=== PATIENT | female | born 2000 | race Caucasian/White ===

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

== ENCOUNTER → 2018-04-03 19:29 | Outpatient (REF) | payer OTHER, SELFPAY ==
[2018-04-03 20:00] LABS: Basophils % 0.2 % (0.1-2.0); Eosinophils # 0.2 K/mm3 (0.0-0.4); Eosinophils % 1.4 % (0.1-12.0); Hemoglobin 13.4 g/dL (12.2-16.2); Lymphocytes # 3.3 K/mm3 (0.7-4.5); Lymphocytes % 30.2 K/mm3 (10-50); Mean Corpuscular HGB Conc 32.6 g/dL (31.8-35.4); Mean Corpuscular Volume 82.7 fl (81-99); Mean Platelet Volume 7.9 fl (7.4-10.4); Monocytes # 0.5 K/mm3 (0.1-1.0); Monocytes % 4.9 % (1.7-9.3); Neutrophils # 6.9 K/mm3 (1.8-7.8); Neutrophils % 63.4 % (37.0-80.0); Platelet Count 481 K/mm3 (142-424); Red Blood Count 4.96 M/mm3 (4.20-5.40); Red Cell Distribution Width 13.5 % (11.5-17.5); White Blood Count 10.8 K/mm3 (4.5-13.0)
[2018-04-03 20:38] LABS: Alanine Aminotransferase 20 U/L (12-78); Albumin Level 3.9 gm/dL (3.4-5.0); Alkaline Phosphatase 147 U/L (46-116); Anion Gap 13.7 mEq/L (5-15); Aspartate Amino Transferase 14 U/L (15-37); Bilirubin,Total 0.3 mg/dL (0.2-1.0); Blood Urea Nitrogen 6 mg/dL (7-18); Calcium 9.1 mg/dL (8.5-10.1); Carbon Dioxide 27 mmol/L (21.0-32.0); Chloride 104 mmol/L (98-107); Chol/HDL Ratio 5.4 (1-3.5); Cholesterol 178 mg/dL (140-200); Creatinine,Serum 0.79 mg/dL (0.55-1.02); Estimated Glomerular Filt Rate 94 ml/min (>60); GFR (African American) 113 ML/MIN (>60); Globulin 3.8 gm/dl (1.3-3.2); Glucose 77 mg/dL (74-106); HDL Cholesterol 33 mg/dL (29-89); LDL Cholesterol 127 mg/dL (0-130); Potassium 3.7 mmoL/L (3.5-5.1); Sodium 141 mmol/L (136-145); Thyroid Stimulating Hormone 2.52 uIU/ml (0.516-4.13); Total Protein,Serum 7.7 gm/dL (6.4-8.2); Triglycerides 89 mg/dL (30-200); VLDL Cholesterol 18 mg/dL (0-40)
== END ==
LOC: LAB 19:29
PROVIDERS: PCP Nurse Practitioner Family; Visit Provider Nurse Practitioner Family
DX: I10 Essential (primary) hypertension (principal)
CPT/HCPCS: 80053; 80061; 82652; 84436; 84443; 85025

== ENCOUNTER → 2018-04-10 07:47 | Outpatient (CLI) | payer OTHER, SELFPAY ==
--- NOTE | 2018-04-10 07:50 | AS_ITS ---
Renal Arterial Duplex IMPRESSIONS 1. The right renal artery appears normal. 2. The left renal artery appears normal. 3. Kidney size is within normal limits. No evidence of renal artery stenosis, bilaterally. Complete renal arterial duplex. Duplex scan and Doppler flow study including spectral analysis, color and cedeño scale imaging. Location: Vascular laboratory. Patient status: Outpatient. Tables: Arterial flow: + +-------+--------+ Location V sys V ed + +-------+--------+ Right renal - proximal 196cm/s 47.8cm/s + +-------+--------+ Right renal - mid 126cm/s 39.1cm/s + +-------+--------+ Right renal - distal 90cm/s 31.3cm/s + +-------+--------+ Left renal - proximal 165cm/s 39.1cm/s + +-------+--------+ Left renal - mid 166cm/s 40.3cm/s + +-------+--------+ Left renal - distal 191cm/s 62.3cm/s + +-------+--------+ Right renal - Origin 201cm/s 59cm/s + +-------+--------+ Left renal - Origin 183cm/s 45cm/s + +-------+--------+ Aorta 172cm/s 34cm/s + +-------+--------+ Artery mapping: + +--------+-------+ + Location Diameter Patency Comment + +--------+-------+ + Abdominal aorta - mid 1.6mm Patent Elevated velocities noted in the aorta, may be attributed to age. + +--------+-------+ + Renal anatomy: + +------+------+ Left Right + +------+------+ Long axis 10.9cm 10.8cm + +------+------+ Short axis 5.1cm 5.7cm + +------+------+ Velocity ratios: + +-----+ V sys + +-----+ Right renal/aortic 1.2 + +-----+ Left renal/aortic 1.1 + +-----+ (Report amended ) Electronically signed by: Alberto Wooten [id number]
== END ==
PROVIDERS: PCP Nurse Practitioner Family; Visit Provider Nurse Practitioner Family
DX: I10 Essential (primary) hypertension (principal)
CPT/HCPCS: 93976

== ENCOUNTER → 2018-04-24 13:20 | Outpatient (CLI) | payer OTHER, SELFPAY | PROVIDERS: PCP Emergency Medicine; Visit Provider Nurse Practitioner Family | DX: R00.2 Palpitations (principal) | CPT/HCPCS: 93225; 93226 ==

== ENCOUNTER → 2018-10-15 07:35 | Outpatient (CLI) | payer OTHER, SELFPAY ==
--- NOTE | 2018-10-15 07:38 | US_ITS ---
US abdomen complete HISTORY: ITS.REASON: mass in mid abdomen that moves ORDERING PHYSICIAN: CLIFF Russell PATIENT AGE: 18 years COMPARISON: None FINDINGS: PANCREAS:Unremarkable. No obvious mass or abnormal fluid collection. No ductal dilatation LIVER:No focal liver lesions demonstrated. Homogeneous echogenicity. No intrahepatic biliary ductal dilatation evident RIGHT KIDNEY:Unremarkable. Normal size and echogenicity. No hydronephrosis LEFT KIDNEY:Unremarkable. No hydronephrosis. Normal size and echogenicity. GALLBLADDER:No gallstones, gallbladder wall thickening, pericholecystic fluid, or biliary dilatation. SPLEEN:Unremarkable. Normal size and echogenicity ASCITES:None demonstrated. Ultrasound performed of the area of question in the mid abdomen where the patient feels a hard knot. No sonographic abnormalities are evident at this region. IMPRESSION: Unremarkable complete abdominal ultrasound. If there is indeed a palpable, then CT or MRI may be of further value.
== END ==
PROVIDERS: PCP Emergency Medicine; Visit Provider Physician Assistant
DX: R19.00 Intra-abdominal and pelvic swelling, mass and lump, unspecified site (principal)
CPT/HCPCS: 76700

== ENCOUNTER 2018-11-08 10:26 | Emergency (ER) | payer OTHER, SELFPAY ==
[2018-11-08 10:32] VITALS: BP 151/95; PULSE 93; RESP 18; TEMP 36.7; O2SAT 96; BMI 42.7
--- NOTE | 2018-11-08 10:38 | CT_ITS ---
CT abdomen pelvis w con CLINICAL INDICATION: Left-sided abdominal pain ITS.REASON: left side pain, onset at 0600 this date ORDERING PHYSICIAN: Michael Kern MD PATIENT AGE: 18 years COMPARISON: 01/17/2017 TECHNIQUE: Axial images obtained with sagittal and coronal reformats. All CT scans at the facility use one or more dose reduction, viz: automated exposure control, ma/kV adjustment per patient size (including targeted exams where dose is matched to indication, i.e. head), or iterative reconstruction technique. PROCEDURE: Oral Contrast: None IV Contrast: 75 mL's Optiray 350. FINDINGS: Lung bases are clear. The liver, gallbladder, spleen, adrenal glands, and pancreas have an unremarkable appearance. There is mild left hydronephrosis and hydroureter secondary to a 4 mm stone at the ureterovesical junction. Unremarkable appendix. No intestinal obstruction or free air. There is mild thickening of the colon which may be due to nondistention. Colitis would be included in the differential diagnosis. Clinical correlation is required. No acute bony findings. IMPRESSION: 4 mm left ureterovesical junction stone with mild obstructive uropathy.
--- NOTE | 2018-11-08 10:42 | XR_ITS ---
XR chest AP HISTORY: Pain with vomiting ITS.REASON: left flank ORDERING PHYSICIAN: Michael Kern MD PATIENT AGE: 18 years COMPARISON: 10/30/1979 FINDINGS: The cardiomediastinal silhouette and pulmonary vascularity are within normal limits. The lungs are clear without infiltrates, suspicious nodules, or pleural effusions. No acute bony abnormalities. IMPRESSION: Negative chest, no acute finding
--- NOTE | 2018-11-08 10:43 | HMH.EDGENADL ---
ED Disposition Clinical Impression: Renal colic on left side Hydronephrosis Qualifiers: Hydronephrosis type: with renal calculous obstruction Qualified Code(s): N13.2 - Hydronephrosis with renal and ureteral calculous obstruction Disposition: Home, Self-Care Condition on Discharge: Good Instructions: Acute Abdominal Pain Prescriptions: Tamsulosin HCl [Flomax 0.4mg capsule] 0.4 mg PO HS #30 cap cephALEXin [Keflex 250mg Cap] 250 mg PO Q6H 6 Days #24 cap Hydrocodone/Acetaminophen [[place] 5-325 Tablet] 1 each PO Q8 4 Days #12 tablet Ondansetron [Zofran 4mg ODT] 4 mg PO BID 4 Days #8 tab.rapdis Referrals: Chris Berg MD [Primary Care Provider] - Harry Kelly MD [Staff Physician] - Time of Disposition: 13:49 - Critical Care Critical Care Time: No Attestation: On 11/08/18, the high probability of a clinically significant, sudden or life threatening deterioration of the following system(s) required my full and direct attention, intervention and personal management. The time I documented below is in addition to time spent performing reported procedures but includes the following listed in this critical care notation. Medical Decision Making - Medical Records Medical records reviewed: Yes: I reviewed the patient's medical records. - Gregory Inquiry Pt receiving controlled substance: No Vital Signs: 11/08/18 10:32 11/08/18 10:57 11/08/18 12:27 Temperature 98.1 F Temperature Source Oral Pulse Rate [Left Brachial] 93 H 53 L 67 Respiratory Rate 18 Blood Pressure [Left Arm] 151/95 H 157/97 H 123/72 Blood Pressure Mean [Left Arm] 113 117 89 Blood Pressure Source [Left Arm] Automatic Cuff Blood Pressure Position [Left Arm] Sitting 02 Sat by Pulse Oximetry 96 100 98 Oxygen Delivery Method Room Air 11/08/18 13:00 Temperature Temperature Source Pulse Rate [Left Brachial] 86 Respiratory Rate Blood Pressure [Left Arm] 137/87 Blood Pressure Mean [Left Arm] 103 Blood Pressure Source [Left Arm] Blood Pressure Position [Left Arm] 02 Sat by Pulse Oximetry 97 Oxygen Delivery Method - Lab Data Lab results reviewed: Yes: I reviewed the patient's lab results. Lab Results 11/08/18 10:45: WBC 11.8, RBC 4.83, Hgb 13.9, Hct 40.2, MCV 83.2, MCH 28.7, MCHC 34.5, RDW 13.2, Plt Count 355, MPV 9.2, Neut % (Auto) 80.6 H, Lymph % (Auto) 14.2, [place] % (Auto) 3.2, Eos % (Auto) 1.8, Baso % (Auto) 0.2, Neut # (Auto) 9.6 H, Lymph # (Auto) 1.7, [place] # (Auto) 0.4, Eos # (Auto) 0.2, Baso # (Auto) 0.0 11/08/18 10:45: Sodium 141, Potassium 3.4 L, Chloride 104, Carbon Dioxide 24, Anion Gap 16.4 H, BUN 6 L, Creatinine 0.87, Estimated Creat Clear 93, Estimated GFR 83, Est GFR ( Amer) 100, Glucose 146 H, Calcium 8.7, Total Bilirubin 0.3, AST 14 L, ALT 18, Alkaline Phosphatase 120 H, Total Protein 7.3, Albumin 3.8, Globulin 3.5 H, Albumin/Globulin Ratio 1.1, Amylase 27, Lipase 100 11/08/18 10:45: D-Dimer < 100 11/08/18 11:00: Urine Color Yellow, Urine Appearance Cloudy, Urine pH 8.0, Ur Specific [place] 1.015, Urine Protein Negative, Urine Glucose (UA) Negative, Urine Ketones Negative, Urine Blood 2+, Urine Nitrate Negative, Urine Bilirubin Negative, Urine Urobilinogen 0.2, Ur Leukocyte Esterase Negative, Urine RBC 5-10, Urine WBC 3-5, Ur Squamous Epith Cells 5-10, Amorphous Sediment 2+, Urine Bacteria 2+ 11/08/18 11:00: Urine HCG, Qual Negative Result diagrams: 11/08/18 10:45 11/08/18 10:45 Orders (Tests/Meds): ED MEDICATIONS Discontinued Medications Generic Name Dose Route Start Last Admin Trade Name Freq PRN Reason Stop Dose Admin Sodium Chloride 1,000 mls @ 999 mls/hr 11/08/18 10:45 11/08/18 10:54 Sod Chlor 0.9% 1000ml Bag IV 11/08/18 11:45 999 mls/hr .Q1H1M DONNIE Administration Ioversol 75 ml 11/08/18 11:40 11/08/18 11:40 Rad-Optiray 350 100ml Vial IV 11/08/18 11:41 75 ml ONCE ONE Administration Protocol Ketorolac Tromethamine 30 mg 11/08/18 10:43 11/08/18 10:5
--- NOTE | 2018-11-08 10:46 | ED_ITS ---
ED Disposition Clinical Impression: Renal colic on left side Hydronephrosis Qualifiers: Hydronephrosis type: with renal calculous obstruction Qualified Code(s): N13.2 - Hydronephrosis with renal and ureteral calculous obstruction Disposition: Home, Self-Care Condition on Discharge: Good Instructions: Acute Abdominal Pain Prescriptions: Tamsulosin HCl [Flomax 0.4mg capsule] 0.4 mg PO HS #30 cap cephALEXin [Keflex 250mg Cap] 250 mg PO Q6H 6 Days #24 cap Hydrocodone/Acetaminophen [[place] 5-325 Tablet] 1 each PO Q8 4 Days #12 tablet Ondansetron [Zofran 4mg ODT] 4 mg PO BID 4 Days #8 tab.rapdis Referrals: Chris Berg MD [Primary Care Provider] - Harry Kelly MD [Staff Physician] - Time of Disposition: 13:49 - Critical Care Critical Care Time: No Attestation: On 11/08/18, the high probability of a clinically significant, sudden or life threatening deterioration of the following system(s) required my full and direct attention, intervention and personal management. The time I documented below is in addition to time spent performing reported procedures but includes the following listed in this critical care notation. Medical Decision Making - Medical Records Medical records reviewed: Yes: I reviewed the patient's medical records. - Gregory Inquiry Pt receiving controlled substance: No Vital Signs: 11/08/18 10:32 11/08/18 10:57 11/08/18 12:27 Temperature 98.1 F Temperature Source Oral Pulse Rate [Left Brachial] 93 H 53 L 67 Respiratory Rate 18 Blood Pressure [Left Arm] 151/95 H 157/97 H 123/72 Blood Pressure Mean [Left Arm] 113 117 89 Blood Pressure Source [Left Arm] Automatic Cuff Blood Pressure Position [Left Arm] Sitting 02 Sat by Pulse Oximetry 96 100 98 Oxygen Delivery Method Room Air 11/08/18 13:00 Temperature Temperature Source Pulse Rate [Left Brachial] 86 Respiratory Rate Blood Pressure [Left Arm] 137/87 Blood Pressure Mean [Left Arm] 103 Blood Pressure Source [Left Arm] Blood Pressure Position [Left Arm] 02 Sat by Pulse Oximetry 97 Oxygen Delivery Method - Lab Data Lab results reviewed: Yes: I reviewed the patient's lab results. Lab Results 11/08/18 10:45: WBC 11.8, RBC 4.83, Hgb 13.9, Hct 40.2, MCV 83.2, MCH 28.7, MCHC 34.5, RDW 13.2, Plt Count 355, MPV 9.2, Neut % (Auto) 80.6 H, Lymph % (Auto) 14.2, [place] % (Auto) 3.2, Eos % (Auto) 1.8, Baso % (Auto) 0.2, Neut # (Auto) 9.6 H, Lymph # (Auto) 1.7, [place] # (Auto) 0.4, Eos # (Auto) 0.2, Baso # (Auto) 0.0 11/08/18 10:45: Sodium 141, Potassium 3.4 L, Chloride 104, Carbon Dioxide 24, Anion Gap 16.4 H, BUN 6 L, Creatinine 0.87, Estimated Creat Clear 93, Estimated GFR 83, Est GFR ( Amer) 100, Glucose 146 H, Calcium 8.7, Total Bilirubin 0.3, AST 14 L, ALT 18, Alkaline Phosphatase 120 H, Total Protein 7.3, Albumin 3.8, Globulin 3.5 H, Albumin/Globulin Ratio 1.1, Amylase 27, Lipase 100 11/08/18 10:45: D-Dimer < 100 11/08/18 11:00: Urine Color Yellow, Urine Appearance Cloudy, Urine pH 8.0, Ur Specific [place] 1.015, Urine Protein Negative, Urine Glucose (UA) Negative, Urine Ketones Negative, Urine Blood 2+, Urine Nitrate Negative, Urine Bilirubin Negative, Urine Urobilinogen 0.2, Ur Leukocyte Esterase Negative, Urine RBC 5- 10, Urine WBC 3-5, Ur Squamous Epith Cells 5-10, Amorphous Sediment 2+, Urine Bacteria 2+ 11/08/18
[2018-11-08 10:54] LABS: Basophils % 0.2 % (0.1-2.0); Eosinophils # 0.2 K/mm3 (0.0-0.4); Eosinophils % 1.8 % (0.1-12.0); Hematocrit 40.2 % (37.0-47.0); Hemoglobin 13.9 g/dL (12.2-16.2); Lymphocytes # 1.7 K/mm3 (0.7-4.5); Lymphocytes % 14.2 % (10-50); Mean Corpuscular HGB Conc 34.5 g/dL (31.8-35.4); Mean Corpuscular Hemoglobin 28.7 pg (27.0-31.2); Mean Corpuscular Volume 83.2 fl (81-99); Mean Platelet Volume 9.2 fl (7.4-10.4); Monocytes # 0.4 K/mm3 (0.1-1.0); Monocytes % 3.2 % (1.7-9.3); Neutrophils # 9.6 K/mm3 (1.8-7.8); Neutrophils % 80.6 % (37.0-80.0); Platelet Count 355 K/mm3 (142-424); Red Blood Count 4.83 M/mm3 (4.20-5.40); Red Cell Distribution Width 13.2 % (11.5-17.5); White Blood Count 11.8 K/mm3 (4.5-13.0)
[2018-11-08 10:57] VITALS: BP 157/97; PULSE 53; O2SAT 100
[2018-11-08 11:07] LABS: Microscopic, Urine URINE MICROSCOPIC (MICROSCOPIC)
[2018-11-08 11:10] LABS: Appearance,Urine CLOUDY (Clear); Bilirubin,Urine Negative (Negative); Blood, Urine 2+ (Negative); Color,Urine YELLOW (Yellow); Glucose,Urine (UA) Negative (Negative); Ketones,Urine Negative (Negative); Leukocyte Esterase,Urine Negative (Negative); Nitrate,Urine Negative (Negative); Protein,Urine Negative (Negative); Specific Gravity, Urine 1.015 (1.005-1.030); Urobilinogen,Urine 0.2 EU/dl (0.2)
[2018-11-08 11:12] LABS: D-Dimer < 100 ng/mL (0-400)
[2018-11-08 11:17] LABS: Amorphous Sediment,Urine 2+ /lpf; Bacteria,Urine 2+ /lpf; Urine Pregnancy, HCG Qual. Negative (Negative)
[2018-11-08 11:19] LABS: Alanine Aminotransferase 18 U/L (12-78); Albumin Level 3.8 gm/dL (3.4-5.0); Albumin/Globulin Ratio 1.1 (1.1-1.8); Alkaline Phosphatase 120 U/L (46-116); Amylase 27 U/L (25-115); Anion Gap 16.4 mEq/L (5-15); Aspartate Amino Transferase 14 U/L (15-37); Bilirubin,Total 0.3 mg/dL (0.2-1.0); Blood Urea Nitrogen 6 mg/dL (7-18); Calcium 8.7 mg/dL (8.5-10.1); Carbon Dioxide 24 mmol/L (21.0-32.0); Chloride 104 mmol/L (98-107); Creatinine Clearance Estimated 93 mL/min (50-200); Creatinine,Serum 0.87 mg/dL (0.55-1.02); Estimated Glomerular Filt Rate 83 ml/min (>60); GFR (African American) 100 ML/MIN (>60); Globulin 3.5 gm/dl (1.3-3.2); Glucose 146 mg/dL (74-106); Lipase 100 u/L (73-393); Potassium 3.4 mmoL/L (3.5-5.1); Sodium 141 mmol/L (136-145); Total Protein,Serum 7.3 gm/dL (6.4-8.2)
--- NOTE | 2018-11-08 11:25 | PC.NURSE ---
gone to ct
[2018-11-08 12:27] VITALS: BP 123/72; PULSE 67; O2SAT 98
[2018-11-08 13:00] VITALS: BP 137/87; PULSE 86; O2SAT 97
[2018-11-08 14:52] VITALS: BP 123/74; PULSE 87; RESP 18; TEMP 36.7
== END 2018-11-08 14:52 | disposition home or self-care (01) ==
PROVIDERS: Emergency Provider Emergency Medicine Emergency Medical Services; PCP Emergency Medicine
DX: N13.2 Hydronephrosis with renal and ureteral calculous obstruction (principal); I10 Essential (primary) hypertension; J45.909 Unspecified asthma, uncomplicated
CPT/HCPCS: 71045; 74177; 80053; 81001; 81025; 82150; 83690; 85025; 85378; 87086; 96365; 96375; 99284; J2405; Q9967

== ENCOUNTER 2018-11-13 16:46 | Emergency (ER) | payer OTHER, SELFPAY ==
[2018-11-13 16:47] VITALS: BP 145/105; PULSE 89; RESP 16; TEMP 36.6; O2SAT 98; BMI 43.4
[2018-11-13 17:04] VITALS: BMI 43.4
--- NOTE | 2018-11-13 17:06 | HMH.EDGENADL ---
ED Disposition Clinical Impression: Left ureteral calculus, Renal colic on left side Disposition: Home, Self-Care Condition on Discharge: Good Instructions: Kidney Stones -- Adult Prescriptions: Hydrocodone/Acetaminophen [[place] 7.5-325 Tablet] 1 tab PO Q4H PRN 3 Days #14 tab PRN Reason: Moderate To Severe Pain Ketorolac Tromethamine [Toradol 10mg tablet] 10 mg PO Q6H 5 Days #20 tab Ondansetron HCl [Zofran 4mg Tab] 4 mg PO TID 3 Days #8 tab Referrals: Chris Berg MD [Primary Care Provider] - Time of Disposition: 18:25 - Critical Care Critical Care Time: No Attestation: On 11/13/18, the high probability of a clinically significant, sudden or life threatening deterioration of the following system(s) required my full and direct attention, intervention and personal management. The time I documented below is in addition to time spent performing reported procedures but includes the following listed in this critical care notation. Medical Decision Making - Medical Records Medical records reviewed: Yes: I reviewed the patient's medical records. - Gregory Inquiry Pt receiving controlled substance: Yes Gregory was queried for this patient: Yes Reference #:: [id number] Risks and benefits of using a controlled substance: were discussed with pt by me Vital Signs: 11/13/18 16:47 Temperature 98 F Temperature Source Oral Pulse Rate [Left Radial] 89 Respiratory Rate 16 Blood Pressure [Right Arm] 145/105 H Blood Pressure Mean [Right Arm] 118 Blood Pressure Source [Right Arm] Automatic Cuff Blood Pressure Position [Right Arm] Sitting 02 Sat by Pulse Oximetry 98 Oxygen Delivery Method Room Air - Lab Data Lab results reviewed: Yes: I reviewed the patient's lab results. Lab Results 11/13/18 17:00: Urine Color Yellow, Urine Appearance Clear, Urine pH 7.5, Ur Specific [place] 1.020, Urine Protein Negative, Urine Glucose (UA) Negative, Urine Ketones Negative, Urine Blood Negative, Urine Nitrate Negative, Urine Bilirubin 3+ A, Urine Urobilinogen 0.2, Ur Leukocyte Esterase Negative, Urine RBC Occasional, Urine WBC 5-10, Ur Squamous Epith Cells 5-10, Urine Bacteria Trace 11/13/18 17:00: Urine HCG, Qual Negative 11/13/18 17:00: WBC 14.5 H, RBC 5.23, Hgb 13.9, Hct 43.8, MCV 83.8, MCH 26.6 L, MCHC 31.7 L, RDW 13.1, Plt Count 379, MPV 7.5, Neut % (Auto) 76.5, Lymph % (Auto) 14.8, [place] % (Auto) 7.3, Eos % (Auto) 1.3, Baso % (Auto) 0.1, Neut # (Auto) 11.1 H, Lymph # (Auto) 2.1, [place] # (Auto) 1.1 H, Eos # (Auto) 0.2, Baso # (Auto) 0.0 11/13/18 17:00: Sodium 141, Potassium 3.9, Chloride 105, Carbon Dioxide 24, Anion Gap 15.9 H, BUN 9, Creatinine 1.30 H, Estimated Creat Clear 62, Estimated GFR 52 L, Est GFR ( Amer) 63, Glucose 94, Calcium 8.9, Total Bilirubin 0.6, AST 12 L, ALT 19, Alkaline Phosphatase 132 H, Total Protein 7.7, Albumin 4.0, Globulin 3.7 H, Albumin/Globulin Ratio 1.1 Result diagrams: 11/13/18 17:00 11/13/18 17:00 Orders (Tests/Meds): ED MEDICATIONS Generic Name Dose Route Start Last Admin Trade Name Freq PRN Reason Stop Dose Admin Sodium Chloride 1,000 mls @ 999 mls/hr 11/13/18 17:15 11/13/18 17:13 Sod Chlor 0.9% 1000ml Bag IV 11/13/18 18:15 999 mls/hr .Q1H1M DONNIE Administration Discontinued Medications Generic Name Dose Route Start Last Admin Trade Name Freq PRN Reason Stop Dose Admin Hydromorphone HCl 1 mg 11/13/18 17:15 11/13/18 17:14 Dilaudid 2mg/Ml Syringe IV 11/13/18 17:16 1 mg ONCE ONE Administration Ketorolac Tromethamine 30 mg 11/13/18 17:12 11/13/18 17:13 Toradol 30mg/Ml Vial IV 11/13/18 17:13 30 mg ONCE ONE Administration Ondansetron HCl 4 mg 11/13/18 17:12 11/13/18 17:13 Zofran 4mg/2ml Vial IV 11/13/18 17:13 4 mg ONCE ONE Administration General Adult HPI - General Stated complaint: Possible kidney stones Time Seen by Provider: 11/13/18 17:06 Mode of Arrival: Ambulatory Source of Information: Patient Limitations: No Limitati
[2018-11-13 17:07] LABS: Microscopic, Urine URINE MICROSCOPIC (MICROSCOPIC)
--- NOTE | 2018-11-13 17:09 | ED_ITS ---
ED Disposition Clinical Impression: Left ureteral calculus, Renal colic on left side Disposition: Home, Self-Care Condition on Discharge: Good Instructions: Kidney Stones -- Adult Prescriptions: Hydrocodone/Acetaminophen [[place] 7.5-325 Tablet] 1 tab PO Q4H PRN 3 Days #14 tab PRN Reason: Moderate To Severe Pain Ketorolac Tromethamine [Toradol 10mg tablet] 10 mg PO Q6H 5 Days #20 tab Ondansetron HCl [Zofran 4mg Tab] 4 mg PO TID 3 Days #8 tab Referrals: Chris Berg MD [Primary Care Provider] - Time of Disposition: 18:25 - Critical Care Critical Care Time: No Attestation: On 11/13/18, the high probability of a clinically significant, sudden or life threatening deterioration of the following system(s) required my full and direct attention, intervention and personal management. The time I documented below is in addition to time spent performing reported procedures but includes the following listed in this critical care notation. Medical Decision Making - Medical Records Medical records reviewed: Yes: I reviewed the patient's medical records. - Gregory Inquiry Pt receiving controlled substance: Yes Gregory was queried for this patient: Yes Reference #:: [id number] Risks and benefits of using a controlled substance: were discussed with pt by me Vital Signs: 11/13/18 16:47 Temperature 98 F Temperature Source Oral Pulse Rate [Left Radial] 89 Respiratory Rate 16 Blood Pressure [Right Arm] 145/105 H Blood Pressure Mean [Right Arm] 118 Blood Pressure Source [Right Arm] Automatic Cuff Blood Pressure Position [Right Arm] Sitting 02 Sat by Pulse Oximetry 98 Oxygen Delivery Method Room Air - Lab Data Lab results reviewed: Yes: I reviewed the patient's lab results. Lab Results 11/13/18 17:00: Urine Color Yellow, Urine Appearance Clear, Urine pH 7.5, Ur Specific [place] 1.020, Urine Protein Negative, Urine Glucose (UA) Negative, Urine Ketones Negative, Urine Blood Negative, Urine Nitrate Negative, Urine Bilirubin 3+ A, Urine Urobilinogen 0.2, Ur Leukocyte Esterase Negative, Urine RBC Occasional, Urine WBC 5-10, Ur Squamous Epith Cells 5-10, Urine Bacteria Trace 11/13/18 17:00: Urine HCG, Qual Negative 11/13/18 17:00: WBC 14.5 H, RBC 5.23, Hgb 13.9, Hct 43.8, MCV 83.8, MCH 26.6 L, MCHC 31.7 L, RDW 13.1, Plt Count 379, MPV 7.5, Neut % (Auto) 76.5, Lymph % (Auto) 14.8, [place] % (Auto) 7.3, Eos % (Auto) 1.3, Baso % (Auto) 0.1, Neut # (Auto) 11.1 H, Lymph # (Auto) 2.1, [place] # (Auto) 1.1 H, Eos # (Auto) 0.2, Baso # (Auto) 0.0 11/13/18 17:00: Sodium 141, Potassium 3.9, Chloride 105, Carbon Dioxide 24, Anion Gap 15.9 H, BUN 9, Creatinine 1.30 H, Estimated Creat Clear 62, Estimated GFR 52 L, Est GFR ( Amer) 63, Glucose 94, Calcium 8.9, Total Bilirubin 0.6, AST 12 L, ALT 19, Alkaline Phosphatase 132 H, Total Protein 7.7, Albumin 4.0, Globulin 3.7 H, Albumin/Globulin Ratio 1.1 Result diagrams: 11/13/18 17:00 11/13/18 17:00 Orders (Tests/Meds): ED MEDICATIONS Generic Name Dose Route Start Last Admin Trade Name Freq PRN Reason Stop Dose Admin Sodium Chloride 1,000 mls @ 999 mls/hr 11/13/18 17:15 11/13/18 17:13 Sod Chlor 0.9% 1000ml Bag IV 11/13/18 18:15 999 mls/hr .Q1H1M DONNIE Administration Discontinued Medications
--- NOTE | 2018-11-13 17:11 | CT_ITS ---
CT abdomen pelvis wo con CLINICAL INDICATION: Left flank pain ITS.REASON: kidney stone ORDERING PHYSICIAN: Chris Schilling MD PATIENT AGE: 18 years COMPARISON: 11/08/2018 TECHNIQUE: Axial images obtained with sagittal and coronal reformats. All CT scans at the facility use one or more dose reduction, viz: automated exposure control, ma/kV adjustment per patient size (including targeted exams where dose is matched to indication, i.e. head), or iterative reconstruction technique. PROCEDURE: Oral Contrast: None IV Contrast: None . FINDINGS: Lung bases are clear. The liver, gallbladder, spleen, adrenal glands, pancreas, right kidney, and appendix have an unremarkable appearance. There is mild left hydronephrosis and hydroureter secondary to a 4 mm stone at the left ureterovesical junction with mild obstructive uropathy not significantly changed. The stone has slightly moved distally and is at the ureterovesical junction No pelvic mass abnormal fluid collection or focal inflammatory changes pelvis. There is a small amount fluid in the cul-de-sac. No acute bony findings. IMPRESSION: 4 mm left ureterovesical junction stone with mild left obstructive uropathy. The stone has slightly moved distally compared to the previous exam.
[2018-11-13 17:13] LABS: Appearance,Urine CLEAR (Clear); Blood, Urine Negative (Negative); Color,Urine YELLOW (Yellow); Glucose,Urine (UA) Negative (Negative); Ketones,Urine Negative (Negative); Leukocyte Esterase,Urine Negative (Negative); Nitrate,Urine Negative (Negative); PH,Urine 7.5 (5.0-8.5); Protein,Urine Negative (Negative); Urobilinogen,Urine 0.2 EU/dl (0.2)
[2018-11-13 17:14] LABS: Basophils % 0.1 % (0.1-2.0); Eosinophils # 0.2 K/mm3 (0.0-0.4); Eosinophils % 1.3 % (0.1-12.0); Hematocrit 43.8 % (37.0-47.0); Hemoglobin 13.9 g/dL (12.2-16.2); Lymphocytes # 2.1 K/mm3 (0.7-4.5); Lymphocytes % 14.8 % (10-50); Mean Corpuscular HGB Conc 31.7 g/dL (31.8-35.4); Mean Corpuscular Hemoglobin 26.6 pg (27.0-31.2); Mean Corpuscular Volume 83.8 fl (81-99); Mean Platelet Volume 7.5 fl (7.4-10.4); Monocytes # 1.1 K/mm3 (0.1-1.0); Monocytes % 7.3 % (1.7-9.3); Neutrophils # 11.1 K/mm3 (1.8-7.8); Neutrophils % 76.5 % (37.0-80.0); Platelet Count 379 K/mm3 (142-424); Red Blood Count 5.23 M/mm3 (4.20-5.40); Red Cell Distribution Width 13.1 % (11.5-17.5); White Blood Count 14.5 K/mm3 (4.5-13.0)
[2018-11-13 17:17] LABS: Urine Pregnancy, HCG Qual. Negative (Negative)
[2018-11-13 17:24] LABS: Alanine Aminotransferase 19 U/L (12-78); Albumin/Globulin Ratio 1.1 (1.1-1.8); Alkaline Phosphatase 132 U/L (46-116); Anion Gap 15.9 mEq/L (5-15); Aspartate Amino Transferase 12 U/L (15-37); Bilirubin,Total 0.6 mg/dL (0.2-1.0); Blood Urea Nitrogen 9 mg/dL (7-18); Calcium 8.9 mg/dL (8.5-10.1); Carbon Dioxide 24 mmol/L (21.0-32.0); Chloride 105 mmol/L (98-107); Creatinine Clearance Estimated 62 mL/min (50-200); Estimated Glomerular Filt Rate 52 ml/min (>60); GFR (African American) 63 ML/MIN (>60); Globulin 3.7 gm/dl (1.3-3.2); Glucose 94 mg/dL (74-106); Potassium 3.9 mmoL/L (3.5-5.1); Sodium 141 mmol/L (136-145); Total Protein,Serum 7.7 gm/dL (6.4-8.2)
[2018-11-13 17:29] LABS: Bilirubin,Urine 3+ (Negative)
[2018-11-13 17:30] LABS: RBC,Urine Occasional #/hpf (0-3)
[2018-11-13 17:31] LABS: Bacteria,Urine Trace /lpf
[2018-11-13 18:49] VITALS: BP 115/74; PULSE 78; RESP 16; TEMP 36.6; O2SAT 98
== END 2018-11-13 18:50 | disposition home or self-care (01) ==
PROVIDERS: Emergency Provider Emergency Medicine; PCP Emergency Medicine
DX: N20.1 Calculus of ureter (principal); I10 Essential (primary) hypertension; J45.909 Unspecified asthma, uncomplicated
CPT/HCPCS: 74176; 80053; 81001; 81025; 85025; 96365; 96375; 96376; 99283; J2405

== ENCOUNTER 2018-11-20 23:13 | Emergency (ER) | payer OTHER, SELFPAY ==
[2018-11-20 23:25] VITALS: BP 149/87; PULSE 99; RESP 15; TEMP 36.7; O2SAT 96; BMI 43.4
[2018-11-20 23:49] LABS: Microscopic, Urine URINE MICROSCOPIC (MICROSCOPIC)
[2018-11-20 23:51] LABS: Appearance,Urine CLEAR (Clear); Bilirubin,Urine Negative (Negative); Blood, Urine Negative (Negative); Color,Urine YELLOW (Yellow); Glucose,Urine (UA) Negative (Negative); Ketones,Urine Negative (Negative); Leukocyte Esterase,Urine Negative (Negative); Nitrate,Urine Negative (Negative); PH,Urine 6.5 (5.0-8.5); Protein,Urine Negative (Negative)
[2018-11-20 23:52] LABS: Urine Pregnancy, HCG Qual. Negative (Negative)
[2018-11-21] LABS: Bacteria,Urine Trace /lpf; WBC,Urine Occasional #/hpf (0-3)
--- NOTE | 2018-11-21 00:01 | CT_ITS ---
CT abdomen pelvis wo con CLINICAL INDICATION: Left flank pain ITS.REASON: KIDNEY STONE ORDERING PHYSICIAN: Chris Berg MD PATIENT AGE: 18 years COMPARISON: None TECHNIQUE: Axial images obtained with sagittal and coronal reformats. All CT scans at the facility use one or more dose reduction, viz: automated exposure control, ma/kV adjustment per patient size (including targeted exams where dose is matched to indication, i.e. head), or iterative reconstruction technique. PROCEDURE: Oral Contrast: None IV Contrast: None . FINDINGS: Lower thorax: No acute finding Lung bases are clear. The liver, gallbladder, spleen, adrenal glands, and pancreas are unremarkable. No renal or ureteral calculi. There is a mild amount of retained colonic feces. No intestinal obstruction or free air. No evidence of appendicitis or diverticulitis. No pelvic mass abnormal fluid collection or focal inflammatory change. No acute bony findings. IMPRESSION: 1. No acute abdominal or pelvic findings. 2. Mild amount of retained colonic feces
[2018-11-21 00:11] LABS: Basophils % 0.3 % (0.1-2.0); Eosinophils # 0.2 K/mm3 (0.0-0.4); Eosinophils % 1.8 % (0.1-12.0); Hematocrit 40.8 % (37.0-47.0); Hemoglobin 13.1 g/dL (12.2-16.2); Lymphocytes # 3.8 K/mm3 (0.7-4.5); Lymphocytes % 30.9 % (10-50); Mean Corpuscular HGB Conc 32.1 g/dL (31.8-35.4); Mean Corpuscular Volume 84.1 fl (81-99); Mean Platelet Volume 7.7 fl (7.4-10.4); Monocytes # 0.6 K/mm3 (0.1-1.0); Monocytes % 4.9 % (1.7-9.3); Neutrophils # 7.7 K/mm3 (1.8-7.8); Platelet Count 418 K/mm3 (142-424); Red Blood Count 4.85 M/mm3 (4.20-5.40); White Blood Count 12.4 K/mm3 (4.5-13.0)
[2018-11-21 00:23] LABS: Lipase 175 u/L (73-393)
[2018-11-21 00:24] LABS: Alanine Aminotransferase 22 U/L (12-78); Albumin Level 3.9 gm/dL (3.4-5.0); Alkaline Phosphatase 114 U/L (46-116); Amylase 46 U/L (25-115); Aspartate Amino Transferase 15 U/L (15-37); Bilirubin,Total 0.2 mg/dL (0.2-1.0); Blood Urea Nitrogen 10 mg/dL (7-18); C-Reactive Protein 1.9 mg/L (0.0-0.9); Carbon Dioxide 24 mmol/L (21.0-32.0); Chloride 104 mmol/L (98-107); Creatinine Clearance Estimated 98 mL/min (50-200); Creatinine,Serum 0.82 mg/dL (0.55-1.02); Estimated Glomerular Filt Rate 89 ml/min (>60); GFR (African American) 108 ML/MIN (>60); Globulin 3.8 gm/dl (1.3-3.2); Glucose 85 mg/dL (74-106); Sodium 138 mmol/L (136-145); Total Protein,Serum 7.7 gm/dL (6.4-8.2)
--- NOTE | 2018-11-21 00:40 | HMH.EDGENADL ---
ED Disposition Clinical Impression: Flank pain Disposition: Home, Self-Care Condition on Discharge: Good Instructions: DI for Flank Pain Additional Instructions: see pcp for follow up Referrals: Chris Berg MD [Primary Care Provider] - - Critical Care Critical Care Time: No Attestation: On 11/20/18, the high probability of a clinically significant, sudden or life threatening deterioration of the following system(s) required my full and direct attention, intervention and personal management. The time I documented below is in addition to time spent performing reported procedures but includes the following listed in this critical care notation. Medical Decision Making - Medical Records Medical records reviewed: Yes: I reviewed the patient's medical records. - Gregory Inquiry Pt receiving controlled substance: No Vital Signs: 11/20/18 23:25 Temperature 98.0 F Temperature Source Oral Pulse Rate [Right Brachial] 99 H Respiratory Rate 15 Blood Pressure [Right Arm] 149/87 H Blood Pressure Mean [Right Arm] 107 02 Sat by Pulse Oximetry 96 - Lab Data Lab results reviewed: Yes: I reviewed the patient's lab results. Lab Results 11/20/18 23:35: WBC 12.4, RBC 4.85, Hgb 13.1, Hct 40.8, MCV 84.1, MCH 27.0, MCHC 32.1, RDW 13.0, Plt Count 418, MPV 7.7, Neut % (Auto) 62.0, Lymph % (Auto) 30.9, [place] % (Auto) 4.9, Eos % (Auto) 1.8, Baso % (Auto) 0.3, Neut # (Auto) 7.7, Lymph # (Auto) 3.8, [place] # (Auto) 0.6, Eos # (Auto) 0.2, Baso # (Auto) 0.0 11/20/18 23:35: Sodium 138, Potassium 4.0, Chloride 104, Carbon Dioxide 24, Anion Gap 14.0, BUN 10, Creatinine 0.82, Estimated Creat Clear 98, Estimated GFR 89, Est GFR ( Amer) 108, Glucose 85, Calcium 9.0, Total Bilirubin 0.2, AST 15, ALT 22, Alkaline Phosphatase 114, C-Reactive Protein 1.9 H, Total Protein 7.7, Albumin 3.9, Globulin 3.8 H, Albumin/Globulin Ratio 1.0 L, Amylase 46 11/20/18 23:35: Urine Color Yellow, Urine Appearance Clear, Urine pH 6.5, Ur Specific [place] 1.020, Urine Protein Negative, Urine Glucose (UA) Negative, Urine Ketones Negative, Urine Blood Negative, Urine Nitrate Negative, Urine Bilirubin Negative, Urine Urobilinogen 1.0, Ur Leukocyte Esterase Negative, Urine WBC Occasional, Ur Squamous Epith Cells 3-5, Urine Bacteria Trace 11/20/18 23:35: Urine HCG, Qual Negative 11/20/18 23:35: Lipase 175 Result diagrams: 11/20/18 23:35 11/20/18 23:35 Orders (Tests/Meds): ED MEDICATIONS Generic Name Dose Route Start Last Admin Trade Name Freq PRN Reason Stop Dose Admin Sodium Chloride 1,000 mls @ 999 mls/hr 11/20/18 23:45 11/21/18 00:26 Sod Chlor 0.9% 1000ml Bag IV 11/21/18 00:45 999 mls/hr .Q1H1M DONNIE Administration Discontinued Medications Generic Name Dose Route Start Last Admin Trade Name Freq PRN Reason Stop Dose Admin Ketorolac Tromethamine 30 mg 11/20/18 23:32 11/21/18 00:26 Toradol 30mg/Ml Vial IV 11/20/18 23:33 30 mg ONCE ONE Administration Ondansetron HCl 4 mg 11/20/18 23:32 11/21/18 00:26 Zofran 4mg/2ml Vial IV 11/20/18 23:33 4 mg ONCE ONE Administration ORDERS Category Date Time Status CT abdomen pelvis wo con Stat Cat Scan 11/21/18 00:01 Ordered Complete Blood Count Auto Diff Stat Lab 11/20/18 23:35 Results Erythrocyte Sedimentation Rate Stat Lab 11/20/18 23:35 Results - CT Data CT Scan: Abdomen, Pelvis Time Received: 00:[address] Reviewed: Yes: I have viewed the radiologist's interpretation Preliminary Findings: Normal/NAD General Adult HPI - General Chief complaint: PAIN Stated complaint: Pain medicine for kidney stone not working Time Seen by Provider: 11/21/18 00:00 Mode of Arrival: Ambulatory Source of Information: Patient, Relative, Medical Record Limitations: No Limitations Description of Symptoms (Recalled from ER Triage Doc. by RN): Pt reports she was diagnosed two weeks ago with a kidney stone, and reports she cannot pass the stone, and the pain is unbearable.
[2018-11-21 00:41] LABS: Erythrocyte Sedimentation Rate 9 mm/hr (0-20)
--- NOTE | 2018-11-21 00:45 | ED_ITS ---
ED Disposition Clinical Impression: Flank pain Disposition: Home, Self-Care Condition on Discharge: Good Instructions: DI for Flank Pain Additional Instructions: see pcp for follow up Referrals: Chris Berg MD [Primary Care Provider] - - Critical Care Critical Care Time: No Attestation: On 11/20/18, the high probability of a clinically significant, sudden or life threatening deterioration of the following system(s) required my full and direct attention, intervention and personal management. The time I documented below is in addition to time spent performing reported procedures but includes the following listed in this critical care notation. Medical Decision Making - Medical Records Medical records reviewed: Yes: I reviewed the patient's medical records. - Gregory Inquiry Pt receiving controlled substance: No Vital Signs: 11/20/18 23:25 Temperature 98.0 F Temperature Source Oral Pulse Rate [Right Brachial] 99 H Respiratory Rate 15 Blood Pressure [Right Arm] 149/87 H Blood Pressure Mean [Right Arm] 107 02 Sat by Pulse Oximetry 96 - Lab Data Lab results reviewed: Yes: I reviewed the patient's lab results. Lab Results 11/20/18 23:35: WBC 12.4, RBC 4.85, Hgb 13.1, Hct 40.8, MCV 84.1, MCH 27.0, MCHC 32.1, RDW 13.0, Plt Count 418, MPV 7.7, Neut % (Auto) 62.0, Lymph % (Auto) 30.9, [place] % (Auto) 4.9, Eos % (Auto) 1.8, Baso % (Auto) 0.3, Neut # (Auto) 7.7, Lymph # (Auto) 3.8, [place] # (Auto) 0.6, Eos # (Auto) 0.2, Baso # (Auto) 0.0 11/20/18 23:35: Sodium 138, Potassium 4.0, Chloride 104, Carbon Dioxide 24, Anion Gap 14.0, BUN 10, Creatinine 0.82, Estimated Creat Clear 98, Estimated GFR 89, Est GFR ( Amer) 108, Glucose 85, Calcium 9.0, Total Bilirubin 0.2, AST 15, ALT 22, Alkaline Phosphatase 114, C-Reactive Protein 1.9 H, Total Protein 7.7, Albumin 3.9, Globulin 3.8 H, Albumin/Globulin Ratio 1.0 L, Amylase 46 11/20/18 23:35: Urine Color Yellow, Urine Appearance Clear, Urine pH 6.5, Ur Specific [place] 1.020, Urine Protein Negative, Urine Glucose (UA) Negative, Uri ne Ketones Negative, Urine Blood Negative, Urine Nitrate Negative, Urine Bilirubin Negative, Urine Urobilinogen 1.0, Ur Leukocyte Esterase Negative, Urine WBC Occasional, Ur Squamous Epith Cells 3-5, Urine Bacteria Trace 11/20/18 23:35: Urine HCG, Qual Negative 11/20/18 23:35: Lipase 175 Result diagrams: 11/20/18 23:35 11/20/18 23:35 Orders (Tests/Meds): ED MEDICATIONS Generic Name Dose Route Start Last Admin Trade Name Freq PRN Reason Stop Dose Admin Sodium Chloride 1,000 mls @ 999 mls/hr 11/20/18 23:45 11/21/18 00:26 Sod Chlor 0.9% 1000ml Bag IV 11/21/18 00:45 999 mls/hr .Q1H1M DONNIE Administration Discontinued Medications Generic Name Dose Route Start Last Admin Trade Name Freq PRN Reason Stop Dose Admin Ketorolac Tromethamine 30 mg 11/20/18 23:32 11/21/18 00:26 Toradol 30mg/Ml Vial IV 11/20/18 23:33 30 mg ONCE ONE Administration Ondansetron HCl 4 mg 11/20/18 23:32 11/21/18 00:26 Zofran 4mg/2ml Vial IV 11/20/18 23:33 4 mg ONCE ONE Administration ORDERS Category Date Time Status CT abdomen pelvis w
[2018-11-21 01:10] VITALS: BP 128/79; PULSE 84; RESP 15; TEMP 36.9; O2SAT 96
== END 2018-11-21 01:11 | disposition home or self-care (01) ==
PROVIDERS: Emergency Provider Emergency Medicine; PCP Emergency Medicine
DX: N20.1 Calculus of ureter (principal); J45.909 Unspecified asthma, uncomplicated; I10 Essential (primary) hypertension
CPT/HCPCS: 74176; 80053; 81001; 81025; 82150; 83690; 85025; 85651; 86140; 96365; 96375; 99283; J2405

== ENCOUNTER → 2019-10-30 14:32 | Outpatient (CLI) | payer OTHER, SELFPAY ==
[2019-10-30 16:14] LABS: HCG,Quantitative < 2 mIU/ml (0-5.42)
== END ==
PROVIDERS: Visit Provider Nurse Practitioner Obstetrics & Gynecology
DX: N92.6 Irregular menstruation, unspecified (principal)
CPT/HCPCS: 36415; 84702

== ENCOUNTER → 2020-04-13 14:01 | Outpatient (CLI) | payer OTHER, SELFPAY ==
--- NOTE | 2020-04-13 14:01 | US_ITS ---
PROCEDURE: US TRANSVAGINAL CLINICAL INDICATION: Left lower abdominal pain A my name is Dr. Darden radiologist and sent the hoping that this is Dr. Zaidi ends phone been Argenis gave me your name and number looking for radiologist here in [place] and he said by might try your might try a the the at the a but if you are interested are no evident by that might be a disc give me a call at the [phone] thank you COMPARISON: No exams were available for comparison FINDINGS: UTERUS: 7cm x 4cmx 2cm with a combined endometrial thickness of 8.1mm LEFT OVARY: [id number] with a volume of 13.2ml. RIGHT OVARY: [id number] with a volume of 4.3ml. The uterus is retroverted. There are nabothian cysts present. There are small bilateral ovarian follicles. There is a small amount of cul-de-sac fluid noted. IMPRESSION: Retroverted uterus. Nonspecific small amount of fluid in the cul-de-sac Dictated by: Alberto Wooten MD 04/13/2020 15:40 Alberto Wooten MD in [place] 04/13/2020 15:40
== END ==
PROVIDERS: PCP Emergency Medicine; Visit Provider Nurse Practitioner Obstetrics & Gynecology
DX: R10.32 Left lower quadrant pain (principal)
CPT/HCPCS: 76830

== ENCOUNTER 2020-04-29 14:28 | Emergency (ER) | payer OTHER, SELFPAY ==
[2020-04-29 15:30] VITALS: BP 149/95; PULSE 95; RESP 20; TEMP 36.8; O2SAT 100; BMI 51.6
--- NOTE | 2020-04-29 15:38 | XR_ITS ---
PROCEDURE: XR FOOT LT MIN 3V CLINICAL INDICATION: PAIN Left 2nd toe pain COMPARISON: No exams were available for comparison FINDINGS: There is an avulsion fracture involving the proximal and medial aspect of the proximal phalanx of the 2nd toe. The fracture fragment measures 3 mm and is displaced proximally by approximately 4 mm. The joint spaces are well-preserved. No significant degenerative/arthritic changes. No erosive changes evident. Other findings:None. IMPRESSION: Avulsion fracture at the proximal and medial aspect of the proximal phalanx of the 2nd Dictated by: Alberto Wooten MD 04/29/2020 16:46 Alberto Wooten MD in [place] 04/29/2020 16:46
--- NOTE | 2020-04-29 15:44 | HMH.EDUTC ---
[facility] [place] Clinical Impression: Fracture of second toe, left, closed Qualifiers: Encounter type: initial encounter Qualified Code(s): S92.502A - Displaced unspecified fracture of left lesser toe(s), initial encounter for closed fracture Disposition: Home, Self-Care Condition on Discharge: Good Instructions: How to Use Crutches, Foot Fracture, DI for Foot Fracture Additional Instructions: Rest the extremity, apply ice for 15 minutes as tolerated three or four times per day, Elevate the extremity as tolerated while you are resting. Take ibuprofen for pain. I sent in a prescription to your pharmacy. Follow up with Dr. Jimenez (podiatry). I put in a referral but you need to call her office and schedule an appointment. Follow up with your regular doctor. GO TO THE ER FOR ANY WORSENING SYMPTOMS Prescriptions: Ibuprofen [Ibuprofen 600mg Tablet] 600 mg PO Q6HP PRN #30 tab PRN Reason: Mild Pain Transmission Status: Received by [facility] #[id number] Referrals: Chris Berg MD [Primary Care Provider] - Estee Jimenez DPM [Staff Physician] - Time of Disposition: 16:12 Medical Decision Making - Medical Records Medical records reviewed: No: I reviewed the patient's medical records. - Gregory Inquiry Pt receiving controlled substance: No Vital Signs: 04/29/20 15:30 04/29/20 16:15 Temperature 98.2 F 98.2 F Temperature Source Oral Pulse Rate 95 H Pulse Rate [Left Brachial] 95 H Respiratory Rate 20 20 Blood Pressure 149/95 H Blood Pressure [Left Arm] 149/95 H Blood Pressure Mean [Left Arm] 113 Blood Pressure Source [Left Arm] Automatic Cuff Blood Pressure Position [Left Arm] Sitting 02 Sat by Pulse Oximetry 100 Oxygen Delivery Method Room Air - Radiology Data #1 Image(s): Foot/Toes Image Reviewed: Yes I reviewed the patient's radiology image, Yes I have reviewed radiologist's interpretation PROCEDURE: XR FOOT LT MIN 3V CLINICAL INDICATION: PAIN Left 2nd toe pain COMPARISON: No exams were available for comparison FINDINGS: There is an avulsion fracture involving the proximal and medial aspect of the proximal phalanx of the 2nd toe. The fracture fragment measures 3 mm and is displaced proximally by approximately 4 mm. The joint spaces are well-preserved. No significant degenerative/arthritic changes. No erosive changes evident. Other findings:None. IMPRESSION: Avulsion fracture at the proximal and medial aspect of the proximal phalanx of the 2nd Dictated by: Alberto Wooten MD 04/29/2020 16:46 Alberto Wooten MD in [place] 04/29/2020 16:46 Medical Decision Narrative: I called and discussed this case with Dr. Pedraza. Dr. Jimenez is out of town at this time. [facility] [place] - General Stated complaint: [id number] home fall, left foot pain Time Seen by Provider: 04/29/20 15:44 Mode of Arrival: Ambulatory Source of Information: Patient Limitations: No Limitations Description of Symptoms (Recalled from Triage Doc. 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 SHE STATES MOST OF HER PAIN IS IN LEFT GREAT AND 2ND TOE. DENIES ANY OTHER INJURY HEENT Symptoms (Recalled from RN notes): No Resp Symptoms (Recalled from RN notes): No Skin Symptoms (Recalled from RN notes): No MS Symptoms (Recalled from RN notes): Yes Functional Status (Recalled from RN notes): WNL - History of Present Illness Provider Complaint: She states that she fell down her stairs earlier today. She c/o left foot pain in the area of the base of her great toe and 2nd toe. The pain is much worse when she tries to walk on the foot or bears weight. - Related Data Previous Rx's Medication Instructions Recorded Ibuprofen [Ibuprofen 600mg 600 mg PO Q6HP PRN #30 tab 04/29/20 Tablet] Allergies Allergy/AdvReac Type Severity Reaction Status Date / Time No Known Allergies Allergy Verified 04/05/20 13:41 - Worker's Comp Is this a Worker's Comp case?
[2020-04-29 16:15] VITALS: BP 149/95; PULSE 95; RESP 20; TEMP 36.8; O2SAT 100
== END 2020-04-29 16:25 | disposition home or self-care (01) ==
PROVIDERS: Emergency Provider Nurse Practitioner Family; PCP Emergency Medicine
DX: S92.502A Displaced unspecified fracture of left lesser toe(s), initial encounter for closed fracture (principal); W10.9XXA Fall (on) (from) unspecified stairs and steps, initial encounter; Y92.019 Unspecified place in single-family (private) house as the place of occurrence of the external cause; J45.909 Unspecified asthma, uncomplicated; I10 Essential (primary) hypertension; Z79.899 Other long term (current) drug therapy
CPT/HCPCS: 73630; 99201

== ENCOUNTER 2020-05-03 12:34 | Outpatient (RCR) | payer OTHER, SELFPAY | END 2020-05-03 13:20 | disposition home or self-care (01) | LOC: PT 12:34 | PROVIDERS: Visit Provider Nurse Practitioner Family | DX: M79.672 Pain in left foot; S92.512S Displaced fracture of proximal phalanx of left lesser toe(s), sequela | CPT/HCPCS: 97760 ==

== ENCOUNTER → 2020-05-16 10:00 | Outpatient (CLI) | payer OTHER, SELFPAY ==
--- NOTE | 2020-05-16 10:03 | XR_ITS ---
PROCEDURE: XR FOOT WT BEARING LT 3V CLINICAL INDICATION: pain, fracture follow up COMPARISON: CR FTL3 FOOT-LT-3 VIEWS from 07/19/2013 CR FTR3 FOOT-RT-3 VIEWS from 08/04/2014 CR XR FOOT LT MIN 3V from 04/29/2020 FINDINGS: There is a comminuted avulsion fracture involving the proximal and medial aspect of the proximal phalanx of the 2nd toe with minimal displacement of the fracture fragments not significantly changed. The joint spaces are well-preserved. No significant degenerative/arthritic changes. No erosive changes evident. Other findings:None. IMPRESSION: No change fracture proximal phalanx 2nd digit Dictated by: Alberto Wooten MD 05/16/2020 14:49 Alberto Wooten MD in [place] 05/16/2020 14:49
== END ==
PROVIDERS: PCP Internal Medicine Adolescent Medicine; Visit Provider Podiatrist
DX: S92.502A Displaced unspecified fracture of left lesser toe(s), initial encounter for closed fracture (principal); T14.8XXA Other injury of unspecified body region, initial encounter
CPT/HCPCS: 73630

== ENCOUNTER → 2020-05-20 12:36 | Outpatient (CLI) | payer OTHER, SELFPAY ==
--- NOTE | 2020-05-20 12:41 | CT_ITS ---
PROCEDURE: CT FOOT LT WO CON CLINICAL HISTORY: Fracture evaluation Pain following injury, 2nd toe fracture COMPARISON: CR XR FOOT WT BEARING LT 3V from 05/16/2020 TECHNIQUE: Axial images obtained with sagittal and coronal reformats. All CT scans at the facility use one or more dose reduction, viz: automated exposure control, ma/kV adjustment per patient size (including targeted exams where dose is matched to indication, i.e. head), or iterative reconstruction technique. FINDINGS: The ankle has an unremarkable appearance. The talus and calcaneus show no evidence of acute fracture. There is cortical irregularity with subchondral cystic change at the calcaneal navicular region. No tarsal bone fracture is evident. There is a subchondral cyst at the proximal aspect of the proximal phalanx of the great toe. There is an avulsion fracture involving the proximal and medial aspect of the proximal phalanx of the 2nd digit. There is mild distraction of the medial fracture fragment proximally by proximally 1.5 mm. No other fractures are evident. No abnormal fluid collections are apparent. IMPRESSION: Mildly displaced ununited avulsion fracture at the proximal and medial aspect of the proximal phalanx of the 2nd toe. Degenerative changes with subchondral cystic change at the calcaneal navicular joint Dictated by: Alberto Wooten MD 05/25/2020 14:21 Alberto Wooten MD in [place] 05/25/2020 14:21
== END ==
PROVIDERS: PCP Internal Medicine Adolescent Medicine; Visit Provider Podiatrist
DX: S92.502A Displaced unspecified fracture of left lesser toe(s), initial encounter for closed fracture (principal); T14.8XXA Other injury of unspecified body region, initial encounter
CPT/HCPCS: 73700

== ENCOUNTER 2020-06-28 15:18 | Emergency (ER) | payer OTHER, SELFPAY ==
[2020-06-28 15:20] VITALS: BP 129/85; PULSE 86; RESP 16; TEMP 36.7; O2SAT 98; BMI 50.0
--- NOTE | 2020-06-28 15:33 | XR_ITS ---
PROCEDURE: XR KNEE LT 3V CLINICAL INDICATION: fall Pain COMPARISON: No exams were available for comparison FINDINGS: No fracture or dislocation. No lytic or blastic change. There is normal mineralization. The joint spaces are well-preserved. No significant degenerative/arthritic changes. No erosive changes evident. Other findings:None. IMPRESSION: No acute findings. Dictated by: Alberto Wooten MD 06/29/2020 06:47 Alberto Wooten MD in [place] 06/29/2020 06:47
--- NOTE | 2020-06-28 15:42 | HMH.EDUTC ---
[facility] – [place] Disposition Clinical Impression: Knee strain Qualifiers: Encounter type: initial encounter Laterality: left Qualified Code(s): S86.912A - Strain of unspecified muscle(s) and tendon(s) at lower leg level, left leg, initial encounter UTI (urinary tract infection) Qualifiers: Urinary tract infection type: site unspecified Hematuria presence: without hematuria Qualified Code(s): N39.0 - Urinary tract infection, site not specified Disposition: Home, Self-Care Condition on Discharge: Good Instructions: Urinary Tract Infection, DI for Knee Sprain, DI for Urinary Tract Infection (UTI), Nitrofurantoin, How To Perform RICE (Rest, Ice, Compress, Elevate) Additional Instructions: *weight bearing as tolerated *RICE, Rest the extremity, Ice 15-20 minutes 3-4 times daily, Compress- wear the mauri wrap as discussed as much as possible to help reduce swelling and pain, Elevate the extremity when at rest *Mauri wrap is for support and help control swelling, use it except in the shower. Be sure that is not to tight but not to loose either *Elevate when resting *Ibuprofen every 6-8 hours as needed for pain an inflammation. If need something more can take Tylenol in between doses of Ibuprofen to help Immediately follow up with your family doctor for new or worsening of symptoms, or no noticeable improvement over the next 3-5 days *Increase fluids. Water not Soda or Tea *Start antibiotic immediately and be sure to take as ordered for the FULL length of time although you should start to see improvement over the next 48 hours *Be SURE to follow up anytime for new or worsening symptoms with your family doctor. AND in 48 hours for urine culture results with your family doctor, if you do not have a doctor then you may call back to the [facility] for urine culture results and further treatment. We do recommend that you choose and establish care with a Primary Care Physician. AND follow up with them in 10-14 days to repeat UA to ensure infection is resolved and blood no longer present *Be sure to let your PCP know that we sent urine cultures from the [facility] so they can follow up to ensure that you area the on the correct antibiotic Call your doctor office and make appointment for 48 hours (2 days from today) to follow up and get the results of your urine culture and further treatment Prescriptions: Nitrofurantoin Monohyd/M-Cryst [Macrobid 100 mg Capsule] 100 mg PO BID 7 Days #14 cap Transmission Status: Received by [facility] #[id number] Referrals: Wil Cavanaugh MD [Primary Care Provider] - As needed Time of Disposition: 16:31 Medical Decision Making - Gregory Inquiry Pt receiving controlled substance: No Gregory was queried for this patient: No Vital Signs: 06/28/20 15:20 Temperature 98.1 F Temperature Source Oral Pulse Rate [Right Brachial] 86 Respiratory Rate 16 Blood Pressure [Right Arm] 129/85 Blood Pressure Mean [Right Arm] 99 Blood Pressure Source [Right Arm] Automatic Cuff Blood Pressure Position [Right Arm] Sitting 02 Sat by Pulse Oximetry 98 Oxygen Delivery Method Room Air - Lab Data Lab Results 06/28/20 15:33: Urine Color Yellow, Urine Appearance Clear, Urine pH 7.0, Ur Specific Dag[place] 1.015, Urine Protein Negative, Urine Glucose (UA) Negative, Urine Ketones Negative, Urine Blood Trace, Urine Nitrate Negative, Urine Bilirubin Negative, Urine Urobilinogen 1, Ur Leukocyte Esterase 1+ A Orders (Tests/Meds): ORDERS Category Date Time Status XR knee LT 3V Stat Exams 06/28/20 15:33 Taken - Radiology Data #1 Image(s): Knee Image Reviewed: Yes I reviewed the patient's radiology image Preliminary Findings: No Fracture Seen [facility] – [place] HPI - General Stated complaint: AO Fall 06/10/20 injured L knee Time Seen by Provider: 06/28/20 15:43 Mode of Arrival: Ambulatory Source of Information: Patient Limitations: No Limitations Description of Symptoms (Recalled from Triage Doc. by RN): PATIENT C/O LEFT KNEE PAIN AFTER FALLIN
[2020-06-28 15:55] LABS: Apearance,Urine Clear (Clear); Color,Urine Yellow (Yellow); Specific Gravity, Urine 1.015 (1.005-1.030)
[2020-06-28 15:56] LABS: Bilirubin,Urine Negative (Negative); Blood, Urine Trace (Negative); Glucose,Urine (UA) Negative (Negative); Ketones,Urine Negative (Negative); Protein,Urine Negative (Negative); UTC Leukocyte Esterase,Urine 1+ (Negative); UTC Nitrate,Urine Negative (Negative); Urobilinogen,Urine 1 EU/dl (0.2)
[2020-06-28 16:38] VITALS: BP 129/85; PULSE 86; RESP 16; TEMP 36.7; O2SAT 98
== END 2020-06-28 16:40 | disposition home or self-care (01) ==
PROVIDERS: Emergency Provider Nurse Practitioner; PCP Internal Medicine Adolescent Medicine
DX: N30.00 Acute cystitis without hematuria (principal); S86.912D Strain of unspecified muscle(s) and tendon(s) at lower leg level, left leg, subsequent encounter; I10 Essential (primary) hypertension; J45.909 Unspecified asthma, uncomplicated
CPT/HCPCS: 73562; 81003; 99202; G0463

== ENCOUNTER → 2020-08-08 10:50 | Outpatient (CLI) | payer OTHER, SELFPAY ==
--- NOTE | 2020-08-08 10:53 | XR_ITS ---
PROCEDURE: XR FOOT WT BEARING LT 3V CLINICAL INDICATION: fracture follow up COMPARISON: CR FTL3 FOOT-LT-3 VIEWS from 07/19/2013 CR FTR3 FOOT-RT-3 VIEWS from 08/04/2014 CR XR FOOT LT MIN 3V from 04/29/2020 CR XR FOOT WT BEARING LT 3V from 05/16/2020 FINDINGS: Fragmentation once again noted involving the proximal and medial aspect of the proximal phalanx of the 2nd toe. The fracture fragments are not significantly changed. There is mild pes planus with no other significant anomalies evident. IMPRESSION: No change comminuted fracture of the proximal and medial aspect of the proximal phalanx of the 2nd toe Dictated by: Alberto Wooten MD 08/08/2020 12:06 Alberto Wooten MD in [place] 08/08/2020 12:06
== END ==
PROVIDERS: PCP Internal Medicine Adolescent Medicine; Visit Provider Podiatrist
DX: T14.8XXA Other injury of unspecified body region, initial encounter (principal); S92.502D Displaced unspecified fracture of left lesser toe(s), subsequent encounter for fracture with routine healing; S92.512D Displaced fracture of proximal phalanx of left lesser toe(s), subsequent encounter for fracture with routine healing; S93.402D Sprain of unspecified ligament of left ankle, subsequent encounter; M79.672 Pain in left foot
CPT/HCPCS: 73630

== ENCOUNTER 2020-08-30 16:58 | Emergency (ER) | payer OTHER, SELFPAY ==
[2020-08-30 17:08] VITALS: BP 145/71; PULSE 97; RESP 16; TEMP 36.8; O2SAT 97; BMI 50.6
--- NOTE | 2020-08-30 17:15 | HMH.EDUTC ---
[facility] – [place] Disposition Clinical Impression: Sinusitis Qualifiers: Sinusitis location: unspecified location Chronicity: acute Recurrence: non-recurrent Qualified Code(s): J01.90 - Acute sinusitis, unspecified Disposition: Home, Self-Care Condition on Discharge: Good Instructions: DI for Sinusitis Additional Instructions: Drink plenty of fluids. Take tylenol or ibuprofen for pain or fever. Take the medications as directed. Follow up with your regular doctor. GO TO THE ER FOR ANY WORSENING SYMPTOMS Prescriptions: Brompheniramine/Pseudoephed/Dm [Bromfed Dm Cough Syrup] 5 ml PO Q6HP PRN #240 syrup PRN Reason: Cough Transmission Status: Received by [facility] #[id number] Ondansetron [Zofran 4mg ODT] 4 mg PO Q8HP PRN #20 tab.rapdis PRN Reason: Nausea Transmission Status: Received by [facility] # Azithromycin [Z-Ambrocio 250mg Tab*] 250 mg PO UD DOSE PK #6 tab Transmission Status: Received by [facility] # Referrals: Wli Cavanaugh MD [Primary Care Provider] - Time of Disposition: 17:20 Medical Decision Making - Medical Records Medical records reviewed: No: I reviewed the patient's medical records. - Gregory Inquiry Pt receiving controlled substance: No Vital Signs: 08/30/20 17:08 08/30/20 17:29 Temperature 98.2 F 98 F Temperature Source Oral Pulse Rate 99 H Pulse Rate [Right] 97 H Respiratory Rate 16 12 Blood Pressure 140/79 Blood Pressure [Right Arm] 145/71 H Blood Pressure Mean [Right Arm] 95 Blood Pressure Source [Right Arm] Automatic Cuff Blood Pressure Position [Right Arm] Sitting 02 Sat by Pulse Oximetry 97 Oxygen Delivery Method Room Air [facility] [place] HPI - General Stated complaint: sore throat,running nose,cough Time Seen by Provider: 08/30/20 17:15 Mode of Arrival: Ambulatory Source of Information: Patient Limitations: No Limitations Description of Symptoms (Recalled from Triage Doc. by RN): pt is having a runny nose, sore throat, cough, and N/V HEENT Symptoms (Recalled from RN notes): Yes (runny nose and sore throat) Resp Symptoms (Recalled from RN notes): Yes (cough) Skin Symptoms (Recalled from RN notes): No MS Symptoms (Recalled from RN notes): No Functional Status (Recalled from RN notes): na - History of Present Illness Provider Complaint: She c/o having sinus congestion and drainage since last week. She denies any fever. She has been feeling bad. She denies any exposure to covid-19. - Related Data Previous Rx's Medication Instructions Recorded Nitrofurantoin Monohyd/M-Cryst 100 mg PO BID 7 Days #14 cap 06/28/20 [Macrobid 100 mg Capsule] Azithromycin [Z-Ambrocio 250mg Tab*] 250 mg PO UD DOSE PK #6 tab 08/30/20 Brompheniramine/Pseudoephed/Dm 5 ml PO Q6HP PRN #240 syrup 08/30/20 [Bromfed Dm Cough Syrup] Ondansetron [Zofran 4mg ODT] 4 mg PO Q8HP PRN #20 tab.rapdis 08/30/20 Allergies Allergy/AdvReac Type Severity Reaction Status Date / Time No Known Allergies Allergy Verified 08/30/20 17:17 - Worker's Comp Is this a Worker's Comp case?: No [facility] History - Hepatitis A Screen Drug use history?: No High risk sexual behaviors?: No History of sexually transmitted infection?: No Currently employed?: No Childcare worker?: No Do you have indoor plumbing?: Yes Do you have electricity?: Yes Attestation statement:: This patient has been screened for Hepatitis A risk factors. I have reviewed the patient's past medical history: Yes Medical History: Reports:: Asthma, Hypertension Denies:: Cancer, Diabetes Mellitus Type 1, Diabetes Mellitus Type 2, MRSA, Seizures Laterality Cases: Bilateral: Myringotomy (Ear Tubes), Tonsillectomy Other Surgeries: Yes: Other Amputation: No Fractures: Yes (rt arm) Comment: Ear tubes, Tonsils, Fx. Rt. Arm - Social History Smoking Status: Never smoker Alcohol Intake: never Alcohol Intake Frequency:: other Substance Use Type: denies use Occupational Status: other Housing: house H
[2020-08-30 17:29] VITALS: BP 140/79; PULSE 99; RESP 12; TEMP 36.6
[2020-08-31 09:41] LABS: UTC Strep Screen (Rapid) Positive (Negative)
== END 2020-08-30 17:29 | disposition home or self-care (01) ==
PROVIDERS: Emergency Provider Nurse Practitioner Family; PCP Internal Medicine Adolescent Medicine
DX: J01.90 Acute sinusitis, unspecified (principal); J45.909 Unspecified asthma, uncomplicated
CPT/HCPCS: 87880; 99202; G0463

== ENCOUNTER → 2020-10-03 10:08 | Outpatient (CLI) | payer OTHER, SELFPAY ==
--- NOTE | 2020-10-03 10:11 | XR_ITS ---
PROCEDURE: XR FOOT WT BEARING LT 3V CLINICAL INDICATION: foot pain Follow-up fracture COMPARISON: CR FTR3 FOOT-RT-3 VIEWS from 08/04/2014 CR XR FOOT LT MIN 3V from 04/29/2020 CR XR FOOT WT BEARING LT 3V from 05/16/2020 CR XR FOOT WT BEARING LT 3V from 08/08/2020 FINDINGS: There are small bony fragments at the medial aspect of the 2nd metatarsophalangeal joint not significantly changed consistent with avulsion fracture. The joint spaces are well-preserved. No significant degenerative/arthritic changes. No erosive changes evident. Other findings:Mild pes planus as before IMPRESSION: No change avulsion fractures at the 2nd MTP joint with pes planus Dictated by: Alberto Wooten MD 10/03/2020 11:58 Alberto Wooten MD in [place] 10/03/2020 11:58
--- NOTE | 2020-10-03 10:11 | XR_ITS ---
PROCEDURE: XR ANKLE WT BEARING LT MIN 3V CLINICAL INDICATION: ankle pain COMPARISON: CR ANKL3 ANKLE-LT-3 VIEWS from 02/07/2011 CR ANKR2 ANKLE-RT-2 VIEWS from 07/19/2013 CR ANKL3 ANKLE-LT-3 VIEWS from 07/19/2013 FINDINGS: Bones: No fracture or dislocation. No lytic or blastic change. There is normal mineralization. Joints: The joint spaces are well-preserved. No significant degenerative/arthritic changes. No erosive changes evident. Other findings:None. IMPRESSION: No acute findings. Dictated by: Alberto Wooten MD 10/03/2020 11:55 Alberto Wooten MD in [place] 10/03/2020 11:55
== END ==
PROVIDERS: PCP Internal Medicine Adolescent Medicine; Visit Provider Podiatrist
DX: M79.672 Pain in left foot (principal); S93.402A Sprain of unspecified ligament of left ankle, initial encounter; T14.8XXA Other injury of unspecified body region, initial encounter
CPT/HCPCS: 73610; 73630

== ENCOUNTER → 2020-11-28 13:44 | Outpatient (CLI) | payer OTHER, SELFPAY ==
--- NOTE | 2020-11-28 13:49 | XR_ITS ---
PROCEDURE: XR FOOT WT BEARING LT 3V CLINICAL INDICATION: fracture follow up COMPARISON: CR XR FOOT LT MIN 3V from 04/29/2020 CR XR FOOT WT BEARING LT 3V from 05/16/2020 CR XR FOOT WT BEARING LT 3V from 08/08/2020 CR XR FOOT WT BEARING LT 3V from 10/03/2020 FINDINGS: Bony fragmentation once again noted along the proximal aspect and medial aspect of the proximal phalanx of the 2nd toe with small bony fragments noted medial to the joint space. Cortical defect is once again noted at the proximal medial aspect of the proximal phalanx of the 2nd toe.. Pes planus Other findings:None. IMPRESSION: No change in the comminuted fracture at the base of the proximal phalanx of the 2nd digit Dictated by: Alberto Wooten MD 11/28/2020 14:02 Alberto Wooten MD in [place] 11/28/2020 14:02
== END ==
PROVIDERS: PCP Internal Medicine Adolescent Medicine; Visit Provider Podiatrist
DX: S92.502D Displaced unspecified fracture of left lesser toe(s), subsequent encounter for fracture with routine healing (principal); T14.8XXA Other injury of unspecified body region, initial encounter
CPT/HCPCS: 73630

== ENCOUNTER 2020-12-17 16:03 | Emergency (ER) | payer OTHER, SELFPAY ==
[2020-12-17 16:04] VITALS: BP 129/85; PULSE 98; RESP 18; TEMP 36.9; O2SAT 100; BMI 49.1
[2020-12-17 16:25] LABS: Appearance,Urine SL CLOUDY (Clear); Bilirubin,Urine Negative (Negative); Blood, Urine Negative (Negative); Color,Urine YELLOW (Yellow); Glucose,Urine (UA) Negative (Negative); Ketones,Urine Negative (Negative); Leukocyte Esterase,Urine TRACE (Negative); Microscopic, Urine URINE MICROSCOPIC (MICROSCOPIC); Nitrate,Urine Negative (Negative); Protein,Urine Negative (Negative); Specific Gravity, Urine 1.025 (1.005-1.030); Urobilinogen,Urine >=8.0 EU/dl (0.2)
[2020-12-17 16:28] LABS: Basophils # 0.1 K/mm3 (0-0.2); Basophils % 0.6 % (0.1-2.0); Eosinophils # 0.3 K/mm3 (0.0-0.4); Eosinophils % 2.5 % (0.1-12.0); Hematocrit 40.1 % (37.0-47.0); Hemoglobin 13.6 g/dL (12.2-16.2); Lymphocytes # 3.2 K/mm3 (0.7-4.5); Lymphocytes % 25.9 % (10-50); Mean Corpuscular Volume 85.4 fl (81-99); Mean Platelet Volume 7.5 fl (7.4-10.4); Monocytes # 0.4 K/mm3 (0.1-1.0); Monocytes % 3.5 % (1.7-9.3); Neutrophils # 8.4 K/mm3 (1.8-7.8); Neutrophils % 67.6 % (37.0-80.0); Platelet Count 344 K/mm3 (142-424); Red Blood Count 4.69 M/mm3 (4.20-5.40); Red Cell Distribution Width 13.7 % (11.5-17.5); White Blood Count 12.4 K/mm3 (4.8-10.8)
--- NOTE | 2020-12-17 16:28 | HMH.EDGENADL ---
ED Disposition Clinical Impression: Right lower quadrant abdominal pain, Left lumbar pain Ovarian cyst Qualifiers: Laterality: left Qualified Code(s): N83.202 - Unspecified ovarian cyst, left side Disposition: Home, Self-Care Condition on Discharge: Good Instructions: DI for Acute Abdominal Pain, DI for Ovarian Cyst Additional Instructions: Ibuprofen as needed for pain. Zofran as needed for nausea. Additional instructions for ABDOMINAL PAIN: See your physician as soon as possible for further evaluation. Return immediately if worsening abdominal pain, vomiting, shortness of breath, fever, vomiting of blood or abdominal distention. Prescriptions: Ibuprofen [Ibuprofen 800mg Tablet] 800 mg PO Q8HP PRN #15 tab PRN Reason: Moderate Pain Transmission Status: Pending to [facility] # Ondansetron [Zofran 4mg ODT] 4 mg PO TIDP PRN #10 tab.rapdis PRN Reason: Nausea And Vomiting Transmission Status: Pending to [facility] # Referrals: Wil Cavanaugh MD [Primary Care Provider] - - Critical Care Critical Care Time: No Attestation: On 12/17/20, the high probability of a clinically significant, sudden or life threatening deterioration of the following system(s) required my full and direct attention, intervention and personal management. The time I documented below is in addition to time spent performing reported procedures but includes the following listed in this critical care notation. Medical Decision Making - Medical Records Medical records reviewed: Yes: I reviewed the patient's medical records. MR Comment: Reviewed records from [facility] visit 09/16/2020 for abdominal pain. Pain at that time was left lower quadrant. Diffuse mesenteric adenopathy seen on CT scan. - Gregory Inquiry Pt receiving controlled substance: No Vital Signs: 12/17/20 16:04 Temperature 98.4 F Temperature Source Oral Pulse Rate [Right] 98 H Respiratory Rate 18 Blood Pressure [Right Arm] 129/85 Blood Pressure Mean [Right Arm] 99 02 Sat by Pulse Oximetry 100 Oxygen Delivery Method Room Air - Lab Data Lab Results 12/17/20 16:19: WBC 12.4 H, RBC 4.69, Hgb 13.6, Hct 40.1, MCV 85.4, MCH 29.0, MCHC 34.0, RDW 13.7, Plt Count 344, MPV 7.5, Neut % (Auto) 67.6, Lymph % (Auto) 25.9, [place] % (Auto) 3.5, Eos % (Auto) 2.5, Baso % (Auto) 0.6, Neut # (Auto) 8.4 H, Lymph # (Auto) 3.2, [place] # (Auto) 0.4, Eos # (Auto) 0.3, Baso # (Auto) 0.1 12/17/20 16:19: Sodium 139, Potassium 3.8, Chloride 102, Carbon Dioxide 29, Anion Gap 11.8, BUN 10, Creatinine 0.70, Estimated Creat Clear 113, Estimated GFR 105, Est GFR ( Amer) 127, Glucose 93, Calcium 8.7, Total Bilirubin 0.4, AST 21, ALT 14, Alkaline Phosphatase 87, Total Protein 7.3, Albumin 4.1, Globulin 3.2, Albumin/Globulin Ratio 1.3 12/17/20 16:19: Urine Color Yellow, Urine Appearance Sl cloudy, Urine pH 6.0, Ur Specific [place] 1.025, Urine Protein Negative, Urine Glucose (UA) Negative, Urine Ketones Negative, Urine Blood Negative, Urine Nitrate Negative, Urine Bilirubin Negative, Urine Urobilinogen >=8.0, Ur Leukocyte Esterase Trace, Urine RBC None, Urine WBC Occasional, Ur Squamous Epith Cells 20-50, Amorphous Sediment 2+, Urine Bacteria None 12/17/20 16:19: Urine HCG, Qual Negative Result diagrams: 12/17/20 16:19 12/17/20 16:19 Orders (Tests/Meds): ED MEDICATIONS Generic Name Dose Route Start Last Admin Trade Name Freq PRN Reason Stop Dose Admin Sodium Chloride 10 ml 12/17/20 17:38 12/17/20 17:39 Sodium Chloride 0.9% 10ml Syr (Rad Only) IV 01/16/21 17:37 10 ml NEEDED PRN Administration Maintain IV Site Discontinued Medications Generic Name Dose Route Start Last Admin Trade Name Freq PRN Reason Stop Dose Admin Iopamidol 75 ml 12/17/20 17:38 12/17/20 17:39 Iopamidol-370 (76%);100ml Bottle IV 12/17/20 17:39 75 ml ONCE ONE Administration General Adult HPI - General Chief complaint: Abdomin
[2020-12-17 16:34] LABS: Alanine Aminotransferase 14 U/L (12-78); Albumin Level 4.1 g/dl (3.5-5.0); Albumin/Globulin Ratio 1.3 (1.1-1.8); Alkaline Phosphatase 87 U/L (38-126); Anion Gap 11.8 mEq/L (5-15); Aspartate Amino Transferase 21 U/L (14-36); Bilirubin,Total 0.4 mg/dl (0.2-1.3); Blood Urea Nitrogen 10 mg/dl (7-17); Calcium 8.7 mg/dl (8.4-10.2); Carbon Dioxide 29 mmol/L (22.0-30.0); Chloride 102 mmol/L (98-107); Creatinine Clearance Estimated 113 mL/min (50-200); Estimated Glomerular Filt Rate 105 ml/min (>60); GFR (African American) 127 ML/MIN (>60); Globulin 3.2 g/dL (1.3-3.2); Glucose 93 mg/dl (74-100); Potassium 3.8 mmoL/L (3.5-5.1); Sodium 139 mmol/L (136-145); Total Protein,Serum 7.3 g/dl (6.3-8.2)
[2020-12-17 16:36] LABS: Amorphous Sediment,Urine 2+ /lpf; Squamous Epithelial Cell,Urine 20-50 #/hpf (0-5); WBC,Urine Occasional #/hpf (0-3)
[2020-12-17 16:39] LABS: Urine Pregnancy, HCG Qual. Negative (Negative)
--- NOTE | 2020-12-17 17:11 | CT_ITS ---
PROCEDURE INFORMATION: Exam: CT Abdomen And Pelvis With Contrast Exam date and time: 12/17/2020 5:11 PM Age: 20 years old Clinical indication: Abdominal pain; Localized; Right lower quadrant (rlq); Additional info: Rlq pain TECHNIQUE: Imaging protocol: Computed tomography of the abdomen and pelvis with contrast. Radiation optimization: All CT scans at this facility use at least one of these dose optimization techniques: automated exposure control; mA and/or kV adjustment per patient size (includes targeted exams where dose is matched to clinical indication); or iterative reconstruction. Contrast material: ISOVUE; Contrast volume: 75 ml; Contrast route: IV; COMPARISON: ABDPELWO CT abdomen pelvis wo con 11/21/2018 12:03 AM FINDINGS: Liver: Normal. Gallbladder and bile ducts: Normal. Pancreas: Normal. Spleen: Normal. Adrenal glands: Normal. No mass. Kidneys and ureters: Normal. Stomach and bowel: Normal. Appendix: Appendix normal. Intraperitoneal space: Unremarkable. No free air. No significant fluid collection. Vasculature: Unremarkable. No abdominal aortic aneurysm. Lymph nodes: Few small lymph nodes within the right lower quadrant, likely reactive, but nonspecific. Urinary bladder: Unremarkable as visualized. Reproductive: 4 cm cystic structure within the left adnexa, likely left ovarian cyst. Bones/joints: No acute abnormality. Soft tissues: Normal. IMPRESSION: No acute abdominal or pelvic abnormality.
[2020-12-17 18:51] VITALS: BP 120/72; PULSE 91; RESP 18; TEMP 36.9; O2SAT 100
== END 2020-12-17 18:54 | disposition home or self-care (01) ==
PROVIDERS: Emergency Provider Emergency Medicine; PCP Internal Medicine Adolescent Medicine
DX: N83.202 Unspecified ovarian cyst, left side (principal); I10 Essential (primary) hypertension
CPT/HCPCS: 74177; 80053; 81001; 81025; 85025; 96374; 96375; 99282; 99283; J2405; Q9967

== ENCOUNTER 2021-01-13 16:12 | Emergency (ER) | payer OTHER, SELFPAY ==
[2021-01-13 16:15] VITALS: BP 134/67; PULSE 98; RESP 18; TEMP 36.5; O2SAT 98; BMI 47.4
[2021-01-13 16:38] LABS: UTC Strep Screen (Rapid) Negative (Negative)
--- NOTE | 2021-01-13 16:46 | HMH.EDUTC ---
[facility] – [place] Clinical Impression: Viral syndrome Disposition: Home, Self-Care Condition on Discharge: Good Instructions: DI for COVID-19 (Suspected or Confirmed ), Coronavirus Disease 2019, Preventing the Spread of Coronavirus Discharge Instructions, Ondansetron Additional Instructions: *Monitor Temp, Over the counter Motrin or Tylenol as directed/as needed Tylenol every 4 hours and Motrin every 6 hours (as long as your family doctor has told you that you can take it) for fever or pain. and straight to ER if unable to lower temp less than 101.0 after medication given *Warm salt water gargles may help to soothe the throat *Throat Lozenges *Warm fluids like tea with honey may help to soothe the throat *Sleep elevated *Humidifier/Vaporizer *Bromfed may cause drowsiness. Know how it effects you (your child) before driving, caring for small child, or sending your child to school. Not other antihistamines/allergy medications while taking bromfed Your throat swab was sent for culture. Those results are typically sent to your primary care. Be sure to follow up in 2-3 days with your family doctor/primary care physician if no improvement so they can review those result and treat if necessary. If you don?t have a primary care doctor, I recommend you get one but in the mean time, you will have to return to a walk in clinic Follow up IMMEDIATELY for new or worsening symptoms or no Noticeable improvement over the next 48-72 hours. 911 for difficulty breathing or swallowing Drink extra fluids with and between meals. If you have difficulty drinking, try very small amounts of water or suck on ice chips. ? Avoid fruit juices, as these do not replace minerals and can actually increase diarrhea. ? Children and adults can use sports drinks to replenish electrolytes. Younger children and infants should use products formulated for children, like oral rehydration solutions. ? Eat food in small amounts and let your stomach recover. ? Get lots of rest. You may feel tired or weak. ? No greasy or fried foods for the next 24-48 hours BRAT diet Bananas Rice Apples and [place] ? Make sure to drink plenty of liquids ? Return if needed ? Straight to ER if any life threatening symptoms ? Zofran as prescribed ? Follow up with family doctor in the next 48-72 hours if no improvement or any worsening of symptoms You were tested for today for COVID19 your test result should be back in the next 24-48 hours, you may call to the [facility] to see if your test results are back in the next 48 hours [phone] [facility] hours are 9am-9pm You was given a handout with instructions for Self Quarantine and Self isolation for while you wait on test results and what to do if they are positive If you are positive the Health Dept will be contacting you also Prescriptions: Brompheniramine/Pseudoephed/Dm [Bromfed Dm Cough Syrup] 5 - 10 ml PO Q46H PRN #150 ml PRN Reason: Cough Transmission Status: Pending to [facility] # Ondansetron [Zofran 4mg ODT] 4 mg PO TIDP PRN #10 tab PRN Reason: Nausea Transmission Status: Pending to [facility] # Referrals: Wil Cavanaugh MD [Primary Care Provider] - As needed Forms: Work/School Release Time of Disposition: 16:54 Medical Decision Making - Gregory Inquiry Pt receiving controlled substance: No Gregory was queried for this patient: No Vital Signs: 01/13/21 16:15 Temperature 97.7 F Temperature Source Oral Pulse Rate [Right Brachial] 98 H Respiratory Rate 18 Blood Pressure [Right Arm] 134/67 Blood Pressure Mean [Right Arm] 89 Blood Pressure Source [Right Arm] Automatic Cuff Blood Pressure Position [Right Arm] Sitting 02 Sat by Pulse Oximetry 98 Oxygen Delivery Method Room Air - Lab Data Lab results reviewed: Yes: I reviewed the patient's lab results. Lab Results 01/13/21 16:38: Strep Scn [facility] Negative Orders (Tests/Meds): ORDERS Category Date Time Status Covid-19 Nasal PCR (
[2021-01-13 16:59] VITALS: BP 134/67; PULSE 98; RESP 18; TEMP 36.5; O2SAT 98
--- NOTE | 2021-01-14 10:31 | PC.NURSE ---
Attempted to call pt about covid test result, no answer. Will try again later.
--- NOTE | 2021-01-14 10:58 | PC.NURSE ---
PT NOTIFIED OF POSITIVE COVID RESULT
== END 2021-01-13 17:05 | disposition home or self-care (01) ==
PROVIDERS: Emergency Provider Nurse Practitioner; PCP Internal Medicine Adolescent Medicine
DX: U07.1 COVID-19 (principal); B34.9 Viral infection, unspecified
CPT/HCPCS: 87880; 99203; G0463; U0003

== ENCOUNTER 2021-01-14 21:16 | Emergency (ER) | payer OTHER, SELFPAY ==
[2021-01-14 21:17] VITALS: BP 146/96; PULSE 91; RESP 20; TEMP 36.3; O2SAT 98; BMI 47.4
--- NOTE | 2021-01-14 21:47 | HMH.EDGENADL ---
ED Disposition Clinical Impression: COVID-19 Disposition: Home, Self-Care Condition on Discharge: Good Additional Instructions: Continue Tylenol and ibuprofen as needed for fever. Take Zofran as needed for nausea and vomiting. Aggressively hydrate. Return to the emergency department for any new or worsening symptoms. Referrals: Wil Cavanaugh MD [Primary Care Provider] - - Critical Care Critical Care Time: No Attestation: On 01/14/21, the high probability of a clinically significant, sudden or life threatening deterioration of the following system(s) required my full and direct attention, intervention and personal management. The time I documented below is in addition to time spent performing reported procedures but includes the following listed in this critical care notation. Medical Decision Making - Gregory Inquiry Pt receiving controlled substance: No Vital Signs: 01/14/21 21:17 Temperature 97.4 F L Temperature Source Oral Pulse Rate [Right] 91 H Respiratory Rate 20 Blood Pressure [Right Arm] 146/96 H Blood Pressure Mean [Right Arm] 112 02 Sat by Pulse Oximetry 98 Orders (Tests/Meds): ED MEDICATIONS Discontinued Medications Generic Name Dose Route Start Last Admin Trade Name Byronq PRN Reason Stop Dose Admin Dexamethasone Sodium Phosphate 10 mg 01/14/21 21:33 01/14/21 21:36 Dexamethasone 4mg/Ml 5ml Mdv IM 01/14/21 21:34 10 mg ONCE ONE Administration Ketorolac Tromethamine 30 mg 01/14/21 21:33 01/14/21 21:36 Ketorolac 30mg/Ml Vial IM 01/14/21 21:34 30 mg ONCE ONE Administration Medical Decision Narrative: The patient is a 20-year-old female with a history of asthma who presents to the emergency department with cough, headache, loss of taste and smell, fever, shortness of breath, vomiting. She tested positive for COVID-19 yesterday. She is overall very well-appearing. Her vital signs are stable and she is afebrile. She is saturating in the high 90s on room air and is able to speak in complete sentences without tachypnea. Her lungs are clear to auscultation. She appears well-hydrated and states she is drinking lots of fluids and able to keep them down. She took Tylenol about 2 hours prior to coming in. Given this will give the patient Toradol and Decadron and let her drink while in the emergency department. We discussed the potential for symptoms to worsen and to require admission for oxygen supplementation however we discussed that the patient does not require this now and she was deemed appropriate for discharge. She was given strict return precautions and will continue Tylenol, ibuprofen, and Zofran at home which she states she has plenty of at home. General Adult HPI - General Chief complaint: Shortness of Breath/Dyspnea Stated complaint: SOB/COVID possive Time Seen by Provider: 01/14/21 21:37 Mode of Arrival: Ambulatory Source of Information: Patient Limitations: No Limitations Description of Symptoms (Recalled from ER Triage Doc. by RN): pt c/o SOA, n/v and tested positive for covid on 01/13 - History of Present Illness HPI narrative: The patient is a 20-year-old female with a history of asthma who presents to the emergency department with shortness of breath. She reports that on Saturday she developed loss of taste and smell, headache, and cough. Yesterday she was tested for COVID-19 and was positive. She reports she has had fever to 102.5. She has been taking Tylenol with last dose 2 hours ago and Mucinex. She reports that she has also tried her inhaler multiple times today without improvement in symptoms. She lives with someone who is also having similar symptoms. She reports she has vomited a couple times today but is still tolerating p.o. and staying well-hydrated. - Related Data Previous Rx's Medication Instructions Recorded Brompheniramine/Pseudoephed/Dm 5 - 10 ml PO Q46H PRN #150 ml 01/13/21 [Bromfed Dm Cough Syrup] Ondansetron [Zo
[2021-01-14 22:01] VITALS: BP 146/96; PULSE 91; RESP 20; TEMP 36.3; O2SAT 98
== END 2021-01-14 22:02 | disposition home or self-care (01) ==
PROVIDERS: Emergency Provider Emergency Medicine; PCP Internal Medicine Adolescent Medicine
DX: U07.1 COVID-19 (principal); R06.02 Shortness of breath; J45.909 Unspecified asthma, uncomplicated; F17.290 Nicotine dependence, other tobacco product, uncomplicated
CPT/HCPCS: 99281

== ENCOUNTER → 2021-04-25 10:59 | Outpatient (CLI) | payer OTHER, SELFPAY ==
[2021-04-25 11:15] LABS: Basophils # 0.2 K/mm3 (0-0.2); Eosinophils # 0.2 K/mm3 (0.0-0.4); Eosinophils % 1.9 % (0.1-12.0); Hematocrit 41.1 % (37.0-47.0); Lymphocytes # 3.3 K/mm3 (0.7-4.5); Lymphocytes % 35.5 % (10-50); Mean Corpuscular Hemoglobin 29.3 pg (27.0-31.2); Mean Corpuscular Volume 86.1 fl (81-99); Mean Platelet Volume 7.8 fl (7.4-10.4); Monocytes # 0.4 K/mm3 (0.1-1.0); Monocytes % 4.3 % (1.7-9.3); Neutrophils # 5.2 K/mm3 (1.8-7.8); Neutrophils % 56.3 % (37.0-80.0); Platelet Count 420 K/mm3 (142-424); Red Blood Count 4.77 M/mm3 (4.20-5.40); Red Cell Distribution Width 12.7 % (11.5-17.5); White Blood Count 9.3 K/mm3 (4.8-10.8)
[2021-04-25 11:24] LABS: Hemoglobin A1C 4.8 % (4.0-6.0)
[2021-04-25 11:49] LABS: Alanine Aminotransferase 13 U/L (12-78); Albumin Level 4.1 g/dl (3.5-5.0); Albumin/Globulin Ratio 1.6 (1.1-1.8); Alkaline Phosphatase 85 U/L (38-126); Anion Gap 12.3 mEq/L (5-15); Aspartate Amino Transferase 18 U/L (14-36); Bilirubin,Total 0.4 mg/dl (0.2-1.3); Blood Urea Nitrogen 8 mg/dl (7-17); Carbon Dioxide 27 mmol/L (22.0-30.0); Chloride 103 mmol/L (98-107); Cholesterol 130 mg/dl (140-200); Estimated Glomerular Filt Rate 125 ml/min (>60); GFR (African American) 151 ML/MIN (>60); Globulin 2.5 g/dL (1.3-3.2); Glucose 94 mg/dl (74-100); HDL Cholesterol 43 mg/dl (40-60); Potassium 4.3 mmoL/L (3.5-5.1); Sodium 138 mmol/L (136-145); Total Protein,Serum 6.6 g/dl (6.3-8.2); Triglycerides 80 mg/dl (30-150); VLDL Cholesterol 16 mg/dL (0-40)
[2021-04-25 11:55] LABS: Free Thyroxine Index 3.1 ug/dL (5.93-13.13); T4 (Thyroxine) 8.6 ug/dl (5.53-11.0); Triiodothryronine (T3) Uptake 36 % (23.5-40.5)
[2021-04-25 11:59] LABS: Direct LDL Cholesterol 107.64 mg/dL (100-129)
[2021-04-25 12:09] LABS: Thyroid Stimulating Hormone 1.28 uIU/mL (0.465-4.68)
== END ==
PROVIDERS: Visit Provider Nurse Practitioner Family
DX: Z00.00 Encounter for general adult medical examination without abnormal findings (principal); E66.9 Obesity, unspecified; Z68.43 Body mass index [BMI] 50.0-59.9, adult
CPT/HCPCS: 36415; 80053; 80061; 83036; 84436; 84443; 84479; 85025

== ENCOUNTER → 2021-05-18 11:56 | Outpatient (CLI) | payer OTHER, SELFPAY ==
[2021-05-18 13:11] LABS: HCG,Quantitative 15 mIU/ml (0-5.42)
== END ==
PROVIDERS: Visit Provider Nurse Practitioner Obstetrics & Gynecology
DX: N92.6 Irregular menstruation, unspecified (principal)
CPT/HCPCS: 36415; 84702

== ENCOUNTER → 2021-05-22 11:44 | Outpatient (CLI) | payer OTHER, SELFPAY ==
[2021-05-22 13:13] LABS: HCG,Quantitative 131 mIU/ml (0-5.42)
== END ==
PROVIDERS: Visit Provider Nurse Practitioner Obstetrics & Gynecology
DX: N92.6 Irregular menstruation, unspecified (principal)
CPT/HCPCS: 36415; 84702

== ENCOUNTER 2021-05-22 18:34 | Emergency (ER) | payer OTHER, SELFPAY ==
[2021-05-22 19:11] VITALS: BP 139/75; PULSE 82; RESP 18; TEMP 36.8; O2SAT 100; BMI 51.5
[2021-05-22 19:25] LABS: Apearance,Urine Turbid (Clear); Color,Urine Yellow (Yellow); PH,Urine 6.5 (5.0-8.5); Protein,Urine Negative (Negative)
[2021-05-22 19:26] LABS: Bilirubin,Urine Negative (Negative); Blood, Urine Trace (Negative); Glucose,Urine (UA) Negative (Negative); Ketones,Urine Negative (Negative); Urobilinogen,Urine 0.2 EU/dl (0.2)
[2021-05-22 19:27] LABS: UTC Leukocyte Esterase,Urine 1+ (Negative); UTC Nitrate,Urine Negative (Negative)
--- NOTE | 2021-05-22 20:12 | HMH.EDUTC ---
[facility] [facility] [place] Clinical Impression: UTI (urinary tract infection) Qualifiers: Urinary tract infection type: site unspecified Hematuria presence: without hematuria Qualified Code(s): N39.0 - Urinary tract infection, site not specified Qualifiers: Weeks of gestation: less than 8 weeks Qualified Code(s): Z3A.01 - Less than 8 weeks gestation of Disposition: Home, Self-Care Condition on Discharge: Good Instructions: DI for Urinary Tract Infection (UTI) Additional Instructions: Drink plenty of fluids. Take tylenol for pain or fever. Take the medications as directed. Follow up with your regular doctor. GO TO THE ER FOR ANY WORSENING SYMPTOMS Make sure to let Dr. Celestin know that you do have a UTI. Hopefully you will better by Saturday when they come back into the office, but call them then anyway. If you have any problems over the weekend, either return here of call the doctor senior contracts administrator for their service. I sent your antibiotics prescription to [facility] called me and told me they would be closed all this weekend and you need to be started on the antibiotics roxanne. A uti early in a can cause a miscarriage if it is not treated promptly. Prescriptions: cephALEXin [cephALEXin 500mg capsule] 500 mg PO Q6H 7 Days #28 cap Transmission Status: Received by [id number] Promethazine HCl [Phenergan 25mg tab] 25 mg PO Q6H PRN #20 tab PRN Reason: Nausea And Vomiting Transmission Status: Received by [id number] Referrals: Wil Cavanaugh MD [Primary Care Provider] - Time of Disposition: 20:23 Medical Decision Making - Medical Records Medical records reviewed: No: I reviewed the patient's medical records. - Gregory Inquiry Pt receiving controlled substance: No Vital Signs: 05/22/21 19:11 05/22/21 20:39 Temperature 98.3 F 98.3 F Temperature Source Oral Pulse Rate 82 Pulse Rate [Left] 82 Respiratory Rate 18 18 Blood Pressure 139/75 Blood Pressure [Right Arm] 139/75 Blood Pressure Mean [Right Arm] 96 02 Sat by Pulse Oximetry 100 - Lab Data Lab results reviewed: Yes: I reviewed the patient's lab results. Lab Results 05/22/21 19:17: Urine Color Yellow, Urine Appearance Turbid, Urine pH 6.5, Ur Specific [place] 1.020, Urine Protein Negative, Urine Glucose (UA) Negative, Urine Ketones Negative, Urine Blood Trace, Urine Nitrate Negative, Urine Bilirubin Negative, Urine Urobilinogen 0.2, Ur Leukocyte Esterase 1+ A Orders (Tests/Meds): ED MEDICATIONS Discontinued Medications Generic Name Dose Route Start Last Admin Trade Name Freq PRN Reason Stop Dose Admin Cephalexin HCl 500 mg 05/22/21 20:12 05/22/21 20:24 Cephalexin 500mg Capsule PO 05/22/21 20:13 500 mg ONCE ONE Administration ORDERS Category Date Time Status Urine Culture Stat Micro 05/21/21 19:09 Re[place] [facility] [place] [facility] [place] - General Stated complaint: UTI Time Seen by Provider: 05/22/21 20:15 Mode of Arrival: Ambulatory Source of Information: Patient Limitations: No Limitations Description of Symptoms (Recalled from Triage Doc. by RN): pt c/o burning with urination x3 days. HEENT Symptoms (Recalled from RN notes): No Resp Symptoms (Recalled from RN notes): No Skin Symptoms (Recalled from RN notes): No MS Symptoms (Recalled from RN notes): No Functional Status (Recalled from RN notes): wnl - History of Present Illness Provider Complaint: She has been burning with urination and having urinary frequency since yesterday. She states that she has a UTI. She is , but she is unsure how far a long she is or when her lmp was. She denies any vaginal bleeding, abdominal pain or back pain. - Related Data Previous Rx's Medication Instructions Recorded Brompheniramine/Pseudoephed/Dm 5 - 10 ml PO Q46H PRN #150 ml 01/13/21 [Bromfed Dm Cough Syrup] Ondansetron [Zofran 4mg ODT] 4 mg PO TIDP PRN #10 tab 01/13/21 prenat.vits,erika,min-iron-fo
[2021-05-22 20:39] VITALS: BP 139/75; PULSE 82; RESP 18; TEMP 36.8
== END 2021-05-22 20:53 | disposition home or self-care (01) ==
PROVIDERS: Emergency Provider Nurse Practitioner Family; PCP Internal Medicine Adolescent Medicine
DX: O23.11 Infections of bladder in pregnancy, first trimester (principal); Z3A.01 Less than 8 weeks gestation of pregnancy; J45.909 Unspecified asthma, uncomplicated; F17.290 Nicotine dependence, other tobacco product, uncomplicated
CPT/HCPCS: 81003; 87086; 99202; G0463

== ENCOUNTER 2021-05-23 11:07 | Emergency (ER) | payer OTHER, SELFPAY ==
[2021-05-23 11:09] VITALS: BP 126/67; PULSE 75; RESP 16; TEMP 36.8; O2SAT 100; BMI 49.9
[2021-05-23 11:31] VITALS: BMI 49.9
[2021-05-23 11:36] LABS: Microscopic, Urine URINE MICROSCOPIC (MICROSCOPIC)
[2021-05-23 11:39] LABS: Appearance,Urine CLEAR (Clear); Bilirubin,Urine Negative (Negative); Blood, Urine Negative (Negative); Color,Urine YELLOW (Yellow); Glucose,Urine (UA) Negative (Negative); Ketones,Urine Negative (Negative); Leukocyte Esterase,Urine 1+ (Negative); Nitrate,Urine Negative (Negative); Protein,Urine Negative (Negative); Specific Gravity, Urine <= 1.005 (1.005-1.030); Urobilinogen,Urine 0.2 EU/dl (0.2)
[2021-05-23 11:43] LABS: Urine Pregnancy, HCG Qual. Positive (Negative)
[2021-05-23 11:57] LABS: Basophils % 0.2 % (0.1-2.0); Eosinophils # 0.2 K/mm3 (0.0-0.4); Eosinophils % 1.6 % (0.1-12.0); Hematocrit 39.1 % (37.0-47.0); Lymphocytes % 25.2 % (10-50); Mean Corpuscular HGB Conc 33.1 g/dL (31.8-35.4); Mean Corpuscular Hemoglobin 29.5 pg (27.0-31.2); Mean Corpuscular Volume 88.9 fl (81-99); Mean Platelet Volume 7.3 fl (7.4-10.4); Monocytes # 0.5 K/mm3 (0.1-1.0); Monocytes % 4.5 % (1.7-9.3); Neutrophils # 8.1 K/mm3 (1.8-7.8); Neutrophils % 68.5 % (37.0-80.0); Platelet Count 413 K/mm3 (142-424); Red Cell Distribution Width 12.6 % (11.5-17.5); White Blood Count 11.9 K/mm3 (4.8-10.8)
[2021-05-23 12:04] LABS: Mucus,Urine Trace /lpf; RBC,Urine Occasional #/hpf (0-3)
[2021-05-23 12:04] LABS: Chloride 103 mmol/L (98-107); Sodium 138 mmol/L (136-145)
[2021-05-23 12:06] LABS: Alanine Aminotransferase 13 U/L (12-78); Aspartate Amino Transferase 32 U/L (14-36); Blood Urea Nitrogen 8 mg/dl (7-17); Creatinine Clearance Estimated 132 mL/min (50-200); Estimated Glomerular Filt Rate 125 ml/min (>60); GFR (African American) 151 ML/MIN (>60)
--- NOTE | 2021-05-23 12:06 | US_ITS ---
PROCEDURE: US OB TRANSVAGINAL CLINICAL INDICATION: cramping, , r/o ectopic COMPARISON: US US TRANSVAGINAL from 04/13/2020 FINDINGS: The uterus is retroverted. No intrauterine gestational sac is evident. There is a moderate amount of free fluid in the pelvis. Endometrium is thickened at 15 mm. Right ovary is prominent at 4 x 3.7 cm containing at least 3 cyst largest of which is at 2 cm with mildly thickened capsule with peripheral increased blood flow. The left ovary is 2 cm and contains small follicles the largest of which is 1.3 cm. IMPRESSION: An intrauterine is not identified . Uterus is retroverted. Mildly prominent right ovary with complex ovarian cyst with peripheral increased blood flow and capsular thickening. Differential diagnosis would include very early IUP with corpus luteum cyst versus ectopic . Serial beta HCGs and ultrasound follow-up suggested. Dictated by: Alberto Wooten MD 05/23/2021 16:42 Alberto Wooten MD in [facility] 05/23/2021 16:42
--- NOTE | 2021-05-23 12:06 | HMH.EDGENADL ---
ED Disposition Clinical Impression: Pelvic pain, Free fluid in pelvis Qualifiers: Weeks of gestation: less than 8 weeks Qualified Code(s): Z3A.01 - Less than 8 weeks gestation of Disposition: Home, Self-Care Condition on Discharge: Good Additional Instructions: Follow-up with Dr. Bernabe/Fawad as arranged. Return to emergency department if worsening/severe pain or any vaginal bleeding. Referrals: Wil Cavanaugh MD [Primary Care Provider] - - Critical Care Critical Care Time: No Attestation: On 05/23/21, the high probability of a clinically significant, sudden or life threatening deterioration of the following system(s) required my full and direct attention, intervention and personal management. The time I documented below is in addition to time spent performing reported procedures but includes the following listed in this critical care notation. Medical Decision Making - Medical Records Medical records reviewed: Yes: I reviewed the patient's medical records. MR Comment: Reviewed prior quantitative beta-hCG results. On 05/18/2021 it was 15, yesterday was 131. Seen at urgent treatment center yesterday and was diagnosed with UTI, started on Keflex. - Gregory Inquiry Pt receiving controlled substance: No Vital Signs: 05/23/21 11:09 Temperature 98.2 F Temperature Source Oral Pulse Rate [Right Radial] 75 Respiratory Rate 16 Blood Pressure [Right Arm] 126/67 Blood Pressure Mean [Right Arm] 86 Blood Pressure Source [Right Arm] Automatic Cuff Blood Pressure Position [Right Arm] Sitting 02 Sat by Pulse Oximetry 100 Oxygen Delivery Method Room Air - Lab Data Lab Results 05/23/21 11:14: Urine Color Yellow, Urine Appearance Clear, Urine pH 6.0, Ur Specific [place] <= 1.005, Urine Protein Negative, Urine Glucose (UA) Negative, Urine Ketones Negative, Urine Blood Negative, Urine Nitrate Negative, Urine Bilirubin Negative, Urine Urobilinogen 0.2, Ur Leukocyte Esterase 1+ A, Urine RBC Occasional, Urine WBC 3-5, Ur Squamous Epith Cells 5-10, Urine Mucus Trace 05/23/21 11:14: Urine HCG, Qual Positive 05/23/21 11:49: WBC 11.9 H, RBC 4.40, Hgb 13.0, Hct 39.1, MCV 88.9, MCH 29.5, MCHC 33.1, RDW 12.6, Plt Count 413, MPV 7.3 L, Neut % (Auto) 68.5, Lymph % (Auto) 25.2, [place] % (Auto) 4.5, Eos % (Auto) 1.6, Baso % (Auto) 0.2, Neut # (Auto) 8.1 H, Lymph # (Auto) 3.0, [place] # (Auto) 0.5, Eos # (Auto) 0.2, Baso # (Auto) 0.0 05/23/21 11:49: Sodium 138, Potassium 4.0, Chloride 103, Carbon Dioxide 27, Anion Gap 12.0, BUN 8, Creatinine 0.60, Estimated Creat Clear 132, Estimated GFR 125, Est GFR ( Amer) 151, Glucose 92, Calcium 8.4, Total Bilirubin 0.1 L, AST 32, ALT 13, Alkaline Phosphatase 70, Total Protein 6.8, Albumin 4.1, Globulin 2.7, Albumin/Globulin Ratio 1.5, HCG, Quant 194 H Result diagrams: 05/23/21 11:49 05/23/21 11:49 Orders (Tests/Meds): ORDERS Category Date Time Status Urine Culture Stat Micro 05/23/21 11:14 Received US OB transvaginal Stat Ultrasound 05/23/21 12:06 Ordered - US Data US Images: Pelvis Findings Narrative: As per [facility] procedure, ultrasound report received from coding technician: Moderate amount of free pelvic fluid. Empty uterus. Right ovary enlarged 5 cm. - Physician Consults Physician Consulted: Srinivasa Time: 13:10 Reason -: Obstetrical Eval/Care, Gynocological Eval/Care Comment/Response: She will reviewed the ultrasound with the botany technician and come to the emergency room to see the patient. Patient informed. Discussed findings with patient. Discussed ectopic risk factors, she denies any prior history of PID, infertility, or pelvic surgery. 2:10 PM: Seen by Dr. Bernabe. She requests patient be discharged and she will follow-up as an outpatient. She feels the fluid is most likely cystic fluid from a ruptured cyst and not blood, not likely ectopic . General Adult HPI - General Stated complaint: lmp 10/30 pg, cramping, uti Time Seen by
--- NOTE | 2021-05-23 12:06 | PC.NURSE ---
notified rad of transvaginal u/s
[2021-05-23 12:07] LABS: Albumin Level 4.1 g/dl (3.5-5.0); Albumin/Globulin Ratio 1.5 (1.1-1.8); Alkaline Phosphatase 70 U/L (38-126); Calcium 8.4 mg/dl (8.4-10.2); Carbon Dioxide 27 mmol/L (22.0-30.0); Globulin 2.7 g/dL (1.3-3.2); Glucose 92 mg/dl (74-100); Total Protein,Serum 6.8 g/dl (6.3-8.2)
[2021-05-23 12:15] LABS: Bilirubin,Total 0.1 mg/dl (0.2-1.3)
[2021-05-23 12:24] LABS: HCG,Quantitative 194 mIU/ml (0-5.42)
--- NOTE | 2021-05-23 12:27 | PC.NURSE ---
PT GONE TO US
[2021-05-23 15:09] VITALS: BP 121/60; PULSE 72; RESP 17; TEMP 36.8; O2SAT 100
== END 2021-05-23 15:10 | disposition home or self-care (01) ==
PROVIDERS: Emergency Provider Emergency Medicine; PCP Internal Medicine Adolescent Medicine
DX: R10.2 Pelvic and perineal pain (principal); R18.8 Other ascites; Z3A.01 Less than 8 weeks gestation of pregnancy; I10 Essential (primary) hypertension; J45.909 Unspecified asthma, uncomplicated; F17.290 Nicotine dependence, other tobacco product, uncomplicated
CPT/HCPCS: 76817; 80053; 81001; 81025; 84702; 85025; 87086; 99283

== ENCOUNTER 2021-05-27 15:06 | Emergency (ER) | payer OTHER, SELFPAY ==
[2021-05-27 15:08] VITALS: BP 138/79; PULSE 104; RESP 20; TEMP 36.9; O2SAT 100; BMI 49.9
[2021-05-27 15:26] VITALS: BMI 49.9
--- NOTE | 2021-05-27 15:33 | US_ITS ---
PROCEDURE INFORMATION: Exam: US , Transvaginal Exam date and time: 05/27/2021 3:33 PM Age: 20 years old Clinical indication: Lmp or gestational age (in weeks): 7 w 5 d; Antepartum complications; ; Patient HX: Patient has no pain today; Obesity; . She has vaginal bleeding; . Her hcg level 194 on 05/23/21 TECHNIQUE: Imaging protocol: Real-time transvaginal obstetrical ultrasound of the maternal pelvis with image documentation. Transvaginal imaging was used for better evaluation of the fetus, adnexa, and/or cervix. COMPARISON: US OB TRANSVAGINAL 05/23/2021 12:28 PM FINDINGS: Uterus: Endometrium measures 12 mm. No intrauterine gestation. Right ovary/adnexa: There is a structure in the right ovary the demonstrates ring of fire appearance. Left ovary/adnexa: Left ovary appears normal. Intraperitoneal space: Small to moderate volume fluid in the cul-de-sac. IMPRESSION: Findings remain for ectopic especially given small to moderate volume free fluid that could represent blood. Other possibilities include missed and too early to see with ruptured ovarian cyst. Case discussed with Dr. Laguerre over the phone at 1:38 p.m. [place] time
--- NOTE | 2021-05-27 15:51 | HMH.EDGENADL ---
ED Disposition Clinical Impression: Vaginal bleeding Ectopic without intrauterine Qualifiers: Location of ectopic : ovarian Laterality: right Qualified Code(s): O00.201 - Right ovarian without intrauterine Disposition: Home, Self-Care Condition on Discharge: Good Additional Instructions: Emergency department if you have any worsening of pain, if you have any increase significant bleeding, or if you have any other new concerns. We going to have you follow-up on Saturday for a repeat ultrasound as well as repeat levels. Referrals: Wil Cavanaugh MD [Primary Care Provider] - - Critical Care Critical Care Time: No Attestation: On 05/27/21, the high probability of a clinically significant, sudden or life threatening deterioration of the following system(s) required my full and direct attention, intervention and personal management. The time I documented below is in addition to time spent performing reported procedures but includes the following listed in this critical care notation. Medical Decision Making - Medical Records Medical records reviewed: Yes: I reviewed the patient's medical records. - Gregory Inquiry Pt receiving controlled substance: No Vital Signs: 05/27/21 15:08 05/27/21 19:24 Temperature 98.5 F 98.2 F Temperature Source Oral Oral Pulse Rate 75 Pulse Rate [Right Radial] 104 H Respiratory Rate 20 18 Blood Pressure 123/72 Blood Pressure [Right Arm] 138/79 Blood Pressure Mean [Right Arm] 98 Blood Pressure Source Automatic Cuff Blood Pressure Source [Right Arm] Automatic Cuff Blood Pressure Position Sitting Blood Pressure Position [Right Arm] Sitting 02 Sat by Pulse Oximetry 100 Oxygen Delivery Method Room Air Room Air - Lab Data Lab results reviewed: Yes: I reviewed the patient's lab results. Lab Results 05/27/21 15:20: Urine Color Yellow, Urine Appearance Clear, Urine pH 6.0, Ur Specific [place] 1.015, Urine Protein Negative, Urine Glucose (UA) Negative, Urine Ketones Trace, Urine Blood Trace-l, Urine Nitrate Negative, Urine Bilirubin Negative, Urine Urobilinogen 2.0, Ur Leukocyte Esterase 1+ A, Urine RBC 3-5, Urine WBC 5-10, Ur Squamous Epith Cells 10-20 05/27/21 15:25: Blood Type A Negative 05/27/21 15:25: Antibody Screen Negative 05/27/21 16:50: WBC 12.0 H, RBC 4.45, Hgb 13.2, Hct 38.2, MCV 85.9, MCH 29.7, MCHC 34.6, RDW 12.8, Plt Count 454 H, MPV 8.1, Neut % (Auto) 71.7, Lymph % (Auto) 21.4, [place] % (Auto) 5.3, Eos % (Auto) 1.2, Baso % (Auto) 0.2, Neut # (Auto) 8.6 H, Lymph # (Auto) 2.6, [place] # (Auto) 0.6, Eos # (Auto) 0.2, Baso # (Auto) 0.0 05/27/21 16:50: Sodium 137, Potassium 3.4 L, Chloride 104, Carbon Dioxide 22, Anion Gap 14.4, BUN 5 L, Creatinine 0.60, Estimated Creat Clear 132, Estimated GFR 125, Est GFR ( Amer) 151, Glucose 92, Calcium 8.5, Total Bilirubin 0.2, AST 28, ALT 17, Alkaline Phosphatase 75, Total Protein 7.1, Albumin 4.3, Globulin 2.8, Albumin/Globulin Ratio 1.5, HCG, Quant 998 H Result diagrams: 05/27/21 16:50 05/27/21 16:50 Orders (Tests/Meds): ORDERS Category Date Time Status Urine Culture Stat Micro 05/27/21 15:20 Received Medical Decision Narrative: Patient is 20-year-old female unknown length of presenting to emergency department with vaginal bleeding. Differential diagnosis in this patient includes ectopic , urinary tract infection, abnormal uterine bleeding, dilatation among others. Patient previous records were reviewed and noted the patient did not have an intrauterine , however unable to determine if ectopic versus ovarian cyst. Given this repeated the quantitative beta-hCG, CBC, CMP, UA, type and screen to reassess. Patient is hemodynamically stable, vital signs are within normal limits. Repeat ultrasound showed continued concern for ectopic , did not show a intrauterine and patient beta-hCG had increased from the 200s on 05/23 to the 900s
[2021-05-27 16:35] LABS: Microscopic, Urine URINE MICROSCOPIC (MICROSCOPIC)
[2021-05-27 16:56] LABS: Basophils % 0.2 % (0.1-2.0); Eosinophils # 0.2 K/mm3 (0.0-0.4); Eosinophils % 1.2 % (0.1-12.0); Hematocrit 38.2 % (37.0-47.0); Hemoglobin 13.2 g/dL (12.2-16.2); Lymphocytes # 2.6 K/mm3 (0.7-4.5); Lymphocytes % 21.4 % (10-50); Mean Corpuscular HGB Conc 34.6 g/dL (31.8-35.4); Mean Corpuscular Hemoglobin 29.7 pg (27.0-31.2); Mean Corpuscular Volume 85.9 fl (81-99); Mean Platelet Volume 8.1 fl (7.4-10.4); Monocytes # 0.6 K/mm3 (0.1-1.0); Monocytes % 5.3 % (1.7-9.3); Neutrophils # 8.6 K/mm3 (1.8-7.8); Neutrophils % 71.7 % (37.0-80.0); Platelet Count 454 K/mm3 (142-424); Red Blood Count 4.45 M/mm3 (4.20-5.40); Red Cell Distribution Width 12.8 % (11.5-17.5)
[2021-05-27 17:02] LABS: Chloride 104 mmol/L (98-107); Potassium 3.4 mmoL/L (3.5-5.1); Sodium 137 mmol/L (136-145)
[2021-05-27 17:05] LABS: Alanine Aminotransferase 17 U/L (12-78); Albumin Level 4.3 g/dl (3.5-5.0); Albumin/Globulin Ratio 1.5 (1.1-1.8); Alkaline Phosphatase 75 U/L (38-126); Anion Gap 14.4 mEq/L (5-15); Aspartate Amino Transferase 28 U/L (14-36); Bilirubin,Total 0.2 mg/dl (0.2-1.3); Blood Urea Nitrogen 5 mg/dl (7-17); Carbon Dioxide 22 mmol/L (22.0-30.0); Creatinine Clearance Estimated 132 mL/min (50-200); Estimated Glomerular Filt Rate 125 ml/min (>60); GFR (African American) 151 ML/MIN (>60); Globulin 2.8 g/dL (1.3-3.2); Total Protein,Serum 7.1 g/dl (6.3-8.2)
[2021-05-27 17:06] LABS: Calcium 8.5 mg/dl (8.4-10.2); Glucose 92 mg/dl (74-100)
--- NOTE | 2021-05-27 17:11 | PC.NURSE ---
PT GOING TO US
[2021-05-27 17:13] LABS: Appearance,Urine CLEAR (Clear); Bilirubin,Urine Negative (Negative); Blood, Urine TRACE-L (Negative); Color,Urine YELLOW (Yellow); Glucose,Urine (UA) Negative (Negative); Ketones,Urine TRACE (Negative); Leukocyte Esterase,Urine 1+ (Negative); Nitrate,Urine Negative (Negative); Protein,Urine Negative (Negative); Specific Gravity, Urine 1.015 (1.005-1.030)
[2021-05-27 17:22] LABS: HCG,Quantitative 998 mIU/ml (0-5.42)
--- NOTE | 2021-05-27 18:07 | PC.NURSE ---
Dr Barros at bedside
[2021-05-27 19:24] VITALS: BP 123/72; PULSE 75; RESP 18; TEMP 36.8; O2SAT 98
== END 2021-05-27 19:28 | disposition home or self-care (01) ==
PROVIDERS: Emergency Provider Emergency Medicine; PCP Internal Medicine Adolescent Medicine
DX: O00.90 Unspecified ectopic pregnancy without intrauterine pregnancy (principal); J45.909 Unspecified asthma, uncomplicated
CPT/HCPCS: 36415; 76817; 80053; 81001; 84702; 85025; 86850; 86900; 86901; 87086; 99283

== ENCOUNTER → 2021-05-29 09:55 | Outpatient (CLI) | payer OTHER, SELFPAY ==
--- NOTE | 2021-05-29 10:23 | US_ITS ---
PROCEDURE: US OB TRANSVAGINAL CLINICAL INDICATION: ECTOPIC , (WAS SEEN IN THE E.R. ON 05/27) COMPARISON: US US OB TRANSVAGINAL from 05/27/2021 FINDINGS: Is somewhat limited secondary to patient's body habitus and uterus position. The uterus is retroverted. A small sac is present within the uterus measuring approximately 6 mm. No yolk sac or pole demonstrated. There is endometrial thickening. The left ovary is 3 x 2 cm containing a 1.4 cm cyst with somewhat crenulated margins. The right ovary is 4.4 x 3.2 cm and contains a complex cyst at 2.8 x 1.6 cm. There are some internal septations and some mild debris in the cyst. Also appears to represent a corpus luteum noted involving the right ovary at 2.3 x 1.7 cm. Mild amount fluid is present in the cul-de-sac. IMPRESSION: There is an empty gestational sac within the uterus. No pole or yolk sac apparent. Cannot confirm viability. Complex right ovarian cyst. Fluid in the cul-de-sac. One cannot exclude the possibility of an ectopic based on these findings. Please correlate with serial beta HCGs and follow-up ultrasound. Very early IUP is also consideration. Dictated by: Alberto Wooten MD 05/29/2021 11:36 Alberto Wooten MD in [place] 05/29/2021 11:36
[2021-05-29 11:23] LABS: HCG,Quantitative 1872 mIU/ml (0-5.42)
== END ==
PROVIDERS: Visit Provider Emergency Medicine
DX: O00.90 Unspecified ectopic pregnancy without intrauterine pregnancy (principal)
CPT/HCPCS: 36415; 76817; 84702

== ENCOUNTER → 2021-06-05 08:23 | Outpatient (CLI) | payer OTHER, SELFPAY ==
--- NOTE | 2021-06-05 08:29 | US_ITS ---
PROCEDURE: US OB <= 14 WEEKS FETUS CLINICAL INDICATION: US OB before 14 wks ,confirmation /DATES The COMPARISON: US US OB TRANSVAGINAL from 05/29/2021 FINDINGS: An intrauterine gestational sac is present with a pole with a crown-rump length of 0.23cm correlating to gestational age of 5weeks 6days. heart tones are present with an FHR of 93bpm. Yolk sac is noted. There are 2 right ovarian cysts 1 of where [place] appears to represent a simple cyst at 2.6 cm. The other cyst has internal echoes. The latter cyst measures 1.7 cm. IMPRESSION: Live IUP at 5 weeks 6 days. Estimated due date by Ultrasound is 01/30/2022 Dictated by: Alberto Wooten MD 06/05/2021 15:05 Alberto Wooten MD in [facility] 06/05/2021 15:05
== END ==
PROVIDERS: PCP Internal Medicine Adolescent Medicine; Visit Provider Nurse Practitioner Obstetrics & Gynecology
DX: O26.841 Uterine size-date discrepancy, first trimester (principal); R10.31 Right lower quadrant pain
CPT/HCPCS: 76801

== ENCOUNTER → 2021-07-17 16:01 | Outpatient (CLI) | payer OTHER, SELFPAY ==
[2021-07-17 17:01] LABS: Basophils # 0.2 K/mm3 (0-0.2); Basophils % 1.4 % (0.1-2.0); Eosinophils # 0.1 K/mm3 (0.0-0.4); Eosinophils % 0.7 % (0.1-12.0); Hematocrit 40.6 % (37.0-47.0); Hemoglobin 13.1 g/dL (12.2-16.2); Lymphocytes # 2.4 K/mm3 (0.7-4.5); Lymphocytes % 21.5 % (10-50); Mean Corpuscular HGB Conc 32.3 g/dL (31.8-35.4); Mean Corpuscular Hemoglobin 29.2 pg (27.0-31.2); Mean Corpuscular Volume 90.4 fl (81-99); Mean Platelet Volume 8.3 fl (7.4-10.4); Monocytes # 0.4 K/mm3 (0.1-1.0); Monocytes % 3.3 % (1.7-9.3); Neutrophils # 8.2 K/mm3 (1.8-7.8); Neutrophils % 73.2 % (37.0-80.0); Platelet Count 276 K/mm3 (142-424); Red Blood Count 4.49 M/mm3 (4.20-5.40); Red Cell Distribution Width 12.9 % (11.5-17.5); White Blood Count 11.1 K/mm3 (4.8-10.8)
[2021-07-19 08:18] LABS: HIV Screen 4th Generation wRfx Non Reactive (Non Reactive)
[2021-07-19 09:54] LABS: HSV 2 IgG, Type Spec <0.91 index (0.00-0.90); Rubella Antibodies, IgG 4.77 index (Immune >0.99)
[2021-07-19 11:13] LABS: Rapid Plasma Reagin Ab Titer Non Reactive (NonRea<1:1)
[2021-07-20 08:31] LABS: Hepatitis B Surface Antigen Negative (Negative); Hepatitis C Antibody <0.1 s/co ratio (0.0-0.9)
== END ==
PROVIDERS: PCP Internal Medicine Adolescent Medicine; Visit Provider Nurse Practitioner Obstetrics & Gynecology
DX: Z34.90 Encounter for supervision of normal pregnancy, unspecified, unspecified trimester (principal)
CPT/HCPCS: 85025; 86592; 86695; 86703; 86762; 86790; 86850; 87340; 87380; G0432

== ENCOUNTER → 2021-07-19 14:13 | Outpatient (CLI) | payer OTHER, SELFPAY | PROVIDERS: PCP Internal Medicine Adolescent Medicine; Visit Provider Nurse Practitioner Obstetrics & Gynecology | DX: Z31.430 Encounter of female for testing for genetic disease carrier status for procreative management (principal); Z36.0 Encounter for antenatal screening for chromosomal anomalies; O28.3 Abnormal ultrasonic finding on antenatal screening of mother | CPT/HCPCS: 36415 ==

== ENCOUNTER 2021-08-22 22:58 | Emergency (ER) | payer OTHER, SELFPAY ==
[2021-08-22 23:00] VITALS: BP 137/91; PULSE 90; RESP 18; TEMP 36.4; O2SAT 99; BMI 48.4
[2021-08-22 23:08] LABS: Microscopic, Urine URINE MICROSCOPIC (MICROSCOPIC)
[2021-08-22 23:14] LABS: Appearance,Urine CLEAR (Clear); Bilirubin,Urine Negative (Negative); Blood, Urine Negative (Negative); Color,Urine YELLOW (Yellow); Glucose,Urine (UA) Negative (Negative); Ketones,Urine Negative (Negative); Leukocyte Esterase,Urine 1+ (Negative); Nitrate,Urine Negative (Negative); Protein,Urine Negative (Negative); Specific Gravity, Urine 1.015 (1.005-1.030); Urobilinogen,Urine 0.2 EU/dl (0.2)
[2021-08-22 23:20] LABS: Basophils # 0.1 K/mm3 (0-0.2); Basophils % 0.6 % (0.1-2.0); Eosinophils # 0.2 K/mm3 (0.0-0.4); Eosinophils % 1.3 % (0.1-12.0); Hematocrit 41.5 % (37.0-47.0); Hemoglobin 13.6 g/dL (12.2-16.2); Lymphocytes # 3.7 K/mm3 (0.7-4.5); Lymphocytes % 25.4 % (10-50); Mean Corpuscular HGB Conc 32.7 g/dL (31.8-35.4); Mean Corpuscular Hemoglobin 29.9 pg (27.0-31.2); Mean Corpuscular Volume 91.5 fl (81-99); Mean Platelet Volume 8.4 fl (7.4-10.4); Monocytes # 0.5 K/mm3 (0.1-1.0); Monocytes % 3.5 % (1.7-9.3); Neutrophils % 69.2 % (37.0-80.0); Platelet Count 347 K/mm3 (142-424); Red Blood Count 4.53 M/mm3 (4.20-5.40); White Blood Count 14.4 K/mm3 (4.8-10.8)
[2021-08-22 23:26] LABS: Alanine Aminotransferase 26 U/L (12-78); Albumin Level 4.2 g/dl (3.5-5.0); Albumin/Globulin Ratio 1.4 (1.1-1.8); Alkaline Phosphatase 73 U/L (38-126); Anion Gap 11.7 mEq/L (5-15); Aspartate Amino Transferase 25 U/L (14-36); Bilirubin,Total 0.4 mg/dl (0.2-1.3); Blood Urea Nitrogen 4 mg/dl (7-17); Calcium 8.9 mg/dl (8.4-10.2); Carbon Dioxide 24 mmol/L (22.0-30.0); Chloride 103 mmol/L (98-107); Creatinine Clearance Estimated 165 mL/min (50-200); Estimated Glomerular Filt Rate 154 ml/min (>60); GFR (African American) 187 ML/MIN (>60); Glucose 94 mg/dl (74-100); Potassium 3.7 mmoL/L (3.5-5.1); Sodium 135 mmol/L (136-145); Total Protein,Serum 7.2 g/dl (6.3-8.2)
[2021-08-22 23:42] LABS: Bacteria,Urine 4+ /lpf; RBC,Urine Occasional #/hpf (0-3)
--- NOTE | 2021-08-23 00:16 | HMH.EDPREG ---
ED Disposition Clinical Impression: UTI (urinary tract infection) Qualifiers: Urinary tract infection type: site unspecified Hematuria presence: without hematuria Qualified Code(s): N39.0 - Urinary tract infection, site not specified Qualifiers: Weeks of gestation: 17 weeks Qualified Code(s): Z3A.17 - 17 weeks gestation of Disposition: Home, Self-Care Condition on Discharge: Good Instructions: DI for Urinary Tract Infection (UTI) Additional Instructions: use meds and see pcp and ob for urine culture results and follow up Prescriptions: cephALEXin [cephALEXin 500mg capsule*] 500 mg PO TID #30 cap Transmission Status: Pending to [facility] #[id number] Referrals: Wil Cavanaugh MD [Primary Care Provider] - - Critical Care Critical Care Time: No Attestation: On 08/22/21, the high probability of a clinically significant, sudden or life threatening deterioration of the following system(s) required my full and direct attention, intervention and personal management. The time I documented below is in addition to time spent performing reported procedures but includes the following listed in this critical care notation. Medical Decision Making - Medical Records Medical records reviewed: Yes: I reviewed the patient's medical records. - Gregory Inquiry Pt receiving controlled substance: No Vital Signs: 08/22/21 23:00 Temperature 97.5 F L Temperature Source Oral Pulse Rate [Right] 90 Respiratory Rate 18 Blood Pressure [Right Arm] 137/91 H Blood Pressure Mean [Right Arm] 106 02 Sat by Pulse Oximetry 99 - Lab Data Lab results reviewed: Yes: I reviewed the patient's lab results. Lab Results 08/22/21 23:00: Urine Color Yellow, Urine Appearance Clear, Urine pH 7.0, Ur Specific [place] 1.015, Urine Protein Negative, Urine Glucose (UA) Negative, Urine Ketones Negative, Urine Blood Negative, Urine Nitrate Negative, Urine Bilirubin Negative, Urine Urobilinogen 0.2, Ur Leukocyte Esterase 1+ A, Urine RBC Occasional, Urine WBC 10-20, Ur Squamous Epith Cells 5-10, Urine Bacteria 4+ 08/22/21 23:10: WBC 14.4 H, RBC 4.53, Hgb 13.6, Hct 41.5, MCV 91.5, MCH 29.9, MCHC 32.7, RDW 13.0, Plt Count 347, MPV 8.4, Neut % (Auto) 69.2, Lymph % (Auto) 25.4, [place] % (Auto) 3.5, Eos % (Auto) 1.3, Baso % (Auto) 0.6, Neut # (Auto) 10.0 H, Lymph # (Auto) 3.7, [place] # (Auto) 0.5, Eos # (Auto) 0.2, Baso # (Auto) 0.1 08/22/21 23:10: Sodium 135 L, Potassium 3.7, Chloride 103, Carbon Dioxide 24, Anion Gap 11.7, BUN 4 L, Creatinine 0.50 L, Estimated Creat Clear 165, Estimated GFR 154, Est GFR ( Amer) 187, Glucose 94, Calcium 8.9, Total Bilirubin 0.4, AST 25, ALT 26, Alkaline Phosphatase 73, Total Protein 7.2, Albumin 4.2, Globulin 3.0, Albumin/Globulin Ratio 1.4, HCG, Quant [id number] H Result diagrams: 08/22/21 23:10 08/22/21 23:10 Orders (Tests/Meds): ED MEDICATIONS Generic Name Dose Route Start Last Admin Trade Name Freq PRN Reason Stop Dose Admin Sodium Chloride 1,000 mls @ 999 mls/hr 08/22/21 23:15 08/22/21 23:15 Sod Chlor 0.9% 1000ml Bag IV 08/23/21 00:15 999 mls/hr .Q1H1M DONNIE Administration ORDERS Category Date Time Status Urine Culture Stat Micro 08/22/21 23:00 Received Medical Decision Narrative: has preg at 17 weeks with nl fht and prob uti HPI - General Chief complaint: Abdominal Pain Stated complaint: 17 weeks , pain in lower abd Time Seen by Provider: 08/23/21 00:16 Mode of Arrival: Ambulatory Source of Information: Patient, Medical Record Limitations: No Limitations Description of Symptoms (Recalled from ER Triage Doc. by RN): pt states she is 17 weeks and began having lower abd pain and pressure while urinating that started 5 hrs ago. pt denies any bleeding - History of Present Illness HPI Narrative: lower abd pain with dysuria but no bleeding and is 17 weeks MD Complaint: other (pelvic pain) Onset (ago): hour(s) Consist
[2021-08-23 00:41] VITALS: BP 129/87; PULSE 89; RESP 18; TEMP 36.4; O2SAT 99
== END 2021-08-23 00:43 | disposition home or self-care (01) ==
PROVIDERS: Emergency Provider Emergency Medicine; PCP Internal Medicine Adolescent Medicine
DX: O23.40 Unspecified infection of urinary tract in pregnancy, unspecified trimester (principal); O99.519 Diseases of the respiratory system complicating pregnancy, unspecified trimester; O13.9 Gestational [pregnancy-induced] hypertension without significant proteinuria, unspecified trimester; Z3A.17 17 weeks gestation of pregnancy; Z82.49 Family history of ischemic heart disease and other diseases of the circulatory system; Z80.9 Family history of malignant neoplasm, unspecified; Z82.5 Family history of asthma and other chronic lower respiratory diseases
CPT/HCPCS: 80053; 81001; 84702; 85025; 87086; 96361; 96365; 99283; 99284

== ENCOUNTER → 2021-09-13 14:38 | Outpatient (CLI) | payer OTHER, SELFPAY ==
--- NOTE | 2021-09-13 14:39 | US_ITS ---
FINAL REPORT CLINICAL HISTORY: 20 weeks gestation FINDINGS: There is a single live intrauterine gestation. Presentation is cephalic. The cervix is closed and measures 4.1 cm. Placenta is anterior, high, grade 1. movement is noted. Heart rate is measured at 150 beats per minute. Three-vessel cord with satisfactory umbilical cord insertion. Four-chamber heart is noted. brain and ventricles are unremarkable. Chest and diaphragm are unremarkable. ABDOMEN: Both kidneys and the bladder are unremarkable. Stomach is unremarkable. SPINE: No anomalies identified. Both arms and legs noted. AMNIOTIC FLUID: Appropriate amount. MEASUREMENTS: ULTRASOUND AGE: 20 weeks 2 days. GESTATION AGE: 20 weeks 1 days. ESTIMATED WEIGHT: 3 in 47 g GROWTH PERCENTILE: 56% BPD: 4.7 cm corresponding with 20 weeks 1 days. OFD: 5.9 cm corresponding with 20 weeks 2 days. HC: 16.8 cm corresponding with 19 weeks 4 days. AC: 15.6 cm corresponding with 20 weeks 6 days. FL: 3.2 cm corresponding with 20 weeks 1 day. CEREBELLUM: 2 cm corresponding with 20 weeks 3 days. HUMERUS: 3.1 cm corresponding with 20 weeks 3 days. NUCH FOLD: 2 mm HC/AC: 1.08 CI: 79% FL/BPD: 69% FL/AC: 21% IMPRESSION: Single living IUP with an ultrasound age of 20 weeks 2 days. No anomalies noted. Reviewed, Interpreted and Dictated by Jacob De La Torre III, MD Transcribed by Radha Pabon Authenticated by Jacob De La Torre III, MD on 09/13/2021 03:45:45 PM [facility]
== END ==
PROVIDERS: PCP Internal Medicine Adolescent Medicine; Visit Provider Nurse Practitioner Obstetrics & Gynecology
DX: Z36.0 Encounter for antenatal screening for chromosomal anomalies (principal); Z3A.20 20 weeks gestation of pregnancy
CPT/HCPCS: 76811

== ENCOUNTER 2021-09-16 18:57 | Outpatient (CLI) | payer OTHER, SELFPAY ==
[2021-09-16 19:15] VITALS: BMI 48.4
[2021-09-16 19:23] LABS: Microscopic, Urine URINE MICROSCOPIC (MICROSCOPIC)
[2021-09-16 19:28] VITALS: BP 132/93; PULSE 93; RESP 21; TEMP 36.8; O2SAT 99; BMI 48.4
[2021-09-16 19:28] LABS: Appearance,Urine CLEAR (Clear); Bilirubin,Urine Negative (Negative); Blood, Urine Negative (Negative); Color,Urine YELLOW (Yellow); Glucose,Urine (UA) Negative (Negative); Ketones,Urine Negative (Negative); Leukocyte Esterase,Urine Negative (Negative); Nitrate,Urine Negative (Negative); Protein,Urine Negative (Negative); Specific Gravity, Urine >= 1.030 (1.005-1.030)
[2021-09-16 19:38] LABS: Bacteria,Urine Trace /lpf
[2021-09-16 19:40] LABS: Barbiturates Screen,Urine Negative ng/ml (<200)
[2021-09-16 19:41] LABS: Benzodiazepines Screen,Urine Negative ng/ml (<200)
[2021-09-16 19:42] LABS: Amphetamine/Metha Screen,Urine Negative ng/ml (<1000); Cannabinoid Screen,Urine Negative ng/ml (<50)
[2021-09-16 19:43] LABS: Cocaine Screen,Urine Negative ng/ml (<300)
[2021-09-16 19:44] LABS: Methadone Screen,Urine Negative ng/ml (<300)
[2021-09-16 19:45] LABS: Phencyclidine Screen,Urine Negative ng/ml (<25)
[2021-09-16 19:56] LABS: Opiate Screen,Urine Negative ng/ml (<300)
== END 2021-09-16 20:10 | disposition home or self-care (01) ==
LOC: OBOUT 18:58 → OB 18:58
PROVIDERS: PCP Internal Medicine Adolescent Medicine; Visit Provider Obstetrics & Gynecology
DX: O26.892 Other specified pregnancy related conditions, second trimester (principal); Z3A.20 20 weeks gestation of pregnancy; R30.9 Painful micturition, unspecified; R10.30 Lower abdominal pain, unspecified
CPT/HCPCS: 80305; 81001; G0463

== ENCOUNTER → 2021-11-01 09:06 | Outpatient (CLI) | payer OTHER, SELFPAY ==
[2021-11-01 09:37] LABS: Glucose,Fasting 104 mg/dl (74-100)
[2021-11-01 11:21] LABS: Glucose 1 Hour 122 mg/dL (74-100)
== END ==
PROVIDERS: Visit Provider Nurse Practitioner Obstetrics & Gynecology
DX: Z34.90 Encounter for supervision of normal pregnancy, unspecified, unspecified trimester (principal)
CPT/HCPCS: 36415; 82951

== ENCOUNTER → 2021-11-07 14:53 | Outpatient (CLI) | payer OTHER, SELFPAY | PROVIDERS: PCP Internal Medicine Adolescent Medicine; Visit Provider Nurse Practitioner Obstetrics & Gynecology | DX: Z34.90 Encounter for supervision of normal pregnancy, unspecified, unspecified trimester (principal) ==

== ENCOUNTER 2021-11-08 11:59 | Outpatient (CLI) | payer OTHER, SELFPAY ==
[2021-11-08 13:10] VITALS: BP 126/65; PULSE 90; RESP 18; TEMP 36.7; O2SAT 98
== END 2021-11-08 13:10 | disposition home or self-care (01) ==
LOC: INF 12:00
PROVIDERS: PCP Internal Medicine Adolescent Medicine; Visit Provider Nurse Practitioner Obstetrics & Gynecology
DX: Z34.90 Encounter for supervision of normal pregnancy, unspecified, unspecified trimester (principal)
CPT/HCPCS: 96372; J2790

== ENCOUNTER 2021-12-10 17:45 | Outpatient (CLI) | payer OTHER, SELFPAY ==
[2021-12-10 17:55] VITALS: BMI 49.8
[2021-12-10 18:01] LABS: Microscopic, Urine URINE MICROSCOPIC (MICROSCOPIC)
[2021-12-10 18:05] LABS: Appearance,Urine SL CLOUDY (Clear); Bilirubin,Urine Negative (Negative); Blood, Urine Negative (Negative); Color,Urine YELLOW (Yellow); Glucose,Urine (UA) Negative (Negative); Ketones,Urine Negative (Negative); Leukocyte Esterase,Urine 2+ (Negative); Nitrate,Urine Negative (Negative); Protein,Urine Negative (Negative)
[2021-12-10 18:13] VITALS: BP 118/81; PULSE 112; RESP 18; TEMP 36.9; O2SAT 98; BMI 49.8
[2021-12-10 18:17] LABS: Barbiturates Screen,Urine Negative ng/ml (<200); Benzodiazepines Screen,Urine Negative ng/ml (<200)
[2021-12-10 18:18] LABS: Amphetamine/Metha Screen,Urine Negative ng/ml (<1000)
[2021-12-10 18:19] LABS: Bacteria,Urine 4+ /lpf; Cannabinoid Screen,Urine Negative ng/ml (<50); Cocaine Screen,Urine Negative ng/ml (<300); RBC,Urine Occasional #/hpf (0-3)
[2021-12-10 18:20] LABS: Methadone Screen,Urine Negative ng/ml (<300)
[2021-12-10 18:21] LABS: Opiate Screen,Urine Negative ng/ml (<300); Phencyclidine Screen,Urine Negative ng/ml (<25)
== END 2021-12-10 19:40 | disposition home or self-care (01) ==
LOC: OBOUT 17:48 → OB 17:48
PROVIDERS: PCP Nurse Practitioner Obstetrics & Gynecology; Visit Provider Obstetrics & Gynecology
DX: O36.8130 Decreased fetal movements, third trimester, not applicable or unspecified (principal); Z3A.32 32 weeks gestation of pregnancy; M54.50 Low back pain, unspecified
CPT/HCPCS: 59025; 80305; 81001; 87086; 96372; G0463; J0696

== ENCOUNTER → 2021-12-12 09:44 | Outpatient (CLI) | payer OTHER, SELFPAY ==
--- NOTE | 2021-12-12 09:44 | US_ITS ---
FINAL REPORT CLINICAL HISTORY: Growth only; LGA; obesity FINDINGS: There is a single live intrauterine gestation. Presentation is cephalic. Placenta is anterior and grade 2. Cardiac activity is confirmed at 144 bpm. Cervix measures 3.8 cm. movement is noted. AMNIOTIC FLUID: Appropriate amount. CATRACHO: 14.45 cm MEASUREMENTS: ULTRASOUND AGE: 33 weeks 4 days. GESTATION AGE: 33 weeks 0 days. ESTIMATED WEIGHT: 2166 g GROWTH PERCENTILE: 51% BPD: 8.5 cm consistent with 34 weeks 1 days. OFD: 10.8 cm consistent with 34 weeks 3 days. HC: 30.4 cm consistent with 33 weeks 6 days. AC: 29.7 cm consistent with 33 weeks 5 days. FL: 6.2 cm consistent with 32 weeks 2 days. HC/AC: 1.03 CI: 79% FL/BPD: 74% FL/AC: 21% IMPRESSION: Single living IUP with an ultrasound age of 33 weeks 4 days. Reviewed, Interpreted and Dictated by Jacob De La Torre III, MD Transcribed by Rene Kimble Authenticated and [facility]
== END ==
PROVIDERS: PCP Internal Medicine Adolescent Medicine; Visit Provider Obstetrics & Gynecology
DX: O36.60X0 Maternal care for excessive fetal growth, unspecified trimester, not applicable or unspecified (principal)
CPT/HCPCS: 76816

== ENCOUNTER 2021-12-25 14:48 | Outpatient (CLI) | payer OTHER, SELFPAY ==
[2021-12-25 15:03] VITALS: BMI 52.0
[2021-12-25 15:17] VITALS: BP 152/90; PULSE 115; RESP 18; TEMP 36.7; O2SAT 98; BMI 52.0
[2021-12-25 15:41] LABS: Microscopic, Urine URINE MICROSCOPIC (MICROSCOPIC)
[2021-12-25 15:49] LABS: Appearance,Urine CLOUDY (Clear); Bilirubin,Urine Negative (Negative); Blood, Urine TRACE-L (Negative); Color,Urine YELLOW (Yellow); Glucose,Urine (UA) Negative (Negative); Ketones,Urine TRACE (Negative); Leukocyte Esterase,Urine 1+ (Negative); Nitrate,Urine Negative (Negative); Protein,Urine TRACE (Negative); Specific Gravity, Urine 1.025 (1.005-1.030)
[2021-12-25 16:00] LABS: Barbiturates Screen,Urine Negative ng/ml (<200); Benzodiazepines Screen,Urine Negative ng/ml (<200)
[2021-12-25 16:01] LABS: Amphetamine/Metha Screen,Urine Negative ng/ml (<1000)
[2021-12-25 16:02] LABS: Cannabinoid Screen,Urine Negative ng/ml (<50); Cocaine Screen,Urine Negative ng/ml (<300)
[2021-12-25 16:03] LABS: Methadone Screen,Urine Negative ng/ml (<300); Opiate Screen,Urine Negative ng/ml (<300)
[2021-12-25 16:04] LABS: Phencyclidine Screen,Urine Negative ng/ml (<25)
[2021-12-25 16:05] LABS: Bacteria,Urine 2+ /lpf; RBC,Urine Occasional #/hpf (0-3)
[2021-12-25 16:33] LABS: Basophils # 0.1 K/mm3 (0-0.2); Basophils % 0.3 % (0.1-2.0); Eosinophils # 0.2 K/mm3 (0.0-0.4); Eosinophils % 1.7 % (0.1-12.0); Hematocrit 31.8 % (37.0-47.0); Hemoglobin 11.1 g/dL (12.2-16.2); Lymphocytes # 2.6 K/mm3 (0.7-4.5); Lymphocytes % 18.7 % (10-50); Mean Corpuscular Volume 82.9 fl (81-99); Mean Platelet Volume 7.5 fl (7.4-10.4); Monocytes # 0.7 K/mm3 (0.1-1.0); Monocytes % 4.7 % (1.7-9.3); Neutrophils # 10.4 K/mm3 (1.8-7.8); Neutrophils % 74.5 % (37.0-80.0); Platelet Count 355 K/mm3 (142-424); Red Blood Count 3.83 M/mm3 (4.20-5.40); Red Cell Distribution Width 13.4 % (11.5-17.5); White Blood Count 13.9 K/mm3 (4.8-10.8)
[2021-12-25 16:55] LABS: Activated Partial Thrombo Time 25.9 seconds (22.8-30.6); Fibrinogen 552 mg/dL (229.9-363.5); Prothrombin Time 10.3 seconds (10.1-12.5)
[2021-12-25 17:01] LABS: Anion Gap 9.4 mEq/L (5-15); Blood Urea Nitrogen 2 mg/dl (7-17); Carbon Dioxide 22 mmol/L (22.0-30.0); Chloride 107 mmol/L (98-107); Creatinine Clearance Estimated 197 mL/min (50-200); Estimated Glomerular Filt Rate 198 ml/min (>60); GFR (African American) 239 ML/MIN (>60); Glucose 84 mg/dl (74-100); Potassium 3.4 mmoL/L (3.5-5.1); Sodium 135 mmol/L (136-145)
[2021-12-25 17:02] LABS: Alanine Aminotransferase 16 U/L (12-78); Aspartate Amino Transferase 20 U/L (14-36); Calcium 8.2 mg/dl (8.4-10.2); Uric Acid 3.9 mg/dl (2.5-6.2)
== END 2021-12-25 17:30 | disposition home or self-care (01) ==
LOC: OBOUT 14:51 → OB 14:52
PROVIDERS: PCP Internal Medicine Adolescent Medicine; Visit Provider Nurse Practitioner Obstetrics & Gynecology
DX: O26.893 Other specified pregnancy related conditions, third trimester (principal); Z3A.34 34 weeks gestation of pregnancy; R60.0 Localized edema
CPT/HCPCS: 59025; 80048; 80305; 81001; 84450; 84460; 84550; 85025; 85378; 85384; 85610; 85730; 87086; G0463

== ENCOUNTER → 2021-12-27 10:22 | Outpatient (CLI) | payer OTHER, SELFPAY ==
[2021-12-27 10:46] LABS: Basophils % 0.2 % (0.1-2.0); Eosinophils # 0.3 K/mm3 (0.0-0.4); Eosinophils % 1.9 % (0.1-12.0); Hemoglobin 11.1 g/dL (12.2-16.2); Lymphocytes # 3.1 K/mm3 (0.7-4.5); Lymphocytes % 20.7 % (10-50); Mean Corpuscular HGB Conc 34.7 g/dL (31.8-35.4); Mean Corpuscular Hemoglobin 28.7 pg (27.0-31.2); Mean Corpuscular Volume 82.5 fl (81-99); Mean Platelet Volume 7.9 fl (7.4-10.4); Monocytes # 0.6 K/mm3 (0.1-1.0); Monocytes % 3.9 % (1.7-9.3); Neutrophils # 10.9 K/mm3 (1.8-7.8); Neutrophils % 73.3 % (37.0-80.0); Platelet Count 361 K/mm3 (142-424); Red Blood Count 3.87 M/mm3 (4.20-5.40); Red Cell Distribution Width 13.5 % (11.5-17.5); White Blood Count 14.9 K/mm3 (4.8-10.8)
[2021-12-27 11:05] LABS: D-Dimer 0.95 ug/mL (0.0-0.5)
[2021-12-27 11:15] LABS: Alanine Aminotransferase 14 U/L (12-78); Aspartate Amino Transferase 19 U/L (14-36); Calcium 8.6 mg/dl (8.4-10.2); Carbon Dioxide 24 mmol/L (22.0-30.0); Chloride 106 mmol/L (98-107); Estimated Glomerular Filt Rate 153 ml/min (>60); GFR (African American) 185 ML/MIN (>60); Glucose 89 mg/dl (74-100); Sodium 135 mmol/L (136-145); Uric Acid 3.3 mg/dl (2.5-6.2)
[2021-12-27 11:16] LABS: Blood Urea Nitrogen < 2 mg/dl (7-17)
[2021-12-27 12:20] LABS: Activated Partial Thrombo Time 25.4 seconds (22.8-30.6); Fibrinogen 563 mg/dL (229.9-363.5); INR 0.88 (0.9-1.1)
== END ==
PROVIDERS: PCP Internal Medicine Adolescent Medicine; Visit Provider Nurse Practitioner Obstetrics & Gynecology
DX: O13.9 Gestational [pregnancy-induced] hypertension without significant proteinuria, unspecified trimester (principal)
CPT/HCPCS: 36415; 80048; 84450; 84460; 84550; 85025; 85378; 85384; 85610; 85730

== ENCOUNTER → 2022-01-05 06:41 | Outpatient (CLI) | payer OTHER, SELFPAY | PROVIDERS: Visit Provider Nurse Practitioner Obstetrics & Gynecology | DX: Z34.90 Encounter for supervision of normal pregnancy, unspecified, unspecified trimester (principal) | CPT/HCPCS: 86403 ==

== ENCOUNTER → 2022-01-08 10:51 | Outpatient (CLI) | payer OTHER, SELFPAY ==
[2022-01-08 11:19] LABS: Basophils # 0.1 K/mm3 (0-0.2); Basophils % 0.9 % (0.1-2.0); Eosinophils # 0.2 K/mm3 (0.0-0.4); Eosinophils % 1.5 % (0.1-12.0); Hematocrit 34.6 % (37.0-47.0); Hemoglobin 11.1 g/dL (12.2-16.2); Lymphocytes # 2.9 K/mm3 (0.7-4.5); Lymphocytes % 19.6 % (10-50); Mean Corpuscular HGB Conc 32.2 g/dL (31.8-35.4); Mean Corpuscular Hemoglobin 28.3 pg (27.0-31.2); Mean Corpuscular Volume 88.1 fl (81-99); Mean Platelet Volume 8.6 fl (7.4-10.4); Monocytes # 0.8 K/mm3 (0.1-1.0); Monocytes % 5.1 % (1.7-9.3); Neutrophils # 10.9 K/mm3 (1.8-7.8); Neutrophils % 72.9 % (37.0-80.0); Platelet Count 412 K/mm3 (142-424); Red Blood Count 3.93 M/mm3 (4.20-5.40); Red Cell Distribution Width 14.1 % (11.5-17.5); White Blood Count 14.9 K/mm3 (4.8-10.8)
[2022-01-08 11:32] LABS: D-Dimer 0.94 ug/mL (0.0-0.5)
[2022-01-08 11:47] LABS: Activated Partial Thrombo Time 25.3 seconds (22.8-30.6); Fibrinogen 636 mg/dL (229.9-363.5); INR 0.87 (0.9-1.1); Prothrombin Time 9.9 seconds (10.1-12.5)
[2022-01-08 11:49] LABS: Alanine Aminotransferase 17 U/L (12-78); Anion Gap 10.7 mEq/L (5-15); Aspartate Amino Transferase 20 U/L (14-36); Blood Urea Nitrogen 5 mg/dl (7-17); Calcium 8.5 mg/dl (8.4-10.2); Carbon Dioxide 20 mmol/L (22.0-30.0); Chloride 108 mmol/L (98-107); Estimated Glomerular Filt Rate 153 ml/min (>60); GFR (African American) 185 ML/MIN (>60); Glucose 88 mg/dl (74-100); Potassium 3.7 mmoL/L (3.5-5.1); Sodium 135 mmol/L (136-145); Uric Acid 3.6 mg/dl (2.5-6.2)
== END ==
PROVIDERS: PCP Internal Medicine Adolescent Medicine; Visit Provider Nurse Practitioner Obstetrics & Gynecology
DX: Z34.90 Encounter for supervision of normal pregnancy, unspecified, unspecified trimester (principal)
CPT/HCPCS: 36415; 80048; 84450; 84460; 84550; 85025; 85378; 85384; 85610; 85730

== ENCOUNTER → 2022-01-10 10:09 | Outpatient (CLI) | payer OTHER, SELFPAY ==
[2022-01-10 10:23] LABS: Collection Time,Urine 24 hours; Total Volume,Urine 2600 mL (600-1600)
[2022-01-10 10:51] LABS: Creatinine 24 Hour,Urine 1300 mg/24hr (630-2500); Patient Height,Urine 66 inches; Patient Weight,Urine 326 lbs
[2022-01-10 10:52] LABS: Total Protein 24 Hour,Urine 832 mg/24 hr (40-90)
[2022-01-10 10:58] LABS: Creatinine Clearance Urine 159.1 mL/min (25-115); Creatinine,Urine Random 50 mg/dL (Not Estab.)
== END ==
PROVIDERS: PCP Internal Medicine Adolescent Medicine; Visit Provider Nurse Practitioner Obstetrics & Gynecology
DX: Z34.90 Encounter for supervision of normal pregnancy, unspecified, unspecified trimester (principal)
CPT/HCPCS: 82575; 84155

== ENCOUNTER 2022-01-11 12:06 | Outpatient (CLI) | payer OTHER, SELFPAY ==
[2022-01-11 12:08] VITALS: BMI 52.7
--- NOTE | 2022-01-11 12:09 | US_ITS ---
FINAL REPORT CLINICAL HISTORY: No FHT FINDINGS: TRANSABDOMINAL ULTRASOUND Single intrauterine is present. Cardiac activity is confirmed at 147 beats per minute. Placenta is grade 3 and anterior. Presentation is cephalic. Estimated gestational age is 37 weeks 2 days. IMPRESSION: Single living IUP with estimated gestational age of 37 weeks 2 days. Reviewed, Interpreted and Dictated by Jacob De La Torre III, MD Transcribed by Rene Kimble Authenticated and [facility]
[2022-01-11 12:16] VITALS: BP 157/106; PULSE 125; RESP 20; TEMP 36.9; O2SAT 97; BMI 52.5
== END 2022-01-11 12:30 | disposition home or self-care (01) ==
LOC: OBOUT 12:07 → OB 12:08
PROVIDERS: Visit Provider Obstetrics & Gynecology
DX: Z34.90 Encounter for supervision of normal pregnancy, unspecified, unspecified trimester (principal)
CPT/HCPCS: 76815

== ENCOUNTER 2022-01-11 16:19 | Inpatient (IN) | payer OTHER, SELFPAY ==
[2022-01-11 16:32] VITALS: BP 129/76; PULSE 106; RESP 16; TEMP 36.9; O2SAT 98; BMI 52.7
[2022-01-11 16:47] VITALS: BMI 52.7
[2022-01-11 17:28] LABS: Coronavirus 19, PCR Not Detected (NotDetected); Influenza A, PCR Not Detected (NotDetected); Influenza B, PCR Not Detected (NotDetected)
[2022-01-11 17:31] LABS: Microscopic, Urine URINE MICROSCOPIC (MICROSCOPIC)
[2022-01-11 17:52] LABS: Activated Partial Thrombo Time 25.9 seconds (22.8-30.6); Fibrinogen 597 mg/dL (229.9-363.5); INR 0.88 (0.9-1.1)
[2022-01-11 18:23] LABS: Appearance,Urine CLEAR (Clear); Bilirubin,Urine Negative (Negative); Blood, Urine 2+ (Negative); Color,Urine YELLOW (Yellow); Glucose,Urine (UA) Negative (Negative); Ketones,Urine Negative (Negative); Leukocyte Esterase,Urine 1+ (Negative); Nitrate,Urine Negative (Negative); PH,Urine 6.5 (5.0-8.5); Protein,Urine Negative (Negative); Specific Gravity, Urine <= 1.005 (1.005-1.030)
[2022-01-11 18:31] LABS: Sodium 134 mmol/L (136-145)
[2022-01-11 18:32] LABS: Anion Gap 7.7 mEq/L (5-15); Blood Urea Nitrogen 3 mg/dl (7-17); Carbon Dioxide 21 mmol/L (22.0-30.0); Chloride 109 mmol/L (98-107); Creatinine Clearance Estimated 205 mL/min (50-200); Estimated Glomerular Filt Rate 198 ml/min (>60); GFR (African American) 239 ML/MIN (>60); Glucose 84 mg/dl (74-100); Potassium 3.7 mmoL/L (3.5-5.1)
[2022-01-11 18:34] LABS: Basophils % 0.3 % (0.1-2.0); Eosinophils # 0.1 K/mm3 (0.0-0.4); Eosinophils % 0.7 % (0.1-12.0); Lymphocytes # 2.5 K/mm3 (0.7-4.5); Lymphocytes % 18.3 % (10-50); Mean Corpuscular HGB Conc 33.4 g/dL (31.8-35.4); Mean Corpuscular Hemoglobin 28.2 pg (27.0-31.2); Mean Corpuscular Volume 84.6 fl (81-99); Mean Platelet Volume 8.7 fl (7.4-10.4); Monocytes # 0.8 K/mm3 (0.1-1.0); Monocytes % 5.6 % (1.7-9.3); Neutrophils # 10.3 K/mm3 (1.8-7.8); Neutrophils % 75.1 % (37.0-80.0); Platelet Count 413 K/mm3 (142-424); Red Cell Distribution Width 13.9 % (11.5-17.5); White Blood Count 13.7 K/mm3 (4.8-10.8)
[2022-01-11 18:34] LABS: Barbiturates Screen,Urine Negative ng/ml (<200)
[2022-01-11 18:35] LABS: Amphetamine/Metha Screen,Urine Negative ng/ml (<1000); Benzodiazepines Screen,Urine Negative ng/ml (<200)
[2022-01-11 18:36] LABS: Methadone Screen,Urine Negative ng/ml (<300)
[2022-01-11 18:37] LABS: Cannabinoid Screen,Urine Negative ng/ml (<50); Cocaine Screen,Urine Negative ng/ml (<300)
[2022-01-11 18:38] LABS: Opiate Screen,Urine Negative ng/ml (<300); Phencyclidine Screen,Urine Negative ng/ml (<25)
[2022-01-11 19:12] LABS: Bacteria,Urine 2+ /lpf
[2022-01-11 19:25] LABS: Alanine Aminotransferase 18 U/L (12-78); Aspartate Amino Transferase 23 U/L (14-36); Calcium 8.5 mg/dl (8.4-10.2); Uric Acid 3.7 mg/dl (2.5-6.2)
--- NOTE | 2022-01-12 07:06 | HMH.PHAINT ---
MEDICATION RECONCILIATION COMPLETED ON PATIENT USING EXTERNAL FILL HISTORY FROM PHARMACY. -YUMI KRUGER, RENETTAD
--- NOTE | 2022-01-12 07:13 | HMH.OBAPHP ---
OB - H&P: HPI Antepartum - History of Present Illness Chief complaint: Headaches, swelling, elevated blood pressure History of present illness: Ms Giulia Medrano is a 21 yo at 37w3d admitted to [facility] for scheduled induction of labor secondary to preeclampsia. She has been taking Procardia XL 30 daily. She had mild range BP in the office on 01/11. She has been complaining of headaches and bilateral lower extremity swelling. Reports movement. Admits to irregular contractions. 24 hour urine protein, 01/10/22, was 832. - History of Present Criteria for establishing EDC:: based on 1st trimester US only care: good care Ultrasounds: normal mid trimester US Obstetrical complications: preeclampsia Medical complications: other (Morbid obesity) - Labs Blood type: A (-) negative Rubella: immune RPR/VDRL: nonreactive GBS status: negative HBsAG: negative HMH History I have reviewed the patient's past medical history: Yes Medical History: Reports:: Asthma, Hypertension Denies:: Cancer, Diabetes Mellitus Type 1, Diabetes Mellitus Type 2, MRSA, Seizures *Have you ever received a pneumonia vaccine?: No *Have you received a flu vaccine this season?: No Laterality Cases: Bilateral: Myringotomy (Ear Tubes), Tonsillectomy Other Surgeries: Yes: No Previous Surgery, Other Amputation: No Fractures: Yes (rt arm) - *Social History Smoking Status: Current every day smoker Tobacco Type: e-cigarettes # Packs/Day (cigarettes): 0 Alcohol Intake: never Alcohol Intake Frequency:: other Substance Use Type: denies use *Occupational Status:: unemployed Housing: house Household Members: family *Travel in the last 8 weeks: None Family Hx:: Asthma, Cancer, Coronary Artery Disease : 1 Para: 0 Review of Systems - Constitutional Reports headache(s), Denies body ache(s), Denies chills, Denies fever(s) - Eyes Denies blurry vision, Denies change in vision - *Cardiovascular Denies chest pain, Denies shortness of breath - *Respiratory Denies chest congestion, Denies cough, Denies shortness of breath - *Gastrointestinal Denies abdominal pain, Denies nausea, Denies vomiting - *Musculoskeletal Denies joint pain, Denies body aches - *Neurologic Reports headache(s), Denies dizziness, Denies loss of vision, Denies other visual disturbances Meds Home Medications Medication Instructions Recorded Confirmed Type vitamin with calcium 1 tab PO DAILY tab 06/21/21 01/11/22 History no.72-iron 27 mg-folic acid 1 mg tablet Ferrous Sulfate 325 mg PO DAILY 01/11/22 01/11/22 History NIFEdipine [Nifedipine ER] 30 mg PO DAILY 01/11/22 01/11/22 History Promethazine HCl 12.5 mg PO Q4HP PRN 01/12/22 01/12/22 History Allergies Allergy/AdvReac Type Severity Reaction Status Date / Time No Known Allergies Allergy Verified 01/11/22 11:05 OB - H&P: Exam - Physical Exam Vital signs: Temp Pulse Resp BP Pulse Ox 98.5 F 106 H 16 129/76 98 01/11/22 16:32 01/11/22 16:32 01/11/22 16:32 01/11/22 16:32 01/11/22 16:32 - Constitutional no acute distress, morbidly obese - Routine HEENT Exam Head: Present: normocephalic Eye: Absent: conjunctivae pink ENT: Present: mucous membranes moist - Routine Respiratory Exam Present: CTA bilaterally - Routine Cardiovascular Exam Present: RRR - Routine Abdominal Exam Present: soft (Gravid). Absent: tenderness - Routine Exam Patient deferred: external exam External: Present: normal urethra appearance. Absent: vulvar tenderness - Routine Extremities Exam Present: edema (+3 bilateral lower extremity edema), full ROM. Absent: calf tenderness - Routine Neurological Exam Present: alert, oriented X3 - Detailed Labor and Delivery Exam Dilation (cm): 2 Effacement (%): 75 Cervix position: anterior station: -2 Consistency: soft Membranes: artificially ruptured (amniotomy performed at 0737 with FS
--- NOTE | 2022-01-12 09:50 | HMH.LABNOT ---
Labor Note - Subjective: Date: 01/12/22 Time: 09:50 regular contraction - Objective: NST:: Reactive Contractions:: every 2-3 minutes (irregular every 2-4 minutes) Cervical Dilation:: 2 Effacement:: 75% Station: -2 Membranes: ruptured - Fetus: Monitoring?: Yes monitoring type:: Internal Comment:: IUPC inserted without difficulty. Patient tolerated well - Assessment: Labor progressing?: Yes Patient Problems: All Active Problems 37 or more weeks gestation of (Acute) Preeclampsia (Acute) Asthma (Acute) Electronic cigarette use (Acute) Rh negative state in antepartum period (Acute) Size of fetus inconsistent with dates, antepartum (Acute) (Acute) Nausea (Acute) BMI 50.0-59.9, adult (Acute) - Plan: Continue to monitor?: Yes
--- NOTE | 2022-01-12 11:36 | HMH.ANESCL ---
[facility] Anesthesia Checklist - Patient Identification Patient Identification: Arm Band - Structural Data Admitted From: Inpatient Planned Operative Procedure/s: Labor Epidural Consent for Planned Operative Procedure(s) Verified: Yes Verified Documents: Surgical Consent, History and Physical - NPO Status Verified Time NPO: 00:00 - Additional verifications Anesthesia Reactions: No - Airway Assessment C-Spine Mobility Assessed: Yes TMJ Mobility Assessed: Yes Dentition: Good Dentition - Neurological Assessment Level of Consciousness: Awake, Alert - Anesthesia Plan Anesthesia Risk discussed: Yes Anesthesia Plan: Verified ASA Class: III Anesthesia Type: Epidural [facility] History I have reviewed the patient's past medical history: Yes Medical History: Reports:: Asthma, Hypertension Denies:: Cancer, Diabetes Mellitus Type 1, Diabetes Mellitus Type 2, MRSA, Seizures *Have you ever received a pneumonia vaccine?: No *Have you received a flu vaccine this season?: No Anesthesia experience/problems:: nac Laterality Cases: Bilateral: Myringotomy (Ear Tubes), Tonsillectomy Other Surgeries: Yes: No Previous Surgery, Other Amputation: No Fractures: Yes (rt arm) - *Social History Smoking Status: Current every day smoker Tobacco Type: e-cigarettes # Packs/Day (cigarettes): 0 Alcohol Intake: never Alcohol Intake Frequency:: other Substance Use Type: denies use *Occupational Status:: unemployed Housing: house Household Members: family *Travel in the last 8 weeks: None Family Hx:: Asthma, Cancer, Coronary Artery Disease Para: 0
--- NOTE | 2022-01-12 13:35 | P.PN_ITS ---
Labor Note - Subjective: Date: 01/12/22 Time: 13:35 regular contraction - Objective: NST:: Reactive Contractions:: every 2-3 minutes Cervical Dilation:: 4 Effacement:: 75% Station: -2 Membranes: artificially ruptured Comment:: Baseline 125 bpm, moderate variability, + accelerations, occasional variable d eceleration - Fetus: Monitoring?: Yes monitoring type:: Internal - Assessment: Labor progressing?: Yes Patient Problems: All Active Problems 37 or more weeks gestation of (Acute) Preeclampsia (Acute) Asthma (Acute) Electronic cigarette use (Acute) Rh negative state in antepartum period (Acute) Size of fetus inconsistent with dates, antepartum (Acute) (Acute) Nausea (Acute) BMI 50.0-59.9, adult (Acute) - Plan: Anesthesia for epidural?: Yes Continue to monitor?: Yes
--- NOTE | 2022-01-12 20:10 | P.PN_ITS ---
Labor Note - Subjective: Date: 01/12/22 Time: 20:11 regular contraction Comment:: Patient comfortable with epidural - Objective: NST:: Reactive Contractions:: every 2-3 minutes Cervical Dilation:: 5 Effacement:: 75% Station: -2 Membranes: artificially ruptured - Fetus: Monitoring?: Yes monitoring type:: Internal (FSE and IUPC) - Assessment: Labor progressing?: No Patient Problems: All Active Problems 37 or more weeks gestation of (Acute) Preeclampsia (Acute) Asthma (Acute) Electronic cigarette use (Acute) Rh negative state in antepartum period (Acute) Size of fetus inconsistent with dates, antepartum (Acute) (Acute) Nausea (Acute) BMI 50.0-59.9, adult (Acute) - Plan: Anesthesia for epidural?: Yes Plan for ?: Yes Comment:: Patient has had minimal cervical spinning frame changer the past 7 hours. At 1315 cervix was 4/75/-2. At 1535 cervix was 5/75/-2. Pitocin reached 22 mu and contractions were spacing out. Pitocin was discontinued for 45 minutes. A fresh bag of Pitocin was hung and started at 3 mu. Pitocin reached 12 mu and cervical exam was 5/75/-2 at 2000. caput was noted. heart tones were category 1. Discussed minimal cervical change with patient. Decision was made to proceed with primary secondary to failure to progress. Discussed risks, benefits, alternatives, expectations and possible complications. All questions addressed and answered. Patient voiced understanding of risks and possible complications. Consent form signed.
--- NOTE | 2022-01-12 22:20 | HMH.OPNOTE ---
Date of procedure: 01/12/22 Pre-op Diagnosis:: 1. 37 or more weeks gestation of 2. Preeclampsia 3. BMI 50.0-59.9, adult 4. Electronic cigarette use 5. Rh negative state in antepartum period 6. Asthma 7. Failure to progress Post-op Diagnosis:: 1. 37 or more weeks gestation of 2. Preeclampsia 3. BMI 50.0-59.9, adult 4. Electronic cigarette use 5. Rh negative state in antepartum period 6. Asthma 7. Failure to progress 8. Asynclitic presentation Procedure performed:: Primary Low Transverse section Surgeon:: Neetu Morataya DO Line Department Supervisor(s):: Pranay Ruano MD DIFFERENTIAL REPAIRER:: Alek Méndez Anesthesia: epidural Estimated blood loss (mL): 500 Clinical Note:: Ms Giulia Medrano is a 21 yo at 37w2d admitted to [facility] for scheduled induction of labor secondary to preeclampsia. She was admitted on 01/11/22 and Cervidil was placed. On 01/12/22 Cervidil was removed and Pitocin was started. Amniotomy was performed and internal monitoring, FSE and IUPC, was placed. Patient progressed to 4/75/-2. Then had minimal cervical tire changer 7 hours. At 1315 cervix was 4/75/-2. At 1535 cervix was 5/75/-2. Pitocin reached 22 mu and contractions were spacing out. Pitocin was discontinued for 45 minutes. A fresh bag of Pitocin was hung and started at 3 mu. Pitocin reached 12 mu and cervical exam was 5/75/-2 at 2000. caput was noted. heart tones were category 1. Discussed minimal cervical change with patient. Decision was made to proceed with primary secondary to failure to progress. Discussed risks, benefits, alternatives, expectations and possible complications. All questions addressed and answered. Patient voiced understanding of risks and possible complications. Consent form signed. Operative findings:: 1. Uterus, bilateral fallopian tubes and ovaries grossly normal 2. Asynclitic presentation of baby 3. Live female baby (baby's name is Joya) with APGARs 7, 8 Operative note:: The risks, benefits and alternatives of the procedure were reviewed with the patient. Informed consent was obtained. Patient was taken to the operating room where epidural was bolused. The patient received 3 grams of Ancef preoperatively. Patient was placed in dorsal supine position with a leftward tilt. SCDs in place. Velasquez catheter had been previously placed and was draining clear urine prior to the start of the procedure. heart tones were obtained. Patient was then prepped and draped in normal sterile fashion. Allis clamp test was performed to ensure adequate anesthesia. A Pfannenstiel skin incision was made 2 cm above pubic symphysis. This was carried through to underlying layer of fascia. Fascia was incised in midline, extended laterally with Guzman scissors. Superior aspect of fascial incision was grasped with two Eduardo clamps, elevated up, and rectus muscle dissected off bluntly and sharply with Guzman scissors. The retcus muscle was then in the midline and the peritoneum was entered bluntly with a digit. Peritoneal incision was then extended superiorly and inferiorly with good visualization of the bladder. Bam retractor was inserted. Metzenbaum scissors were used on the vesicouterine peritoneum to create a bladder flap. The lower uterine segment was incised in a transverse fashion. Head was delivered without difficulty. Remainder of body was delivered without difficulty. Mouth and nares were bulb suctioned. Spontaneous cry was noted. Delayed cord clamping was performed for 60 seconds. The umbilical cord was then clamped and cut. The was handed to awaiting pediatric staff in stable condition. Dr. Bunn was present. Apgars were 7(1 min), 8(5 min). Cord blood was obtained. Gentle traction on the umbilical cord and uterine fundal massage delivered the placenta. Placenta was intact. Placenta will be sent to pathology for review. Uterus was cleared of all clots and debris with a moist laparotomy sponge. C
[2022-01-12 22:25] VITALS: BP 116/61; PULSE 110; RESP 16; TEMP 36.9; O2SAT 100
[2022-01-12 22:35] VITALS: BP 116/61; BP 136/73; PULSE 110; PULSE 114; RESP 16; RESP 20; TEMP 36.9; O2SAT 100
--- NOTE | 2022-01-12 22:35 | P.PN_ITS ---
[facility] Anesthesia Record Part I Intake, IV Amount: 1,200 Estimated blood loss (mL): 500 Urine output (mL): 100 Blood Pressure: 116/61 SaO2: 100 Pulse Rate: 110 Respiratory Rate: 16 Temperature: 98.4 F Patient is:: Awake, Stable Stable to PACU at:: 22:25
[2022-01-12 22:45] VITALS: BP 136/62; PULSE 110; RESP 18; O2SAT 100
[2022-01-12 22:55] VITALS: BP 141/78; PULSE 111; RESP 18; TEMP 36.7; O2SAT 100
--- NOTE | 2022-01-12 23:30 | SUR.PHASEI ---
LATE ENTRY 2249 called and given detailed report to Sam Corral OB RN [id number] transported via bed. vital signs stable. denies pain. left in stable condition with Sam Corral OB RN at bedside.
--- NOTE | 2022-01-13 05:36 | PC.NURSE ---
RHOGAM ADMINISTERED AT THIS TIME TO RIGHT GLUTIUS CHUCKY. LOT # [id number] EXP 05/21/22
[2022-01-13 08:52] LABS: Basophils % 0.2 % (0.1-2.0); Eosinophils # 0.1 K/mm3 (0.0-0.4); Eosinophils % 0.9 % (0.1-12.0); Hematocrit 33.8 % (37.0-47.0); Hemoglobin 10.9 g/dL (12.2-16.2); Lymphocytes # 2.8 K/mm3 (0.7-4.5); Lymphocytes % 17.7 % (10-50); Mean Corpuscular HGB Conc 32.2 g/dL (31.8-35.4); Mean Corpuscular Hemoglobin 28.2 pg (27.0-31.2); Mean Corpuscular Volume 87.4 fl (81-99); Mean Platelet Volume 9.1 fl (7.4-10.4); Monocytes # 0.9 K/mm3 (0.1-1.0); Monocytes % 5.9 % (1.7-9.3); Neutrophils # 11.8 K/mm3 (1.8-7.8); Neutrophils % 75.4 % (37.0-80.0); Platelet Count 371 K/mm3 (142-424); Red Blood Count 3.87 M/mm3 (4.20-5.40); White Blood Count 15.7 K/mm3 (4.8-10.8)
[2022-01-13 08:55] VITALS: BP 135/84; PULSE 100; RESP 18; TEMP 36.6; O2SAT 99
[2022-01-13 09:06] LABS: MANUAL DIFFERENTIAL MANUAL DIFFERENTIAL (MANUAL DIFF)
[2022-01-13 09:25] LABS: Anisocytosis 1+; Eosinophils % 1 % (0-3); Hypochromasia 1+; Lymphocytes % 16 % (10-50); Monocytes % 8 % (2-9); Neutrophils % 75 % (42-76); Ovalocytes 1+; Total Cells Counted 100
[2022-01-13 09:26] LABS: Platelet Estimate Normal
[2022-01-13 10:04] VITALS: BP 141/78; PULSE 111; TEMP 36.6
--- NOTE | 2022-01-13 10:04 | P.PN_ITS ---
[facility] Anesthesia Record Part II Discharge Time: 22:55 Destination: Obstetric PACU nurse assessment reviewed?: Yes Patient Condition:: Good Anesthesia Complications:: None Swallowing reflex intact?: Yes Cyanosis?: No Blood Pressure: 141/78 Pulse Rate: 111 Temperature: 98 F Mental Status: Alert & Oriented Pain level:: 0 Nausea and/or vomitting:: None Intake, IV Amount: 0
--- NOTE | 2022-01-13 10:06 | P.CONPHA_ITS ---
[facility] Pharmacy VTE Monitoring - Patient Demographics Admission date: 01/11/22 Report Date: 01/13/22 Time: 10:06 Allergies/Adverse Reactions: Patient Allergies No Known Allergies Allergy (Verified 01/11/22 11:05) Height: 1.68 m Weight: 148.325 kg Patient Problems: Current Active Problems 37 or more weeks gestation of (Acute) Preeclampsia (Acute) Asthma (Acute) Electronic cigarette use (Acute) Rh negative state in antepartum period (Acute) BMI 50.0-59.9, adult (Acute) - VTE Risk Labs: VTE Related Lab Results Hgb 10.9 g/dL (12.2-16.2) L 01/13/22 07:30 Hct 33.8 % (37.0-47.0) L 01/13/22 07:30 Plt Count 371 K/mm3 (142-424) 01/13/22 07:30 PT 10.0 seconds (10.1-12.5) L 01/11/22 17:14 INR 0.88 (0.9-1.1) L 01/11/22 17:14 APTT 25.9 seconds (22.8-30.6) 01/11/22 17:14 Fibrinogen 597 mg/dL (229.9-363.5) H 01/11/22 17:14 BUN 3 mg/dl (7-17) L 01/11/22 17:14 BUN Cancelled 01/11/22 17:14 Creatinine 0.40 mg/dl (0.52-1.04) L 01/11/22 17:14 Creatinine Cancelled 01/11/22 17:14 Estimated Creat Clear 205 mL/min (50-200) 01/11/22 17:14 Estimated Creat Clear Cancelled 01/11/22 17:14 Was VTE Risk Assessment Performed: No Clinical Trial Participant: No - Prophylaxis VTE Prophylaxis Ordered?: Yes Types of VTE Prophylaxis: TEDS Knee High, Pharmacological Location of Applied Device: Bilateral Lower Extremeties Pharmacologic Type: Enoxaparin
--- NOTE | 2022-01-13 12:53 | HMH.ACPN2 ---
Internal Medicine - PN: Subj *Date: 01/13/22 *Time: 12:53 Interval history: POD # 1 s/p PLTCS Patient sitting comfortably in rocking chair holding baby. Pain is controlled. Light lochia. She is breast feeding. Denies fever/chills, chest pain and shortness of breath. Tolerating regular diet. Voiding without difficulty. Passing flatus. Denies headaches and vision changes. Admits to lower extremity swelling. Exam Vital signs and Labs for Last 24 Hours: Temp Pulse Resp BP Pulse Ox 98 F 111 H 18 141/78 H 99 01/13/22 10:04 01/13/22 10:04 01/13/22 08:55 01/13/22 10:04 01/13/22 08:55 Laboratory Results - last 24 hr 01/13/22 00:13: Screen Negative, Baby's Rh Status Positive, Rhogam Infusion Rhogam release 01/13/22 05:00: Screen Cancelled, Baby's Rh Status Cancelled, Rhogam Infusion Cancelled 01/13/22 07:30: WBC 15.7 H, RBC 3.87 L, Hgb 10.9 L, Hct 33.8 L, MCV 87.4, MCH 28.2, MCHC 32.2, RDW 14.0, Plt Count 371, MPV 9.1, Neut % (Auto) 75.4, Lymph % (Auto) 17.7, [place] % (Auto) 5.9, Eos % (Auto) 0.9, Baso % (Auto) 0.2, Neut # (Auto) 11.8 H, Lymph # (Auto) 2.8, [place] # (Auto) 0.9, Eos # (Auto) 0.1, Baso # (Auto) 0.0, Total Counted 100, Neutrophils % (Manual) 75, Lymphocytes % (Manual) 16, Monocytes % (Manual) 8, Eosinophils % (Manual) 1, Platelet Estimate Normal, Hypochromasia 1+, Anisocytosis 1+, Ovalocytes 1+ I & O for Last 24 hours: Intake & Output 01/10/22 01/11/22 01/12/22 01/13/22 23:59 23:59 23:59 23:59 Intake Total 1200 / 1200 0 / 0 Output Total 100 / 100 Balance 1100 / 1100 0 / 0 Weight 327 lb Microbiology Reports for the Last 24 Hours: Microbiology 01/11/22 16:35 Urine,Clean Catch Urine Culture - Final Multiple organisms, suggests contamination. - Constitutional no acute distress, morbidly obese - *Routine Respiratory Exam Present: CTA bilaterally - *Routine Cardiovascular Exam Present: RRR - *Routine Abdominal Exam Present: soft. Absent: tenderness, distended Comments: Uterine fundus firm and below umbilicus. Telfa dressing over incision without drainage - *Routine Extremities Exam Present: edema (+3 bilateral lower extremity non-pitting edema), full ROM. Absent: calf tenderness Assessment and Plan (1) 37 or more weeks gestation of Status: Acute Category: Medical (2) Preeclampsia Status: Acute Qualifiers: Trimester: third trimester Qualified Code(s): O14.93 - Unspecified pre-eclampsia, third trimester Category: Medical Code(s): O14.90 - Unspecified pre-eclampsia, unspecified trimester (3) BMI 50.0-59.9, adult Status: Acute Category: Medical Code(s): Z68.43 - Body mass index [BMI] 50.0-59.9, adult (4) Electronic cigarette use Status: Acute Category: Social Hx Code(s): Z78.9 - Other specified health status (5) Rh negative state in antepartum period Status: Acute Category: Medical Code(s): O26.899 - Other specified related conditions, unspecified trimester; Z67.91 - Unspecified blood type, Rh negative (6) Asthma Status: Acute Qualifiers: Asthma severity: unspecified severity Asthma persistence: unspecified Asthma complication type: unspecified Qualified Code(s): J45.909 - Unspecified asthma, uncomplicated Category: Medical Code(s): J45.909 - Unspecified asthma, uncomplicated (7) Acute blood loss anemia Status: Acute Category: Medical Code(s): D62 - Acute posthemorrhagic anemia - Assessment and plan all Dx Assessment and Plan for all problems:: Continue routine care Encouraged increased ambulation Plan d/c home POD # 3
[2022-01-13 16:28] VITALS: BP 148/85; PULSE 97; RESP 18; TEMP 36.6; O2SAT 100
[2022-01-14 08:00] VITALS: BP 150/84; PULSE 95; RESP 18; TEMP 36.4; O2SAT 99
--- NOTE | 2022-01-14 08:38 | HMH.OBDCSM ---
General - General Admission date:: 01/11/22 Discharge date: 01/14/22 HPI - History of Present Illness History of present illness: POD # 2 s/p PLTCS Patient sitting in rocking chair this morning. Feeling well. Pain controlled. She is breast and formula feeding. Light lochia. Voiding without difficulty and passing flatus. Tolerating regular diet. Denies fever/chills, chest pain and shortness of breath. Denies headaches, vision changes and swelling. Hospital Course Hospital Course: Ms Giulia Medrano is a 21 yo at 37w2d admitted to [facility] Labor and Delivery on 01/11/22 for induction of labor secondary to preeclampsia. She underwent a primary on 01/12/22. She delivered a girl, named Joya, weighing 7 lb. APGARs were 7, 8. EBL was 500 mL. PPD #1 She was doing well. No chief complaints. She is breast feeding. Vitals were BP 141/75, HR 111, R 18, T 98.0. Heart was regular rate and rhythm. Lungs were clear to auscultation. ABdomen was soft, nontender, uterine fundus firm and below umbilicus. Lochia was light. She had + 3 bilateral lower extremity edema. PPD # 2 She was doing well. She had no chief complaints. Reported decreased lochia. She was urinating without difficulty. Passing flatus. Pain was controlled. She had no nausea, vomiting, fever/chills, chest pain or shortness of breath. Vitals were stable. Heart was regular rate and rhythm. Lungs were clear to auscultation. Abdomen was soft, nontender, uterine fundus firm and below umbilicus. Extremities with +3 bilateral nonpitting edema. No calf tenderness to palpation. Normal hospital course. During this admission, patient's hemoglobin and hematocrit were: 01/11/22: Hgb 11.0, Hct 33.0 01/13/22: Hgb 10.9, Hct33.8 Rhogam Administration: Given Objective Vital signs: Temp Pulse Resp BP Pulse Ox 97.8 F 97 H 18 148/85 H 100 01/13/22 16:28 01/13/22 16:28 01/13/22 16:28 01/13/22 16:28 01/13/22 16:28 no acute distress, morbidly obese - *Routine HEENT Exam Head: Present: normocephalic Eye: Absent: conjunctivae pink ENT: Present: mucous membranes moist - *Routine Respiratory Exam Present: CTA bilaterally - *Routine Cardiovascular Exam Present: RRR - *Routine Abdominal Exam Present: soft. Absent: tenderness, distended Comments: Uterine fundus firm and below umbilicus, incision c;angel/dry/intact with steri strips in place, healing well - *Routine Extremities Exam Present: edema (+3), full ROM ( bilateral lower extremity non-pitting edema). Absent: calf tenderness - *Routine Neurological Exam Present: alert, oriented X3 Results Labs on day of discharge: Labs from last 24 hours 01/13/22 07:30 WBC 15.7 H RBC 3.87 L Hgb 10.9 L Hct 33.8 L MCV 87.4 MCH 28.2 MCHC 32.2 RDW 14.0 Plt Count 371 MPV 9.1 Neut % (Auto) 75.4 Lymph % (Auto) 17.7 Rowan % (Auto) 5.9 Eos % (Auto) 0.9 Baso % (Auto) 0.2 Neut # (Auto) 11.8 H Lymph # (Auto) 2.8 Rowan # (Auto) 0.9 Eos # (Auto) 0.1 Baso # (Auto) 0.0 Total Counted 100 Neutrophils % (Manual) 75 Lymphocytes % (Manual) 16 Monocytes % (Manual) 8 Eosinophils % (Manual) 1 Platelet Estimate Normal Hypochromasia 1+ Anisocytosis 1+ Ovalocytes 1+ DS: Diagnosis - Discharge Diagnosis (1) 37 or more weeks gestation of Status: Acute (2) Preeclampsia Status: Acute (3) BMI 50.0-59.9, adult Status: Acute (4) Electronic cigarette use Status: Acute (5) Rh negative state in antepartum period Status: Acute (6) Asthma Status: Acute (7) Acute blood loss anemia Status: Acute Discharge Plan - Patient Discharge Instructions ACTIVITY: Continue current activity DIET: regular diet Additional Instructions: Nothing in the vagina for 6 weeks No tub baths/ or driving until released to do so Drink plenty of fluids No heavy lifting Patient Instructions: Depression, Hemorrhage, DI for B
== END 2022-01-14 11:15 | disposition home or self-care (01) | DRG 788 ==
PROVIDERS: Admitting Provider Obstetrics & Gynecology; PCP Obstetrics & Gynecology; Visit Provider Obstetrics & Gynecology
PROC: 10D00Z1 Extraction of Products of Conception, Low, Open Approach (ICD-10-PCS; CPT 59514; principal; 2022-01-12 21:00)
DX: O14.94 Unspecified pre-eclampsia, complicating childbirth (principal); Z37.0 Single live birth; Z3A.37 37 weeks gestation of pregnancy; O64.0XX0 Obstructed labor due to incomplete rotation of fetal head, not applicable or unspecified; O99.333 Smoking (tobacco) complicating pregnancy, third trimester; F17.290 Nicotine dependence, other tobacco product, uncomplicated
CPT/HCPCS: 59514; 36415; 59025; 76815; 80048; 80305; 81001; 82575; 84155; 84450; 84460; 84550; 85007; 85025; 85378; 85384; 85461; 85610; 85730; 86850; 87086; 88307; C1758; C9290; C9803; J0595; J2405; J2790; U0003; U0005

== ENCOUNTER → 2022-04-13 11:30 | Outpatient (CLI) | payer OTHER, SELFPAY ==
[2022-04-14 10:15] LABS: Rapid Plasma Reagin Ab Titer Non Reactive (NonRea<1:1)
[2022-04-17 03:36] LABS: Neisseria gonorrhoeae, NAA Negative (Negative)
[2022-05-12 22:54] LABS: HIV Screen 4th Generation wRfx Non Reactive
[2022-05-12 22:56] LABS: HSV 2 IgG, Type Spec <0.91; Hep A Ab, IgM Negative; Hepatitis B Core Antibody IgM Negative; Hepatitis B Surface Antigen Negative; Hepatitis C Antibody <0.1
== END ==
PROVIDERS: PCP Internal Medicine Adolescent Medicine; Visit Provider Nurse Practitioner Obstetrics & Gynecology
DX: Z11.3 Encounter for screening for infections with a predominantly sexual mode of transmission (principal); Z11.4 Encounter for screening for human immunodeficiency virus [HIV]
CPT/HCPCS: 36415; 80074; 86592; 86695; 86703; 86790; 87491; 87591; G0432

== ENCOUNTER 2022-04-24 17:22 | Emergency (ER) | payer OTHER, SELFPAY ==
--- NOTE | 2022-04-24 18:55 | EXP.UTC ---
Discharge Plan Disposition Patient Disposition: Home, Self-Care Condition: Good Prescriptions Prescriptions: New azithromycin [Zithromax] 250 mg tablet 250 mg PO UD DOSE PK Qty: 6 0RF Rx Instructions: Take two (2) tablets today, then one (1) tablet days #2 thru #5 benzonatate [benzonatate] 100 mg capsule 100 mg PO TIDP PRN (Reason: Cough) Qty: 30 0RF No Action Kyleena 17.5 mcg/24 hrs (5 yrs) 19.5 mg intrauterine device intrauterine Referrals Follow up/Referrals: Wil Cavanaugh MD [Primary Care Provider] - See instructions Activity Restrictions/Add. Instructions Additional Instructions/Restrictions: Drink plenty of fluids. Take tylenol or ibuprofen for pain or fever. Take the medications as directed. Follow up with your regular doctor. GO TO THE ER FOR ANY WORSENING SYMPTOMS Clinical Impressions Clinical Impression: Acute viral syndrome, Bronchitis Stand Alone Forms Stand Alone Forms: Work/School Release Instructions Patient Instructions: DI for Acute Bronchitis, DI for Viral Syndrome Discharge ED Provider: Aravind Baron [facility] General Stated complaint: flu exposure, sore throat, runny nose, h/a Time Seen by Provider: 04/24/22 18:55 History of Present Illness Provider Complaint: She states that for the past 1 day she has had body aches, chills, low grade fever, sore throat and a cough. Related Data Home Medications Medication Instructions Recorded Confirmed levonorgestrel 17.5 mcg/24 hrs intrauterine 04/13/22 04/13/22 (5yrs) 19.5mg intrauterine device (Kyleena) Previous Rx's Medication Instructions Recorded azithromycin 250 mg tablet 250 mg PO UD DOSE PK #6 tabs 04/24/22 (Zithromax) benzonatate 100 mg capsule 100 mg PO TIDP PRN Cough #30 caps 04/24/22 Allergies Allergy/AdvReac Type Severity Reaction Status Date / Time No Known Allergies Allergy Verified 04/13/22 11:10 [facility] Medical History Cervical cancer screening Encounter for IUD insertion Surgical History Hx of section Social History Smoking Status: Current every day smoker tobacco type: e-cigarettes second hand exposure: No alcohol intake: never substance use type: denies use current occupational status: unemployed Travel in the last 8 weeks: None household members: family housing: house ROS Obtained: Yes All systems reviewed & no additional complaints except as documented Constitutional Constitutional: Reports chills and Reports fever(s) Eyes Eyes: Denies eye discharge ENT Ears, Nose, Mouth, and Throat: Reports as per HPI Cardiovascular Cardiovascular: Denies chest pain Respiratory Respiratory: Denies chest congestion and Reports cough Gastrointestinal Gastrointestingal: Reports nausea; Denies abdominal pain, constipation, cramping, diarrhea or vomiting Musculoskeletal Musculoskeletal: Denies arthralgias Integumentary/Breasts Skin/Breast: Denies rash Neurologic Neurologic: Denies paresthesias Physical Exam General General appearance: alert and in no apparent distress Head Head exam: atraumatic, normocephalic and normal inspection Eye Eye exam: Present normal appearance, PERRL and EOMI ENT ENT exam: Present normal exam, normal oropharynx, mucous membranes moist, TM's normal bilaterally and normal external ear exam Neck Neck exam: Present normal inspection, full ROM and trachea midline; Absent meningismus or lymphadenopathy Chest Chest inspection: Present normal inspection and symmetric chest wall rise; Absent tenderness Respiratory Respiratory exam: Present normal lung sounds bilaterally; Absent respiratory distress Cardiovascular Cardiovascular exam: Present regular rate and normal rhythm; Absent JVD Abdominal Exam Abdominal exam: Present soft and normal bowel sounds; Ab
[2022-04-24 19:06] LABS: UTC Strep Screen (Rapid) Negative (Negative)
[2022-04-24 19:07] LABS: UTC Influenza A Antigen Negative (Negative); UTC Influenza B Antigen Negative (Negative)
[2022-04-24 19:10] VITALS: BP 126/79; PULSE 75; RESP 18; TEMP 36.8; O2SAT 100; BMI 43.2
[2022-04-24 19:13] VITALS: BP 126/79; PULSE 75; RESP 18; TEMP 36.8
[2022-04-24 19:32] LABS: Adenovirus,PCR Not Detected (NotDetected); Bordetella Pertussis Not Detected (NotDetected); Chlamydophila Pneumoniae, PCR Not Detected (NotDetected); Coronavirus 19, PCR Not Detected (NotDetected); Coronavirus 229E Not Detected (NotDetected); Coronavirus NL63 Not Detected (NotDetected); Coronavirus OC43 Not Detected (NotDetected); Coronovirus HKU1,PCR Not Detected (NotDetected); Human Metapneumovirus Not Detected (NotDetected); Influenza A, PCR Not Detected (NotDetected); Influenza AH1, 2009 Not Detected (NotDetected); Influenza AH1, PCR Not Detected (NotDetected); Influenza AH3,PCR Not Detected (NotDetected); Influenza B, PCR Not Detected (NotDetected); Mycoplasma Pneumoniae, PCR Not Detected (NotDetected); Parainfluenza 1, PCR Not Detected (NotDetected); Parainfluenza 2, PCR Not Detected (NotDetected); Parainfluenza 3, PCR Not Detected (NotDetected); Parainfluenza 4, PCR Not Detected (NotDetected); Respiratory Syncytial Virus Not Detected (NotDetected); Rhinovirus/Enterovirus Not Detected (NotDetected)
== END 2022-04-24 19:22 | disposition home or self-care (01) ==
PROVIDERS: Emergency Provider Nurse Practitioner Family; PCP Internal Medicine Adolescent Medicine
DX: J20.9 Acute bronchitis, unspecified (principal)
CPT/HCPCS: 87581; 87632; 87798; 87804; 87880; 99212; C9803; G0463; U0003; U0005

== ENCOUNTER 2022-05-29 16:47 | Emergency (ER) | payer OTHER, SELFPAY ==
[2022-05-29 17:00] VITALS: BP 125/69; PULSE 88; RESP 17; TEMP 37; O2SAT 99; BMI 51.2
--- NOTE | 2022-05-29 17:19 | EXP.UTC ---
Discharge Plan Disposition Patient Disposition: Home, Self-Care Condition: Good Prescriptions Prescriptions: New guaifenesin [Mucinex] 600 mg tablet extended release 12hr 600 mg PO BID PRN (Reason: cough) Qty: 20 0RF azithromycin [Zithromax Z-Ambrocio] 250 mg tablet See Rx Instructions .ROUTE .COMPLEX 5 Days Qty: 6 0RF Rx Instructions: For 250 mg dose pack: take 500 mg today (day 1), then 250 mg for 4 days (days 2-5) methylprednisolone [Medrol (Ambrocio)] 4 mg tablets,dose pack See Rx Instructions .Route .COMPLEX 6 Days Qty: 21 0RF Rx Instructions: taper pack; No Action Kyleena 17.5 mcg/24 hrs (5 yrs) 19.5 mg intrauterine device intrauterine azithromycin [Zithromax] 250 mg tablet 250 mg PO UD DOSE PK Qty: 6 0RF Rx Instructions: Take two (2) tablets today, then one (1) tablet days #2 thru #5 benzonatate [benzonatate] 100 mg capsule 100 mg PO TIDP PRN (Reason: Cough) Qty: 30 0RF Referrals Follow up/Referrals: Wil Cavanaugh MD [Primary Care Provider] - See instructions Activity Restrictions/Add. Instructions Additional Instructions/Restrictions: Start antibiotic today. Be sure to complete entire prescription even if feeling better Monitor temp. Tylenol every 4 hours as needed and / or ibuprofen every 6 hours as needed ( As long as your primary care physician has told you that it ok to take both. For fever/aches/pains ER if no less than 101 despite Tylenol or Motrin Humidifier/vaporizer or hot steamy shower Mucinex for your cough and chest congestion Be sure to drink lots of water. *Start steroid today. Helps with inflammation therefore, cough and wheezing. Follow directions on the package. Reviewed side effects. Patient reports taking them before. Follow up IMMEDIATELY for new or worsening of symptoms OR no noticeable improvement over the next 48-72 hours. 911 immediately for any life threatening symptoms such as chest pain or difficulty breathing Clinical Impressions Clinical Impression: Bronchitis Stand Alone Forms Stand Alone Forms: Work/School Release Instructions Patient Instructions: Acute Bronchitis Discharge ED Provider: Marie Snowden [facility] General Stated complaint: cough, congestion Time Seen by Provider: 05/29/22 17:19 History of Present Illness Provider Complaint: Patient states that she feels like she may have bronchitis States that she has been having chest congestion but having dry cough States that she will cough and cough but unable to get anything up and has burning like feeling in her throat and chest at times when she coughs Related Data Home Medications Medication Instructions Recorded Confirmed levonorgestrel 17.5 mcg/24 hrs intrauterine 04/13/22 04/13/22 (5yrs) 19.5mg intrauterine device (Kyleena) Previous Rx's Medication Instructions Recorded azithromycin 250 mg tablet 250 mg PO UD DOSE PK #6 tabs 04/24/22 (Zithromax) benzonatate 100 mg capsule 100 mg PO TIDP PRN Cough #30 caps 04/24/22 azithromycin 250 mg tablet See Rx Instructions PO .COMPLEX 5 05/29/22 (Zithromax Z-Ambrocio) days #6 tabs guaifenesin 600 mg tablet, 600 mg PO BID PRN cough #20 tabs 05/29/22 extended release 12 hr (Mucinex) methylprednisolone 4 mg tablets in See Rx Instructions .Route 05/29/22 a dose pack (Medrol (Ambrocio)) .COMPLEX 6 days #21 tabs Allergies Allergy/AdvReac Type Severity Reaction Status Date / Time No Known Allergies Allergy Verified 04/24/22 19:12 [facility] Disclaimer: The information contained in this section may have been updated after the patient was seen, as this information can be updated by other users. Medical History (Updated 05/29/22 @ 17:24 by Marie Snowden APRN) Anxiety Asthma Cervical cancer screening Depression Encounter for IUD insertion Hypertension Urinary tract infection Surgical History (Updated 05/29/22 @ 17:21 by Belkis Reyna RN)
[2022-05-29 17:56] VITALS: BP 125/69; PULSE 88; RESP 17; TEMP 37; O2SAT 99
== END 2022-05-29 18:07 | disposition home or self-care (01) ==
PROVIDERS: Emergency Provider Nurse Practitioner; PCP Internal Medicine Adolescent Medicine
DX: J40 Bronchitis, not specified as acute or chronic (principal)
CPT/HCPCS: 99212; G0463

== ENCOUNTER 2022-06-09 10:10 | Emergency (ER) | payer OTHER, SELFPAY ==
[2022-06-09 10:45] VITALS: BP 128/73; PULSE 82; RESP 16; TEMP 36.7; O2SAT 97; BMI 46.5
--- NOTE | 2022-06-09 10:45 | EXP.UTC ---
Discharge Plan Disposition Patient Disposition: Home, Self-Care Condition: Good Prescriptions Prescriptions: No Action Kyleena 17.5 mcg/24 hrs (5 yrs) 19.5 mg intrauterine device intrauterine guaifenesin [Mucinex] 600 mg tablet extended release 12hr 600 mg PO BID PRN (Reason: cough) Qty: 20 0RF azithromycin [Zithromax Z-Ambrocio] 250 mg tablet See Rx Instructions .ROUTE .COMPLEX 5 Days Qty: 6 0RF Rx Instructions: For 250 mg dose pack: take 500 mg today (day 1), then 250 mg for 4 days (days 2-5) methylprednisolone [Medrol (Ambrocio)] 4 mg tablets,dose pack See Rx Instructions .Route .COMPLEX 6 Days Qty: 21 0RF Rx Instructions: taper pack; azithromycin [Zithromax] 250 mg tablet 250 mg PO UD DOSE PK Qty: 6 0RF Rx Instructions: Take two (2) tablets today, then one (1) tablet days #2 thru #5 benzonatate [benzonatate] 100 mg capsule 100 mg PO TIDP PRN (Reason: Cough) Qty: 30 0RF Referrals Follow up/Referrals: Wil Cavanaugh MD [Primary Care Provider] - See instructions Activity Restrictions/Add. Instructions Additional Instructions/Restrictions: Drink plenty of fluids. Take tylenol or ibuprofen for pain or fever. Take the medications as directed. Follow up with your regular doctor. GO TO THE ER FOR ANY WORSENING SYMPTOMS The pyridium will make your urine turn orange, this is an expected side effect. It will stain your clothes if it comes into contact with them. We will culture the urine. That will tell what bacteria is causing your infection and which antibiotics will treat it best. Sometimes the first antibiotic we prescribe turns out to not work against different bacteria. So, make sure you follow up within 3 days if you are not getting better. Clinical Impressions Clinical Impression: UTI (urinary tract infection) Stand Alone Forms Stand Alone Forms: Work/School Release Instructions Patient Instructions: Urinary Tract Infection, DI for Urinary Tract Infection (UTI), Phenazopyridine, Urine Culture Discharge ED Provider: Aravind Baron [facility] [place] General Stated complaint: Stomach pain,Vomiting,hard to urinate Time Seen by Provider: 06/09/22 10:45 History of Present Illness Provider Complaint: She states that for the past 2 days she has had right flank pain (intermittent), n/v, and dysuria. She denies any fever, but she has had chills. Related Data Home Medications Medication Instructions Recorded Confirmed levonorgestrel 17.5 mcg/24 hrs intrauterine 04/13/22 04/13/22 (5yrs) 19.5mg intrauterine device (Kyleena) Previous Rx's Medication Instructions Recorded azithromycin 250 mg tablet 250 mg PO UD DOSE PK #6 tabs 04/24/22 (Zithromax) benzonatate 100 mg capsule 100 mg PO TIDP PRN Cough #30 caps 04/24/22 azithromycin 250 mg tablet See Rx Instructions PO .COMPLEX 5 05/29/22 (Zithromax Z-Ambrocio) days #6 tabs guaifenesin 600 mg tablet, 600 mg PO BID PRN cough #20 tabs 05/29/22 extended release 12 hr (Mucinex) methylprednisolone 4 mg tablets in See Rx Instructions .Route 05/29/22 a dose pack (Medrol (Ambrocio)) .COMPLEX 6 days #21 tabs Allergies Allergy/AdvReac Type Severity Reaction Status Date / Time No Known Allergies Allergy Verified 04/24/22 19:12 [facility] Disclaimer: The information contained in this section may have been updated after the patient was seen, as this information can be updated by other users. Medical History Anxiety Asthma Cervical cancer screening Depression Encounter for IUD insertion Hypertension Urinary tract infection Surgical History History of tonsillectomy Hx of section Social History Smoking Status: Current every day smoker tobacco type: e-cigarettes second hand exposure: No alcohol intake: never substance use type: d
[2022-06-09 10:52] LABS: Apearance,Urine Turbid (Clear); Bilirubin,Urine Negative (Negative); Blood, Urine Negative (Negative); Color,Urine Yellow (Yellow); Glucose,Urine (UA) Negative (Negative); Ketones,Urine Negative (Negative); Protein,Urine Trace (Negative); Specific Gravity, Urine 1.025 (1.005-1.030); Urobilinogen,Urine 0.2 EU/dl (0.2)
[2022-06-09 10:53] LABS: UTC Leukocyte Esterase,Urine 1+ (Negative); UTC Nitrate,Urine Negative (Negative)
[2022-06-09 10:54] LABS: UTC Strep Screen (Rapid) Negative (Negative)
[2022-06-09 11:33] VITALS: BP 128/73; PULSE 82; RESP 16; TEMP 36.7
== END 2022-06-09 11:37 | disposition home or self-care (01) ==
PROVIDERS: Emergency Provider Nurse Practitioner Family; PCP Internal Medicine Adolescent Medicine
DX: N39.0 Urinary tract infection, site not specified (principal)
CPT/HCPCS: 81003; 87086; 87880; 99212; G0463

== ENCOUNTER → 2022-10-04 15:02 | Outpatient (CLI) | payer OTHER, SELFPAY ==
[2022-10-04 16:27] LABS: Thyroid Stimulating Hormone 0.56 uIU/mL (0.465-4.68)
== END ==
PROVIDERS: PCP Internal Medicine Adolescent Medicine; Visit Provider Obstetrics & Gynecology
DX: E66.01 Morbid (severe) obesity due to excess calories (principal); Z68.43 Body mass index [BMI] 50.0-59.9, adult
CPT/HCPCS: 36415; 84443

== ENCOUNTER 2023-01-14 15:16 | Emergency (ER) | payer OTHER, SELFPAY ==
[2023-01-14 15:17] VITALS: BP 126/68; PULSE 86; RESP 18; TEMP 36.8; O2SAT 97; BMI 44.9
--- NOTE | 2023-01-14 15:45 | EXP.UTC ---
Discharge Plan Disposition Patient Disposition: Home, Self-Care Condition: Good Prescriptions Prescriptions: New prednisone 5 mg tablets,dose pack See Rx Instructions .ROUTE .COMPLEX Qty: 21 0RF Rx Instructions: take as directed on package instructions No Action phentermine [Adipex-P] 37.5 mg capsule 37.5 mg PO DAILY Qty: 30 0RF Rx Instructions: must administer 30 minutes before or 1-2 hours after breakfast metronidazole 500 mg tablet 500 mg PO BID 7 Days Qty: 14 0RF fluconazole [Diflucan] 150 mg tablet 150 mg PO ONCE 1 Days Qty: 1 0RF Referrals Follow up/Referrals: Wil Cavanaugh MD [Primary Care Provider] - See instructions Activity Restrictions/Add. Instructions Additional Instructions/Restrictions: Oatmeal bathes may help with rash Over the counter benadryl may help with itching Start oral steriods Look around and make sure that nothing has changed that may be causing you to break out Return if needed Clinical Impressions Clinical Impression: Hives Instructions Patient Instructions: DI for Rash, DI for Hives, Prednisone Discharge ED Provider: [place] [facility] [place] General Stated complaint: hives/rash Mode of Arrival: Ambulatory Source of Information: Patient Limitations: No Limitations Time Seen by Provider: 01/14/23 15:45 Description of Symptoms (Recalled from Triage Doc. by RN): Patient states she has hives allover her body that comes and goes for 2 weeks now. HEENT Symptoms (Recalled from RN notes): No Resp Symptoms (Recalled from RN notes): No Skin Symptoms (Recalled from RN notes): Yes MS Symptoms (Recalled from RN notes): No Functional Status (Recalled from RN notes): wnl History of Present Illness Provider Complaint: Patient states that for the last couple of weeks she has been breaking out in hives on her legs and then they will go away and return States that yesterday she went to a public pool and started breaking out and they are worse States that she hasnt changed anything not sure what may be causing it Related Data Previous Rx's Medication Instructions Recorded phentermine 37.5 mg capsule 37.5 mg PO DAILY #30 caps 12/03/22 (Adipex-P) fluconazole 150 mg tablet 150 mg PO ONCE 1 day #1 tab 12/06/22 (Diflucan) metronidazole 500 mg tablet 500 mg PO BID 7 days #14 tabs 12/06/22 prednisone 5 mg tablets in a dose See Rx Instructions PO .COMPLEX 01/14/23 pack #21 tabs Allergies Allergy/AdvReac Type Severity Reaction Status Date / Time No Known Allergies Allergy Verified 12/03/22 13:19 Worker's Comp Is this a Worker's Comp case?: No [facility] Disclaimer: The information contained in this section may have been updated after the patient was seen, as this information can be updated by other users. Medical History Abnormal uterine bleeding Anxiety Asthma Depression Encounter for IUD insertion Kyleena IUD inserted 03/06/22 Hypertension Urinary tract infection Surgical History History of tonsillectomy Hx of section Social History Smoking Status: Current every day smoker tobacco type: e-cigarettes second hand exposure: No alcohol intake: never substance use type: denies use current occupational status: unemployed Travel in the last 8 weeks: None household members: family housing: house ROS Obtained: Yes All systems reviewed & no additional complaints except as documented and Yes Systems reviewed as appropriate & no additional complaints except as documented Constitutional Constitutional: Reports system reviewed and no additional complaints, except as documented and Reports as per HPI ENT Ears, Nose, Mouth, and Throat: Reports system reviewed and no additional complaints, except as documented and Reports as per HPI Cardiovascular Cardiovascular:
[2023-01-14 16:10] VITALS: BP 126/68; PULSE 86; RESP 18; TEMP 36.8; O2SAT 97
== END 2023-01-14 16:11 | disposition home or self-care (01) ==
PROVIDERS: Emergency Provider Nurse Practitioner; PCP Internal Medicine Adolescent Medicine
DX: L50.9 Urticaria, unspecified (principal); F17.290 Nicotine dependence, other tobacco product, uncomplicated; J45.909 Unspecified asthma, uncomplicated; I10 Essential (primary) hypertension; F41.9 Anxiety disorder, unspecified; F32.A Depression, unspecified
CPT/HCPCS: 99212; 99214; G0463

== ENCOUNTER 2023-04-07 13:40 | Emergency (ER) | payer OTHER, SELFPAY ==
[2023-04-07] VITALS (9 sets, daily range): BP systolic 99–146; BP diastolic 59–94; PULSE 56–92; RESP 17–20; TEMP 36.7–37.4; O2SAT 97–100; BMI 44.6; BMI 46.0
[2023-04-07 14:17] LABS: Apearance,Urine Clear (Clear); Bilirubin,Urine Negative (Negative); Blood, Urine Negative (Negative); Color,Urine Dark Yellow (Yellow); Glucose,Urine (UA) Negative (Negative); Ketones,Urine Negative (Negative); PH,Urine 8.5 (5.0-8.5); Protein,Urine Negative (Negative); UTC Leukocyte Esterase,Urine Trace (Negative); UTC Nitrate,Urine Negative (Negative); UTC Pregnancy Test, Urine Negative (Negative); Urobilinogen,Urine 2 EU/dl (0.2)
--- NOTE | 2023-04-07 14:24 | EXP.UTC ---
Discharge Plan Disposition Patient Disposition: Home, Self-Care Prescriptions Prescriptions: No Action Kyleena 17.5 mcg/24 hrs (5 yrs) 19.5 mg intrauterine device 1 device intrauterine ONCE metronidazole 500 mg tablet 500 mg PO BID 7 Days Qty: 14 0RF Referrals Follow up/Referrals: Wil Cavanaugh MD [Primary Care Provider] - See instructions Activity Restrictions/Add. Instructions Additional Instructions/Restrictions: At this time it was felt you are safe to be discharged home. If new or worsening symptoms please do not hesitate to return the emergency department. Please follow-up with your aeronautical engineering technologist as discussed. Clinical Impressions Clinical Impression: Abdominal pain Instructions Patient Instructions: DI for Acute Abdominal Pain Discharge ED Provider: Dez Treadwell [facility] [place] General Chief complaint: Abdominal Pain Stated complaint: left side abd pain Time Seen by Provider: 04/07/23 14:25 History of Present Illness Provider Complaint: Patient states that she started last night with severe lower abdominal pain that would radiate across her lower abdomen but settled in her left lower abdomen States that she took some Tylenol and pulled her legs against her abdomen and was able to get a little rest but when she woke up this morning the pain was worse States that she took some Tylenol and it didnt help States that she had IUD placed a little over a year ago and has been having abnormal bleeding on and off and was suppose to get an ultrasound to check placement but hasnt got to get it yet States that she does have hx of kidney stones Related Data Home Medications Medication Instructions Recorded Confirmed levonorgestrel 17.5 mcg/24 hrs 1 device intrauterine ONCE 03/07/23 03/07/23 (5yrs) 19.5mg intrauterine device (Kyleena) Previous Rx's Medication Instructions Recorded metronidazole 500 mg tablet 500 mg PO BID 7 days #14 tabs 03/11/23 Allergies Allergy/AdvReac Type Severity Reaction Status Date / Time No Known Allergies Allergy Verified 03/07/23 14:26 [facility] Disclaimer: The information contained in this section may have been updated after the patient was seen, as this information can be updated by other users. Medical History Abnormal uterine bleeding with IUD in place Anxiety Asthma Depression Encounter for IUD insertion Kyleena IUD inserted 09/27/22 Hypertension Urinary tract infection Surgical History History of tonsillectomy Hx of section Family History Other Asthma Cancer Diabetes FHx: mental illness Heart attack Hypertension Social History Smoking Status: Current every day smoker tobacco type: e-cigarettes second hand exposure: No alcohol intake: never substance use type: denies use current occupational status: unemployed Travel in the last 8 weeks: None household members: family housing: house ROS Obtained: Yes All systems reviewed & no additional complaints except as documented and Yes Systems reviewed as appropriate & no additional complaints except as documented Constitutional Constitutional: Reports system reviewed and no additional complaints, except as documented, Reports as per HPI and Denies fever(s) ENT Ears, Nose, Mouth, and Throat: Reports system reviewed and no additional complaints, except as documented and Reports as per HPI Cardiovascular Cardiovascular: Reports system reviewed and no additional complaints, except as documented and Reports as per HPI Respiratory Respiratory: Reports system reviewed and no additional complaints, except as documented and Reports as per HPI Gastrointestinal Gastrointestingal: Reports system reviewed and no additional complaints, except as documented, as pe
--- NOTE | 2023-04-07 14:30 | PC.NURSE ---
PATIENT SENT TO ER PER Mindi ARIZA APRN FOR FURTHER EVALUATION. REPORT GIVEN TO DR. HAUSER BY Mindi ARIZA APRN. PATIENT TRANSPORTED TO ER VIA WHEELCHAIR WITH [facility] STAFF ASSIST AT THIS TIME
--- NOTE | 2023-04-07 14:47 | CT_ITS ---
PROCEDURE INFORMATION: Exam: CT Abdomen And Pelvis With Contrast Exam date and time: 04/07/2023 3:28 PM Age: 22 years old Clinical indication: Abdominal pain; Additional info: Llq pain TECHNIQUE: Imaging protocol: Computed tomography of the abdomen and pelvis with contrast. Radiation optimization: All CT scans at this facility use at least one of these dose optimization techniques: automated exposure control; mA and/or kV adjustment per patient size (includes targeted exams where dose is matched to clinical indication); or iterative reconstruction. Contrast material: ISOVUE; Contrast volume: 75 ml; Contrast route: IV; REPORTING DATA: Count of CT and Cardiac NM exams in prior 12 months: This patient has received 0 known CTs and 0 known cardiac nuclear medicine studies in the 12 months prior to the current study. COMPARISON: CT ABDOMEN PELVIS W CON 12/17/2020 5:28 PM FINDINGS: Liver: Normal. No mass. Gallbladder and bile ducts: Normal. No calcified stones. No ductal dilation. Pancreas: Normal. No ductal dilation. Spleen: Normal. No splenomegaly. Adrenal glands: Normal. No mass. Kidneys and ureters: Tiny nonobstructing left renal collecting system stone. Otherwise, unremarkable. No other renal tract stones or hydronephrosis. Stomach and bowel: Unremarkable. No obstruction. No mucosal thickening. Appendix: No evidence for appendicitis. Normal diameter. No inflammation. Intraperitoneal space: Unremarkable. No free air. No significant fluid collection. Vasculature: Unremarkable. No abdominal aortic aneurysm. Lymph nodes: Unremarkable. No enlarged lymph nodes. Urinary bladder: Unremarkable as visualized. Reproductive: An IUD is new in the interval. It is appropriately positioned. Dominant follicle in the left ovary. No adnexal masses or fluid collections. Bones/joints: Unremarkable. No acute fracture. Soft tissues: Unremarkable. IMPRESSION: 1. Dominant left ovarian follicle. If clinical concern remains, further evaluation with pelvic ultrasound is recommended. 2. No other acute changes in the abdomen or pelvis.
[2023-04-07 14:57] LABS: Basophils % 0.2 % (0.1-2.0); Eosinophils # 0.1 K/mm3 (0.0-0.4); Eosinophils % 0.8 % (0.1-12.0); Hematocrit 37.7 % (37.0-47.0); Hemoglobin 13.1 g/dL (12.2-16.2); Lymphocytes # 2.3 K/mm3 (0.7-4.5); Lymphocytes % 18.2 % (10-50); Mean Corpuscular HGB Conc 34.7 g/dL (31.8-35.4); Mean Corpuscular Hemoglobin 29.9 pg (27.0-31.2); Mean Corpuscular Volume 86.1 fl (81-99); Mean Platelet Volume 8.2 fl (7.4-10.4); Monocytes # 0.4 K/mm3 (0.1-1.0); Neutrophils % 77.8 % (37.0-80.0); Platelet Count 318 K/mm3 (142-424); Red Blood Count 4.38 M/mm3 (4.20-5.40); Red Cell Distribution Width 13.8 % (11.5-17.5); White Blood Count 12.9 K/mm3 (4.8-10.8)
[2023-04-07 14:59] LABS: Chloride 103 mmol/L (98-107)
[2023-04-07 15:00] LABS: Sodium 138 mmol/L (136-145)
[2023-04-07 15:02] LABS: Alanine Aminotransferase 17 U/L (12-78); Alkaline Phosphatase 82 U/L (38-126); Aspartate Amino Transferase 24 U/L (14-36); Bilirubin,Total 0.5 mg/dl (0.2-1.3); Blood Urea Nitrogen 9 mg/dl (7-17); Carbon Dioxide 28 mmol/L (22.0-30.0); Creatinine Clearance Estimated 112 mL/min (50-200); Estimated Glomerular Filt Rate 103 ml/min (>60); GFR (African American) 124 ML/MIN (>60); Lipase 59 U/L (23-300)
[2023-04-07 15:03] LABS: Albumin Level 4.3 g/dl (3.5-5.0); Albumin/Globulin Ratio 1.5 (1.1-1.8); Calcium 8.7 mg/dl (8.4-10.2); Globulin 2.8 g/dL (1.3-3.2); Glucose 95 mg/dl (74-100); Total Protein,Serum 7.1 g/dl (6.3-8.2)
--- NOTE | 2023-04-07 15:11 | PC.NURSE ---
DR MARTIN AT BEDSIDE
--- NOTE | 2023-04-07 15:19 | HMH.EDGENADL ---
Discharge Plan Disposition Patient Disposition: Home, Self-Care Prescriptions Prescriptions: No Action Kyleena 17.5 mcg/24 hrs (5 yrs) 19.5 mg intrauterine device 1 device intrauterine ONCE metronidazole 500 mg tablet 500 mg PO BID 7 Days Qty: 14 0RF Referrals Follow up/Referrals: Wil Cavanaugh MD [Primary Care Provider] - See instructions Activity Restrictions/Add. Instructions Additional Instructions/Restrictions: At this time it was felt you are safe to be discharged home. If new or worsening symptoms please do not hesitate to return the emergency department. Please follow-up with your avionics systems repairer as discussed. Clinical Impressions Clinical Impression: Abdominal pain Instructions Patient Instructions: DI for Acute Abdominal Pain Discharge ED Provider: Dez Treadwell General Adult HPI General Chief complaint: Abdominal Pain Stated complaint: left side abd pain Time Seen by Provider: 04/07/23 14:25 Mode of Arrival: Wheelchair Source of Information: Patient Limitations: No Limitations Description of Symptoms (Recalled from ER Triage Doc. by RN): pt reports from [facility] for further evaluation. pt reports pain in left side of abdomen that began last night. History of Present Illness HPI narrative: Patient is a 22-year-old female with past medical history of previous IUD placement, no pertinent chronic medical conditions who presents emergency department for evaluation abdominal pain. Patient is pending ultrasound outpatient for identification of her IUD location. Abdominal pain started last night, left lower quadrant. Pressure when she voids, no dysuria, no vaginal discharge, no vaginal bleeding, no chest pain, no diarrhea, no vomiting no other acute complaints at this time. Related Data Home Medications Medication Instructions Recorded Confirmed levonorgestrel 17.5 mcg/24 hrs 1 device intrauterine ONCE 03/07/23 03/07/23 (5yrs) 19.5mg intrauterine device (Kyleena) Previous Rx's Medication Instructions Recorded metronidazole 500 mg tablet 500 mg PO BID 7 days #14 tabs 03/11/23 Allergies Allergy/AdvReac Type Severity Reaction Status Date / Time No Known Allergies Allergy Verified 03/07/23 14:26 [facility] Disclaimer: The information contained in this section may have been updated after the patient was seen, as this information can be updated by other users. Medical History Abnormal uterine bleeding with IUD in place Anxiety Asthma Depression Encounter for IUD insertion Kyleena IUD inserted 03/06/22 Hypertension Urinary tract infection Surgical History History of tonsillectomy Hx of section Family History Other Asthma Cancer Diabetes FHx: mental illness Heart attack Hypertension Social History Smoking Status: Current every day smoker tobacco type: e-cigarettes second hand exposure: No alcohol intake: never substance use type: denies use current occupational status: unemployed Travel in the last 8 weeks: None household members: family housing: house ROS Obtained: Yes Systems reviewed as appropriate & no additional complaints except as documented Physical Exam General General appearance: alert and in no apparent distress Head Head exam: atraumatic and normocephalic Eye Eye exam: Present PERRL and EOMI ENT ENT exam: Present mucous membranes moist Neck Neck exam: Present normal inspection Chest Chest inspection: Present normal inspection and symmetric chest wall rise Respiratory Respiratory exam: Present normal lung sounds bilaterally; Absent respiratory distress Cardiovascular Cardiovascular exam: Present regular rate and normal rhythm Abdominal Exam Abdominal exam: Present soft and tenderness (Left lowe
--- NOTE | 2023-04-07 15:22 | PC.NURSE ---
PT TO CT
== END 2023-04-07 17:16 | disposition home or self-care (01) ==
LOC: UTC 13:42 → ER 14:32
PROVIDERS: Emergency Medicine; Nurse Practitioner; Emergency Provider Emergency Medicine; PCP Internal Medicine Adolescent Medicine
DX: R10.32 Left lower quadrant pain (principal); F17.290 Nicotine dependence, other tobacco product, uncomplicated; J45.909 Unspecified asthma, uncomplicated; I10 Essential (primary) hypertension
CPT/HCPCS: 74177; 80053; 81003; 81025; 83605; 83690; 85025; 96361; 96374; 96375; 99284; J0131; J2405; Q9967

== ENCOUNTER → 2023-04-16 13:51 | Outpatient (CLI) | payer OTHER, SELFPAY ==
--- NOTE | 2023-04-16 13:58 | US_ITS ---
PROCEDURE: US TRANSVAGINAL CLINICAL INDICATION: check IUD Placement COMPARISON: No exams were available for comparison FINDINGS: Transvaginal sonographic images of the pelvis were obtained. UTERUS: 7.4 cm x 5.1 cmx 4.4 cm with a combined endometrial thickness of 8.8mm. The IUD is within the cervix and lower uterine segment period. There is a 3 mm nabothian cyst in the cervix. LEFT OVARY: 2.6 cmx2.9 cmx2.3cm with a volume of 8.7ml. Within the left ovary there appears to be a collapsing hemorrhagic cyst measuring 1.2 cm x 1.7 cm x 1.6 cm. RIGHT OVARY: 2.2 cmx 1.5 cmx2.3 cm with a volume of 3.8ml. The right ovary has a polycystic appearance with some trace fluid around the ovary. Both ovaries are seen. Doppler flow to both ovaries are seen. There is trace fluid in the cul-de-sac. IMPRESSION: 1. Anteverted uterus with the IUD in the cervix/lower uterine segment. The endometrium is thin. 2. There appears to be a collapsing hemorrhagic cyst within the left ovary measuring 1.7 cm. 3. The right ovary has a polycystic appearance. 4. There is trace fluid in the cul-de-sac. Dictated by: Vu Celestin MD 04/17/2023 08:01 Vu Celestin MD in OV 04/17/2023 08:01
== END ==
PROVIDERS: PCP Internal Medicine Adolescent Medicine; Visit Provider Obstetrics & Gynecology
DX: Z97.5 Presence of (intrauterine) contraceptive device (principal)
CPT/HCPCS: 76830

== ENCOUNTER 2023-11-18 12:47 | Outpatient (CLI) | payer OTHER, SELFPAY ==
[2023-11-18 14:37] LABS: HCG,Quantitative 15142 mIU/ml (0-5.42)
== END 2023-11-18 23:59 | disposition home or self-care (01) ==
PROVIDERS: PCP Internal Medicine Adolescent Medicine; Visit Provider Obstetrics & Gynecology
DX: Z34.91 Encounter for supervision of normal pregnancy, unspecified, first trimester (principal)
CPT/HCPCS: 36415; 84702

== ENCOUNTER 2023-11-18 15:37 | Emergency (ER) | payer OTHER, SELFPAY ==
[2023-11-18 15:38] VITALS: BP 138/93; PULSE 104; RESP 20; TEMP 36.9; O2SAT 100; BMI 46.2
--- NOTE | 2023-11-18 15:48 | PC.NURSE ---
Dr. Treadwell at BS for pt eval
--- NOTE | 2023-11-18 15:50 | ED_ITS ---
Discharge Plan Disposition Patient Disposition: Home, Self-Care Chief Complaint: Abdominal Pain Prescriptions Prescriptions: No Action Kyleena 17.5 mcg/24 hrs (5 yrs) 19.5 mg intrauterine device 1 device intrauterine ONCE Referrals Follow up/Referrals: Wil Cavanaugh MD [Primary Care Provider] - See instructions Activity Restrictions/Add. Instructions Additional Instructions/Restrictions: At this time it was felt you are safe to be discharged home. If new or worsening symptoms please do not hesitate to return the emergency department. Please follow-up with your OB as you are able. Clinical Impressions Clinical Impression: Abdominal pain, Currently Instructions Patient Instructions: DI for Acute Abdominal Pain Discharge ED Provider: Dez Treadwell General Adult HPI General Chief complaint: Abdominal Pain Stated complaint: about 6 wks preg, abd pain Time Seen by Provider: 11/18/23 15:45 History of Present Illness HPI narrative: Patient is a 23-year-old female G2, P1 with recent diagnosis of who I saw a approximately a week ago for left lower quadrant pain now presents emergency department for evaluation of right lower quadrant pain. Last menstrual period October 04. I saw her for positive test with vaginal bleeding. Ultimately at that time patient had no leukocytosis, no acute anemia, no JOHN or critical electrolyte abnormality, mild transaminitis, quant hCG 1958, urinalysis not consistent with infection. Bedtime showed single intrauterine gestational sac with no pole or yolk sac identified and recommended continued beta-hCG and follow-up ultrasound. Left ovary and right ovary both under 4 cm, normal vascularity, small amount of pelvic free fluid. Since then she has had onset of periumbilical pain that migrated to her right lower quadrant. Patient still has her appendix and gallbladder. There is associated nausea without vomiting, last bowel movement this morning. No dysuria. Patient also has no ongoing vaginal bleeding since last time I saw her. No other acute complaints at this time. Related Data Home Medications Medication Instructions Recorded Confirmed levonorgestrel 17.5 mcg/24 hr (up 1 device intrauterine ONCE 03/07/23 07/01/23 to 5 yrs) 19.5mg intrauterine device (Kyleena) Allergies Allergy/AdvReac Type Severity Reaction Status Date / Time No Known Allergies Allergy Verified 11/10/23 14:50 [facility] Disclaimer: The information contained in this section may have been updated after the patient was seen, as this information can be updated by other users. Medical History Abnormal uterine bleeding with IUD in place Anxiety Asthma Depression Encounter for IUD insertion Kyleena IUD inserted 03/06/22 Hypertension Urinary tract infection Surgical History History of tonsillectomy Hx of section Family History Other Asthma Cancer Diabetes FHx: mental illness Heart attack Hypertension Social History Smoking Status: Current every day smoker tobacco type: e-cigarettes second hand exposure: No alcohol intake: never substance use type: denies use current occupational status: unemployed Travel in the last 8 weeks: None household members: family housing: house ROS Obtained: Yes Systems reviewed as appropriate & no additional complaints except as documented Physical Exam General General appearance: alert and in no apparent distress Head Head exam: atraumatic and normocephalic Eye Eye exam: Present PERRL ENT ENT exam: Present mucous membranes moist Neck Neck exam: Present normal inspection Chest Chest inspection: Present normal inspection and symmetric chest wall rise Respiratory Respiratory exam: Present normal lung sounds bilaterally; Absent respiratory distress Cardiovascular Cardiovascular exam: Present regular rate and normal rhythm Abdominal Exam Abdominal exam: Present soft and tenderness (Right lower quadrant) Extremities Exam Extremities exam: Present normal inspection Neurological Exam Neurological exam: Present alert Psychiatric Psychiatric exam: Present normal affect Skin Skin exam: Present warm and dry Medical Decision Making Gregory Inquiry Pt receiving controlled substance: No Vital Signs: 11/18/23 15:38 11/18/23 16:51 Temperature 98.4 F Temperature Source Oral Pulse Rate 80 Pulse Rate [Right Radial] 104 H Respiratory Rate 20 Blood Pressure [Right Arm] 138/93 H Blood Pressure Mean [Right Arm] 108 02 Sat by Pulse Oximetry 100 95 Oxygen Delivery Method Room Air Lab Data Lab Results 11/18/23 15:40: Urine Color Yellow, Urine Appearance Clear, Urine pH 8.0, Ur Specific [place] 1.020, Urine Protein Negative, Urine Glucose (UA) Negative, Urine Ketones Negative, Urine Blood Negative, Urine Nitrate Negative, Urine Bilirubin Negative, Urine Urobilinogen 0.2, Ur Leukocyte Esterase Negative, Urine RBC None, Urine WBC None, Ur Squamous Epith Cells Occasional, Urine Bacteria None 11/18/23 16:45: WBC 10.5, RBC 4.71, Hgb 13.8, Hct 41.4, MCV 88.1, MCH 29.4, MCHC 33.3, RDW 13.7, Plt Count 323, MPV 8.2, Neut % (Auto) 70.6, Lymph % (Auto) 24.1, Cameron % (Auto) 3.6, Eos % (Auto) 1.2, Baso % (Auto) 0.5, Neut # (Auto) 7.4, Lymph # (Auto) 2.5, Cameron # (Auto) 0.4, Eos # (Auto) 0.1, Baso # (Auto) 0.1, Sodium 136, Potassium 4.0, Chloride 105, Carbon Dioxide 23, Anion Gap 12.0, BUN 7, Creatinine 0.60, Estimated Creat Clear 129, Estimated GFR 122, Est GFR ( Amer) 147, Glucose 90, Calcium 9.4, Total Bilirubin 0.5, AST 25, ALT 23, Alkaline Phosphatase 69, C-Reactive Protein 6.2 H, Total Protein 7.3, Albumin 4.4, Globulin 2.9, Albumin/Globulin Ratio 1.5, Lipase 113 11/18/23 16:45 11/18/23 16:45 Orders (Tests/Meds): ED MEDICATIONS Discontinued Medications Generic Name Dose Route Start Last Admin Trade Name Freq PRN Reason Stop Dose Admin Lactated Ringer's 1,000 mls @ 999 mls/hr 11/18/23 15:57 11/18/23 16:48 Lactated Ringer's 1000 Ml Bag IV 11/18/23 16:57 999 mls/hr .Q1H1M ONE Administration ORDERS Category Date Time Status CBC w/Auto Diff [Complete Blood Count Auto Diff] Stat Lab 11/18/23 16:45 Completed CMP [Comprehensive Metabolic Panel] Stat Lab 11/18/23 16:45 Completed CRP [C-Reactive Protein] Stat Lab 11/18/23 16:45 Completed Lipase Stat Lab 11/18/23 16:45 Completed UA [Urinalysis and Microscopic] Stat Lab 11/18/23 15:40 Completed US OB transvaginal Stat Ultrasound 11/18/23 15:57 Completed Medical Decision Narrative: In summary patient is a 23-year-old female with past medical history described above who presents emergency department for evaluation of abdominal pain. Patient is hemodynamically stable nontoxic-appearing upon arrival, afebrile. Differential diagnosis includes ectopic , appendicitis, urinary tract infection, among others. Workup will be conducted with hematologic labs, urinalysis, transvaginal ultrasound. Initial interventions include IV Tylenol, crystalloid bolus. Workup reviewed by me, hematologic labs are nonactionable, no leukocytosis, no JOHN or critical electrolyte abnormality, CRP minimally elevated 6.2, lipase 113. Urinalysis interpreted by me and not consistent with infection. Transvaginal ultrasound shows single live IUP heart rate 119, no other abnormalities. Upon repeat evaluation patient had resolution of volume responsive tachycardia. Appendicitis is extremely unlikely however not 100% ruled out given clinical picture and hematologic labs. CT imaging will be avoided given first trimester so therefore shared decision-making discussion was had with patient offering admission for MRI to definitively prove appendicitis or strict return precautions. Patient elected the latter, I feel this is reasonable and patient is appropriate for discharge at this time was given return precautions. Critical Care Critical Care Time Critical Care Time: No
--- NOTE | 2023-11-18 15:57 | US_ITS ---
PROCEDURE INFORMATION: Exam: US , Transvaginal Exam date and time: 11/18/2023 4:02 PM Age: 23 years old Clinical indication: complicated by abdominal or pelvic pain; Generalized abdominal pain; First trimester (<14 weeks 0 days); Gestational age or lmp: 10/05/2023; ; Additional info: Preg abd pain LABS AND CLINICAL REPORTS: Last menstrual period start date: 10/05/2023 Gestational age (Established): 6 w 2 d Estimated due date (Established): 07/11/2024 TECHNIQUE: Imaging protocol: Real-time transvaginal obstetrical ultrasound of the maternal pelvis with image documentation. Transvaginal imaging was used for better evaluation of the fetus, adnexa, and/or cervix. COMPARISON: US OB TRANSVAGINAL 11/10/2023 3:30 PM FINDINGS: Gestation: Yolk sac measures 4 mm. heart rate: 119 bpm BIOMETRY: Gestational age (AUA): 6 w 0 d Estimated due date (AUA): 07/13/2024 Plain-rump length (CRL): 3.15 mm. EGA (CRL) is 5 w 6 d MATERNAL: Right ovary/adnexa: Right ovary measures 2.77 cm x 1.99 cm x 2.12 cm. Right ovarian volume is 6.12 mL. Left ovary/adnexa: Left ovary measures 2.03 cm x 0.92 cm x 1.08 cm. Left ovarian volume is 1.06 mL. IMPRESSION: 1. Single, live, intrauterine gestation. heart rate 119 bpm. 2. No sonographic abnormalities. No subchorionic masses or fluid collections. 3. Estimated gestational age (AUA) 6 weeks 0 days. MAGNUS (AUA) 07/13/2024. This concurs with the reported LMP.
[2023-11-18 16:08] LABS: Microscopic, Urine URINE MICROSCOPIC (MICROSCOPIC)
[2023-11-18 16:09] LABS: Appearance,Urine CLEAR (Clear); Bilirubin,Urine Negative (Negative); Blood, Urine Negative (Negative); Color,Urine YELLOW (Yellow); Glucose,Urine (UA) Negative (Negative); Ketones,Urine Negative (Negative); Leukocyte Esterase,Urine Negative (Negative); Nitrate,Urine Negative (Negative); Protein,Urine Negative (Negative); Urobilinogen,Urine 0.2 EU/dl (0.2)
[2023-11-18 16:23] LABS: Squamous Epithelial Cell,Urine Occasional #/hpf (0-5)
[2023-11-18] MEDS: LACTATED RINGERS 1000ML 1,000 ML 999 ML IV (16:48)
[2023-11-18 16:51] VITALS: PULSE 80; O2SAT 95
--- NOTE | 2023-11-18 16:51 | PC.NURSE ---
pt returned from ultrasound and resting quietly awaiting test results
[2023-11-18 17:01] LABS: Chloride 105 mmol/L (98-107)
[2023-11-18 17:02] LABS: Sodium 136 mmol/L (136-145)
[2023-11-18 17:03] LABS: Basophils # 0.1 K/mm3 (0-0.2); Basophils % 0.5 % (0.1-2.0); Eosinophils # 0.1 K/mm3 (0.0-0.4); Eosinophils % 1.2 % (0.1-12.0); Hematocrit 41.4 % (37.0-47.0); Hemoglobin 13.8 g/dL (12.2-16.2); Lymphocytes # 2.5 K/mm3 (0.7-4.5); Lymphocytes % 24.1 % (10-50); Mean Corpuscular HGB Conc 33.3 g/dL (31.8-35.4); Mean Corpuscular Hemoglobin 29.4 pg (27.0-31.2); Mean Corpuscular Volume 88.1 fl (81-99); Mean Platelet Volume 8.2 fl (7.4-10.4); Monocytes # 0.4 K/mm3 (0.1-1.0); Monocytes % 3.6 % (1.7-9.3); Neutrophils # 7.4 K/mm3 (1.8-7.8); Neutrophils % 70.6 % (37.0-80.0); Platelet Count 323 K/mm3 (142-424); Red Blood Count 4.71 M/mm3 (4.20-5.40); Red Cell Distribution Width 13.7 % (11.5-17.5); White Blood Count 10.5 K/mm3 (4.8-10.8)
[2023-11-18 17:04] LABS: Alanine Aminotransferase 23 U/L (12-78); Albumin Level 4.4 g/dl (3.5-5.0); Alkaline Phosphatase 69 U/L (38-126); Aspartate Amino Transferase 25 U/L (14-36); Bilirubin,Total 0.5 mg/dl (0.2-1.3); Blood Urea Nitrogen 7 mg/dl (7-17); Carbon Dioxide 23 mmol/L (22.0-30.0); Creatinine Clearance Estimated 129 mL/min (50-200); Estimated Glomerular Filt Rate 122 ml/min (>60); GFR (African American) 147 ML/MIN (>60); Lipase 113 U/L (23-300)
[2023-11-18 17:05] LABS: Albumin/Globulin Ratio 1.5 (1.1-1.8); Calcium 9.4 mg/dl (8.4-10.2); Globulin 2.9 g/dL (1.3-3.2); Glucose 90 mg/dl (74-100); Total Protein,Serum 7.3 g/dl (6.3-8.2)
[2023-11-18 17:10] LABS: C-Reactive Protein 6.2 mg/L (0-4)
--- NOTE | 2023-11-18 17:21 | PC.NURSE ---
OB DEPUTY DIRECTOR OF FINANCE PAGED
--- NOTE | 2023-11-18 17:27 | PC.NURSE ---
Dr Morataya paged for Dr Treadwell
[2023-11-18 17:33] VITALS: BP 126/78; PULSE 90; RESP 18; TEMP 36.9; O2SAT 95
== END 2023-11-18 17:34 | disposition home or self-care (01) ==
PROVIDERS: Emergency Provider Emergency Medicine; PCP Internal Medicine Adolescent Medicine
DX: O26.891 Other specified pregnancy related conditions, first trimester (principal); R10.31 Right lower quadrant pain; Z3A.01 Less than 8 weeks gestation of pregnancy
CPT/HCPCS: 76817; 80053; 81001; 83690; 85025; 86140; 96360; 99284; J7120

== ENCOUNTER 2023-12-04 16:11 | Outpatient (CLI) | payer OTHER, SELFPAY | END 2023-12-04 23:59 | disposition home or self-care (01) | LOC: LAB.DROPOF 16:12 | PROVIDERS: PCP Obstetrics & Gynecology; Visit Provider Obstetrics & Gynecology | DX: O26.891 Other specified pregnancy related conditions, first trimester (principal); Z3A.08 8 weeks gestation of pregnancy | CPT/HCPCS: 87086 ==

== ENCOUNTER 2023-12-09 15:41 | Outpatient (CLI) | payer OTHER, SELFPAY ==
[2023-12-09 16:26] LABS: Basophils % 0.5 % (0.1-2.0); Eosinophils # 0.1 K/mm3 (0.0-0.4); Eosinophils % 1.4 % (0.1-12.0); Hematocrit 37.5 % (37.0-47.0); Hemoglobin 12.4 g/dL (12.2-16.2); Lymphocytes # 2.3 K/mm3 (0.7-4.5); Lymphocytes % 24.4 % (10-50); Mean Corpuscular HGB Conc 33.1 g/dL (31.8-35.4); Mean Corpuscular Hemoglobin 29.5 pg (27.0-31.2); Mean Platelet Volume 8.6 fl (7.4-10.4); Monocytes # 0.3 K/mm3 (0.1-1.0); Monocytes % 2.8 % (1.7-9.3); Neutrophils # 6.8 K/mm3 (1.8-7.8); Platelet Count 290 K/mm3 (142-424); Red Blood Count 4.21 M/mm3 (4.20-5.40); Red Cell Distribution Width 13.6 % (11.5-17.5); White Blood Count 9.6 K/mm3 (4.8-10.8)
[2023-12-09 23:21] LABS: HIV (1&2) Antibody Rapid NONREACTIVE
[2023-12-11 09:14] LABS: Rubella Antibodies, IgG 3.57 index (Immune >0.99)
[2023-12-11 12:13] LABS: HCV Ab Non Reactive (Non Reactive); Hepatitis B Surface Antigen Negative (Negative)
[2023-12-11 13:13] LABS: Rapid Plasma Reagin Ab Titer Non Reactive titer (NonRea<1:1)
== END 2023-12-09 23:59 | disposition home or self-care (01) ==
LOC: LAB 15:42
PROVIDERS: PCP Internal Medicine Adolescent Medicine; Visit Provider Obstetrics & Gynecology
DX: Z34.90 Encounter for supervision of normal pregnancy, unspecified, unspecified trimester (principal)
CPT/HCPCS: 36415; 85025; 86593; 86762; 86850; 86870; 87340

== ENCOUNTER 2024-01-07 23:40 | Emergency (ER) | payer OTHER, SELFPAY ==
[2024-01-07 23:40] VITALS: BP 151/101; PULSE 129; RESP 18; TEMP 36.9; O2SAT 98; BMI 46.2
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
[2024-01-08 00:08] VITALS: BP 141/110; PULSE 120; RESP 18; TEMP 36.7; O2SAT 98
== END 2024-01-08 00:13 | disposition home or self-care (01) ==
LOC: ER 01-08 00:07
PROVIDERS: Emergency Provider Emergency Medicine; PCP Internal Medicine Adolescent Medicine
DX: O26.892 Other specified pregnancy related conditions, second trimester (principal); R04.0 Epistaxis; Y04.2XXA Assault by strike against or bumped into by another person, initial encounter; Z3A.13 13 weeks gestation of pregnancy; O99.332 Smoking (tobacco) complicating pregnancy, second trimester; F17.290 Nicotine dependence, other tobacco product, uncomplicated
CPT/HCPCS: 99284

== ENCOUNTER 2024-01-08 22:44 | Emergency (ER) | payer OTHER, SELFPAY ==
[2024-01-08 22:45] VITALS: BP 156/91; PULSE 86; RESP 16; TEMP 36.8; O2SAT 100; BMI 46.2
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
[2024-01-09 00:17] VITALS: BP 151/92; PULSE 86; RESP 18; TEMP 37; O2SAT 99
== END 2024-01-09 00:20 | disposition home or self-care (01) ==
PROVIDERS: Emergency Provider Emergency Medicine; PCP Internal Medicine Adolescent Medicine
DX: S10.81XA Abrasion of other specified part of neck, initial encounter (principal); R51.9 Headache, unspecified; O26.892 Other specified pregnancy related conditions, second trimester; Z3A.13 13 weeks gestation of pregnancy; Y04.8XXA Assault by other bodily force, initial encounter
CPT/HCPCS: 99282

== ENCOUNTER 2024-01-10 15:11 | Outpatient (CLI) | payer OTHER, SELFPAY ==
--- NOTE | 2024-01-10 15:15 | US_ITS ---
PROCEDURE: US OB >= 14 WEEKS FETUS CLINICAL INDICATION: confirm viability COMPARISON: US US OB TRANSVAGINAL from 11/18/2023 FINDINGS: Transabdominal sonographic images of the pelvis were obtained. From her established due date she is 13 weeks 6 days. Single viable intrauterine gestation. Breech position. Placenta: Anteriorplacenta grade 1. There is an average amount of fluid. The cervix appears satisfactory. Closed and measuring 4.49 cm in length. heart rate 156 BPM. Measurements: Average ultrasound age 14weeks 1day. Estimated due date by ultrasound age 0107/09/2024. Estimated weight 84g BPD = 14weeks 3days HC = 14weeks 0 days AC = 13weeks 6days FL = 13weeks 6days Growth Percentile= 47 percent Heart Rate = 156bpm FL/BPD is 0.51 FL/AC is 0.17 IMPRESSION: 1. Viable fetus in the breech presentation with an anterior placenta grade 1. 2. The fluid is within normal limits. 3. There has been good interval growth with the fetus currently measuring 14 weeks 1 day. 4. Very limited anatomical scan appears normal. 5. Suggest repeat anatomical scan at 20 weeks. Dictated by: Vu Celestin MD 01/11/2024 10:51 Vu Celestin MD in [place] 01/11/2024 10:51
== END 2024-01-10 23:59 | disposition home or self-care (01) ==
LOC: RAD 15:11
PROVIDERS: PCP Internal Medicine Adolescent Medicine; Visit Provider Obstetrics & Gynecology
DX: O36.80X0 Pregnancy with inconclusive fetal viability, not applicable or unspecified (principal); Z3A.13 13 weeks gestation of pregnancy
CPT/HCPCS: 76805

== ENCOUNTER 2024-02-11 18:43 | Emergency (ER) | payer OTHER, SELFPAY ==
[2024-02-11 19:50] VITALS: BP 108/62; PULSE 99; RESP 20; TEMP 36.7; O2SAT 99; BMI 45.6
--- NOTE | 2024-02-11 19:58 | ED_ITS ---
Discharge Plan Disposition Patient Disposition: Home, Self-Care Condition: Good Prescriptions Prescriptions: New promethazine 25 mg tablet 25 mg PO TID PRN (Reason: nausea and vomiting) Qty: 20 0RF No Action 28-800 mg-mcg tablet 1 tab PO DAILY Patient Comments: TAKE 1 TABLET BY MOUTH ONCE DAILY aspirin [Aspirin Childrens] 81 mg tablet,chewable 81 mg PO DAILY Referrals Follow up/Referrals: Wil Cavanaugh MD [Primary Care Provider] - See instructions Activity Restrictions/Add. Instructions Additional Instructions/Restrictions: Drink plenty of fluids. Take tylenol for pain or fever. Follow up with your regular doctor. GO TO THE ER FOR ANY WORSENING SYMPTOMS Clinical Impressions Clinical Impression: COVID-19, Stand Alone Forms Stand Alone Forms: Work/School Release Instructions Patient Instructions: Coronavirus Disease 2019, Preventing the Spread of Coronavirus Discharge Instructions Print Language Print Language: Bengali Discharge ED Provider: Aravind Baron [facility] General Stated complaint: covid + Time Seen by Provider: 02/11/24 19:57 Related Data Home Medications ?Medication ?Instructions ?Recorded ?Confirmed aspirin 81 mg chewable tablet 81 mg PO DAILY 01/20/24 01/20/24 (Aspirin Childrens) vit no.133-ferrous 1 tab PO DAILY 01/20/24 01/20/24 fumarate 28 mg-folic acid 800 mcg tablet () Previous Rx's ?Medication ?Instructions ?Recorded promethazine 25 mg tablet 25 mg PO TID PRN nausea and 02/11/24 vomiting #20 tabs Allergies Allergy/AdvReac Type Severity Reaction Status Date / Time No Known Allergies Allergy Verified 01/20/24 13:30 [facility] Disclaimer: The information contained in this section may have been updated after the patient was seen, as this information can be updated by other users. Medical History History of pre-eclampsia in prior , currently Tobacco use affecting , antepartum Maternal obesity affecting , antepartum Abnormal uterine bleeding with IUD in place Depression Anxiety Urinary tract infection Asthma Hypertension Encounter for IUD insertion Kyleena IUD inserted 03/06/22 Surgical History History of tonsillectomy Hx of section Family History Other Asthma Cancer Diabetes FHx: mental illness Heart attack Hypertension Social History Smoking Status: Current every day smoker tobacco type: e-cigarettes second hand exposure: No alcohol intake: never substance use type: denies use current occupational status: unemployed Travel in the last 8 weeks: None household members: family housing: house ROS Obtained: Yes All systems reviewed & no additional complaints except as documented Constitutional Constitutional: Reports chills and Reports fever(s) Eyes Eyes: Denies eye discharge ENT Ears, Nose, Mouth, and Throat: Reports as per HPI Cardiovascular Cardiovascular: Denies chest pain Respiratory Respiratory: Denies chest congestion and Reports cough Gastrointestinal Gastrointestingal: Reports nausea; Denies abdominal pain, constipation, cramping, diarrhea or vomiting Musculoskeletal Musculoskeletal: Denies arthralgias Integumentary/Breasts Skin/Breast: Denies rash Neurologic Neurologic: Denies paresthesias Physical Exam General General appearance: alert and in no apparent distress Head Head exam: atraumatic, normocephalic and normal inspection Eye Eye exam: Present normal appearance, PERRL and EOMI ENT ENT exam: Present normal exam, normal oropharynx, mucous membranes moist, TM's normal bilaterally and normal external ear exam Neck Neck exam: Present normal inspection, full ROM and trachea midline; Absent meningismus or lymphadenopathy Chest Chest inspection: Present normal inspection and symmetric chest wall rise; Absent tenderness Respiratory Respiratory exam: Present normal lung sounds bilaterally; Absent respiratory distress Cardiovascular Cardiovascular exam: Present regular rate and normal rhythm; Absent JVD Abdominal Exam Abdominal exam: Present soft and normal bowel sounds; Absent distention, tenderness or guarding Extremities Exam Extremities exam: Present normal inspection, full ROM and normal capillary refill; Absent calf tenderness Back Exam Back exam: Present normal inspection; Absent tenderness Neurological Exam Neurological exam: Present alert and oriented X3 Psychiatric Psychiatric exam: Present normal affect and normal mood Skin Skin exam: Present warm, dry, intact and normal color Lymphatic Lymphatic Findings: no adenopathy Medical Decision Making Medical Records Medical records reviewed: No I reviewed the patient's medical records. Gregory Inquiry Pt receiving controlled substance: No
[2024-02-11 20:26] VITALS: BP 108/62; PULSE 99; RESP 20; TEMP 36.7; O2SAT 99
== END 2024-02-11 20:40 | disposition home or self-care (01) ==
PROVIDERS: Emergency Provider Nurse Practitioner Family; PCP Internal Medicine Adolescent Medicine
DX: O98.519 Other viral diseases complicating pregnancy, unspecified trimester (principal); U07.1 COVID-19; Z3A.00 Weeks of gestation of pregnancy not specified
CPT/HCPCS: 87635; 99212; 99214; G0463

== ENCOUNTER 2024-02-24 12:59 | Outpatient (CLI) | payer OTHER, SELFPAY ==
--- NOTE | 2024-02-24 13:02 | US_ITS ---
PROCEDURE: US OB /MATERNAL DETAIL CLINICAL INDICATION: 20wk+Anatomy Scan-US OB Complete COMPARISON: US US OB TRANSVAGINAL from 11/18/2023 FINDINGS: Transabdominal sonographic images of the pelvis were obtained. From her established due date she is 20 weeks 2 days. Single viable intrauterine gestation. Breech position. Placenta: Anteriorplacenta grade 1. There is an average amount of fluid. The cervix appears satisfactory. Closed and measuring 3.7 cm in length. Complete survey performed and was unremarkable on the submitted images as in PACS. No discrete anomalies identified on survey imaging by technologist. Active fetus. Three-vessel cord with satisfactory umbilical cord insertion. 4- chamber heart noted. Situs, aortic arch, LVOT, RVOT, three-vessel view appear normal. Survey of brain & ventricles Unremarkable. Cerebellum, thalamus, choroid plexus, cisterna magna appear normal. Face and neck survey unremarkable. Profile, nasion, lips and nose appeared normal. Diaphragm and chest views unremarkable. Abdomen: Both kidneys noted and unremarkable. Stomach and bladder noted and satisfactory. Spine: Survey of the spine satisfactory with no anomalies identified nor imaged. Cervical, thoracic, lower spine appear normal. Both arms and legs noted. Amniotic Fluid: Adequate. MVP 3.69 cm. Measurements: Average ultrasound age 20weeks 3days. Estimated due date by ultrasound age 0107/10/2024. Estimated weight 364g BPD = 20weeks 0 days HC = 20weeks 0 days AC = 20weeks 5days FL = 20weeks 6days Growth Percentile= 62 Heart Rate = 143bpm Cerebellum = 20weeks 4days Humerus = 21weeks 0 days HC/AC is 1.13 FL/BPD is 0.74 FL/AC is 0.22 IMPRESSION: 1. Viable fetus in the breech presentation with an anterior placenta grade 1. 2. The fluid is within normal limits. MVP 3.69 cm. 3. Anatomical scan appears normal. Would repeat scan in 4 weeks to get a complete view of the heart. Difficult exam today due to maternal body habitus. Also 2.9 mm of unilateral renal pelvis dilation and would look at this as well. 4. biometry is consistent with the dates. Dictated by: Vu Celestin MD 02/25/2024 08:28 Vu Celestin MD in [place] 02/25/2024 08:28
== END 2024-02-24 23:59 | disposition home or self-care (01) ==
LOC: RAD 13:00
PROVIDERS: PCP Internal Medicine Adolescent Medicine; Visit Provider Obstetrics & Gynecology
DX: O09.292 Supervision of pregnancy with other poor reproductive or obstetric history, second trimester (principal); O99.332 Smoking (tobacco) complicating pregnancy, second trimester; O99.212 Obesity complicating pregnancy, second trimester; Z3A.20 20 weeks gestation of pregnancy; Z36.3 Encounter for antenatal screening for malformations; Z98.891 History of uterine scar from previous surgery; F17.210 Nicotine dependence, cigarettes, uncomplicated
CPT/HCPCS: 76811

== ENCOUNTER 2024-03-11 18:43 | Outpatient (CLI) | payer OTHER, SELFPAY ==
[2024-03-11 19:06] VITALS: BMI 46.4
[2024-03-11 19:10] LABS: Microscopic, Urine URINE MICROSCOPIC (MICROSCOPIC)
[2024-03-11 19:13] LABS: Appearance,Urine CLEAR (Clear); Bilirubin,Urine Negative (Negative); Blood, Urine Negative (Negative); Color,Urine YELLOW (Yellow); Glucose,Urine (UA) Negative (Negative); Ketones,Urine TRACE (Negative); Leukocyte Esterase,Urine Negative (Negative); Nitrate,Urine Negative (Negative); Protein,Urine Negative (Negative)
[2024-03-11 19:18] VITALS: BP 109/58; PULSE 95; RESP 18; TEMP 36.8; O2SAT 96; BMI 46.4
[2024-03-11 19:27] LABS: Barbiturates Screen,Urine Negative ng/ml (<200)
[2024-03-11 19:28] LABS: Amphetamine/Metha Screen,Urine Negative ng/ml (<1000); Benzodiazepines Screen,Urine Negative ng/ml (<200)
[2024-03-11 19:29] LABS: Cannabinoid Screen,Urine Positive ng/ml (<50)
[2024-03-11 19:30] LABS: Cocaine Screen,Urine Negative ng/ml (<300); Methadone Screen,Urine Negative ng/ml (<300)
[2024-03-11 19:31] LABS: Opiate Screen,Urine Negative ng/ml (<300); Phencyclidine Screen,Urine Negative ng/ml (<25)
[2024-03-11 19:41] LABS: Amorphous Sediment,Urine 4+ /lpf; Bacteria,Urine 1+ /lpf; RBC,Urine Occasional #/hpf (0-3); WBC,Urine Occasional #/hpf (0-3)
[2024-03-11] MEDS: ACETAMINOPHEN 325MG TAB 650 MG PO (19:50)
[2024-03-11] MEDS: DEXTROSE 5%-LACTATED RINGERS 1,000 ML 999 ML IV (19:50)
== END 2024-03-11 21:28 | disposition home or self-care (01) ==
LOC: OBOUT 18:45 → OB 18:46
PROVIDERS: PCP Internal Medicine Adolescent Medicine; Visit Provider Nurse Practitioner Obstetrics & Gynecology
DX: O47.02 False labor before 37 completed weeks of gestation, second trimester (principal); Z3A.22 22 weeks gestation of pregnancy
CPT/HCPCS: 80307; 81001; G0463

== ENCOUNTER 2024-03-23 13:33 | Outpatient (CLI) | payer OTHER, SELFPAY ==
--- NOTE | 2024-03-23 13:35 | US_ITS ---
PROCEDURE: US OB FOLLOW UP CLINICAL INDICATION: heart views were suboptimal. Baby was breech COMPARISON: US US OB /MATERNAL DETAIL from 02/24/2024 FINDINGS: Transabdominal sonographic images of the pelvis were obtained. The following parameters are obtained: From her established due date she is 24weeks 2days Viable fetus in the cephalic presentation with an anterior placenta grade 1. The cervix measures 5.0 cm. heart rate: 147bpm bpm. Average ultrasound age 25 weeks 0 days BPD: 24weeks 3days HC: 25weeks 1day AC: 24weeks 6days FL: 25weeks 1day HC/AC: 1.14 FL/BPD: 0.77 FL/AC: 0.23 Growth percentile: 71 Amniotic fluid: Appears normal No obvious anomalies evident. profile seen, stomach, bladder, three-vessel cord, four chamber heart appear normal. heart: Four chamber view, three-vessel view, RVOT, LVOT appear normal. IMPRESSION: 1. Viable fetus in the cephalic presentation with an anterior placenta grade 1. 2. The fluid is within normal limits. 3. cardiac anatomy views today appear normal. 4. The rest of the limited anatomical scan appears normal. Dictated by: Vu Celestin MD 03/23/2024 17:02 Vu Celestin MD in [place] 03/23/2024 17:02
== END 2024-03-23 23:59 | disposition home or self-care (01) ==
LOC: RAD 13:33
PROVIDERS: PCP Internal Medicine Adolescent Medicine; Visit Provider Obstetrics & Gynecology
DX: Z36.2 Encounter for other antenatal screening follow-up (principal); O09.292 Supervision of pregnancy with other poor reproductive or obstetric history, second trimester; O99.332 Smoking (tobacco) complicating pregnancy, second trimester; O99.212 Obesity complicating pregnancy, second trimester; Z98.891 History of uterine scar from previous surgery; O32.1XX0 Maternal care for breech presentation, not applicable or unspecified; Z3A.24 24 weeks gestation of pregnancy
CPT/HCPCS: 76816

== ENCOUNTER 2024-04-11 16:06 | Outpatient (CLI) | payer OTHER, SELFPAY ==
[2024-04-11 16:47] VITALS: BMI 46.9
[2024-04-11 16:54] VITALS: BP 100/57; PULSE 103; RESP 16; TEMP 37.1; O2SAT 96; BMI 46.9
[2024-04-11 17:10] LABS: Fetal Membrane Rupture (Rapid) Negative (Negative); Opiate Screen,Urine Negative ng/ml (<300); Phencyclidine Screen,Urine Negative ng/ml (<25)
[2024-04-11 17:12] LABS: Amphetamine/Metha Screen,Urine Negative ng/ml (<1000); Barbiturates Screen,Urine Negative ng/ml (<200)
[2024-04-11 17:13] LABS: Benzodiazepines Screen,Urine Negative ng/ml (<200)
[2024-04-11 17:15] LABS: Cannabinoid Screen,Urine Negative ng/ml (<50)
[2024-04-11 17:16] LABS: Cocaine Screen,Urine Negative ng/ml (<300)
[2024-04-11 17:17] LABS: Methadone Screen,Urine Negative ng/ml (<300)
[2024-04-11 17:56] LABS: Microscopic, Urine URINE MICROSCOPIC (MICROSCOPIC)
[2024-04-11 17:58] LABS: Appearance,Urine CLEAR (Clear); Bilirubin,Urine Negative (Negative); Blood, Urine Negative (Negative); Color,Urine YELLOW (Yellow); Glucose,Urine (UA) Negative (Negative); Ketones,Urine Negative (Negative); Leukocyte Esterase,Urine Negative (Negative); Nitrate,Urine Negative (Negative); Protein,Urine Negative (Negative)
[2024-04-11 18:31] LABS: Bacteria,Urine Trace /lpf
== END 2024-04-11 18:57 | disposition home or self-care (01) ==
LOC: OBOUT 16:08 → OB 16:09
PROVIDERS: PCP Internal Medicine Adolescent Medicine; Visit Provider Obstetrics & Gynecology
DX: O42.912 Preterm premature rupture of membranes, unspecified as to length of time between rupture and onset of labor, second trimester (principal); Z3A.27 27 weeks gestation of pregnancy
CPT/HCPCS: 80307; 81001; 84112; G0463

== ENCOUNTER 2024-04-15 13:35 | Outpatient (CLI) | payer OTHER, SELFPAY ==
[2024-04-15 14:38] LABS: Glucose,Fasting 79 mg/dl (74-100)
[2024-04-15 15:54] LABS: Glucose 1 Hour 120 mg/dL (74-100)
== END 2024-04-15 23:59 | disposition home or self-care (01) ==
PROVIDERS: PCP Internal Medicine Adolescent Medicine; Visit Provider Obstetrics & Gynecology
DX: Z34.90 Encounter for supervision of normal pregnancy, unspecified, unspecified trimester (principal)
CPT/HCPCS: 36415; 82951

== ENCOUNTER 2024-04-22 12:56 | Outpatient (CLI) | payer OTHER, SELFPAY ==
--- NOTE | 2024-04-22 13:21 | US_ITS ---
PROCEDURE: US OB FOLLOW UP CLINICAL INDICATION: Maternal Obesity COMPARISON: US US OB >= 14 WEEKS FETUS from 01/10/2024 US US OB FOLLOW UP from 03/23/2024 FINDINGS: Transabdominal sonographic images of the pelvis were obtained. The following parameters are obtained: From her established due date she is 28weeks 4days Viable fetus in the cephalic presentation with an anterior placenta grade 2. The cervix measures 5.67 cm. Ultrasound gestational age 30 weeks 1 day Estimated weight 1490 grams, 3 lb 5 oz heart rate: 147bpm bpm. BPD: 29weeks 6days, 76 percentile HC: 30weeks 5days, 81 percent AC: 30weeks 4days, 92 percentile FL: 29weeks 0 days, 46 percent HC/AC: 1.06 FL/BPD: 0.74 FL/AC: 0.21 Growth percentile: 87 Amniotic fluid index: 15.55cm, MVP 5.09 cm No obvious anomalies evident. profile seen, stomach, bladder, kidneys, three-vessel cord, four chamber heart appear normal. There is unilateral renal pelvis dilation measuring 7.48 mm. IMPRESSION: 1. Viable fetus in the cephalic presentation with an anterior placenta grade 2. 2. The fluid is within normal limits with an amniotic fluid index 15.55 cm, MVP 5.09 cm. 3. There has been good interval growth with the fetus currently 87 percentile. The abdominal circumference is 2 weeks ahead. 4. Limited anatomical scan appears normal. 5. There is unilateral renal pelvis dilation measuring 7.48 mm. Dictated by: Vu Celestin MD 04/22/2024 14:44 Vu Celestin MD in [facility] 04/22/2024 14:44
--- NOTE | 2024-04-22 13:21 | US_ITS ---
PROCEDURE: US OB TRANSVAGINAL CLINICAL INDICATION: Maternal Obesity COMPARISON: US US OB >= 14 WEEKS FETUS from 01/10/2024 US US OB /MATERNAL DETAIL from 02/24/2024 US US OB FOLLOW UP from 03/23/2024 US US OB FOLLOW UP from 04/22/2024 FINDINGS: Transvaginal Sonographic images of the cervix were obtained. The following parameters are obtained: From her established due date she is 28weeks 4days Viable fetus in the cephalic presentation with a posterior placenta grade 1. The cervix measures 4.9 cm. IMPRESSION: 1. Viable fetus in the cephalic presentation. 2. Transvaginally the cervix measures 4.9 cm. 3. A 2nd ultrasound today was done for growth and is dictated on another template. Dictated by: Vu Celestin MD 04/22/2024 14:48 Vu Celestin MD in [place] 04/22/2024 14:48
== END 2024-04-22 23:59 | disposition home or self-care (01) ==
LOC: INF 12:57
PROVIDERS: PCP Internal Medicine Adolescent Medicine; Visit Provider Obstetrics & Gynecology
DX: O26.899 Other specified pregnancy related conditions, unspecified trimester (principal); Z67.91 Unspecified blood type, Rh negative; Z36.86 Encounter for antenatal screening for cervical length
CPT/HCPCS: 36415; 76816; 76817

== ENCOUNTER 2024-04-23 13:12 | Outpatient (CLI) | payer OTHER, SELFPAY ==
[2024-04-23] MEDS: RHO(D) IMMUNE GLOBULIN 1,500 UNIT (300MCG) SYRINGE 300 MCG IM (13:24)
== END 2024-04-23 13:28 | disposition home or self-care (01) ==
PROVIDERS: Visit Provider Obstetrics & Gynecology
DX: Z29.13 Encounter for prophylactic Rho(D) immune globulin (principal)
CPT/HCPCS: 96372; J2790

== ENCOUNTER 2024-05-14 15:34 | Outpatient (CLI) | payer OTHER, SELFPAY ==
[2024-05-14 16:10] VITALS: BMI 48.2
[2024-05-14 16:14] VITALS: BP 123/85; PULSE 92; RESP 18; TEMP 36.9; O2SAT 100; BMI 48.2
[2024-05-14 16:42] LABS: Basophils # 0.1 K/mm3 (0-0.2); Basophils % 0.5 % (0.1-2.0); Eosinophils # 0.1 K/mm3 (0.0-0.4); Eosinophils % 1.2 % (0.1-12.0); Hemoglobin 11.3 g/dL (12.2-16.2); Lymphocytes # 2.2 K/mm3 (0.7-4.5); Lymphocytes % 19.5 % (10-50); Mean Corpuscular HGB Conc 34.4 g/dL (31.8-35.4); Mean Corpuscular Hemoglobin 29.8 pg (27.0-31.2); Mean Corpuscular Volume 86.8 fl (81-99); Mean Platelet Volume 8.1 fl (7.4-10.4); Monocytes # 0.5 K/mm3 (0.1-1.0); Monocytes % 4.1 % (1.7-9.3); Neutrophils # 8.3 K/mm3 (1.8-7.8); Neutrophils % 74.8 % (37.0-80.0); Platelet Count 292 K/mm3 (142-424); Red Cell Distribution Width 13.4 % (11.5-17.5); White Blood Count 11.1 K/mm3 (4.8-10.8)
[2024-05-14 16:43] LABS: Albumin Level 3.2 g/dl (3.5-5.0); Chloride 109 mmol/L (98-107); Potassium 3.6 mmoL/L (3.5-5.1); Sodium 136 mmol/L (136-145)
[2024-05-14 16:45] LABS: Creatinine Clearance Estimated 155 mL/min (50-200); Estimated Glomerular Filt Rate 150 ml/min (>60); GFR (African American) 182 ML/MIN (>60)
[2024-05-14 16:46] LABS: Alanine Aminotransferase 10 U/L (12-78); Albumin/Globulin Ratio 1.2 (1.1-1.8); Alkaline Phosphatase 125 U/L (38-126); Anion Gap 7.6 mEq/L (5-15); Aspartate Amino Transferase 18 U/L (14-36); Bilirubin,Total 0.3 mg/dl (0.2-1.3); Calcium 8.2 mg/dl (8.4-10.2); Carbon Dioxide 23 mmol/L (22.0-30.0); Globulin 2.7 g/dL (1.3-3.2); Glucose 79 mg/dl (74-100); Total Protein,Serum 5.9 g/dl (6.3-8.2)
[2024-05-14 16:52] LABS: Microscopic, Urine URINE MICROSCOPIC (MICROSCOPIC)
[2024-05-14 16:58] LABS: Blood Urea Nitrogen < 2 mg/dl (7-17)
[2024-05-14 17:31] LABS: Activated Partial Thrombo Time 25.5 seconds (22.8-30.6); Fibrinogen 474 mg/dL (229.9-363.5); INR 0.88 (0.9-1.1)
[2024-05-14 17:32] LABS: Appearance,Urine CLEAR (Clear); Bilirubin,Urine Negative (Negative); Blood, Urine Negative (Negative); Color,Urine YELLOW (Yellow); Glucose,Urine (UA) Negative (Negative); Ketones,Urine Negative (Negative); Leukocyte Esterase,Urine Negative (Negative); Nitrate,Urine Negative (Negative); PH,Urine 7.5 (5.0-8.5); Protein,Urine Negative (Negative); Specific Gravity, Urine 1.015 (1.005-1.030)
[2024-05-14 17:41] LABS: Creatinine,Urine Random 72 mg/dL (Not Estab.)
[2024-05-14 17:45] LABS: Amphetamine/Metha Screen,Urine Negative ng/ml (<1000)
[2024-05-14 17:46] LABS: Barbiturates Screen,Urine Negative ng/ml (<200); Benzodiazepines Screen,Urine Negative ng/ml (<200)
[2024-05-14 17:47] LABS: Cannabinoid Screen,Urine Negative ng/ml (<50); Methadone Screen,Urine Negative ng/ml (<300)
[2024-05-14 17:48] LABS: Cocaine Screen,Urine Negative ng/ml (<300)
[2024-05-14 17:49] LABS: Opiate Screen,Urine Negative ng/ml (<300); Phencyclidine Screen,Urine Negative ng/ml (<25)
[2024-05-14 18:27] LABS: Bacteria,Urine 2+ /lpf
[2024-05-14 20:27] LABS: Uric Acid 3.3 mg/dl (2.5-6.2)
== END 2024-05-14 17:31 | disposition home or self-care (01) ==
LOC: OBOUT 15:36 → OB 15:37
PROVIDERS: PCP Internal Medicine Adolescent Medicine; Visit Provider Obstetrics & Gynecology
DX: O13.3 Gestational [pregnancy-induced] hypertension without significant proteinuria, third trimester (principal); Z3A.31 31 weeks gestation of pregnancy
CPT/HCPCS: 36415; 80053; 80307; 81001; 82570; 84156; 84550; 85025; 85384; 85610; 85730; 87086; G0463

== ENCOUNTER 2024-06-01 18:22 | Emergency (ER) | payer OTHER, SELFPAY ==
[2024-06-01 18:23] VITALS: BP 150/80; PULSE 125; RESP 18; TEMP 36.7; O2SAT 99; BMI 48.2
--- NOTE | 2024-06-01 18:24 | ED_ITS ---
<Statement entered by Ange Jerry DO - 06/01/24 21:31> I was consulted by the TABITHA, and we discussed the complexity of the problems being addressed. I approved the treatment and management plan for this patient's care in the emergency department, thus performing a substantive portion of the medical decision making. Ange Jerry DO Discharge Plan Disposition Patient Disposition: Home, Self-Care Condition: Good Prescriptions Prescriptions: No Action 28-800 mg-mcg tablet 1 tab PO DAILY Patient Comments: TAKE 1 TABLET BY MOUTH ONCE DAILY aspirin [Aspirin Childrens] 81 mg tablet,chewable 81 mg PO DAILY Referrals Follow up/Referrals: Wil Cavanaugh MD [Primary Care Provider] - See instructions Activity Restrictions/Add. Instructions Additional Instructions/Restrictions: As we discussed please follow-up with your PCP at at the first of next week for recheck of your labs. If you are unable to tolerate oral intake or your symptoms return you can return to the ER in the interval. Clinical Impressions Clinical Impression: Hyponatremia, Nausea vomiting and diarrhea Instructions Patient Instructions: DI for Diarrhea and Traveler's Diarrhea -- Adult, DI for Diarrhea and Traveler's Diarrhea -- Child, DI for Nausea -- Adult, DI for Nausea -- Child Print Language Print Language: Persian Discharge ED Provider: Ange Jerry General Adult HPI General Chief complaint: Nausea/Vomiting/Diarrhea Stated complaint: v/d fever Time Seen by Provider: 06/01/24 18:24 History of Present Illness HPI narrative: Patient presents for evaluation of nausea vomiting diarrhea. Patient has had acute onset of nausea vomiting and diarrhea that started when she woke up this morning she is had more than 5 watery stools today. She denies fever chills hemoptysis hematochezia melena hematemesis. She is tolerant of oral intake currently. She is 34 weeks currently. Related Data Home Medications ?Medication ?Instructions ?Recorded ?Confirmed aspirin 81 mg chewable tablet 81 mg PO DAILY 01/20/24 05/20/24 (Aspirin Childrens) vit no.133-ferrous 1 tab PO DAILY 01/20/24 05/20/24 fumarate 28 mg-folic acid 800 mcg tablet () Allergies Allergy/AdvReac Type Severity Reaction Status Date / Time No Known Allergies Allergy Verified 05/20/24 15:00 [facility] Disclaimer: The information contained in this section may have been updated after the patient was seen, as this information can be updated by other users. Medical History Elevated blood pressure affecting , antepartum Vaginal bleeding during , antepartum History of pre-eclampsia in prior , currently Tobacco use affecting , antepartum Maternal obesity affecting , antepartum Abnormal uterine bleeding with IUD in place Depression Anxiety Urinary tract infection Asthma Hypertension Encounter for IUD insertion Kyleena IUD inserted 03/06/22 Surgical History History of tonsillectomy Hx of section Family History Other Asthma Cancer Diabetes FHx: mental illness Heart attack Hypertension Social History Smoking Status: Current every day smoker tobacco type: e-cigarettes second hand exposure: No alcohol intake: never substance use type: denies use current occupational status: employed Travel in the last 8 weeks: None household members: family housing: house Have you lived/traveled outside US in past 30 days?: No Contact w/someone who lives/traveled outside US past 30 days?: No Exposure to someone with infectious disease in past 14 days?: No Do you have a fever (greater than 100.4 F or 38 C)?: Yes Have you tested positive for COVID-19: No Exposed to someone with COVID-19 in past 14 days?: No Do you have a sore throat?: No Do you have a cough?: No Do you have any weakness?: No Do you have any diarrhea?: Yes Are you experiencing any unusual bleeding?: No Do you have any muscle aches/pain?: No Do you have any abdominal pain?: No Are you experiencing loss of taste or smell?: No Other Medical History Have you received the Flu Vaccine for this season: No Have you received the Pneumonia Vaccine: No ROS Obtained: Yes Systems reviewed as appropriate & no additional complaints except as documented Physical Exam General General appearance: alert and in no apparent distress Respiratory Respiratory exam: Present normal lung sounds bilaterally Cardiovascular Cardiovascular exam: Present tachycardia Neurological Exam Neurological exam: Present alert and oriented X3 Medical Decision Making Medical Records Medical records reviewed: Yes I reviewed the patient's medical records. Screening: Per USPSTF and CDC recommendations, given the prevalence of disease in our region, it is our hospital?s policy to screen for HIV and viral Hepatitis for all patients aged 18 and over and those with ongoing risk factors. Gregory Inquiry Pt receiving controlled substance: No Vital Signs: 06/01/24 18:23 Temperature 98.1 F Temperature Source Oral Pulse Rate [Left Radial] 125 H Respiratory Rate 18 Blood Pressure [Right Arm] 150/80 H Blood Pressure Mean [Right Arm] 103 Blood Pressure Source [Right Arm] Automatic Cuff Blood Pressure Position [Right Arm] Sitting 02 Sat by Pulse Oximetry 99 Oxygen Delivery Method Room Air Lab Data Lab results reviewed: Yes I reviewed the patient's lab results. Lab Results 06/01/24 18:43: WBC 12.8 H, RBC 4.06 L, Hgb 11.7 L, Hct 33.8 L, MCV 83.3, MCH 28.8, MCHC 34.6, RDW 12.4, Plt Count 322, MPV 10.5 H, Neut % (Auto) 83.6 H, L ymph % (Auto) 9.6 L, [place] % (Auto) 5.4, Eos % (Auto) 0.7, Baso % (Auto) 0.2, N eut # (Auto) 10.7 H, Lymph # (Auto) 1.2, [place] # (Auto) 0.6, Eos # (Auto) 0.1, Baso # (Auto) 0.0, Sodium 129 L 06/01/24 18:43: Sodium 129 L, Potassium 3.5 06/01/24 18:43: Potassium 3.7, Chloride 108 H 06/01/24 18:43: Chloride 107, Carbon Dioxide 19 L 06/01/24 18:43: Carbon Dioxide 19 L, Anion Gap 5.5 06/01/24 18:43: Anion Gap 6.7, BUN 3 L 06/01/24 18:43: BUN 3 L, Creatinine 0.40 L 06/01/24 18:43: Creatinine 0.40 L, Estimated Creat Clear 193 06/01/24 18:43: Estimated Creat Clear 193, Estimated GFR 194 06/01/24 18:43: Estimated GFR 194, Est GFR ( Amer) 235 06/01/24 18:43: Est GFR ( Amer) 235, Glucose 101 H 06/01/24 18:43: Glucose 97, Calcium 8.2 L 06/01/24 18:43: Calcium 8.2 L, Magnesium 1.7, Total Bilirubin 0.6, AST 21, ALT 14, Alkaline Phosphatase 176 H, Total Protein 6.2 L, Albumin 3.4 L, Globulin 2.8, Albumin/Globulin Ratio 1.2 06/01/24 18:43 06/01/24 18:43 Orders (Tests/Meds): ED MEDICATIONS Discontinued Medications Generic Name Dose Route Start Last Admin Trade Name Freq PRN Reason Stop Dose Admin Sodium Chloride 1,000 mls @ 999 mls/hr 06/01/24 18:28 06/01/24 18:35 Sod Chlor 0.9% 1000ml Bag IV 06/01/24 19:28 999 mls/hr .Q1H1M ONE Administration Ondansetron HCl 4 mg 06/01/24 18:28 06/01/24 18:35 Ondansetron 4mg/2ml Vial IV 06/01/24 18:29 4 mg ONCE ONE Administration ORDERS Category Date Time Status BMP [Basic Metabolic Panel] Stat Lab 06/01/24 18:43 Completed BMP [Basic Metabolic Panel] Timed Lab 06/01/24 21:30 Ordered CBC w/Auto Diff [Complete Blood Count Auto Diff] Stat Lab 06/01/24 18:43 Completed CMP [Comprehensive Metabolic Panel] Stat Lab 06/01/24 18:43 Completed Diarrhea 23 Panel, PCR Stat Lab 06/01/24 18:29 Ordered Magnesium Stat Lab 06/01/24 18:43 Completed UA [Urinalysis and Microscopic] Stat Lab 06/01/24 18:29 Ordered Medical Decision Narrative: In summary patient is a 23-year-old female who presents to the emergency department for evaluation of nausea vomit diarrhea. Patient is initially normotensive 150/80 with a heart rate of 125 breathing 18 times a minute satting at 99% on room air upon arrival, the temperature 98.1 current. Physical exam is remarkable for nontender abdomen to palpation with normal bowel sounds. She is tachycardic at the time my exam greater than 120s sustained but no chest pain shortness of breath.. Differential diagnosis includes gastroenteritis versus enteritis versus colitis etc. Initial workup will be conducted with hematologic labs diarrhea panel. Initial interventions include crystalloid bolus Zofran. Initial workup reviewed by me shows a white count of 12.8 hemoglobin and hematocrit of 11.7 and 33.8 with an absolute neutrophil count of 10.7, CMP significant for sodium of 129 CO2 of 19 BUN of 3 creatinine 0.4 glucose 101 calcium 8.2 alk phos of 176 albumin of 3.4 and the remainder of her hematologic labs being nonactionable, patient remains with slightly elevated heart rate after first liter fluid bolus remains tachycardic but her blood pressure blood pressure is normalized. Given this I had interactive discussion with Dr. Thompson on-call for [employer] regarding patient management and who recommended admission to the hospitalist for sodium correction with consult to their service. Patient initially agreed to admission. I had interactive discussion with hospital medicine who came and evaluated the patient in the emergency department for admission. Hospital medicine declined to admit as she stated that patient did not want to stay and recommended that another fluid bolus and repeat lab work. I again reinterviewed the patient and told her the risks and benefits of discharge and the recommendations of of admission that Dr. Thompson had for known correction of her sodium given the holiday week and lack of available outpatient laboratory follow-up. It is of note that patient is tolerant of oral intake and feels significantly better after initial intervention. Thus given patient directed decision making and discharge patient has elected to go home with strict return precautions. Critical Care Critical Care Time Critical Care Time: No
[2024-06-01] MEDS: 0.9 % SODIUM CHLORIDE 1000ML 1,000 ML 999 ML IV (18:35)
[2024-06-01] MEDS: ONDANSETRON 4MG/2ML VIAL 4 MG IV (18:35)
[2024-06-01 19:00] LABS: Chloride 108 mmol/L (98-107)
[2024-06-01 19:01] LABS: Albumin Level 3.4 g/dl (3.5-5.0); Potassium 3.5 mmoL/L (3.5-5.1); Sodium 129 mmol/L (136-145)
[2024-06-01 19:02] LABS: Basophils % 0.2 % (0.1-2.0); Eosinophils % 0.7 % (0.1-12.0); Hematocrit 33.8 % (37.0-47.0); Hemoglobin 11.7 g/dL (12.2-16.2); Lymphocytes # 1.2 K/mm3 (0.7-4.5); Lymphocytes % 9.6 % (10-50); Mean Corpuscular HGB Conc 34.6 g/dL (31.8-35.4); Mean Corpuscular Hemoglobin 28.8 pg (27.0-31.2); Mean Corpuscular Volume 83.3 fl (81-99); Mean Platelet Volume 10.5 fl (7.4-10.4); Monocytes % 5.4 % (1.7-9.3); Neutrophils # 10.7 K/mm3 (1.8-7.8); Neutrophils % 83.6 % (37.0-80.0); Platelet Count 322 K/mm3 (142-424); Red Blood Count 4.06 M/mm3 (4.20-5.40); Red Cell Distribution Width 12.4 % (11.5-17.5); White Blood Count 12.8 K/mm3 (4.8-10.8)
[2024-06-01 19:03] LABS: Blood Urea Nitrogen 3 mg/dl (7-17); Creatinine Clearance Estimated 193 mL/min (50-200); Eosinophils # 0.1 K/mm3 (0.0-0.4); Estimated Glomerular Filt Rate 194 ml/min (>60); GFR (African American) 235 ML/MIN (>60); Monocytes # 0.6 K/mm3 (0.1-1.0)
[2024-06-01 19:04] LABS: Alanine Aminotransferase 14 U/L (12-78); Albumin/Globulin Ratio 1.2 (1.1-1.8); Alkaline Phosphatase 176 U/L (38-126); Anion Gap 5.5 mEq/L (5-15); Aspartate Amino Transferase 21 U/L (14-36); Bilirubin,Total 0.6 mg/dl (0.2-1.3); Calcium 8.2 mg/dl (8.4-10.2); Carbon Dioxide 19 mmol/L (22.0-30.0); Globulin 2.8 g/dL (1.3-3.2); Glucose 101 mg/dl (74-100); Magnesium 1.7 mg/dl (1.6-2.3); Total Protein,Serum 6.2 g/dl (6.3-8.2)
[2024-06-01 20:04] LABS: Chloride 107 mmol/L (98-107)
[2024-06-01 20:05] LABS: Potassium 3.7 mmoL/L (3.5-5.1); Sodium 129 mmol/L (136-145)
[2024-06-01 20:08] LABS: Anion Gap 6.7 mEq/L (5-15); Blood Urea Nitrogen 3 mg/dl (7-17); Calcium 8.2 mg/dl (8.4-10.2); Carbon Dioxide 19 mmol/L (22.0-30.0); Creatinine Clearance Estimated 193 mL/min (50-200); Estimated Glomerular Filt Rate 194 ml/min (>60); GFR (African American) 235 ML/MIN (>60); Glucose 97 mg/dl (74-100)
[2024-06-01 20:43] VITALS: BP 128/82; PULSE 104; RESP 16; TEMP 36.8; O2SAT 99
[2024-06-01 20:47] LABS: Chloride 107 mmol/L (98-107); Sodium 130 mmol/L (136-145)
[2024-06-01 20:48] LABS: Potassium 3.3 mmoL/L (3.5-5.1)
[2024-06-01 20:50] LABS: Blood Urea Nitrogen 2 mg/dl (7-17); Creatinine Clearance Estimated 155 mL/min (50-200); Estimated Glomerular Filt Rate 150 ml/min (>60); GFR (African American) 182 ML/MIN (>60)
[2024-06-01 20:51] LABS: Anion Gap 4.3 mEq/L (5-15); Calcium 7.9 mg/dl (8.4-10.2); Carbon Dioxide 22 mmol/L (22.0-30.0); Glucose 89 mg/dl (74-100)
== END 2024-06-01 20:44 | disposition home or self-care (01) ==
PROVIDERS: Physician Assistant; Emergency Provider Emergency Medicine; PCP Internal Medicine Adolescent Medicine
DX: E87.1 Hypo-osmolality and hyponatremia (principal); R11.2 Nausea with vomiting, unspecified; R19.7 Diarrhea, unspecified
CPT/HCPCS: 80048; 80053; 83735; 85025; 96361; 96374; 99283; J2405; J7030

== ENCOUNTER 2024-06-04 16:12 | Emergency (ER) | payer OTHER, SELFPAY ==
[2024-06-04 16:14] VITALS: BP 139/87; PULSE 105; RESP 18; TEMP 36.9; O2SAT 96; BMI 46.5
--- NOTE | 2024-06-04 17:07 | ED_ITS ---
<Statement entered by Ange Jerry DO - 06/04/24 22:00> I was consulted by the TABITHA, and we discussed the complexity of the problems being addressed. I approved the treatment and management plan for this patient's care in the emergency department, thus performing a substantive portion of the medical decision making. Ange Jerry DO Discharge Plan Disposition Patient Disposition: Home, Self-Care Condition: Good Prescriptions Prescriptions: New ondansetron 4 mg tablet,disintegrating 4 mg PO Q6H PRN (Reason: nausea and vomiting) Qty: 10 0RF cephalexin 500 mg capsule 500 mg PO BID 7 Days Qty: 14 0RF No Action 28-800 mg-mcg tablet 1 tab PO DAILY Patient Comments: TAKE 1 TABLET BY MOUTH ONCE DAILY aspirin [Aspirin Childrens] 81 mg tablet,chewable 81 mg PO DAILY Referrals Follow up/Referrals: Wil Cavanaugh MD [Primary Care Provider] - See instructions Activity Restrictions/Add. Instructions Additional Instructions/Restrictions: Please take your antibiotic till it is gone. Follow-up with your PCP on Saturday for recheck. Continue to stay hydrated and take Zofran for the nausea. Follow- up with PCP if no improvement or return to the ER as needed. Clinical Impressions Clinical Impression: Nausea vomiting and diarrhea Urinary tract infectious disease Qualifiers: Urinary tract infection type: site unspecified Hematuria presence: with hematuria Qualified Code(s): N39.0 - Urinary tract infection, site not specified Instructions Patient Instructions: DI for Diarrhea and Traveler's Diarrhea -- Adult, DI for Diarrhea and Traveler's Diarrhea -- Child, DI for Nausea -- Adult, DI for Nausea -- Child Print Language Print Language: Kosovan Discharge ED Provider: Ange Jerry General Adult HPI General Chief complaint: Nausea/Vomiting/Diarrhea Stated complaint: fast heart rate,[place],poor appitite Time Seen by Provider: 06/04/24 17:07 History of Present Illness HPI narrative: Patient presents for evaluation of continued nausea vomiting diarrhea. I saw the patient on 04/01/2024 for similar complaints and actually recommended admission due to her significant hyponatremia and inability to provide a stool specimen. Patient elected to go home instead however has continued to have symptoms with nausea vomiting diarrhea. She denies any fever chills hemoptysis hematochezia melena hematemesis. She is able to eat and drink however, she intermittently still has nausea vomiting Related Data Home Medications ?Medication ?Instructions ?Recorded ?Confirmed aspirin 81 mg chewable tablet 81 mg PO DAILY 01/20/24 05/20/24 (Aspirin Childrens) vit no.133-ferrous 1 tab PO DAILY 01/20/24 05/20/24 fumarate 28 mg-folic acid 800 mcg tablet () Previous Rx's ?Medication ?Instructions ?Recorded cephalexin 500 mg capsule 500 mg PO BID 7 days #14 caps 06/04/24 ondansetron 4 mg disintegrating 4 mg PO Q6H PRN nausea and 06/04/24 tablet vomiting #10 tabs Allergies Allergy/AdvReac Type Severity Reaction Status Date / Time No Known Allergies Allergy Verified 05/20/24 15:00 [facility] Disclaimer: The information contained in this section may have been updated after the patient was seen, as this information can be updated by other users. Medical History Elevated blood pressure affecting , antepartum Vaginal bleeding during , antepartum History of pre-eclampsia in prior , currently Tobacco use affecting , antepartum Maternal obesity affecting , antepartum Abnormal uterine bleeding with IUD in place Depression Anxiety Urinary tract infection Asthma Hypertension Encounter for IUD insertion Kyleena IUD inserted 03/06/22 Surgical History History of tonsillectomy Hx of section Family History Other Asthma Cancer Diabetes FHx: mental illness Heart attack Hypertension Social History Smoking Status: Current every day smoker tobacco type: e-cigarettes second hand exposure: No alcohol intake: never substance use type: denies use current occupational status: employed Travel in the last 8 weeks: None household members: family housing: house Have you lived/traveled outside US in past 30 days?: No Contact w/someone who lives/traveled outside US past 30 days?: No Exposure to someone with infectious disease in past 14 days?: No Do you have a fever (greater than 100.4 F or 38 C)?: No Have you tested positive for COVID-19: No Exposed to someone with COVID-19 in past 14 days?: No Do you have a sore throat?: No Do you have a cough?: No Do you have any weakness?: No Do you have any diarrhea?: No Are you experiencing any unusual bleeding?: No Do you have any muscle aches/pain?: No Do you have any abdominal pain?: No Are you experiencing loss of taste or smell?: No Other Medical History Have you received the Flu Vaccine for this season: No Have you received the Pneumonia Vaccine: No ROS Obtained: Yes Systems reviewed as appropriate & no additional complaints except as documented Physical Exam General General appearance: alert and in no apparent distress Respiratory Respiratory exam: Present normal lung sounds bilaterally Cardiovascular Cardiovascular exam: Present regular rate and +S2 Neurological Exam Neurological exam: Present alert and oriented X3 Medical Decision Making Medical Records Medical records reviewed: Yes I reviewed the patient's medical records. Screening: Per USPSTF and CDC recommendations, given the prevalence of disease in our region, it is our hospital?s policy to screen for HIV and viral Hepatitis for all patients aged 18 and over and those with ongoing risk factors. Gregory Inquiry Pt receiving controlled substance: No Vital Signs: 06/04/24 16:14 06/04/24 18:07 06/04/24 18:31 Temperature 98.5 F Temperature Source Oral Pulse Rate 95 H 102 H Pulse Rate [Apical] 105 H Respiratory Rate 18 19 Blood Pressure 134/77 156/100 H Blood Pressure [Right Arm] 139/87 Blood Pressure Mean [Right Arm] 104 Blood Pressure Source [Right Arm] Automatic Cuff Blood Pressure Position [Right Arm] Sitting 02 Sat by Pulse Oximetry 96 98 100 Oxygen Delivery Method Room Air Room Air Room Air Lab Data Lab results reviewed: Yes I reviewed the patient's lab results. Lab Results 06/04/24 17:26: Urine Color Yellow, Urine Appearance Slightly cloudy, Urine pH 6.5, Ur Specific [place] 1.020, Urine Protein Negative, Urine Glucose (UA) Negative, Urine Ketones Negative, Urine Blood Negative, Urine Nitrate Negative, Urine Bilirubin Negative, Urine Urobilinogen 1.0, Ur Leukocyte Esterase Trace, Urine RBC None, Urine WBC 10-20, Ur Squamous Epith Cells 20-50, Ur Renal Epithelial Cell 5-10, Urine Bacteria 2+, Urine Yeast 1+ 06/04/24 17:36: WBC 11.2 H, RBC 3.85 L, Hgb 11.1 L, Hct 32.2 L, MCV 83.6, MCH 28.8, MCHC 34.5, RDW 12.7, Plt Count 299, MPV 10.1, Neut % (Auto) 71.2, Lymph % (Auto) 20.5, [place] % (Auto) 5.8, Eos % (Auto) 1.6, Baso % (Auto) 0.2, Neut # (Auto) 8.0 H, Lymph # (Auto) 2.3, [place] # (Auto) 0.7, Eos # (Auto) 0.2, Baso # (Auto) 0.0, Sodium 134 L, Potassium 3.2 L, Chloride 106, Carbon Dioxide 24, Anion Gap 7.2, BUN < 2 L, Creatinine 0.50 L, Estimated Creat Clear 155, Estimated GFR 150, Est GFR ( Amer) 182, Glucose 104 H, Calcium 8.6, Total Bilirubin 0.3, AST 26, ALT 21 D, Alkaline Phosphatase 159 H, Total Protein 5.8 L, Albumin 3.2 L, Globulin 2.6, Albumin/Globulin Ratio 1.2, Procalcitonin 0.056 06/04/24 17:36 06/04/24 17:36 Orders (Tests/Meds): ED MEDICATIONS Generic Name Dose Route Start Last Admin Trade Name Freq PRN Reason Stop Dose Admin Cephalexin HCl 500 mg 06/04/24 20:08 Cephalexin 500mg Capsule PO 06/04/24 20:09 ONCE ONE Discontinued Medications Generic Name Dose Route Start Last Admin Trade Name Freq PRN Reason Stop Dose Admin Acetaminophen 1,000 mg 06/04/24 17:14 06/04/24 18:08 Acetaminophen 1,000mg/100ml Vial IV 06/04/24 17:15 1,000 mg ONCE ONE Administration Sodium Chloride 1,000 mls @ 999 mls/hr 06/04/24 17:14 06/04/24 18:08 Sod Chlor 0.9% 1000ml Bag IV 06/04/24 18:14 999 mls/hr .Q1H1M ONE Administration Ondansetron HCl 4 mg 06/04/24 17:14 06/04/24 18:08 Ondansetron 4mg/2ml Vial IV 06/04/24 17:15 4 mg ONCE ONE Administration Potassium Chloride 60 meq 06/04/24 18:57 06/04/24 19:13 Potassium Chloride 20meq Tab PO 06/04/24 18:58 60 meq ONCE ONE Administration ORDERS Category Date Time Status CBC w/Auto Diff [Complete Blood Count Auto Diff] Stat Lab 06/04/24 17:36 Completed CMP [Comprehensive Metabolic Panel] Stat Lab 06/04/24 17:36 Completed Diarrhea 23 Panel, PCR Stat Lab 06/04/24 17:15 Ordered Procalcitonin Stat Lab 06/04/24 17:36 Completed UA [Urinalysis and Microscopic] Stat Lab 06/04/24 17:26 Completed Urine Culture Stat Micro 06/04/24 17:26 Received Medical Decision Narrative: In summary patient is a 23-year-old female who presents to the emergency department for evaluation of nausea vomiting diarrhea. Patient is normotensive at 139/87 slightly tachycardic at 105 upon arrival, but afebrile. Physical exam is remarkable for no abdominal tenderness on exam hyperactive bowel sounds normal breath sounds without adventitious sounds.. Differential diagnosis includes viral or infectious gastroenteritis versus other occult infection versus hyperemesis gravidarum Cetera. Initial workup will be conducted with hematologic labs urinalysis stool specimen.. Initial interventions include Zofran crystalloid bolus. Initial workup reviewed by me actually shows improvement in her labs with a sodium today of 134 and improving white count with no shift but her urinalysis shows no red blood cells 10-20 white cells 20- 50 epithelial cells 5-10 epithelial renal cells 2+ bacteria.. Upon repeat evaluation patient had tolerance of p.o. intake.. Given this patient is appropriate for discharge with prescription for Keflex with first dose given here and Zofran. Patient has strict return precautions and follow-up with her PCP and [employer] SPECIALIST within 48 hours. Critical Care Critical Care Time Critical Care Time: No
[2024-06-04 17:30] LABS: Microscopic, Urine URINE MICROSCOPIC (MICROSCOPIC)
--- NOTE | 2024-06-04 17:30 | ECG_ITS ---
APPROVED REPORT Exam: Resting ECG HR:99 bpm ECG Measurements Heart Rate 99 AXES NC 149 P 41 QRSd 98 QRS 25 QT 350 T 50 QTc 406 Conclusion SINUS RHYTHM NORMAL ECG Electronically signed by : RADHA HAUSER, 06/05/2024 07:03:03
[2024-06-04 17:35] LABS: Bilirubin,Urine Negative (Negative); Blood, Urine Negative (Negative); Color,Urine YELLOW (Yellow); Glucose,Urine (UA) Negative (Negative); Ketones,Urine Negative (Negative); Leukocyte Esterase,Urine TRACE (Negative); Nitrate,Urine Negative (Negative); PH,Urine 6.5 (5.0-8.5); Protein,Urine Negative (Negative)
[2024-06-04 17:36] LABS: Appearance,Urine Slightly Cloudy (Clear)
--- NOTE | 2024-06-04 17:40 | PC.NURSE ---
AUDIBLE FHT'S 150'S PER DOPPLER
[2024-06-04 17:48] LABS: Basophils % 0.2 % (0.1-2.0); Eosinophils # 0.2 K/mm3 (0.0-0.4); Eosinophils % 1.6 % (0.1-12.0); Hematocrit 32.2 % (37.0-47.0); Hemoglobin 11.1 g/dL (12.2-16.2); Lymphocytes # 2.3 K/mm3 (0.7-4.5); Lymphocytes % 20.5 % (10-50); Mean Corpuscular HGB Conc 34.5 g/dL (31.8-35.4); Mean Corpuscular Hemoglobin 28.8 pg (27.0-31.2); Mean Corpuscular Volume 83.6 fl (81-99); Mean Platelet Volume 10.1 fl (7.4-10.4); Monocytes # 0.7 K/mm3 (0.1-1.0); Monocytes % 5.8 % (1.7-9.3); Neutrophils % 71.2 % (37.0-80.0); Platelet Count 299 K/mm3 (142-424); Red Blood Count 3.85 M/mm3 (4.20-5.40); Red Cell Distribution Width 12.7 % (11.5-17.5); White Blood Count 11.2 K/mm3 (4.8-10.8)
[2024-06-04 17:54] LABS: Albumin Level 3.2 g/dl (3.5-5.0); Chloride 106 mmol/L (98-107)
[2024-06-04 17:55] LABS: Potassium 3.2 mmoL/L (3.5-5.1); Sodium 134 mmol/L (136-145)
[2024-06-04 17:57] LABS: Alanine Aminotransferase 21 U/L (12-78); Anion Gap 7.2 mEq/L (5-15); Aspartate Amino Transferase 26 U/L (14-36); Carbon Dioxide 24 mmol/L (22.0-30.0); Creatinine Clearance Estimated 155 mL/min (50-200); Estimated Glomerular Filt Rate 150 ml/min (>60); GFR (African American) 182 ML/MIN (>60)
[2024-06-04 17:58] LABS: Albumin/Globulin Ratio 1.2 (1.1-1.8); Alkaline Phosphatase 159 U/L (38-126); Bilirubin,Total 0.3 mg/dl (0.2-1.3); Calcium 8.6 mg/dl (8.4-10.2); Globulin 2.6 g/dL (1.3-3.2); Glucose 104 mg/dl (74-100); Total Protein,Serum 5.8 g/dl (6.3-8.2)
[2024-06-04 17:59] LABS: Blood Urea Nitrogen < 2 mg/dl (7-17)
[2024-06-04 18:07] VITALS: BP 134/77; PULSE 95; O2SAT 98
[2024-06-04] MEDS: 0.9 % SODIUM CHLORIDE 1000ML 1,000 ML 999 ML IV (18:08)
[2024-06-04] MEDS: ONDANSETRON 4MG/2ML VIAL 4 MG IV (18:08)
[2024-06-04] MEDS: ACETAMINOPHEN 1,000MG/100ML VIAL 1000 MG IV (18:08)
[2024-06-04 18:18] LABS: Procalcitonin 0.056 ng/mL (0.0-2.0)
[2024-06-04 18:31] VITALS: BP 156/100; PULSE 102; RESP 19; O2SAT 100
[2024-06-04 18:38] LABS: Bacteria,Urine 2+ /lpf; Squamous Epithelial Cell,Urine 20-50 #/hpf (0-5); Yeast,Urine 1+ /lpf
[2024-06-04] MEDS: POTASSIUM CHLORIDE 20MEQ TAB 60 MEQ PO (19:13)
[2024-06-04 20:16] VITALS: BP 142/82; PULSE 80; RESP 16; TEMP 36.9; O2SAT 98
[2024-06-04] MEDS: cephALEXin 500MG CAPSULE 500 MG PO (20:17)
--- NOTE | 2024-06-10 22:49 | PC.NURSE ---
2241 Patient called requesting to speak with nurse about burning with urination. She reports she is 35 weeks and has been on an antibiotic for several days after being seen in ER 06/04/2024. Advised patient to be seen in OB triage and if she didnt atleast contact Dr. Macario office first thing in the morning. Patient VU
== END 2024-06-04 20:19 | disposition home or self-care (01) ==
PROVIDERS: Physician Assistant; Emergency Provider Emergency Medicine; PCP Internal Medicine Adolescent Medicine
DX: N39.0 Urinary tract infection, site not specified (principal); R11.2 Nausea with vomiting, unspecified; R19.7 Diarrhea, unspecified
CPT/HCPCS: 80053; 81001; 84145; 85025; 87086; 93005; 96361; 96374; 96375; 99283; J0131; J2405; J7030

== ENCOUNTER 2024-06-10 23:25 | Outpatient (CLI) | payer OTHER, SELFPAY ==
[2024-06-10 23:35] VITALS: BP 130/90; PULSE 100; RESP 18; TEMP 37.1; O2SAT 98; BMI 48.7
[2024-06-10 23:51] VITALS: BMI 48.7
[2024-06-11 00:04] LABS: Microscopic, Urine URINE MICROSCOPIC (MICROSCOPIC)
[2024-06-11 00:06] LABS: Bilirubin,Urine Negative (Negative); Blood, Urine Negative (Negative); Color,Urine YELLOW (Yellow); Glucose,Urine (UA) Negative (Negative); Ketones,Urine Negative (Negative); Leukocyte Esterase,Urine Negative (Negative); Nitrate,Urine Negative (Negative); Protein,Urine Negative (Negative); Specific Gravity, Urine 1.015 (1.005-1.030)
[2024-06-11 00:11] LABS: Appearance,Urine Slightly Cloudy (Clear)
[2024-06-11 00:38] LABS: Bacteria,Urine 1+ /lpf; RBC,Urine Occasional #/hpf (0-3); Yeast,Urine 1+ /lpf
[2024-06-11 01:47] LABS: Amphetamine/Metha Screen,Urine Negative ng/ml (<1000); Barbiturates Screen,Urine Negative ng/ml (<200)
[2024-06-11 01:48] LABS: Benzodiazepines Screen,Urine Negative ng/ml (<200)
[2024-06-11 01:49] LABS: Cannabinoid Screen,Urine Negative ng/ml (<50); Cocaine Screen,Urine Negative ng/ml (<300)
[2024-06-11 01:50] LABS: Methadone Screen,Urine Negative ng/ml (<300)
[2024-06-11 01:51] LABS: Opiate Screen,Urine Negative ng/ml (<300); Phencyclidine Screen,Urine Negative ng/ml (<25)
== END 2024-06-11 00:20 | disposition home or self-care (01) ==
LOC: OBOUT 23:27 → OB 23:28
PROVIDERS: PCP Internal Medicine Adolescent Medicine; Visit Provider Obstetrics & Gynecology
DX: O26.893 Other specified pregnancy related conditions, third trimester (principal); R30.0 Dysuria; Z3A.35 35 weeks gestation of pregnancy
CPT/HCPCS: 80307; 81001; G0463

== ENCOUNTER 2024-06-12 20:16 | Outpatient (CLI) | payer OTHER, SELFPAY ==
[2024-06-12 20:30] VITALS: BP 133/72; PULSE 93; RESP 18; TEMP 36.6; O2SAT 98; BMI 48.7
[2024-06-12 20:32] VITALS: BMI 48.6
[2024-06-12 20:42] LABS: Appearance,Urine CLEAR (Clear); Bilirubin,Urine Negative (Negative); Blood, Urine Negative (Negative); Color,Urine YELLOW (Yellow); Glucose,Urine (UA) Negative (Negative); Ketones,Urine Negative (Negative); Leukocyte Esterase,Urine TRACE (Negative); Microscopic, Urine URINE MICROSCOPIC (MICROSCOPIC); Nitrate,Urine Negative (Negative); PH,Urine 6.5 (5.0-8.5); Protein,Urine Negative (Negative)
[2024-06-12 21:00] LABS: Amphetamine/Metha Screen,Urine Negative ng/ml (<1000); Barbiturates Screen,Urine Negative ng/ml (<200)
[2024-06-12 21:01] LABS: Benzodiazepines Screen,Urine Negative ng/ml (<200)
[2024-06-12 21:02] LABS: Cannabinoid Screen,Urine Negative ng/ml (<50); Cocaine Screen,Urine Negative ng/ml (<300)
[2024-06-12 21:03] LABS: Methadone Screen,Urine Negative ng/ml (<300)
[2024-06-12 21:04] LABS: Opiate Screen,Urine Negative ng/ml (<300); Phencyclidine Screen,Urine Negative ng/ml (<25)
[2024-06-12 21:15] LABS: Bacteria,Urine Trace /lpf
== END 2024-06-12 21:18 | disposition home or self-care (01) ==
LOC: OBOUT 20:18 → OB 20:19
PROVIDERS: PCP Internal Medicine Adolescent Medicine; Visit Provider Obstetrics & Gynecology
DX: O36.8130 Decreased fetal movements, third trimester, not applicable or unspecified (principal); Z3A.35 35 weeks gestation of pregnancy
CPT/HCPCS: 80307; 81001; G0463

== ENCOUNTER 2024-06-17 16:37 | Outpatient (CLI) | payer OTHER, SELFPAY ==
[2024-06-17 16:48] VITALS: BP 142/85; PULSE 123; RESP 18; TEMP 36.8; O2SAT 100; BMI 49.2
[2024-06-17 17:00] VITALS: BP 134/73
[2024-06-17 17:12] VITALS: BP 127/83
[2024-06-17 17:24] LABS: Basophils % 0.2 % (0.1-2.0); Eosinophils # 0.1 K/mm3 (0.0-0.4); Eosinophils % 0.9 % (0.1-12.0); Hematocrit 34.1 % (37.0-47.0); Hemoglobin 11.2 g/dL (12.2-16.2); Lymphocytes # 2.6 K/mm3 (0.7-4.5); Lymphocytes % 19.3 % (10-50); Mean Corpuscular HGB Conc 32.8 g/dL (31.8-35.4); Mean Corpuscular Hemoglobin 27.7 pg (27.0-31.2); Mean Corpuscular Volume 84.4 fl (81-99); Mean Platelet Volume 10.6 fl (7.4-10.4); Monocytes # 0.9 K/mm3 (0.1-1.0); Monocytes % 6.5 % (1.7-9.3); Neutrophils # 9.9 K/mm3 (1.8-7.8); Neutrophils % 72.4 % (37.0-80.0); Platelet Count 339 K/mm3 (142-424); Red Blood Count 4.04 M/mm3 (4.20-5.40); White Blood Count 13.7 K/mm3 (4.8-10.8)
[2024-06-17 17:26] LABS: Chloride 107 mmol/L (98-107); Potassium 3.7 mmoL/L (3.5-5.1); Sodium 136 mmol/L (136-145)
[2024-06-17 17:29] LABS: Alanine Aminotransferase 13 U/L (12-78); Anion Gap 11.7 mEq/L (5-15); Aspartate Amino Transferase 23 U/L (14-36); Blood Urea Nitrogen < 2 mg/dl (7-17); Calcium 8.7 mg/dl (8.4-10.2); Carbon Dioxide 21 mmol/L (22.0-30.0); Estimated Glomerular Filt Rate 150 ml/min (>60); GFR (African American) 182 ML/MIN (>60); Glucose 85 mg/dl (74-100)
[2024-06-17 17:37] VITALS: BP 113/62
[2024-06-17 17:37] LABS: Activated Partial Thrombo Time 25.8 seconds (22.8-30.6); Fibrinogen 482 mg/dL (229.9-363.5); INR 0.86 (0.9-1.1); Prothrombin Time 9.8 seconds (10.1-12.5)
[2024-06-17 17:40] LABS: Uric Acid 3.5 mg/dl (2.5-6.2)
[2024-06-17 18:09] VITALS: BMI 49.2
[2024-06-17 18:13] LABS: Creatinine,Urine Random 88 mg/dL (Not Estab.)
--- NOTE | 2024-06-17 18:24 | EXP.ACUTE.PN ---
Subjective *Date: 06/17/24 *Time: 18:24 Interval history: She is a 23-year-old 2 para 1 at 36+ weeks gestational age. She was seen in the office earlier today and had increased blood pressure. As result of that she was sent to labor and delivery. She denies any headache, scotomata or epigastric pain. Medical Exam Vital signs and Labs for Last 24 Hours: Intake and Output 06/17/24 06/17/24 06/17/24 03:59 11:59 19:59 Other: Weight 296 lb Patient Weight 06/18/24 11:59 Weight 296 lb Laboratory Results - last 24 hr 06/17/24 17:00: WBC 13.7 H, RBC 4.04 L, Hgb 11.2 L, Hct 34.1 L, MCV 84.4, MCH 27.7, MCHC 32.8, RDW 13.0, Plt Count 339, MPV 10.6 H, Neut % (Auto) 72.4, Lymph % (Auto) 19.3, [place] % (Auto) 6.5, Eos % (Auto) 0.9, Baso % (Auto) 0.2, Neut # (Auto) 9.9 H, Lymph # (Auto) 2.6, [place] # (Auto) 0.9, Eos # (Auto) 0.1, Baso # (Auto) 0.0, PT 9.8 L, INR 0.86 L, APTT 25.8, Fibrinogen 482 H, Sodium 136, Potassium 3.7, Chloride 107, Carbon Dioxide 21 L, Anion Gap 11.7, BUN < 2 L, Creatinine 0.50 L, Estimated GFR 150, Est GFR ( Amer) 182, Glucose 85, Uric Acid 3.5, Calcium 8.7, AST 23, ALT 13, Urine Creatinine 88, Urine Total Protein 19.0 H I & O for Labs for Last 24 Hours: Intake & Output 06/15/24 06/16/24 06/17/24 06/18/24 11:59 11:59 11:59 11:59 Weight 296 lb Head: Present atraumatic Neck: Present normal inspection and full ROM Respiratory: Absent accessory muscle use Cardiac: Present Reg Rate and Rhythm Rectal (female): Present deferred (female): Present deferred Extremities: Present normal inspection Skin: Present intact Assessment and Plan *Assessment and plan (1) Elevated blood pressure affecting , antepartum: Status: Acute Category: Medical Code(s): O16.9 - Unspecified maternal hypertension, unspecified trimester (2) History of induced hypertension: Status: Acute Category: Medical Code(s): Z87.59 - Personal history of other complications of , childbirth and the puerperium Plan She was observed in labor and delivery and with bedrest her blood pressures in the 115/65 range. We did not give her any medication. All of her [facility] blood work was normal. We will send her home to follow-up with Dr. Morataya in a few days time. She will call the office for an appointment.
== END 2024-06-17 18:26 | disposition home or self-care (01) ==
LOC: OBOUT 16:39 → OB 16:39
PROVIDERS: PCP Internal Medicine Adolescent Medicine; Visit Provider Nurse Practitioner Obstetrics & Gynecology
DX: O16.3 Unspecified maternal hypertension, third trimester (principal); Z3A.36 36 weeks gestation of pregnancy
CPT/HCPCS: 80048; 82570; 84156; 84450; 84460; 84550; 85025; 85384; 85610; 85730; G0463

== ENCOUNTER 2024-06-21 19:48 | Outpatient (CLI) | payer OTHER, SELFPAY ==
[2024-06-21 19:57] VITALS: BMI 49.2
[2024-06-21 20:07] LABS: Microscopic, Urine URINE MICROSCOPIC (MICROSCOPIC)
[2024-06-21 20:09] VITALS: BP 127/77; PULSE 117; RESP 18; TEMP 36.8; O2SAT 99; BMI 49.2
[2024-06-21 20:09] LABS: Appearance,Urine CLEAR (Clear); Bilirubin,Urine Negative (Negative); Blood, Urine Negative (Negative); Color,Urine YELLOW (Yellow); Glucose,Urine (UA) Negative (Negative); Ketones,Urine Negative (Negative); Leukocyte Esterase,Urine TRACE (Negative); Nitrate,Urine Negative (Negative); Protein,Urine Negative (Negative); Specific Gravity, Urine 1.015 (1.005-1.030); Urobilinogen,Urine 0.2 EU/dl (0.2)
[2024-06-21 20:18] LABS: WBC,Urine Occasional #/hpf (0-3)
[2024-06-21 20:20] LABS: Phencyclidine Screen,Urine Negative ng/ml (<25)
[2024-06-21 20:21] LABS: Opiate Screen,Urine Negative ng/ml (<300)
[2024-06-21 20:22] LABS: Amphetamine/Metha Screen,Urine Negative ng/ml (<1000)
[2024-06-21 20:23] LABS: Barbiturates Screen,Urine Negative ng/ml (<200)
[2024-06-21 20:24] LABS: Benzodiazepines Screen,Urine Negative ng/ml (<200)
[2024-06-21 20:25] LABS: Cannabinoid Screen,Urine Negative ng/ml (<50); Cocaine Screen,Urine Negative ng/ml (<300)
[2024-06-21 20:26] LABS: Methadone Screen,Urine Negative ng/ml (<300)
[2024-06-21 21:18] LABS: Basophils % 0.1 % (0.1-2.0); Eosinophils # 0.1 K/mm3 (0.0-0.4); Eosinophils % 0.9 % (0.1-12.0); Hematocrit 31.8 % (37.0-47.0); Hemoglobin 10.7 g/dL (12.2-16.2); Lymphocytes # 2.8 K/mm3 (0.7-4.5); Mean Corpuscular HGB Conc 33.6 g/dL (31.8-35.4); Mean Corpuscular Hemoglobin 28.1 pg (27.0-31.2); Mean Corpuscular Volume 83.5 fl (81-99); Mean Platelet Volume 10.3 fl (7.4-10.4); Monocytes # 0.9 K/mm3 (0.1-1.0); Monocytes % 6.7 % (1.7-9.3); Neutrophils # 9.9 K/mm3 (1.8-7.8); Neutrophils % 71.8 % (37.0-80.0); Platelet Count 306 K/mm3 (142-424); Red Blood Count 3.81 M/mm3 (4.20-5.40); Red Cell Distribution Width 12.8 % (11.5-17.5); White Blood Count 13.8 K/mm3 (4.8-10.8)
[2024-06-21 21:26] LABS: Albumin Level 3.3 g/dl (3.5-5.0); Potassium 3.5 mmoL/L (3.5-5.1); Sodium 132 mmol/L (136-145)
[2024-06-21 21:29] LABS: Alanine Aminotransferase 13 U/L (12-78); Albumin/Globulin Ratio 1.1 (1.1-1.8); Alkaline Phosphatase 199 U/L (38-126); Aspartate Amino Transferase 18 U/L (14-36); Bilirubin,Total 0.3 mg/dl (0.2-1.3); Blood Urea Nitrogen 5 mg/dl (7-17); Calcium 8.4 mg/dl (8.4-10.2); Carbon Dioxide 20 mmol/L (22.0-30.0); Creatinine Clearance Estimated 129 mL/min (50-200); Estimated Glomerular Filt Rate 122 ml/min (>60); GFR (African American) 147 ML/MIN (>60); Globulin 2.9 g/dL (1.3-3.2); Glucose 82 mg/dl (74-100); Total Protein,Serum 6.2 g/dl (6.3-8.2)
[2024-06-21 21:36] LABS: Creatinine,Urine Random 59 mg/dL (Not Estab.)
[2024-06-21 21:39] LABS: Activated Partial Thrombo Time 24.9 seconds (22.8-30.6); Fibrinogen 533 mg/dL (229.9-363.5); INR 0.86 (0.9-1.1); Prothrombin Time 9.8 seconds (10.1-12.5)
[2024-06-21] MEDS: ACETAMINOPHEN 500MG TAB 1000 MG PO (21:52)
[2024-06-21 21:54] LABS: Anion Gap 9.5 mEq/L (5-15); Chloride 106 mmol/L (98-107); Uric Acid 3.5 mg/dl (2.5-6.2)
== END 2024-06-21 22:05 | disposition home or self-care (01) ==
LOC: OBOUT 19:50 → OB 19:51
PROVIDERS: PCP Internal Medicine Adolescent Medicine; Visit Provider Obstetrics & Gynecology
DX: O26.853 Spotting complicating pregnancy, third trimester (principal); Z3A.37 37 weeks gestation of pregnancy
CPT/HCPCS: 80053; 80307; 81001; 82570; 84156; 84550; 85025; 85384; 85610; 85730; G0463

== ENCOUNTER 2024-06-25 15:41 | Outpatient (CLI) | payer OTHER, SELFPAY ==
[2024-06-25 15:55] VITALS: BMI 50.1
[2024-06-25 16:00] VITALS: BP 121/68; PULSE 114; RESP 16; TEMP 36.8; O2SAT 97; BMI 50.1
[2024-06-25 16:24] LABS: Microscopic, Urine URINE MICROSCOPIC (MICROSCOPIC)
[2024-06-25 16:34] LABS: Fetal Membrane Rupture (Rapid) Negative (Negative)
[2024-06-25 16:39] LABS: Appearance,Urine CLEAR (Clear); Barbiturates Screen,Urine Negative ng/ml (<200); Benzodiazepines Screen,Urine Negative ng/ml (<200); Bilirubin,Urine Negative (Negative); Blood, Urine Negative (Negative); Color,Urine YELLOW (Yellow); Glucose,Urine (UA) Negative (Negative); Ketones,Urine Negative (Negative); Leukocyte Esterase,Urine 1+ (Negative); Nitrate,Urine Negative (Negative); Protein,Urine Negative (Negative); Urobilinogen,Urine 0.2 EU/dl (0.2)
[2024-06-25 16:40] LABS: Amphetamine/Metha Screen,Urine Negative ng/ml (<1000)
[2024-06-25 16:41] LABS: Cannabinoid Screen,Urine Negative ng/ml (<50); Cocaine Screen,Urine Negative ng/ml (<300)
[2024-06-25 16:42] LABS: Methadone Screen,Urine Negative ng/ml (<300)
[2024-06-25 16:43] LABS: Opiate Screen,Urine Negative ng/ml (<300)
[2024-06-25 16:44] LABS: Phencyclidine Screen,Urine Negative ng/ml (<25)
[2024-06-25 17:37] LABS: Bacteria,Urine 4+ /lpf
== END 2024-06-25 17:02 | disposition home or self-care (01) ==
LOC: OBOUT 15:43 → OB 15:43
PROVIDERS: PCP Internal Medicine Adolescent Medicine; Visit Provider Obstetrics & Gynecology
DX: O42.913 Preterm premature rupture of membranes, unspecified as to length of time between rupture and onset of labor, third trimester (principal); Z3A.37 37 weeks gestation of pregnancy
CPT/HCPCS: 80307; 81001; 84112; 87086; G0463

== ENCOUNTER 2024-06-28 17:48 | Outpatient (CLI) | payer OTHER, SELFPAY ==
[2024-06-28 18:20] VITALS: BP 127/71; PULSE 96; RESP 17; TEMP 36.6; O2SAT 98; BMI 50.1
[2024-06-28 19:08] LABS: Microscopic, Urine URINE MICROSCOPIC (MICROSCOPIC)
[2024-06-28 19:22] LABS: Appearance,Urine CLEAR (Clear); Bilirubin,Urine Negative (Negative); Blood, Urine Negative (Negative); Color,Urine YELLOW (Yellow); Glucose,Urine (UA) Negative (Negative); Ketones,Urine Negative (Negative); Leukocyte Esterase,Urine TRACE (Negative); Nitrate,Urine Negative (Negative); PH,Urine 7.5 (5.0-8.5); Protein,Urine Negative (Negative)
[2024-06-28 19:24] LABS: Amphetamine/Metha Screen,Urine Negative ng/ml (<1000)
[2024-06-28 19:25] LABS: Barbiturates Screen,Urine Negative ng/ml (<200)
[2024-06-28 19:26] LABS: Benzodiazepines Screen,Urine Negative ng/ml (<200); Cannabinoid Screen,Urine Negative ng/ml (<50)
[2024-06-28 19:27] LABS: Cocaine Screen,Urine Negative ng/ml (<300)
[2024-06-28 19:28] LABS: Methadone Screen,Urine Negative ng/ml (<300); Opiate Screen,Urine Negative ng/ml (<300)
[2024-06-28 19:29] LABS: Phencyclidine Screen,Urine Negative ng/ml (<25)
[2024-06-28 19:45] LABS: Bacteria,Urine 4+ /lpf; Yeast,Urine 1+ /lpf
== END 2024-06-28 19:51 | disposition home or self-care (01) ==
LOC: OBOUT 17:50 → OB 17:51
PROVIDERS: PCP Internal Medicine Adolescent Medicine; Visit Provider Nurse Practitioner Obstetrics & Gynecology
DX: O12.03 Gestational edema, third trimester (principal); Z3A.38 38 weeks gestation of pregnancy
CPT/HCPCS: 80307; 81001; 87086; G0463

== ENCOUNTER 2024-06-30 17:34 | Inpatient (IN) | payer OTHER, SELFPAY ==
[2024-06-30 14:11] VITALS: BMI 50.1
--- NOTE | 2024-06-30 14:12 | US_ITS ---
FINAL REPORT TECHNIQUE: Ultrasound images of the abdomen were obtained. CLINICAL HISTORY: r/o stones. COMPARISON: None FINDINGS: ABDOMINAL ULTRASOUND COMPLETE: The liver is fatty infiltrated. The gallbladder is normal. There are multiple echogenic shadowing foci in the gallbladder consistent with stones. The right kidney measures 10.6 cm in length. There is a questionable small stone seen in the right kidney. The left kidney measures 13.4 cm in length and is normal in echogenicity without hydronephrosis. The spleen is unremarkable. The pancreas is obscured by overlying bowel gas. The visualized portions of the aorta and the IVC are normal. The vena cava is unremarkable. IMPRESSION: Multiple gallstones. Fatty liver. Possible small right kidney stone. Reviewed, Interpreted and Dictated by Dane Rinaldi MD Transcribed by Lizabeth Gagnon Authenticated and . [facility]
[2024-06-30] MEDS: ACETAMINOPHEN 500MG TAB 1000 MG PO ×2 (14:23→20:00)
[2024-06-30 14:40] LABS: Basophils # 0.1 K/mm3 (0-0.2); Basophils % 0.3 % (0.1-2.0); Eosinophils # 0.1 K/mm3 (0.0-0.4); Eosinophils % 0.8 % (0.1-12.0); Hematocrit 35.5 % (37.0-47.0); Hemoglobin 11.5 g/dL (12.2-16.2); Lymphocytes % 18.6 % (10-50); Mean Corpuscular HGB Conc 32.4 g/dL (31.8-35.4); Mean Corpuscular Hemoglobin 27.1 pg (27.0-31.2); Mean Corpuscular Volume 83.7 fl (81-99); Mean Platelet Volume 10.4 fl (7.4-10.4); Monocytes # 0.9 K/mm3 (0.1-1.0); Monocytes % 5.4 % (1.7-9.3); Neutrophils # 11.9 K/mm3 (1.8-7.8); Neutrophils % 74.1 % (37.0-80.0); Platelet Count 333 K/mm3 (142-424); Red Blood Count 4.24 M/mm3 (4.20-5.40)
[2024-06-30 14:44] LABS: MANUAL DIFFERENTIAL MANUAL DIFFERENTIAL (MANUAL DIFF)
[2024-06-30 14:50] LABS: Alanine Aminotransferase 15 U/L (12-78); Albumin Level 3.5 g/dl (3.5-5.0); Albumin/Globulin Ratio 1.2 (1.1-1.8); Alkaline Phosphatase 203 U/L (38-126); Anion Gap 12.4 mEq/L (5-15); Aspartate Amino Transferase 21 U/L (14-36); Blood Urea Nitrogen 5 mg/dl (7-17); Calcium 8.5 mg/dl (8.4-10.2); Carbon Dioxide 21 mmol/L (22.0-30.0); Chloride 106 mmol/L (98-107); Creatinine Clearance Estimated 129 mL/min (50-200); Estimated Glomerular Filt Rate 122 ml/min (>60); GFR (African American) 147 ML/MIN (>60); Glucose 106 mg/dl (74-100); Potassium 3.4 mmoL/L (3.5-5.1); Sodium 136 mmol/L (136-145); Total Protein,Serum 6.5 g/dl (6.3-8.2)
[2024-06-30 15:02] LABS: Eosinophils % 1 % (0-3); Lymphocytes % 27 % (10-50); Monocytes % 2 % (2-9); Neutrophils % 70 % (42-76); Platelet Estimate Normal; RBC Morphology Normal; Total Cells Counted 100
[2024-06-30 15:04] LABS: Bilirubin,Total 0.1 mg/dl (0.2-1.3)
[2024-06-30 15:06] LABS: Uric Acid 3.2 mg/dl (2.5-6.2)
[2024-06-30 15:14] VITALS: BMI 50.1
[2024-06-30 15:44] LABS: Activated Partial Thrombo Time 23.6 seconds (22.5-28.5); Fibrinogen 500 mg/dL (208.1-352.0); INR 0.82 (0.9-1.1); Prothrombin Time 9.2 seconds (9.2-12.1)
[2024-06-30] MEDS: ONDANSETRON 4MG ODT 4 MG SL (16:26)
[2024-06-30 17:02] LABS: Creatinine,Urine Random 140 mg/dL (Not Estab.)
--- NOTE | 2024-06-30 17:18 | P.HP_ITS ---
History of Present Illness *Admission Date: 06/30/24 *Reason for visit:: abdominal pain *History of present illness: Giulia Medrano is a 23-year-old at 38 weeks and 3 days gestation who presented to labor and delivery with worsening abdominal pain and back pain. She specifically complained of right upper quadrant and epigastric pain. While in triage she had an episode of emesis which was just full of bile acid. Right upper quadrant ultrasound showed gallstones, a fatty liver and possibly a nonobstructive right kidney stone. Her has been complicated by cigarette use, history of preeclampsia, and history of delivery. On presentation patient endorsed good movement and denies any leakage of fluid or vaginal bleeding. A-, antibody negative, rubella immune, hepatitis B negative, hepatitis C negative, RPR negative, HIV negative 1 hour GTT: 120 PFSH PFSH Disclaimer: The information contained in this section may have been updated after the patien t was seen, as this information can be updated by other users. Medical History Elevated blood pressure affecting , antepartum Vaginal bleeding during , antepartum History of pre-eclampsia in prior , currently Tobacco use affecting , antepartum Maternal obesity affecting , antepartum Abnormal uterine bleeding with IUD in place Depression Anxiety Urinary tract infection Asthma Hypertension Encounter for IUD insertion Kyleena IUD inserted 03/06/22 Surgical History History of tonsillectomy Hx of section Family History Other Asthma Cancer Diabetes FHx: mental illness Heart attack Hypertension Social History Smoking Status: Current every day smoker tobacco type: e-cigarettes second hand exposure: No alcohol intake: never substance use type: denies use current occupational status: other Travel in the last 8 weeks: None household members: family housing: house Have you lived/traveled outside US in past 30 days?: No Contact w/someone who lives/traveled outside US past 30 days?: No Exposure to someone with infectious disease in past 14 days?: No Do you have a fever (greater than 100.4 F or 38 C)?: No Have you tested positive for COVID-19: No Exposed to someone with COVID-19 in past 14 days?: No Do you have a sore throat?: No Do you have a cough?: No Do you have any weakness?: No Do you have any diarrhea?: No Are you experiencing any unusual bleeding?: No Do you have any muscle aches/pain?: No Do you have any abdominal pain?: No Are you experiencing loss of taste or smell?: No Other Medical History Have you received the Flu Vaccine for this season: No Have you received the Pneumonia Vaccine: No Review of Systems Review of Systems Review of systems (narrative): Review of Systems Constitutional: Denies fever, chills, and sweats Eyes: Denies vision change/ pain Respiratory: Denies cough and shortness of breath Cardiovascular: Denies chest pain and lightheadedness Gastrointestinal: Admits abdominal pain, nausea, and vomiting. endorses epigastric pain Genitourinary: Denies dysuria and incontinence Musculoskeletal: Denies shoulder pain. endorses back pain Neurological: Denies change in speech or headaches Meds Home Medications and Allergies Home Medications ?Medication ?Instructions ?Recorded ?Confirmed ?Type aspirin 81 mg chewable tablet 81 mg PO DAILY 01/20/24 06/24/24 History (Aspirin Childrens) vit no.133-ferrous 1 tab PO DAILY 01/20/24 06/24/24 History fumarate 28 mg-folic acid 800 mcg tablet () ondansetron 4 mg disintegrating 4 mg PO Q6H PRN nausea and 06/04/24 06/24/24 Rx tablet vomiting #10 tabs New Prescriptions to Start Prescriptions: Allergies Allergy/AdvReac Type Severity Reaction Status Date / Time No Known Allergies Allergy Verified 06/24/24 14:23 Exam Data for Last 24 hours Vital signs and Labs for Last 24 Hours: Laboratory Results - last 24 hr 06/30/24 13:36: Urine Creatinine 140, Urine Total Protein 55.0 H 06/30/24 14:30: WBC 16.0 H, RBC 4.24, Hgb 11.5 L, Hct 35.5 L, MCV 83.7, MCH 27.1, MCHC 32.4, RDW 13.0, Plt Count 333, MPV 10.4, Neut % (Auto) 74.1, Lymph % (Auto) 18.6, [place] % (Auto) 5.4, Eos % (Auto) 0.8, Baso % (Auto) 0.3, Neut # (Auto) 11.9 H, Lymph # (Auto) 3.0, [place] # (Auto) 0.9, Eos # (Auto) 0.1, Baso # (Auto) 0.1, Total Counted 100, Neutrophils % (Manual) 70, Lymphocytes % (Manual) 27, Monocytes % (Manual) 2, Eosinophils % (Manual) 1, Platelet Estimate Normal, RBC Morphology Normal, PT 9.2, INR 0.82 L, APTT 23.6, Fibrinogen 500 H, Sodium 136, Potassium 3.4 L, Chloride 106, Carbon Dioxide 21 L, Anion Gap 12.4, BUN 5 L , Creatinine 0.60, Estimated Creat Clear 129, Estimated GFR 122, Est GFR ( Amer) 147, Glucose 106 H, Uric Acid 3.2, Calcium 8.5, Total Bilirubin 0.1 L, AST 21, ALT 15, Alkaline Phosphatase 203 H, Total Protein 6.5, Albumin 3.5, Globulin 3.0, Albumin/Globulin Ratio 1.2 I & O for Last 24 hours: Intake & Output 06/27/24 06/28/24 06/29/24 06/30/24 23:59 23:59 23:59 23:59 Weight 301 lb Narrative: General: patient is alert oriented in no acute distress and responds appropriately to questions. Clearly in a moderate amount of pain HEENT: NCAT, EOMI, moist mucous membranes, neck supple with full ROM Cardiovascular: RRR +S1/S2, no murmurs or rubs Pulmonary: Clear to auscultation bilaterally, nonlabored breathing, symmetric chest rise Abdominal: Gravid abdomen appropriate for gestation. No guarding, rebound, or tenderness noted. Extremities: trace edema, no tenderness or cyanosis noted Back: negative for CVAT bilaterally Skin: Normal turgor, intact, warm. Negative for erythema, pallor, petechia, or lesions Neurologic: Negative for sensory or motor deficit Psychiatric: Normal affect, normal thought process, good judgment and insight, no depression or anxious mood appreciated. *Routine HEENT Exam Head: Present normocephalic and atraumatic Eye: Present EOMI, PERRL and normal accommodation; Absent conjunctival icterus, scleral injection, nystagmus or exophthalmos ENT: Present mucous membranes moist *Routine Respiratory Exam Respiratory: Present CTA bilaterally, normal respiratory effort, able to speak in complete sentences and symmetric chest movement; Absent accessory muscle use, decreased breath sounds, rales, respiratory distress, wheezes, distant breath sounds or diminished air movement *Routine Cardiovascular Exam Cardiovascular: Present RRR, Normal S1 and Normal S2; Absent murmur or gallop *Routine Abdominal Exam Abdominal: Present soft and normoactive bowel sounds; Absent tenderness, distended, rebound or guarding *Routine Rectal Exam Rectal:: deferred *Routine Genitalia Exam Genitalia:: normal female Assessment and Plan *Assessment and plan (1) Nausea vomiting and diarrhea: Status: Acute Category: Medical Code(s): R11.2 - Nausea with vomiting, unspecified; R19.7 - Diarrhea, unspecified (2) Nausea vomiting and diarrhea: Status: Acute Category: Medical Code(s): R11.2 - Nausea with vomiting, unspecified; R19.7 - Diarrhea, unspecified (3) : Status: Acute Category: Medical Code(s): Z34.90 - Encounter for supervision of normal , unspecified, unspecified trimester (4) History of pre-eclampsia in prior , currently : Status: Acute Category: Medical Code(s): O09.299 - Supervision of with other poor reproductive or obstetric history, unspecified trimester (5) Tobacco use affecting , antepartum: Status: Acute Category: Medical Code(s): O99.330 - Smoking (tobacco) complicating , unspecified trimester (6) Hx of section: Status: Acute Category: Surgical Code(s): Z98.891 - History of uterine scar from previous surgery (7) Maternal obesity affecting , antepartum: Status: Acute Qualifiers: Obesity type affecting : unspecified obesity Qualified Code(s): O99.210 - Obesity complicating , unspecified trimester Category: Medical Code(s): O99.210 - Obesity complicating , unspecified trimester (8) BMI 50.0-59.9, adult: Status: Acute Category: Medical Code(s): Z68.43 - Body mass index [BMI] 50.0-59.9, adult (9) Asthma: Status: Acute Qualifiers: Asthma severity: unspecified severity Asthma persistence: unspecified Asthma complication type: unspecified Qualified Code(s): J45.909 - Unspecified asthma, uncomplicated Category: Medical Code(s): J45.909 - Unspecified asthma, uncomplicated (10) Cholelithiasis: Status: Acute Category: Medical Code(s): K80.20 - Calculus of gallbladder without cholecystitis without obstruction (11) Leukocytosis: Status: Acute Category: Medical Code(s): D72.829 - Elevated white blood cell count, unspecified Plan #38 completed weeks gestation #Leukocytosis #biliary colic #Cholelithiasis #Previous delivery, desires repeat #Morbid obesity, BMI: 50 #Epigastric pain #History of preeclampsia - Monitor vitals - Admit to L&D for scheduled delivery - External FHR and TOCO monitor - Blood type: A- - Hemoglobin: 11.5, Plt: 333 - Plan for spinal anesthesia - Anticipate delivery of male - Secondary to epigastric pain a full PIH workup was completed within normal limits. She does have mild proteinuria, and this is a new finding since 06/21/2024. Her blood pressure is within normal limits. - Antiemetics and analgesia provided Reviewed the risks benefits and alternatives to Repeat delivery. Patient continued to request delivery and not a trial of labor. I disus sed TOLAC would not be an option after 2 previous deliveries. Discussed the risk of bleeding, infection injury to the surrounding structures. Patient consented to blood transfusion to medically necessary. Reviewed the rare risk of hysterectomy if bleeding is unable to be controlled. Discussed risk of infection, the patient has no allergies and will receive 3 g of Ancef preoperatively. Reviewed the risk of injury to surrounding structures including the bowel, bladder, reproductive organs, and neurovascular bundles. Patient voiced understanding. Discussed the increased risk with prior surgery and scarring. Patient and significant other voiced understanding desire to proceed
[2024-06-30] MEDS: BUTORPHANOL TARTRATE 2 MG/ML VIAL IV (17:45)
[2024-06-30] MEDS: LACTATED RINGERS 1000ML 1,000 ML 125 ML IV (18:38)
[2024-06-30] MEDS: MORPHINE 2MG/ML SYRINGE 2 MG IV (19:59)
[2024-06-30] MEDS: ONDANSETRON 4MG/2ML VIAL 4 MG IV (23:48)
[2024-07-01] MEDS: MORPHINE 2MG/ML SYRINGE 2 MG IV (01:34)
[2024-07-01] MEDS: ACETAMINOPHEN 500MG TAB 1000 MG PO ×3 (02:33→20:32)
[2024-07-01] MEDS: SODIUM CHLORIDE 0.9% 25ML BAG 25 ML IV (03:41)
[2024-07-01] MEDS: PROMETHAZINE HCL 25MG/ML 1ML VIAL 12.5 MG IV (03:41)
[2024-07-01] MEDS: LACTATED RINGERS 1000ML 1,000 ML 125 ML IV ×2 (03:42→09:50)
--- NOTE | 2024-07-01 06:37 | EXP.ANES.CKL ---
[facility] Disclaimer: The information contained in this section may have been updated after the patient was seen, as this information can be updated by other users. Medical History Elevated blood pressure affecting , antepartum Vaginal bleeding during , antepartum History of pre-eclampsia in prior , currently Tobacco use affecting , antepartum Maternal obesity affecting , antepartum Abnormal uterine bleeding with IUD in place Depression Anxiety Urinary tract infection Asthma Hypertension Encounter for IUD insertion Kyleena IUD inserted 03/06/22 Surgical History History of tonsillectomy Hx of section Family History Other Asthma Cancer Diabetes FHx: mental illness Heart attack Hypertension Social History Smoking Status: Current every day smoker tobacco type: e-cigarettes second hand exposure: No alcohol intake: never substance use type: denies use current occupational status: other Travel in the last 8 weeks: None household members: family housing: house Have you lived/traveled outside US in past 30 days?: No Contact w/someone who lives/traveled outside US past 30 days?: No Exposure to someone with infectious disease in past 14 days?: No Do you have a fever (greater than 100.4 F or 38 C)?: No Have you tested positive for COVID-19: No Exposed to someone with COVID-19 in past 14 days?: No Do you have a sore throat?: No Do you have a cough?: No Do you have any weakness?: No Do you have any diarrhea?: No Are you experiencing any unusual bleeding?: No Do you have any muscle aches/pain?: No Do you have any abdominal pain?: No Are you experiencing loss of taste or smell?: No [facility] Anesthesia Checklist Patient Identification Patient Identification: Arm Band and Family Structural Data Admitted From: Inpatient Planned Operative Procedure/s: C section Consent for Planned Operative Procedure(s) Verified: Yes Verified Documents: Surgical Consent and History and Physical NPO Status Verified Time NPO: 00:00 Additional verifications Anesthesia Reactions: No Hx Blood Transfusions: No Blood Transfusion Reaction: No Cephalosporin Allergy: No Previous Colonoscopy: No Airway Assessment Mallampati Score:: Class II C-Spine Mobility Assessed: Yes TMJ Mobility Assessed: Yes Dentition: Good Dentition Neurological Assessment Level of Consciousness: Awake, Alert, Appropriate and Follows Commands Hx Seizures: No Numbness or tingling in extremities: No Anesthesia Plan Anesthesia Risk discussed: Yes ASA Class: III Anesthesia Type: Spinal Preoperative Comments Pre-Operative Comments: Weight over 300 pounds. 38+4.
--- NOTE | 2024-07-01 07:51 | P.PN_ITS ---
Subjective *Date: 07/01/24 *Time: 07:51 Interval history: pt continued to have pain, nausea and emesis overnight. Required morphine and phenergan. Exam Data for Last 24 hours Vital signs and Labs for Last 24 Hours: Laboratory Results - last 24 hr 06/30/24 13:36: Urine Creatinine 140, Urine Total Protein 55.0 H 06/30/24 14:30: WBC 16.0 H, RBC 4.24, Hgb 11.5 L, Hct 35.5 L, MCV 83.7, MCH 27.1, MCHC 32.4, RDW 13.0, Plt Count 333, MPV 10.4, Neut % (Auto) 74.1, Lymph % (Auto) 18.6, [place] % (Auto) 5.4, Eos % (Auto) 0.8, Baso % (Auto) 0.3, Neut # (Auto) 11.9 H, Lymph # (Auto) 3.0, [place] # (Auto) 0.9, Eos # (Auto) 0.1, Baso # ( Auto) 0.1, Total Counted 100, Neutrophils % (Manual) 70, Lymphocytes % (Manual) 27, Monocytes % (Manual) 2, Eosinophils % (Manual) 1, Platelet Estimate Normal, RBC Morphology Normal, PT 9.2, INR 0.82 L, APTT 23.6, Fibrinogen 500 H, Sodium 136, Potassium 3.4 L, Chloride 106, Carbon Dioxide 21 L, Anion Gap 12.4, BUN 5 L , Creatinine 0.60, Estimated Creat Clear 129, Estimated GFR 122, Est GFR ( Amer) 147, Glucose 106 H, Uric Acid 3.2, Calcium 8.5, Total Bilirubin 0.1 L, AST 21, ALT 15, Alkaline Phosphatase 203 H, Total Protein 6.5, Albumin 3.5, Globulin 3.0, Albumin/Globulin Ratio 1.2 06/30/24 17:30: Blood Type A Negative, Antibody Screen Negative I & O for Last 24 hours: Intake & Output 06/28/24 06/29/24 06/30/24 07/01/24 23:59 23:59 23:59 23:59 Weight 301 lb Narrative: General: patient is alert oriented in mild acute distress secondary to pain. HEENT: NCAT, EOMI, moist mucous membranes, neck supple with full ROM Cardiovascular: RRR +S1/S2, no murmurs or rubs Pulmonary: Clear to auscultation bilaterally, nonlabored breathing, symmetric chest rise Abdominal: Fundus non tender and appropriate for gestational age. Epigastric pain and RUQ pain. no guarding or rebound Extremities: trace edema, no tenderness or cyanosis noted Skin: Normal turgor, intact, warm. Negative for erythema, pallor, petechia, or lesions Neurologic: Negative for sensory or motor deficit Psychiatric: Normal affect, normal thought process, good judgment and insight, no depression or anxious mood appreciated. Assessment and Plan *Assessment and plan (1) Nausea vomiting and diarrhea: Status: Acute Category: Medical Code(s): R11.2 - Nausea with vomiting, unspecified; R19.7 - Diarrhea, unspecified (2) Nausea vomiting and diarrhea: Status: Acute Category: Medical Code(s): R11.2 - Nausea with vomiting, unspecified; R19.7 - Diarrhea, unspecified (3) : Status: Acute Category: Medical Code(s): Z34.90 - Encounter for supervision of normal , unspecified, unspecified trimester (4) History of pre-eclampsia in prior , currently : Status: Acute Category: Medical Code(s): O09.299 - Supervision of with other poor reproductive or obstetric history, unspecified trimester (5) Tobacco use affecting , antepartum: Status: Acute Category: Medical Code(s): O99.330 - Smoking (tobacco) complicating , unspecified trimester (6) Hx of section: Status: Acute Category: Surgical Code(s): Z98.891 - History of uterine scar from previous surgery (7) Maternal obesity affecting , antepartum: Status: Acute Qualifiers: Obesity type affecting : unspecified obesity Qualified Code(s): O99.210 - Obesity complicating , unspecified trimester Category: Medical Code(s): O99.210 - Obesity complicating , unspecified trimester (8) BMI 50.0-59.9, adult: Status: Acute Category: Medical Code(s): Z68.43 - Body mass index [BMI] 50.0-59.9, adult (9) Asthma: Status: Acute Qualifiers: Asthma severity: unspecified severity Asthma persistence: unspecified Asthma complication type: unspecified Qualified Code(s): J45.909 - Unspecified asthma, uncomplicated Category: Medical Code(s): J45.909 - Unspecified asthma, uncomplicated (10) Cholelithiasis: Status: Acute Category: Medical Code(s): K80.20 - Calculus of gallbladder without cholecystitis without obstruction (11) Leukocytosis: Status: Acute Category: Medical Code(s): D72.829 - Elevated white blood cell count, unspecified Plan proceed with delivery. Requesting general surgery consult with television engineer surgeon for cholelithiasis. discussed outpatient management as long as she remained stable. Pt voiced understanding but would like their opinion.
[2024-07-01 07:53] LABS: Alanine Aminotransferase 15 U/L (12-78); Albumin/Globulin Ratio 1.1 (1.1-1.8); Alkaline Phosphatase 182 U/L (38-126); Anion Gap 11.4 mEq/L (5-15); Aspartate Amino Transferase 27 U/L (14-36); Bilirubin,Total 0.2 mg/dl (0.2-1.3); Blood Urea Nitrogen 4 mg/dl (7-17); Calcium 8.3 mg/dl (8.4-10.2); Carbon Dioxide 19 mmol/L (22.0-30.0); Chloride 107 mmol/L (98-107); Creatinine Clearance Estimated 193 mL/min (50-200); Estimated Glomerular Filt Rate 194 ml/min (>60); GFR (African American) 235 ML/MIN (>60); Globulin 2.7 g/dL (1.3-3.2); Glucose 122 mg/dl (74-100); Potassium 3.4 mmoL/L (3.5-5.1); Sodium 134 mmol/L (136-145); Total Protein,Serum 5.7 g/dl (6.3-8.2)
[2024-07-01 08:25] LABS: Cord Blood PH 7.24 (7.35-7.45)
--- NOTE | 2024-07-01 08:29 | P.CONPHA_ITS ---
Pharmacy Intervention Comments: MEDICATION RECONCILIATION COMPLETED ON PATIENT USING EXTERNAL FILL HISTORY FROM PHARMACY AND LIST FROM TIRE REPAIRMAN OFFICE. -RENETTA MATTHEWSD
--- NOTE | 2024-07-01 08:29 | HMH.PHAINT1 ---
Pharmacy Intervention Comments: MEDICATION RECONCILIATION COMPLETED ON PATIENT USING EXTERNAL FILL HISTORY FROM PHARMACY AND LIST FROM GERIATRIC SOCIAL WORK PROFESSOR OFFICE. -RENETAT MATTHEWSD
--- NOTE | 2024-07-01 08:42 | EXP.OP.NOTE ---
Date of procedure: 07/01/24 Pre-op Diagnosis:: 1. 38 weeks 4 days gestation, [place] 2. Cholelithiasis 3. Leukocytosis 4. Abdominal pain, nausea and vomiting 5. Fatty liver 6. Rh Positive 7. History of preeclampsia 8. Tobacco use 9. History of delivery, desires repeat Post-op Diagnosis:: 1. 38 weeks 4 days gestation, [place] 2. Cholelithiasis 3. Leukocytosis 4. Abdominal pain, nausea and vomiting 5. Fatty liver 6. Rh Positive 7. History of preeclampsia 8. Tobacco use 9. History of delivery, desires repeat Procedure performed:: Repeat Delivery Surgeon:: Kirsty Thompson DO Recreation Establishment Manager(s):: Vu Celestin MD FRUIT EXPRESS AGENT:: Aravind Morrison Anesthesia: spinal Estimated blood loss (mL): 300 Operative findings:: 1. Live viable male : Zane. Weight: 8 pounds 7 ounces. Apgars 8 and 9 at 1 and 5 minutes respectively 2. Normal-appearing fallopian tubes and ovaries bilaterally Operative note:: Medications: 3 g of Ancef Summary: Procedure explained in its entirety. The patient was counseled on the risks and benefits of section including bleeding, vascular injury, infection, and injury to the surrounding structures. Hemorrhage requiring life saving blood transfusion resulting in blood born viral infection or allergic reaction was explained and the patient consented to blood transfusion. Possible need for further operative measures prolonging recovery time and hospitalization reviewed to include hysterectomy. Procedure explained in its entirety and patient had no further questions. Consented to procedure. The patient was taken back to the operating room where adequate spinal anesthesia was obtained. Pneumatic compression stockings applied to lower extremities. Ancef 3g was given for infection prophylaxis. She was placed in the dorsal supine position Urinary catheter was placed and found to be draining clear urine. The patient was prepped and draped in sterile fashion. Anesthesia was tested and and found to be adequate. A Pfannenstiel skin incision was made with the scalpel. Subcutaneous bleeding vessels were cauterized with the bovie. The incision was taken down to the fascia with the bovie. The fascia was knicked in the midline and sharply extended laterally. The superior aspect of the fascia was grasped with Eduardo clamps and the rectus muscle was taken down with the Bovie. The rectus muscle was sharply dissected from the midline with May[place]. This process was repeated inferiorly. The rectus muscles were in the midline, peritoneum was identified and entered bluntly. Bam O retractor was placed and the bladder was noted to be out of the operative field. A bladder flap was created with Metzenbaum scissors and [place] pickups. The lower uterine segment was easily identified, sharply incised, and entered bluntly with the surgeon's index finger. Incision was then extended in a superior and inferior fashion by blunt separation. Membranes were ruptured revealing clear fluid. The fetus was in cephalic presentation. The head was carefully elevated out of the pelvis. Fundal pressure was applied when head was brought into incision. The infants head was delivered without difficulty. The shoulder and body followed without complication. Delivery occurred at 0818. The mouth and nose were suctioned with a bulb. The umbilical cord was clamped and cut. was taken to warmer for evaluation by the senior professional services consultant. Cord blood was collected, as well as cord gasses. The placenta was delivered via fundal massage and found to be normal and intact. 3 vessel cord was noted. IV Pitocin was initiated. Inside of the uterus was gently cleared of blood and clots with lap sponge. The hysterotomy was closed with #1 Vicryl in a running locked fashion. There was a small amount of bleeding at the right apex of the hysterotomy that was made hemostatic with a figure of 8. The lower uterine segment was visualized and noted to be hemostatic. The ovaries and tubes were found to be normal. The posterior aspect of the uterus was cleared of blood clot with a damp lap sponge. The gutters were inspected bilaterally and cleared of blood and clots with lap sponges. The uterine incision was reinspected and hemostasis noted. Bam O retractor was removed. The peritoneum was reapproximated using a 2-0 Monocryl in a nonlocked running fashion. The fascia was closed in a running nonlocked fashion using 0 PDS x2 meeting right of midline. Fascia was noted as not having gaps or defects. The subcutaneous fat was closed with 2-0 Monocryl interrupted sutures x3. Skin was closed with the INSORB suture in a subcuticular fashion. Patient tolerated the procedure well and all counts were correct x3, per nursing. Patient will receive tap blocks and then be transported to the OB PACU for recovery and bonding. Condition: stable Disposition: floor Complications:: None
[2024-07-01 08:58] VITALS: BP 116/52; PULSE 112; RESP 20; TEMP 37.3; O2SAT 100
[2024-07-01] MEDS: MEPERIDINE 25MG/ML 1ML SYRINGE 25 MG IV (09:05)
[2024-07-01 09:08] VITALS: BP 148/64; PULSE 93; RESP 20; O2SAT 100
[2024-07-01 09:18] VITALS: PULSE 97; RESP 20; O2SAT 100
[2024-07-01 09:28] VITALS: BP 146/60; PULSE 103; RESP 18; O2SAT 100
[2024-07-01] MEDS: diphenhydrAMINE 50MG/ML VIAL 25 MG IV (09:43)
[2024-07-01] MEDS: OXYTOCIN/RINGERS LACTATE 30 UNITS/500 ML BAG 40 UNITS IV (09:50)
[2024-07-01 10:20] LABS: Microscopic,Cath URINE MICROSCOPIC (MICROSCOPIC)
[2024-07-01 11:23] LABS: Appearance,Urine/Cath CLEAR (Clear); Bilirubin,Cath Negative (Negative); Blood, Urine/Cath Negative (Negative); Color,Urine/Cath YELLOW (Yellow); Glucose,Urine/Cath (UA) Negative (Negative); Ketones,Urine/Cath 3+ (Negative); Leukocyte Esterase,Cath Negative (Negative); Nitrate,Cath Negative (Negative); PH,Urine/Cath 6.5 (5.0-8.5); Protein,Urine/Cath 1+ (Negative); Specific Gravity, Urine/Cath >= 1.030 (1.005-1.030); Urobilinogen,Cath 0.2 EU/dl (0.2)
[2024-07-01 11:47] LABS: RBC,Urine/Cath Occasional # /hpf (0-3)
[2024-07-01] MEDS: KETOROLAC 30MG/ML VIAL 30 MG IV ×3 (11:47→23:31)
--- NOTE | 2024-07-01 12:36 | P.CONS_ITS ---
History of Present Illness *Admission Date: 06/30/24 *Reason for visit:: Gallstones *History of present illness: Patient is a 23-year-old G2, P2 who had been admitted to labor and delivery at term on 06/30/2024 with some abdominal and back pain with vomiting. She underwent gallbladder ultrasound on 06/30/2024 which revealed multiple gallstones with normal gallbladder wall thickness and bile duct but no evidence of acute cholecystitis with fatty liver. Patient underwent this morning. She had never had any known issues with gallstones during her previous pregnancies until yesterday on 06/30/2024. [facility] Disclaimer: The information contained in this section may have been updated after the patient was seen, as this information can be updated by other users. Medical History Elevated blood pressure affecting , antepartum Vaginal bleeding during , antepartum History of pre-eclampsia in prior , currently Tobacco use affecting , antepartum Maternal obesity affecting , antepartum Abnormal uterine bleeding with IUD in place Depression Anxiety Urinary tract infection Asthma Hypertension Encounter for IUD insertion Kyleena IUD inserted 03/06/22 Surgical History History of tonsillectomy Hx of section Family History Other Asthma Cancer Diabetes FHx: mental illness Heart attack Hypertension Social History Smoking Status: Current every day smoker tobacco type: e-cigarettes second hand exposure: No alcohol intake: never substance use type: denies use current occupational status: other Travel in the last 8 weeks: None household members: family housing: house Have you lived/traveled outside US in past 30 days?: No Contact w/someone who lives/traveled outside US past 30 days?: No Exposure to someone with infectious disease in past 14 days?: No Do you have a fever (greater than 100.4 F or 38 C)?: No Have you tested positive for COVID-19: No Exposed to someone with COVID-19 in past 14 days?: No Do you have a sore throat?: No Do you have a cough?: No Do you have any weakness?: No Do you have any diarrhea?: No Are you experiencing any unusual bleeding?: No Do you have any muscle aches/pain?: No Do you have any abdominal pain?: No Are you experiencing loss of taste or smell?: No Meds Home Medications and Allergies Home Medications ?Medication ?Instructions ?Recorded ?Confirmed ?Type aspirin 81 mg chewable tablet 81 mg PO DAILY 01/20/24 06/30/24 History (Aspirin Childrens) vit no.133-ferrous 1 tab PO DAILY 01/20/24 06/30/24 History fumarate 28 mg-folic acid 800 mcg tablet () ondansetron 4 mg disintegrating 4 mg PO Q6HP PRN nausea and 07/01/24 07/01/24 History tablet vomiting New Prescriptions to Start Prescriptions: Allergies Allergy/AdvReac Type Severity Reaction Status Date / Time No Known Allergies Allergy Verified 06/24/24 14:23 Exam (Inpt) Vital signs and Labs for Last 24 Hours: Temp Pulse Resp BP Pulse Ox O2 Del Method 99.1 F 103 H 18 146/60 H 100 Room Air 07/01/24 08:58 07/01/24 09:28 07/01/24 09:28 07/01/24 09:28 07/01/24 09:28 07/01/24 09:28 Laboratory Results - last 24 hr 06/30/24 13:36: Urine Creatinine 140, Urine Total Protein 55.0 H 06/30/24 14:30: WBC 16.0 H, RBC 4.24, Hgb 11.5 L, Hct 35.5 L, MCV 83.7, MCH 27.1, MCHC 32.4, RDW 13.0, Plt Count 333, MPV 10.4, Neut % (Auto) 74.1, Lymph % (Auto) 18.6, [place] % (Auto) 5.4, Eos % (Auto) 0.8, Baso % (Auto) 0.3, Neut # (Auto) 11.9 H, Lymph # (Auto) 3.0, [place] # (Auto) 0.9, Eos # (Auto) 0.1, Baso # (Auto) 0.1, Total Counted 100, Neutrophils % (Manual) 70, Lymphocytes % (Manual) 27, Monocytes % (Manual) 2, Eosinophils % (Manual) 1, Platelet Estimate Normal, RBC Morphology Normal, PT 9.2, INR 0.82 L, APTT 23.6, Fibrinogen 500 H, Sodium 136, Potassium 3.4 L, Chloride 106, Carbon Dioxide 21 L, Anion Gap 12.4, BUN 5 L , Creatinine 0.60, Estimated Creat Clear 129, Estimated GFR 122, Est GFR ( Amer) 147, Glucose 106 H, Uric Acid 3.2, Calcium 8.5, Total Bilirubin 0.1 L, AST 21, ALT 15, Alkaline Phosphatase 203 H, Total Protein 6.5, Albumin 3.5, Globulin 3.0, Albumin/Globulin Ratio 1.2 06/30/24 17:30: Blood Type A Negative, Antibody Screen Negative 07/01/24 07:26: Sodium 134 L, Potassium 3.4 L, Chloride 107, Carbon Dioxide 19 L , Anion Gap 11.4, BUN 4 L, Creatinine 0.40 L D, Estimated Creat Clear 193, Estimated GFR 194, Est GFR ( Amer) 235 D, Glucose 122 H, Calcium 8.3 L, Total Bilirubin 0.2, AST 27 D, ALT 15, Alkaline Phosphatase 182 H, Total Protein 5.7 L, Albumin 3.0 L D, Globulin 2.7, Albumin/Globulin Ratio 1.1 07/01/24 08:00: Urine Color Yellow, Urine Appearance Clear, Urine pH 6.5, Ur Specific [place] >= 1.030, Urine Protein 1+, Urine Glucose (UA) Negative, Urine Ketones 3+, Urine Blood Negative, Urine Nitrate Negative, Urine Bilirubin Negative, Urine Urobilinogen 0.2, Ur Leukocyte Esterase Negative, Urine RBC Occasional, Urine WBC None, Ur Squamous Epith Cells None, Urine Bacteria None 07/01/24 08:22: Cord ABG pH 7.24 L* I & O for Labs for Last 24 Hours: Intake & Output 06/29/24 06/30/24 07/01/24 07/02/24 11:59 11:59 11:59 11:59 Output Total 1000 / 1000 Balance -1000 / -1000 Weight 301 lb Constitutional: no acute distress Head: Present normocephalic GI: Present soft; Absent Hernandez's sign Comments:: No guarding or rebound. Rectal (female): Present deferred Results Labs 06/30/24 14:30 07/01/24 07:26 Labs: Laboratory Results - last 24 hr 06/30/24 13:36: Urine Creatinine 140, Urine Total Protein 55.0 H 06/30/24 14:30: WBC 16.0 H, RBC 4.24, Hgb 11.5 L, Hct 35.5 L, MCV 83.7, MCH 27.1, MCHC 32.4, RDW 13.0, Plt Count 333, MPV 10.4, Neut % (Auto) 74.1, Lymph % (Auto) 18.6, [place] % (Auto) 5.4, Eos % (Auto) 0.8, Baso % (Auto) 0.3, Neut # (Auto) 11.9 H, Lymph # (Auto) 3.0, [place] # (Auto) 0.9, Eos # (Auto) 0.1, Baso # (Auto) 0.1, Total Counted 100, Neutrophils % (Manual) 70, Lymphocytes % (Manual) 27, Monocytes % (Manual) 2, Eosinophils % (Manual) 1, Platelet Estimate Normal, RBC Morphology Normal, PT 9.2, INR 0.82 L, APTT 23.6, Fibrinogen 500 H, Sodium 136, Potassium 3.4 L, Chloride 106, Carbon Dioxide 21 L, Anion Gap 12.4, BUN 5 L , Creatinine 0.60, Estimated Creat Clear 129, Estimated GFR 122, Est GFR ( Amer) 147, Glucose 106 H, Uric Acid 3.2, Calcium 8.5, Total Bilirubin 0.1 L, AST 21, ALT 15, Alkaline Phosphatase 203 H, Total Protein 6.5, Albumin 3.5, Globulin 3.0, Albumin/Globulin Ratio 1.2 06/30/24 17:30: Blood Type A Negative, Antibody Screen Negative 07/01/24 07:26: Sodium 134 L, Potassium 3.4 L, Chloride 107, Carbon Dioxide 19 L , Anion Gap 11.4, BUN 4 L, Creatinine 0.40 L D, Estimated Creat Clear 193, Estimated GFR 194, Est GFR ( Amer) 235 D, Glucose 122 H, Calcium 8.3 L, Total Bilirubin 0.2, AST 27 D, ALT 15, Alkaline Phosphatase 182 H, Total Protein 5.7 L, Albumin 3.0 L D, Globulin 2.7, Albumin/Globulin Ratio 1.1 07/01/24 08:00: Urine Color Yellow, Urine Appearance Clear, Urine pH 6.5, Ur Specific [place] >= 1.030, Urine Protein 1+, Urine Glucose (UA) Negative, Urine Ketones 3+, Urine Blood Negative, Urine Nitrate Negative, Urine Bilirubin Negative, Urine Urobilinogen 0.2, Ur Leukocyte Esterase Negative, Urine RBC Occasional, Urine WBC None, Ur Squamous Epith Cells None, Urine Bacteria None 07/01/24 08:22: Cord ABG pH 7.24 L* Assessment and Plan *Assessment and plan (1) Cholelithiasis: Status: Acute Category: Medical Code(s): K80.20 - Calculus of gallbladder without cholecystitis without obstruction Plan I reviewed her ultrasound. She has some shadowing layering gallstones with normal thickness gallbladder and normal common bile duct without evidence of cholecystitis (acute or chronic). She likely has been having some biliary colic, essentially since right before her delivery. This may improve after C- section delivery. No indications for alternative management or surgical intervention urgently. She does not necessarily desire cholecystectomy. May follow-up as an outpatient in several weeks. Potentially if she remains asymptomatic cholecystectomy may be deferred for quite some time.
[2024-07-01] MEDS: OXYCODONE 5MG IMMEDIATE RELEASE TABLET 5 MG PO (14:33)
[2024-07-01] MEDS: HYDROMORPHONE 2MG/ML SYRINGE 1 MG IV ×2 (15:45→22:06)
[2024-07-01 16:35] VITALS: BP 144/74; PULSE 86; RESP 15; TEMP 36.8; O2SAT 100
[2024-07-01] MEDS: PRENATAL MULTIVITAMIN W/IRON 1 EACH PO (16:36)
[2024-07-01] MEDS: SIMETHICONE 80MG CHEWABLE TABLET 160 MG PO (20:31)
[2024-07-01] MEDS: SENNA 8.6MG TABLET 8.6 MG PO (20:32)
[2024-07-02] MEDS: ACETAMINOPHEN 500MG TAB 1000 MG PO ×4 (04:08→21:12)
[2024-07-02] MEDS: KETOROLAC 30MG/ML VIAL 30 MG IV (05:48)
[2024-07-02 07:10] LABS: Basophils % 0.2 % (0.1-2.0); Eosinophils # 0.1 K/mm3 (0.0-0.4); Eosinophils % 0.9 % (0.1-12.0); Hemoglobin 9.3 g/dL (12.2-16.2); Lymphocytes # 2.8 K/mm3 (0.7-4.5); Mean Corpuscular HGB Conc 33.2 g/dL (31.8-35.4); Mean Corpuscular Hemoglobin 27.4 pg (27.0-31.2); Mean Corpuscular Volume 82.4 fl (81-99); Mean Platelet Volume 10.1 fl (7.4-10.4); Monocytes # 1.2 K/mm3 (0.1-1.0); Monocytes % 8.8 % (1.7-9.3); Neutrophils % 68.8 % (37.0-80.0); Platelet Count 289 K/mm3 (142-424); Red Cell Distribution Width 13.1 % (11.5-17.5); White Blood Count 13.1 K/mm3 (4.8-10.8)
[2024-07-02 08:30] VITALS: BP 133/80; PULSE 90; RESP 18; TEMP 36.9; O2SAT 99
[2024-07-02] MEDS: SENNA 8.6MG TABLET 8.6 MG PO (08:33)
[2024-07-02] MEDS: OXYCODONE 5MG IMMEDIATE RELEASE TABLET 5 MG PO ×2 (11:42→21:12)
--- NOTE | 2024-07-02 11:53 | P.PN_ITS ---
Subjective *Date: 07/02/24 *Time: 11:53 Interval history: POD # 1 s/p RLTCS Feeling well. Pain controlled. Lochia appropriate. Formula feeding. Denies RUQ pain. No nausea or vomiting. Tolerating regular diet. She has not passed flatus yet. Voiding without difficulty. Ambulating well ad francisco. Medical Exam Vital signs and Labs for Last 24 Hours: Vital Signs Temp Pulse Resp BP Pulse Ox O2 Del Method 07/02/24 08:30 98.5 F 90 18 133/80 99 Room Air 07/01/24 16:35 98.2 F 86 15 144/74 H 100 Room Air Intake and Output 07/01/24 07/02/24 07/02/24 23:59 07:59 15:59 Output Total 1400 / 2400 Balance -1400 / -2400 Output: Output, Urine Amount (Catheter) 1400 / 2400 Velasquez 1400 / 2400 Laboratory Results - last 24 hr 07/02/24 06:55: WBC 13.1 H, RBC 3.40 L, Hgb 9.3 L, Hct 28.0 L, MCV 82.4, MCH 27.4, MCHC 33.2, RDW 13.1, Plt Count 289, MPV 10.1, Neut % (Auto) 68.8, Lymph % (Auto) 21.0, [place] % (Auto) 8.8, Eos % (Auto) 0.9, Baso % (Auto) 0.2, Neut # (Auto) 9.0 H, Lymph # (Auto) 2.8, [place] # (Auto) 1.2 H, Eos # (Auto) 0.1, Baso # (Auto) 0.0, Screen Cancelled, Baby's Rh Status Cancelled I & O for Labs for Last 24 Hours: Intake & Output 06/29/24 06/30/24 07/01/24 07/02/24 23:59 23:59 23:59 23:59 Output Total 2400 / 2400 Balance -2400 / -2400 Weight 301 lb Head: Present atraumatic and normocephalic ENT: Present mucous membranes moist Neck: Present full ROM Respiratory: Present CTA bilaterally and normal respiratory effort Cardiac: Present Reg Rate and Rhythm GI: Present soft, tenderness (appropriate postop tenderness to palpation) and normal bowel sounds; Absent distention Rectal (female): Present deferred (female): Present deferred Extremities: Present full ROM and edema (trace lower extremity edema); Absent calf tenderness Neuro: Present alert, awake and moves all extremities Assessment and Plan *Assessment and plan (1) S/P repeat low transverse : Status: Acute Category: Surgical Code(s): Z98.891 - History of uterine scar from previous surgery (2) Maternal obesity affecting , antepartum: Status: Acute Qualifiers: Obesity type affecting : unspecified obesity Qualified Code(s): O99.210 - Obesity complicating , unspecified trimester Category: Medical Code(s): O99.210 - Obesity complicating , unspecified trimester (3) Tobacco use affecting , antepartum: Status: Acute Category: Medical Code(s): O99.330 - Smoking (tobacco) complicating , unspecified trimester (4) Hx of section: Status: Acute Category: Surgical Code(s): Z98.891 - History of uterine scar from previous surgery (5) History of pre-eclampsia in prior , currently : Status: Acute Category: Medical Code(s): O09.299 - Supervision of with other poor reproductive or obstetric history, unspecified trimester (6) Cholelithiasis: Status: Acute Category: Medical Code(s): K80.20 - Calculus of gallbladder without cholecystitis without obstruction (7) Leukocytosis: Status: Acute Category: Medical Code(s): D72.829 - Elevated white blood cell count, unspecified (8) Acute blood loss anemia: Status: Resolved Category: Medical Code(s): D62 - Acute posthemorrhagic anemia Plan Continue routine care Encouraged increased ambulation She is feeling better since delivery Plan d/c home tomorrow
[2024-07-02] MEDS: IBUPROFEN 400 MG TABLET 800 MG PO ×2 (14:08→21:12)
[2024-07-02 14:30] LABS: RPR W/RFX Titers Nonreactive (Nonreactive)
--- NOTE | 2024-07-02 15:16 | P.PNANES_ITS ---
[facility] Anesthesia Record Part II Anesthesia Record Part II Discharge Time: 09:28 Destination: Obstetric PACU nurse assessment reviewed?: Yes Patient Condition:: Good Anesthesia Complications:: None Swallowing reflex intact?: Yes Airway Patency: Patent Cyanosis?: No Blood Pressure: 146/60 SaO2: 100 Respiratory Rate: 18 Pulse Rate: 103 Temperature: 99.1 F Mental Status: Alert & Oriented Pain level:: 0 Nausea and/or vomitting:: None Intake, IV Amount: 0 Hydration: Adequate
[2024-07-02 15:17] VITALS: BP 146/60; PULSE 103; RESP 18; TEMP 37.3; O2SAT 100
[2024-07-02 15:52] VITALS: BP 128/68; PULSE 85; RESP 18; TEMP 36.9; O2SAT 98
[2024-07-02 19:50] VITALS: BP 147/84; PULSE 95; RESP 18; TEMP 36.9; O2SAT 100
[2024-07-03] MEDS: ACETAMINOPHEN 500MG TAB 1000 MG PO ×3 (05:10→13:44)
[2024-07-03] MEDS: IBUPROFEN 400 MG TABLET 800 MG PO ×2 (05:10→13:44)
--- NOTE | 2024-07-03 12:53 | EXP.DC.SUM ---
General Admission date:: 06/30/24 Discharge date: 07/03/24 HPI HPI HPI: POD # 2 s/p RLTCS Feeling well. Pain controlled. Lochia is light. Formula feeding. Denies RUQ pain. No chest pain or shortness of breath. No nausea or vomiting. Tolerating regular diet. Voiding without difficulty. She hasn't passed flatus yet but states she has always been one to have to forcefully flatulate; even before . Denies lower extremity swelling. No calf pain. Ambulating well ad francisco. Hospital Course Hospital Course Hospital Course: Ms Giulia Medrano is a 23-year-old who had been admitted to labor and delivery at term on 06/30/2024 with some abdominal and back pain with vomiting. She underwent gallbladder ultrasound on 06/30/2024 which revealed multiple gallstones with normal gallbladder wall thickness and bile duct but no evidence of acute cholecystitis with fatty liver. She had never had any known issues with gallstones during her previous pregnancies until yesterday on 06/30/2024. History of x 1. Decision was made to proceed with repeat . She underwent repeat on 07/01/24. She delivered a live male baby, Zane. Weight: 8 pounds 7 ounces. Apgars 8 and 9 at 1 and 5 minutes respectively. EBL 300 mL. She did well /postoperatively. Pain controlled. Formula feeding. Light lochia. Voiding without difficulty. Tolerating regular diet. Denies fever/chills, chest pain and shortness of breath. No headaches, dizziness/lightheadedness or vision changes. Vital signs stable, afebrile. Heart regular rate and rhythm. Lungs clear to auscultation. Abdomen soft, nontender. Trace bilateral lower extremity swelling. No calf pain. Ambulating well ad francisco. Normal hospital course. She was discharged to home on POD # 2 with instructions to follow-up in the office in 2 weeks or sooner if needed. Exam Data for Last 24 hours Vital signs and Labs for Last 24 Hours: Temp Pulse Resp BP Pulse Ox O2 Del Method 98.4 F 95 H 18 147/84 H 100 Room Air 07/02/24 19:50 07/02/24 19:50 07/02/24 19:50 07/02/24 19:50 07/02/24 19:50 07/02/24 19:50 Laboratory Results - last 24 hr 07/01/24 17:21: RPR w/Rflx to Titer Nonreactive I & O for Last 24 hours: Intake & Output 06/30/24 07/01/24 07/02/24 07/03/24 23:59 23:59 23:59 23:59 Intake Total 0 / 0 Output Total 2400 / 2400 Balance -2400 / -2400 0 / 0 Weight 301 lb Constitutional Constitutional: no acute distress, morbidly obese and cooperative *Routine HEENT Exam Head: Present normocephalic and atraumatic Eye: Absent conjunctivae pink ENT: Present mucous membranes moist *Routine Neck Exam Neck: Present full ROM *Routine Respiratory Exam Respiratory: Present CTA bilaterally and normal respiratory effort *Routine Cardiovascular Exam Cardiovascular: Present RRR *Routine Abdominal Exam Abdominal: Present soft and normoactive bowel sounds; Absent tenderness Comments: Pfannfenstiel incision clean/dry/intact with steri strips in place *Routine Rectal Exam Patient deferred: visual exam *Routine Exam Patient deferred: external exam *Routine Extremities Exam Extremities: Present edema (trace bilateral lower extremity edema) and full ROM; Absent calf tenderness *Routine Neurological Exam Neurological: Present alert, moving all extremities and normal speech Routine Psychiatric Exam Psychiatric: Present normal affect and cooperative Results Data Completed and Pending Labs on day of discharge: Labs from last 24 hours 07/01/24 17:21 RPR w/Rflx to Titer Nonreactive DS: Diagnosis Discharge Diagnosis (1) S/P repeat low transverse : Status: Acute Code(s): Z98.891 - History of uterine scar from previous surgery (2) Maternal obesity affecting , antepartum: Status: Acute Code(s): O99.210 - Obesity complicating , unspecified trimester Qualifiers: Obesity type affecting : unspecified obesity Qualified Code(s): O99.210 - Obesity complicating , unspecified trimester (3) Tobacco use affecting , antepartum: Status: Acute Code(s): O99.330 - Smoking (tobacco) complicating , unspecified trimester (4) Hx of section: Status: Acute Code(s): Z98.891 - History of uterine scar from previous surgery (5) History of pre-eclampsia in prior , currently : Status: Acute Code(s): O09.299 - Supervision of with other poor reproductive or obstetric history, unspecified trimester (6) Cholelithiasis: Status: Acute Code(s): K80.20 - Calculus of gallbladder without cholecystitis without obstruction (7) Leukocytosis: Status: Acute Code(s): D72.829 - Elevated white blood cell count, unspecified (8) Acute blood loss anemia: Status: Resolved Code(s): D62 - Acute posthemorrhagic anemia Meds Home Medications and Allergies Home Medications ?Medication ?Instructions ?Recorded ?Confirmed ?Type vit no.133-ferrous 1 tab PO DAILY 01/20/24 06/30/24 History fumarate 28 mg-folic acid 800 mcg tablet () ondansetron 4 mg disintegrating 4 mg PO Q6HP PRN nausea and 07/01/24 07/01/24 History tablet vomiting ibuprofen 800 mg tablet 800 mg PO Q8H PRN pain #20 tabs 07/03/24 Rx oxycodone 5 mg tablet 5 mg PO Q4HP PRN Moderate Pain 07/03/24 Rx (4-6) #20 tabs New Prescriptions to Start Prescriptions: Neetu Enciso oxycodone Neetu Morataya Allergies Allergy/AdvReac Type Severity Reaction Status Date / Time No Known Allergies Allergy Verified 06/24/24 14:23 Discharge Plan Disposition Patient Disposition: Home, Self-Care Condition: Good Discharge Order Discharge Orders: Discharge Order (Routine); Ordered 07/03/24 Ordered By: Neetu Morataya Follow up Plan Follow up with: Neetu Morataya DO [Staff Physician] - 07/15/24 3:00 pm Prescriptions/Medication Reconciliation: New oxycodone 5 mg Tablet 5 mg PO Q4HP PRN (Reason: Moderate Pain (4-6)) Qty: 20 0RF ibuprofen 800 mg tablet 800 mg PO Q8H PRN (Reason: pain) Qty: 20 0RF Continued 28-800 mg-mcg tablet 1 tab PO DAILY Patient Comments: TAKE 1 TABLET BY MOUTH ONCE DAILY ondansetron 4 mg tablet,disintegrating 4 mg PO Q6HP PRN (Reason: nausea and vomiting) Discontinued aspirin [Aspirin Childrens] 81 mg tablet,chewable 81 mg PO DAILY Problem Reconciliation Problems Reviewed?: Yes Patient Discharge Instructions ACTIVITY: Limited activity DIET: continue same diet and regular diet Additional Instructions: Discharge: 1. Take 800 mg Ibuprofen every 8 hours as needed for pain. You can also take 500-1000 mg of Tylenol in between doses, every 6-8 hours. If pain persists you can take Oxycodone 5 mg, 1 tablet every 4-6 hours or more as needed. 2. Nothing in the vagina for 6 weeks - no intercourse, douching or tampons. No tub baths/hot tubs or swimming pools - Drink plenty of fluids. - No strenuous activity or driving until released by your doctor. - Don't lift anything heavier than your . 3. Reasons to return to L&D or call On-Call doctor - fever (greater than 100.4) - heavy vaginal bleeding (soaking through 1 pad in less than 2 hours) - vaginal discharge (malodorous and/or purulent) - severe headaches not resolved by medication or rest and leg tenderness/edema 4. depression/blues - Normal to feel anxious/overwhelmed for first 2 weeks - Talk to your doctor if: severe anxiety, trouble bonding with baby, withdrawing from other family members, thoughts of harming yourself or others Patient Instructions: Depression, Hemorrhage, DI for , DI for Pre-eclampsia, [facility] Post Discharge Instructions Print Language: Guyanese Providers Primary Care Provider: Wil Cavanaugh Admit Provider: Kirsty Thompson Attending Provider: Kirsty Thompson
== END 2024-07-03 14:26 | disposition home or self-care (01) | DRG 787 ==
LOC: OBOUT 17:34 → OB 17:34
PROVIDERS: Admitting Provider Obstetrics & Gynecology; PCP Internal Medicine Adolescent Medicine; Visit Provider Obstetrics & Gynecology
PROC: 10D00Z1 Extraction of Products of Conception, Low, Open Approach (ICD-10-PCS; CPT 59514; principal; 2024-07-01 07:30)
DX: O34.211 Maternal care for low transverse scar from previous cesarean delivery (principal); K80.12 Calculus of gallbladder with acute and chronic cholecystitis without obstruction; N85.8 Other specified noninflammatory disorders of uterus; Z3A.38 38 weeks gestation of pregnancy; Z37.0 Single live birth; O99.62 Diseases of the digestive system complicating childbirth; O99.334 Smoking (tobacco) complicating childbirth; F17.290 Nicotine dependence, other tobacco product, uncomplicated; O12.03 Gestational edema, third trimester
CPT/HCPCS: 36415; 59025; 76700; 80053; 80307; 81001; 82570; 82800; 84156; 84550; 85007; 85025; 85384; 85610; 85730; 86592; 86850; 87086; 94761; 99212; G0283; J0595; J0666; J1171; J1200; J1885; J2175; J2270; J2405; J2550; J3010; J7120; Q0162

== ENCOUNTER 2024-10-07 13:05 | Outpatient (CLI) | payer OTHER, SELFPAY ==
[2024-10-07 14:50] LABS: Basophils % 0.3 % (0.1-2.0); Eosinophils # 0.7 Kmm3 (0.0-0.4); Eosinophils % 8.7 % (0.1-12.0); Hematocrit 37.2 % (37.0-47.0); Hemoglobin 12.1 g/dL (12.2-16.2); Lymphocytes # 3.3 K/mm3 (0.7-4.5); Lymphocytes % 41.7 % (10-50); Mean Corpuscular HGB Conc 32.5 g/dL (31.8-35.4); Mean Corpuscular Hemoglobin 28.1 pg (27.0-31.2); Mean Corpuscular Volume 86.3 fl (81-99); Mean Platelet Volume 11.4 fl (7.4-10.4); Monocytes # 0.5 K/mm3 (0.1-1.0); Monocytes % 6.6 % (1.7-9.3); Neutrophils # 3.4 K/mm3 (1.8-7.8); Neutrophils % 42.6 % (37.0-80.0); Nucleated Red Blood Cells # 0 10^3/uL; Nucleated Red Blood Cells % 0 %; Platelet Count 293 K/mm3 (142-424); Red Blood Count 4.31 M/mm3 (4.20-5.40); Red Cell Distribution Width 13.9 % (11.5-17.5); Red Cell Distribution Width-SD 43.8 fL; White Blood Count 7.9 K/mm3 (4.8-10.8)
[2024-10-07 15:10] LABS: Alanine Aminotransferase 26 U/L (12-78); Albumin Level 4.3 g/dl (3.5-5.0); Alkaline Phosphatase 80 U/L (38-126); Anion Gap 8.6 mEq/L (5-15); Aspartate Amino Transferase 31 U/L (14-36); Bilirubin,Total 0.6 mg/dl (0.2-1.3); Blood Urea Nitrogen 7 mg/dl (7-17); Calcium 9.2 mg/dl (8.4-10.2); Carbon Dioxide 27 mmol/L (22.0-30.0); Chloride 108 mmol/L (98-107); Chol/HDL Ratio 4.5 (1-3.5); Cholesterol 192 mg/dl (140-200); Estimated Glomerular Filt Rate 101 ml/min (>60); GFR (African American) 122 ML/MIN (>60); Globulin 2.2 g/dL (1.3-3.2); Glucose 79 mg/dl (74-100); HDL Cholesterol 43 mg/dl (40-60); Potassium 4.6 mmoL/L (3.5-5.1); Sodium 139 mmol/L (136-145); Total Protein,Serum 6.5 g/dl (6.3-8.2); Triglycerides 92 mg/dl (30-150); VLDL Cholesterol 18 mg/dL (0-40)
[2024-10-07 15:21] LABS: Direct LDL Cholesterol 115.15 mg/dL (100-129)
[2024-10-07 15:26] LABS: 25-OH Vitamin D, Total 32.2 ng/mL (30-100)
[2024-10-07 15:30] LABS: Free Thyroxine Index 2.4 ug/dL (5.93-13.13); T4 (Thyroxine) 6.9 ug/dl (5.53-11.0); Triiodothryronine (T3) Uptake 35 % (23.5-40.5)
[2024-10-07 15:35] LABS: Hemoglobin A1C 4.5 % (4.0-6.0)
[2024-10-07 16:00] LABS: Iron 71 ug/dL (37-170); Vitamin B12 219 pg/mL (239-931)
[2024-10-07 16:10] LABS: Total Iron Binding Capacity 363 ug/dL (265-497)
[2024-10-07 16:36] LABS: Ferritin 10.3 ng/ml (6.24-137)
== END 2024-10-07 23:59 | disposition home or self-care (01) ==
LOC: LAB 13:05
PROVIDERS: PCP Internal Medicine Adolescent Medicine; Visit Provider Physician Assistant
DX: D64.9 Anemia, unspecified (principal); Z71.3 Dietary counseling and surveillance; R53.83 Other fatigue; Z68.41 Body mass index [BMI] 40.0-44.9, adult; E66.9 Obesity, unspecified; Z87.19 Personal history of other diseases of the digestive system; Z83.438 Family history of other disorder of lipoprotein metabolism and other lipidemia; E04.2 Nontoxic multinodular goiter
CPT/HCPCS: 36415; 80053; 80061; 82306; 82607; 82728; 83036; 83540; 83550; 84436; 84443; 84479; 85025

== ENCOUNTER 2024-10-13 15:14 | Outpatient (CLI) | payer OTHER, SELFPAY ==
--- NOTE | 2024-10-13 15:17 | US_ITS ---
FINAL REPORT TECHNIQUE: Sonographic images of the thyroid gland were obtained in the longitudinal and transverse planes. CLINICAL HISTORY: THYROID NODULE COMPARISON: None FINDINGS: The right lobe measures 1.6 x 5.3 x 1.7 cm. The right lobe is homogeneous. There are no cystic or solid nodules. The left lobe measures 1.8 x 4.7 x 1.4 cm. The left lobe is homogeneous. There are no cystic or solid nodules. The isthmus measures 3 mm. This is normal. IMPRESSION: Unremarkable ultrasound of the thyroid. No cystic or solid nodules. Reviewed, Interpreted and Dictated by Prabha Mendez MD Transcribed by Alice Moya Authenticated and [facility]
== END 2024-10-13 23:59 | disposition home or self-care (01) ==
LOC: RAD 15:15
PROVIDERS: PCP Internal Medicine Adolescent Medicine; Visit Provider Physician Assistant
DX: E04.2 Nontoxic multinodular goiter (principal)
CPT/HCPCS: 76536

== ENCOUNTER 2024-11-23 16:27 | Emergency (ER) | payer OTHER, SELFPAY ==
[2024-11-23 16:43] VITALS: BP 115/74; PULSE 108; RESP 20; TEMP 38.7; O2SAT 97; BMI 34.1
--- NOTE | 2024-11-23 16:46 | CT_ITS ---
PROCEDURE INFORMATION: Exam: CT Abdomen And Pelvis With Contrast Exam date and time: 11/23/2024 6:11 PM Age: 24 years old Clinical indication: Abdominal pain; Additional info: Ruq pain, history of cholelithiasis TECHNIQUE: Imaging protocol: Computed tomography of the abdomen and pelvis with contrast. Radiation optimization: All CT scans at this facility use at least one of these dose optimization techniques: automated exposure control; mA and/or kV adjustment per patient size (includes targeted exams where dose is matched to clinical indication); or iterative reconstruction. Contrast material: ISOVUE; Contrast volume: 75 ml; Contrast route: IV; COMPARISON: CT ABDOMEN PELVIS W CON 04/07/2023 3:28 PM FINDINGS: Lungs: Stable 0.7 cm, probable right minor intra fissural lymph node. Liver: Mild fatty liver infiltration. No mass. Gallbladder and biliary ducts: Normal. No calcified stones. No ductal dilation. Pancreas: Normal. No ductal dilation. Spleen: Normal. No splenomegaly. Adrenal glands: Normal. No mass. Kidneys and ureters: 0.2 cm nonobstructive left renal calculus. No hydronephrosis. Stomach and bowel: Nonobstructive loops of small and large bowel with mild mucosal enhancement. Appendix: No evidence of appendicitis. Intraperitoneal space: Unremarkable. No free air. No significant fluid collection. Vasculature: Unremarkable. No abdominal aortic aneurysm. Lymph nodes: Unremarkable. No enlarged lymph nodes. Urinary bladder: Unremarkable as visualized. Reproductive: Unremarkable as visualized. Bones/joints: Unremarkable. No acute fracture. Soft tissues: Unremarkable. IMPRESSION: 1. Nonobstructive fluid-filled bowel loops with bowel mucosal enhancement. Correlate with low-grade viral enterocolitis. 2. Mild fatty liver infiltration. 3. Nonobstructive left renal calculus.
--- NOTE | 2024-11-23 16:52 | ED_ITS ---
Discharge Plan Disposition Patient Disposition: Home, Self-Care Condition: Good Prescriptions Prescriptions: New cefdinir 300 mg capsule 300 mg PO BID 10 Days Qty: 20 0RF ondansetron 4 mg tablet,disintegrating 4 mg PO Q6H PRN (Reason: nausea and vomiting) Qty: 10 0RF No Action norethindrone-e.estradiol-iron [ 1.5/30 (28)] 1.5 mg-30 mcg (21)/75 mg (7) tablet 1 tab PO DAILY Qty: 84 3RF ondansetron 4 mg tablet,disintegrating 4 mg PO Q8H PRN (Reason: nausea and vomiting) Qty: 10 0RF Referrals Follow up/Referrals: Wil Cavanaugh MD [Primary Care Provider, Internal Medicine] - See instructions Activity Restrictions/Add. Instructions Additional Instructions/Restrictions: Please return to the emergency department with any worsening signs or symptoms, please progress your diet as tolerated, recommend good intake with fluids, utilize antinausea medicine as prescribed, take antibiotic as prescribed for the next 7 days. Please follow with your primary care doctor. Clinical Impressions Clinical Impression: Gastroenteritis, UTI (urinary tract infection) Instructions Patient Instructions: DI for Viral Gastroenteritis -- Adult, DI for Urinary Tract Infection (UTI) Print Language Print Language: Belarusian Discharge ED Provider: Sung Hamilton General Adult HPI <CLIFF Garcia - Last Filed: 11/23/24 18:40> General Chief complaint: Abdominal Pain Stated complaint: Vomiting Time Seen by Provider: 11/23/24 16:33 Mode of Arrival: Ambulatory Source of Information: Patient Description of Symptoms (Recalled from ER Triage Doc. by RN): pt presents to ED with c/o pain in right side and vomitting that began this am. pt reports possible bad gallbladder, pt had baby approx 4 months ago and states that pts baby was delivered 1 week early due to abd pain. History of Present Illness HPI narrative: 24-year-old female presents to the emergency department with poor p.o. intake, nausea vomiting, right upper quadrant abdominal pain, that has progressively worsened/started in the right flank, since this morning, fatigue, subjective fever and chills, patient also endorses some constipation, had recent bowel movement this morning, but it was minimal, denies any recent sick contacts, denies any chest pain or shortness of breath, denies any urinary type symptomatology, denies any vaginal type symptomatology, denies any hematuria melena hematochezia or hematemesis, no hemoptysis, other past medical history is consistent with asthma, she is a current everyday smoker (vapes), denies any alcohol or drug use, she is 4 months status post section, with somewhat complicated delivery as patient was premature 1 week early . Patient also has remote history of cholelithiasis/gallstones, of note patient took 4 mg of Zofran p.o. for nausea at home but was unable to keep it down . Initial triage vitals notable for tachycardia and febrile thus triggering sepsis criteria. Related Data Previous Rx's ?Medication ?Instructions ?Recorded norethindrone 1.5 mg-ethinyl 1 tab PO DAILY #84 tabs 0 08/12/24 estradiol 30 mcg(21)/iron 75 mg(7) tablet (June FE 1.11/06 (28)) ondansetron 4 mg disintegrating 4 mg PO Q8H PRN nausea and 11/10/24 tablet vomiting #10 tabs cefdinir 300 mg capsule 300 mg PO BID 10 days #20 ca ps 11/23/24 ondansetron 4 mg disintegrating 4 mg PO Q6H PRN nausea and 11/23/24 tablet vomiting #10 tabs Allergies Allergy/AdvReac Type Severity Reaction Status Date / Time No Known Allergies Allergy Verified 11/10/24 12:10 [facility] <CLIFF Garcia - Last Filed: 11/23/24 18:40> [facility] Disclaimer: The information contained in this section may have been updated after the patient was seen, as this information can be updated by other users. Medical History (Updated 11/23/24 @ 18:39 by CLIFF Garcia) Nausea & vomiting Pelvic pain in female Painful intercourse History of induced hypertension Acute blood loss anemia Elevated blood pressure affecting , antepartum Vaginal bleeding during , antepartum History of pre-eclampsia in prior , currently Tobacco use affecting , antepartum Maternal obesity affecting , antepartum Abnormal uterine bleeding Depression Anxiety Urinary tract infection Asthma Hypertension Surgical History S/P repeat low transverse History of tonsillectomy Hx of section Family History Other Asthma Cancer Diabetes FHx: mental illness Heart attack Hypertension Social History Smoking Status: Current every day smoker tobacco type: e-cigarettes second hand exposure: No alcohol intake: never substance use type: denies use current occupational status: unemployed and other Travel in the last 8 weeks?: None household members: family housing: house do you feel safe at home: Yes victim of physical abuse: No victim of emotional abuse: No victim of sexual abuse: No Have you lived/traveled outside US in past 30 days?: No Contact w/someone who lives/traveled outside US past 30 days?: No Exposure to someone with infectious disease in past 14 days?: No Do you have a fever (greater than 100.4 F or 38 C)?: No Have you tested positive for COVID-19?: No Exposed to someone with COVID-19 in past 14 days?: No Do you have a sore throat?: No Do you have a cough?: No Do you have any weakness?: No Do you have any diarrhea?: No Are you experiencing any unusual bleeding?: No Do you have any muscle aches/pain?: No Do you have any abdominal pain?: No Are you experiencing loss of taste or smell?: No Other Medical History Have you received the Flu Vaccine for this season: No Have you received the Pneumonia Vaccine: No <CLIFF Garcia - Last Filed: 11/23/24 18:40> ROS Obtained: Yes All systems reviewed & no additional complaints except as documented Physical Exam <CLIFF Garcia - Last Filed: 11/23/24 18:40> General General appearance: alert and in no apparent distress Head Head exam: atraumatic and normocephalic Eye Eye exam: Present PERRL and EOMI ENT ENT exam: Present mucous membranes moist Neck Neck exam: Present normal inspection Chest Chest inspection: Present normal inspection and symmetric chest wall rise Respiratory Respiratory exam: Present normal lung sounds bilaterally; Absent respiratory distress, wheezes or stridor Cardiovascular Cardiovascular exam: Present regular rate and normal rhythm Abdominal Exam Abdominal exam: Present soft, tenderness and guarding; Absent rebound or rigidity Abdominal tenderness: Present RUQ, RLQ and mild Comment: Positive Hernandez sign, right upper quadrant tenderness and some mild right lower quadrant tenderness, with some mild voluntary guarding noted on exam abdominal exam Extremities Exam Extremities exam: Present normal inspection Back Exam Back exam: Absent CVA tenderness (R) or CVA tenderness (L) Neurological Exam Neurological exam: Present alert and oriented X3 Psychiatric Psychiatric exam: Present normal affect Skin Skin exam: Present warm and dry Medical Decision Making <CLIFF Garcia - Last Filed: 11/23/24 18:40> Medical Records Medical records reviewed: Yes I reviewed the patient's medical records. Screening: Per USPSTF and CDC recommendations, given the prevalence of disease in our region, it is our hospital?s policy to screen for HIV and viral Hepatitis for all patients aged 18 and over and those with ongoing risk factors. Gregory Inquiry Pt receiving controlled substance: No Gregory was queried for this patient: No Vital Signs: 11/23/24 16:43 11/23/24 17:00 11/23/24 18:57 Temperature 101.7 F H 99 F Temperature Source Oral Oral Pulse Rate 93 H 86 Pulse Rate [Left Radial] 108 H Respiratory Rate 20 15 Blood Pressure 126/67 110/86 Blood Pressure [Right Arm] 115/74 Blood Pressure Mean 81 Blood Pressure Mean [Right Arm] 87 Blood Pressure Source Automatic Cuff Blood Pressure Position Sitting 02 Sat by Pulse Oximetry 97 100 Oxygen Delivery Method Room Air Lab Data Lab results reviewed: Yes I reviewed the patient's lab results. Lab Results 11/23/24 16:58: WBC 12.7 H, RBC 4.60, Hgb 13.1, Hct 38.9, MCV 84.6, MCH 28.5, MCHC 33.7, RDW 11.9, Plt Count 287, MPV 10.9 H, Neut % (Auto) 73.5, Lymph % (Auto) 15.3, Morrill % (Auto) 9.1, Eos % (Auto) 1.7, Baso % (Auto) 0.2, Neut # (Auto) 9.3 H, Lymph # (Auto) 1.9, Morrill # (Auto) 1.2 H, Eos # (Auto) 0.2, Baso # (Auto) 0.0, Sodium 136, Potassium 3.5, Chloride 100, Carbon Dioxide 25, Anion Gap 14.5, BUN 6 L, Creatinine 0.70, Estimated Creat Clear 179, Estimated GFR 101, Est GFR ( Amer) 122, Glucose 92, Lactate 1.2, Calcium 9.4, Total Bilirubin 0.7, AST 31, ALT 37, Alkaline Phosphatase 94, Total Protein 8.0, Albumin 4.8, Globulin 3.2, Albumin/Globulin Ratio 1.5, Lipase 57 11/23/24 17:01: Urine Color Yellow, Urine Appearance Clear, Urine pH 6.0, Ur Specific [place] 1.020, Urine Protein 1+ A, Urine Glucose (UA) Negative, Urine Ketones 3+, Urine Blood 2+ A, Urine Nitrate Positive A, Urine Bilirubin Negative, Urine Urobilinogen 2.0, Ur Leukocyte Esterase 2+ A, Urine RBC Occasional, Urine WBC 50-100, Ur Squamous Epith Cells 10-20, Urine Bacteria 4+, Urine HCG, Qual Negative 11/23/24 17:06: SARS-CoV-2 (PCR) Not detected, Influenza A Untype (PCR) Not detected, Influenza Type B (PCR) Not detected 11/23/24 16:58 11/23/24 16:58 Orders (Tests/Meds): ED MEDICATIONS Discontinued Medications Generic Name Dose Route Start Last Admin Trade Name Freq PRN Reason Stop Dose Admin Lactated Ringer's 1,000 mls @ 999 mls/hr 11/23/24 16:46 11/23/24 17:10 Lactated Ringer's 1000 Ml Bag IV 11/23/24 17:46 999 mls/hr .Q1H1M ONE Administration Piperacillin Sod/Tazobactam 50 mls @ 100 mls/hr 11/23/24 16:48 11/23/24 17:39 Sod 3.375 gm/ Sodium Chloride IV 11/23/24 17:17 Not Given ONCE ONE Piperacillin Sod/Tazobactam 50 mls @ 100 mls/hr 11/23/24 17:41 11/23/24 17:42 Sod 3.375 gm/ Sodium Chloride IV 11/23/24 18:10 100 mls/hr Q6H ONE Administration Iopamidol 75 ml 11/23/24 18:15 11/23/24 18:16 Iopamidol-370 (76%);100ml Bottle IV 11/23/24 18:16 75 ml ONCE ONE Administration Ketorolac Tromethamine 15 mg 11/23/24 16:45 11/23/24 17:10 Ketorolac 30mg/Ml Vial IV 11/23/24 16:46 15 mg ONCE ONE Administration Ondansetron HCl 4 mg 11/23/24 16:46 11/23/24 17:10 Ondansetron 4mg/2ml Vial IV 11/23/24 16:47 4 mg ONCE ONE Administration Sodium Chloride 10 ml 11/23/24 18:15 11/23/24 18:16 Sodium Chloride 0.9% 10ml Syr (Rad Only) IV 11/23/24 18:16 10 ml ONCE ONE Administration ORDERS Category Date Time Status CT abdomen pelvis w con Stat Cat Scan 11/23/24 16:46 Completed XR chest portable Stat Exams 11/23/24 16:57 Completed Complete Blood Count Auto Diff Stat Lab 11/23/24 16:58 Completed Comprehensive Metabolic Panel Stat Lab 11/23/24 16:58 Completed Lactic Acid Stat Lab 11/23/24 16:58 Completed Lipase Stat Lab 11/23/24 16:58 Completed Rapid PCR Covid and Flu A/B Stat Lab 11/23/24 17:06 Completed Urinalysis and Microscopic Stat Lab 11/23/24 17:01 Completed Urine , HCG Qual. Stat Lab 11/23/24 17:01 Completed Blood Culture Stat Micro 11/23/24 17:26 Received Urine Culture Stat Micro 11/23/24 17:01 Received Medical Decision Narrative: 24-year-old female presents to the emergency department with abdominal pain nausea vomiting and fever, differential diagnose include but not limited to, sepsis, gastroenteritis, gastritis, GERD, acute UTI, acute pyelonephritis, nephrolithiasis, ureterolithiasis, bowel obstruction, ileus, pseudo colonic obstruction, appendicitis, diverticulitis, pancreatitis, cholelithiasis, choledocholithiasis, cholangitis, pneumonia, cholecystitis among others. Discussed patient case with infusion Dr. Hamilton Will obtain basic laboratory studies, lactic acid level, lipase level, CXR, CT abdomen pelvis with contrast, make patient n.p.o., urinalysis, urine , will give 1 L LR IV, 15 mg IV Toradol, 10 mg IV Zofran, will give 3.375 gm of IV Zosyn, will obtain a PCR COVID and flu, patient triggering sepsis criteria due to tachycardia and fever. CBC is notable for mild leukocytosis 12.7 otherwise unremarkable CBC CMP is notable for normal lactic acid level, normal lipase level unremarkable transaminases Urinalysis notable for positive nitrites, 2+ hematuria, 1+ proteinuria, 2+ leukocyte esterase. Microscopic analysis of urine shows occasional RBCs, 50-100 WBCs, 10-20 squamous epithelial cells and 4+ urine bacteria. Urine hCG qualitative is negative Chest x-ray was reviewed by myself, I also reviewed the corresponding radiologic report, there are no acute findings. Rapid PCR COVID and flu is negative I reviewed the patient CT abdomen pelvis with contrast along the corresponding radiological report, nonobstructive fluid-filled bowel loops of bowel mucosal enhancement correlate with low-grade viral enterocolitis, mild fatty liver infiltration, nonobstructive left renal calculus. I discussed the results with the patient at the bedside at approximately 6:35 PM, patient that she is feeling better after pain medication, antiemetics and IV antibiotics and fluids. Patient has urinary tract infection, with possible pyelonephritis, however flank pain/CVA tenderness is absent at this time, patient is able to tolerate p.o. intake, tachycardia has improved, will treat patient with cefdinir 300 mg p.o. for 10 days, will give 4 mg p.o. Zofran ODT as needed for nausea, patient was given very strict ED return precautions, patient will follow with PCP, patient voiced understanding and agreed with current treatment plan/discharge plan. <Sung Hamilton MD - Last Filed: 11/23/24 19:22> Vital Signs: 11/23/24 16:43 11/23/24 17:00 11/23/24 18:57 Temperature 101.7 F H 99 F Temperature Source Oral Oral Pulse Rate 93 H 86 Pulse Rate [Left Radial] 108 H Respiratory Rate 20 15 Blood Pressure 126/67 110/86 Blood Pressure [Right Arm] 115/74 Blood Pressure Mean 81 Blood Pressure Mean [Right Arm] 87 Blood Pressure Source Automatic Cuff Blood Pressure Position Sitting 02 Sat by Pulse Oximetry 97 100 Oxygen Delivery Method Room Air Lab Data Lab Results 11/23/24 16:58: WBC 12.7 H, RBC 4.60, Hgb 13.1, Hct 38.9, MCV 84.6, MCH 28.5, MCHC 33.7, RDW 11.9, Plt Count 287, MPV 10.9 H, Neut % (Auto) 73.5, Lymph % (Auto) 15.3, Morrill % (Auto) 9.1, Eos % (Auto) 1.7, Baso % (Auto) 0.2, Neut # (Auto) 9.3 H, Lymph # (Auto) 1.9, [place] # (Auto) 1.2 H, Eos # (Auto) 0.2, Baso # (Auto) 0.0, Sodium 136, Potassium 3.5, Chloride 100, Carbon Dioxide 25, Anion Gap 14.5, BUN 6 L, Creatinine 0.70, Estimated Creat Clear 179, Estimated GFR 101, Est GFR ( Amer) 122, Glucose 92, Lactate 1.2, Calcium 9.4, Total Bilirubin 0.7, AST 31, ALT 37, Alkaline Phosphatase 94, Total Protein 8.0, Albumin 4.8, Globulin 3.2, Albumin/Globulin Ratio 1.5, Lipase 57 11/23/24 17:01: Urine Color Yellow, Urine Appearance Clear, Urine pH 6.0, Ur Specific [place] 1.020, Urine Protein 1+ A, Urine Glucose (UA) Negative, Urine Ketones 3+, Urine Blood 2+ A, Urine Nitrate Positive A, Urine Bilirubin Negative, Urine Urobilinogen 2.0, Ur Leukocyte Esterase 2+ A, Urine RBC Occasional, Urine WBC 50-100, Ur Squamous Epith Cells 10-20, Urine Bacteria 4+, Urine HCG, Qual Negative 11/23/24 17:06: SARS-CoV-2 (PCR) Not detected, Influenza A Untype (PCR) Not detected, Influenza Type B (PCR) Not detected Orders (Tests/Meds): ED MEDICATIONS Discontinued Medications Generic Name Dose Route Start Last Admin Trade Name Freq PRN Reason Stop Dose Admin Lactated Ringer's 1,000 mls @ 999 mls/hr 11/23/24 16:46 11/23/24 17:10 Lactated Ringer's 1000 Ml Bag IV 11/23/24 17:46 999 mls/hr .Q1H1M ONE Administration Piperacillin Sod/Tazobactam 50 mls @ 100 mls/hr 11/23/24 16:48 11/23/24 17:39 Sod 3.375 gm/ Sodium Chloride IV 11/23/24 17:17 Not Given ONCE ONE Piperacillin Sod/Tazobactam 50 mls @ 100 mls/hr 11/23/24 17:41 11/23/24 17:42 Sod 3.375 gm/ Sodium Chloride IV 11/23/24 18:10 100 mls/hr Q6H ONE Administration Iopamidol 75 ml 11/23/24 18:15 11/23/24 18:16 Iopamidol-370 (76%);100ml Bottle IV 11/23/24 18:16 75 ml ONCE ONE Administration Ketorolac Tromethamine 15 mg 11/23/24 16:45 11/23/24 17:10 Ketorolac 30mg/Ml Vial IV 11/23/24 16:46 15 mg ONCE ONE Administration Ondansetron HCl 4 mg 11/23/24 16:46 11/23/24 17:10 Ondansetron 4mg/2ml Vial IV 11/23/24 16:47 4 mg ONCE ONE Administration Sodium Chloride 10 ml 11/23/24 18:15 11/23/24 18:16 Sodium Chloride 0.9% 10ml Syr (Rad Only) IV 11/23/24 18:16 10 ml ONCE ONE Administration ORDERS Category Date Time Status CT abdomen pelvis w con Stat Cat Scan 11/23/24 16:46 Completed XR chest portable Stat Exams 11/23/24 16:57 Completed Complete Blood Count Auto Diff Stat Lab 11/23/24 16:58 Completed Comprehensive Metabolic Panel Stat Lab 11/23/24 16:58 Completed Lactic Acid Stat Lab 11/23/24 16:58 Completed Lipase Stat Lab 11/23/24 16:58 Completed Rapid PCR Covid and Flu A/B Stat Lab 11/23/24 17:06 Completed Urinalysis and Microscopic Stat Lab 11/23/24 17:01 Completed Urine , HCG Qual. Stat Lab 11/23/24 17:01 Completed Blood Culture Stat Micro 11/23/24 17:26 Received Urine Culture Stat Micro 11/23/24 17:01 Received Medical Decision Narrative: 24-year-old female presents to the emergency department with abdominal pain nausea vomiting and fever, differential diagnose include but not limited to, sepsis, gastroenteritis, gastritis, GERD, acute UTI, acute pyelonephritis, nephrolithiasis, ureterolithiasis, bowel obstruction, ileus, pseudo colonic obstruction, appendicitis, diverticulitis, pancreatitis, cholelithiasis, choledocholithiasis, cholangitis, pneumonia, cholecystitis among others. Discussed patient case with infusion Dr. Hamilton Will obtain basic laboratory studies, lactic acid level, lipase level, CXR, CT abdomen pelvis with contrast, make patient n.p.o., urinalysis, urine , will give 1 L LR IV, 15 mg IV Toradol, 10 mg IV Zofran, will give 3.375 gm of IV Zosyn, will obtain a PCR COVID and flu, patient triggering sepsis criteria due to tachycardia and fever. CBC is notable for mild leukocytosis 12.7 otherwise unremarkable CBC CMP is notable for normal lactic acid level, normal lipase level unremarkable transaminases Urinalysis notable for positive nitrites, 2+ hematuria, 1+ proteinuria, 2+ leukocyte esterase. Microscopic analysis of urine shows occasional RBCs, 50-100 WBCs, 10-20 squamous epithelial cells and 4+ urine bacteria. Urine hCG qualitative is negative Chest x-ray was reviewed by myself, I also reviewed the corresponding radiologic report, there are no acute findings. Rapid PCR COVID and flu is negative I reviewed the patient CT abdomen pelvis with contrast along the corresponding radiological report, nonobstructive fluid-filled bowel loops of bowel mucosal enhancement correlate with low-grade viral enterocolitis, mild fatty liver infiltration, nonobstructive left renal calculus. I discussed the results with the patient at the bedside at approximately 6:35 PM, patient that she is feeling better after pain medication, antiemetics and IV antibiotics and fluids. Patient has urinary tract infection, with possible pyelonephritis, however flank pain/CVA tenderness is absent at this time, patient is able to tolerate p.o. intake, tachycardia has improved, will treat patient with cefdinir 300 mg p.o. for 10 days, will give 4 mg p.o. Zofran ODT as needed for nausea, patient was given very strict ED return precautions, patient will follow with PCP, patient voiced understanding and agreed with current treatment plan/discharge plan. I was consulted by the TABITHA, and we discussed the complexity of the problems being addressed. I approved the treatment and management plan for this patient's care in the Emergency Department, thus performing a substantive portion of the medical decision making. Sung Hamilton MD Critical Care <CLIFF Garcia - Last Filed: 11/23/24 18:40> Critical Care Time Critical Care Time: No
--- NOTE | 2024-11-23 16:57 | XR_ITS ---
PROCEDURE INFORMATION: Exam: XR Chest Exam date and time: 11/23/2024 5:19 PM Age: 24 years old Clinical indication: Dyspnea; Additional info: SOA TECHNIQUE: Imaging protocol: Radiologic exam of the chest. Views: 1 view. COMPARISON: CT ABDOMEN PELVIS W CON 04/07/2023 3:28 PM FINDINGS: Lungs: Unremarkable. No consolidation. Pleural spaces: Unremarkable. No pleural effusion. No pneumothorax. Heart/Mediastinum: Unremarkable. No cardiomegaly. Bones/joints: Unremarkable. IMPRESSION: No acute findings.
[2024-11-23 17:00] VITALS: BP 126/67; PULSE 93; O2SAT 100
[2024-11-23] MEDS: KETOROLAC 30MG/ML VIAL 15 MG IV (17:10)
[2024-11-23] MEDS: ONDANSETRON 4MG/2ML VIAL 4 MG IV (17:10)
[2024-11-23] MEDS: LACTATED RINGERS 1000ML 1,000 ML 999 ML IV (17:10)
[2024-11-23 17:15] LABS: Basophils % 0.2 % (0.1-2.0); Eosinophils # 0.2 Kmm3 (0.0-0.4); Eosinophils % 1.7 % (0.1-12.0); Hematocrit 38.9 % (37.0-47.0); Hemoglobin 13.1 g/dL (12.2-16.2); Immature Granulocytes # 0.03 10^3uL; Immature Granulocytes % 0.2 %; Lymphocytes # 1.9 K/mm3 (0.7-4.5); Lymphocytes % 15.3 % (10-50); Mean Corpuscular HGB Conc 33.7 g/dL (31.8-35.4); Mean Corpuscular Hemoglobin 28.5 pg (27.0-31.2); Mean Corpuscular Volume 84.6 fl (81-99); Mean Platelet Volume 10.9 fl (7.4-10.4); Monocytes # 1.2 K/mm3 (0.1-1.0); Monocytes % 9.1 % (1.7-9.3); Neutrophils # 9.3 K/mm3 (1.8-7.8); Neutrophils % 73.5 % (37.0-80.0); Nucleated Red Blood Cells # 0 10^3/uL; Nucleated Red Blood Cells % 0 %; Platelet Count 287 K/mm3 (142-424); Red Cell Distribution Width 11.9 % (11.5-17.5); Red Cell Distribution Width-SD 36.5 fL; White Blood Count 12.7 K/mm3 (4.8-10.8)
[2024-11-23 17:18] LABS: Albumin Level 4.8 g/dl (3.5-5.0); Chloride 100 mmol/L (98-107); Sodium 136 mmol/L (136-145)
[2024-11-23 17:19] LABS: Potassium 3.5 mmoL/L (3.5-5.1)
[2024-11-23 17:20] LABS: Microscopic, Urine URINE MICROSCOPIC (MICROSCOPIC)
[2024-11-23 17:21] LABS: Appearance,Urine CLEAR (Clear); Bilirubin,Urine Negative (Negative); Blood, Urine 2+ (Negative); Color,Urine YELLOW (Yellow); Glucose,Urine (UA) Negative (Negative); Ketones,Urine 3+ (Negative); Leukocyte Esterase,Urine 2+ (Negative); Nitrate,Urine POSITIVE (Negative); Protein,Urine 1+ (Negative)
[2024-11-23 17:21] LABS: Alanine Aminotransferase 37 U/L (12-78); Albumin/Globulin Ratio 1.5 (1.1-1.8); Alkaline Phosphatase 94 U/L (38-126); Anion Gap 14.5 mEq/L (5-15); Aspartate Amino Transferase 31 U/L (14-36); Bilirubin,Total 0.7 mg/dl (0.2-1.3); Blood Urea Nitrogen 6 mg/dl (7-17); Calcium 9.4 mg/dl (8.4-10.2); Carbon Dioxide 25 mmol/L (22.0-30.0); Creatinine Clearance Estimated 179 mL/min (50-200); Estimated Glomerular Filt Rate 101 ml/min (>60); GFR (African American) 122 ML/MIN (>60); Globulin 3.2 g/dL (1.3-3.2); Glucose 92 mg/dl (74-100); Lactic Acid 1.2 mmol/L (0.7-2.1); Lipase 57 U/L (23-300)
--- NOTE | 2024-11-23 17:23 | PC.NURSE ---
XR AT BEDSIDE
[2024-11-23 17:28] LABS: Coronavirus 19, PCR Not Detected (NotDetected); Influenza A, PCR Not Detected (NotDetected); Influenza B, PCR Not Detected (NotDetected)
[2024-11-23] MEDS: PIPERACILLIN/TAZO 3.375 GM in 0.9 % SODIUM CHLORIDE 50 ML IV (17:42)
[2024-11-23 17:53] LABS: Bacteria,Urine 4+ /lpf; RBC,Urine Occasional #/hpf (0-3); WBC,Urine 50-100 #/hpf (0-3)
[2024-11-23 17:54] LABS: Urine Pregnancy, HCG Qual. Negative (Negative)
[2024-11-23] MEDS: IOPAMIDOL-370 (76%);100ML BOTTLE 75 ML IV (18:16)
[2024-11-23] MEDS: SODIUM CHLORIDE 0.9% 10ML SYR (RAD ONLY) 10 ML IV (18:16)
[2024-11-23 18:57] VITALS: BP 110/86; PULSE 86; RESP 15; TEMP 37.2; O2SAT 99
--- NOTE | 2024-11-24 10:25 | PC.NURSE ---
I discussed the pts prelim culture results with . The pt was already treated with IV anb and cefdinir. states we will reassess with the pts final results.
== END 2024-11-23 18:57 | disposition home or self-care (01) ==
PROVIDERS: Physician Assistant; Emergency Provider Emergency Medicine; PCP Internal Medicine Adolescent Medicine
DX: N39.0 Urinary tract infection, site not specified (principal); R10.817 Generalized abdominal tenderness; R11.2 Nausea with vomiting, unspecified; K52.9 Noninfective gastroenteritis and colitis, unspecified; F17.290 Nicotine dependence, other tobacco product, uncomplicated
CPT/HCPCS: 71045; 74177; 80053; 81001; 81025; 83605; 83690; 85025; 87040; 87086; 87088; 87186; 87636; 96361; 96365; 96375; 99285; J1885; J2405; J2543; J7120; Q9967

== ENCOUNTER 2024-12-27 12:51 | Outpatient (CLI) | payer OTHER, SELFPAY | END 2024-12-27 23:59 | disposition home or self-care (01) | LOC: LAB.DROPOF 12-28 09:51 | PROVIDERS: PCP Nurse Practitioner; Visit Provider Nurse Practitioner | DX: R30.9 Painful micturition, unspecified (principal) | CPT/HCPCS: 87086; 87088; 87186 ==

== ENCOUNTER 2025-01-26 14:55 | Outpatient (CLI) | payer OTHER, SELFPAY ==
--- OUTSIDE RECORDS SUMMARY | 2025-01-26 14:57 | XMS_ITS | Encounter Summary ---
Author Organization Healthcare Address [address] [place] [address] Care Team Providers Care Measuring Machine Operator Name Role Phone Wil Cavanaugh MD Primary Care Provider Encounter Details Date Type Department Care Team (Late Contact Info) Description 11/23/2024 Orders Only External Location [address] [place] [address] Provider, External Social History Tobacco Use Types Packs/Day Years Used Date Smoking Tobacco: Never Assessed Comments Unknown Sex and Gender Information Value Date Recorded Sex Assigned at Not on file Legal Sex Female 8:33 PM EDT Gender Identity Not on file Sexual Orientation Not on file documented as of this encounter Plan of Treatment Upcoming Encounters Date Type Department Care Team (Late st Contact Info) Description 05/13/2025 8:20 AM EST [facility] [address] [place] [address] Marie Merino, TODD, DNP [address] [place] [address] documented as of this encounter Procedures Procedure Name Priority Date/Time Associated Diagnosis Comments CT MS[facility] OUTSIDE IMAGES 11/23/2024 6:11 PM EDT documented in this encounter Results * CT MSK OUTSIDE IMAGES (11/23/2024 6:11 PM EDT) Anatomical Region Laterality Modality Computed Tomogra phy 11/23/2024 6:11 PM EDT us External Provider IMG CT PROCEDURES Final Result documented in this encounter Visit Diagnoses Not on filedocumented in this encounter Care Teams Measuring Machine Operator Relationship Specialty Start Date End Date Wil Cavanaugh MD [address] [place], [place] [address] PCP - General 10/21/20 documented as of this encounter
--- OUTSIDE RECORDS SUMMARY | 2025-01-26 14:57 | XMS_ITS | Encounter Summary ---
Author Organization [facility] Address [address] [place] [address] Care Team Providers Care Senior Government Program Analyst Name Role Phone Wil Cavanaugh MD Primary Care Provider + [phone] Reason for Visit * Reason Onset Date Comments Records 01/04/2025 Records for sche duling-last 3 office notes, labs, imaging Encounter Details Date Type Department Care Team (Late st Contact Info) Description 01/04/2025 Telephone [facility]rology [address] [place] [address] Iwona Byrne RN [facility] Records (Records for scheduling-last 3 office notes, labs, imaging) Social History Tobacco Use Types Packs/Day Years Used Date Smoking Tobacco: Never Assessed Comments Unknown Sex and Gender Information Value Date Recorded Sex Assigned at Not on file Legal Sex Female 8:33 PM EDT Gender Identity Not on file Sexual Orientation Not on file documented as of this encounter Miscellaneous Notes * Telephone Encounter - Yasmin Guthrie - 01/04/2025 4:27 PM EDT We received and have uploaded some records to [facility]. documented in this encounter Plan of Treatment Upcoming Encounters Date Type Department Care Team (Late st Contact Info) Description 05/13/2025 8:20 AM EST Consult [facility] Urology [address] [place] [address] Marie Merino, LAST SCOURER, DNP [address] [place] [address] documented as of this encounter Visit Diagnoses Not on filedocumented in this encounter Care Teams Senior Government Program Analyst Relationship Specialty Start Date End Date Wil Cavanaugh MD [address] [place] [id number] PCP - General 10/21/20 documented as of this encounter
--- OUTSIDE RECORDS SUMMARY | 2025-01-26 14:57 | XMS_ITS | Clinical Summary ---
Author Organization Healthcare Address [address] [place] [address] Care Team Providers Care Lodge Officer Name Role Phone Wil Cavanaugh MD Primary Care Provider Encounters Date Type Department Care Team Description 01/04/2025 Telephone [facility] Urology [address], [address] [place] [address] Iwona Byrne I, RN Records (Records for scheduling-last 3 office notes, labs, imaging) 11/23/2024 Orders Only External Location [address] [place] [phone] Provider, External from Last 3 Months Social History Tobacco Use Types Packs/Day Years Used Date Smoking Tobacco: Never Assessed Comments Unknown Sex and Gender Information Value Date Recorded Sex Assigned at Not on file Legal Sex Female 8:33 PM EDT Gender Identity Not on file Sexual Orientation Not on file Plan of Treatment Upcoming Encounters Date Type Department Care Team (Late st Contact Info) Description 05/13/2025 8:20 AM EST Consult [facility]rology [address], [address] [place] [phone] Marie Merino, GRADER MEAT, DNP [address] [place] [address] Health Maintenance Due Date Last Done Comments [facility]-Depression Screening 1998 [facility]-Infant/Child/Adol SDOH Screenings 1998 [facility]-Hepatitis B Vaccines (3 of 3 - 3-dose series) 06/01/1999 04/06/1999, 1998 HPV Vaccines (1 - 3-dose series) 2013 [facility]- SDOH Screenings 2016 [facility]-Adult SDOH Screenings 2016 [facility]-Pap Smear 09/13/2019 [id number] Vaccine ( season) 2024 02/10/2021, 01/20/2021 [facility]-Influenza Vaccine (#1) 2025 05/14/2013 [facility]-DTaP,Tdap,and Td Vaccines (8 - Td or Tdap) 05/01/2034 05/01/2024, 11/16/2010, 09/18/2002, Additional history exists [facility]-Zoster Vaccines (1 of 2) 2048 11/16/2010, 10/16/1999 [facility]-HIB Vaccines Completed 01/04/2000, , 02/06/1999, Additional history exists [facility]-IPV Vaccines Completed 09/18/2002, , 02/06/1999, Additional history exists [facility]-Varicella Vaccines Completed 11/16/2010, 1999 [facility]-Hepatitis A Vaccines Aged Out No longer eligible based on patient's age to complete this topic [facility]-Pneumococcal Vaccine: Pediatrics (0 to 5 Years) and At-Risk Patients (6 to 49 Years) Aged Out No longer eligible based on patient's age to complete this topic [facility]-Rotavirus Vaccines Aged Out No lo nger eligible based on patient's age to complete this topic Procedures Procedure Name Priority Date/Time Associated Diagnosis Comments CT MS[facility] OUTSIDE IMAGES 11/23/2024 6:11 PM EDT from Last 3 Months Results * CT MSK OUTSIDE IMAGES (11/23/2024 6:11 PM EDT) Anatomical Region Laterality Modality Computed Tomogra phy 11/23/2024 6:11 PM EDT External Provider IMG CT PROCEDURES Final Result from Last 3 Months Insurance [employer] Care Teams Lodge Officer Relationship Specialty Start Date End Date Wil Cavanaugh MD [address] [place] [id number] PCP - General 10/21/20
--- NOTE | 2025-01-26 14:58 | US_ITS ---
FINAL REPORT TECHNIQUE: Pre and postvoid ultrasound of the bladder CLINICAL HISTORY: DIFF IN URINATION...FREQUENT UTI.....NEPHROLITHIASIS COMPARISON: None FINDINGS: ULTRASOUND BLADDER: Pre and post void images of the bladder were obtained. The prevoid bladder contains 285.9 cc. No evidence of bladder wall thickening is identified. A ureteral jet is visualized. The postvoid bladder contains approximately 1 cc of urine. IMPRESSION: No significant postvoid residual is identified. No focal mass or bladder wall thickening is identified. Reviewed, Interpreted and Dictated by Dane Rinaldi MD Transcribed by Alvina Leonard Authenticated and . [facility]
--- NOTE | 2025-01-26 14:58 | US_ITS ---
FINAL REPORT TECHNIQUE: Ultrasound images of the kidneys and bladder were obtained. CLINICAL HISTORY: .BURNING SENSATION WHILE URINATING COMPARISON: None FINDINGS: The right kidney measures 10.6 cm in length. It is normal in echogenicity. There is no hydronephrosis. The left kidney measures 9.9 cm in length. It is normal in echogenicity. There is no hydronephrosis. Note is made of a nonobstructing renal stone which was identified in the lower pole of the left kidney, 6 mm in diameter. Note is made of numerous gallstones and sludge in the gallbladder. No gallbladder wall thickening or pericholecystic fluid is identified. IMPRESSION: Nonobstructing left renal stone as described. Note is made of numerous gallstones and sludge in the gallbladder. Reviewed, Interpreted and Dictated by Dane Rinaldi MD Transcribed by Alvina Leonard Authenticated and [facility]
== END 2025-01-26 23:59 | disposition home or self-care (01) ==
LOC: RAD 14:55
PROVIDERS: PCP Nurse Practitioner Family; Visit Provider Nurse Practitioner Family
DX: N20.0 Calculus of kidney (principal); K80.20 Calculus of gallbladder without cholecystitis without obstruction; N39.0 Urinary tract infection, site not specified
CPT/HCPCS: 76770; 76857

== ENCOUNTER 2025-02-09 08:45 | Outpatient (CLI) | payer OTHER, SELFPAY ==
--- NOTE | 2025-02-09 08:50 | US_ITS ---
FINAL REPORT CLINICAL HISTORY: GALLSTONES/UPPER ABDOMNAL PAIN COMPARISON: None FINDINGS: Sonographic images of the right upper quadrant were obtained. The pancreas is partially obscured.The liver has an unremarkable appearance. Multiple gallstones are noted within the gallbladder, with the gallbladder slightly contracted. There is no evidence of biliary ductal dilatation.The common duct measures 3 mm. Limited images of the right kidney are unremarkable. IMPRESSION: Multiple gallstones are present in the gallbladder without evidence of biliary ductal dilatation. Reviewed, Interpreted and Dictated by Dane Rinaldi MD Transcribed by Alvina Leonard Authenticated and [facility]
--- OUTSIDE RECORDS SUMMARY | 2025-02-09 08:58 | XMS_ITS | Clinical Summary ---
Author Organization Healthcare Address [address] [place] [address] Care Team Providers Care Assembler Dc Field Ring Name Role Phone Wil Cavanaugh MD Primary Care Provider Encounters Date Type Department Care Team Description 01/04/2025 Telephone [facility]rology [address], [address] [place] [address] Iwona Byrne I, RN Records (Records for scheduling-last 3 office notes, labs, imaging) 11/23/2024 Orders Only External Location [address] [place] [phone] Provider, External from Last 3 Months Social [...] Consult [facility] [address], [address] [place] [phone] Marie Merino, GAS ENGINE OPERATOR, DNP [address] [place] [address] Health Maintenance Due Date Last Done Comments [facility]-Depression Screening 1998 [facility]-/Child/Adol SDOH Screenings 1998 [facility]-Hepatitis B Vaccines (3 of 3 - 3-dose series) 06/01/1999 04/06/1999, 1998 HPV Vaccines (1 - 3-dose series) 2013 [facility]- SDOH Screenings 2016 [facility]-Adult SDOH Screenings 2016 [facility]-Pap Smear 09/13/2019 [id number] Vaccine ( season) 2024 02/10/2021, 01/20/2021 [facility]-Influenza [...] Insurance [employer] MED[employer] Care Teams Assembler Dc Field Ring Relationship Specialty Start Date End Date Wil Cavanaugh MD [address] [place] [id number] PCP - General 10/21/20
--- OUTSIDE RECORDS SUMMARY | 2025-02-09 08:58 | XMS_ITS | Encounter Summary ---
Author Organization [facility] Address [address] [place] [address] Care Team Providers Care Intern Name Role Phone Wil Cavanaugh MD Primary Care Provider + [phone] Reason for Visit * Reason Onset Date Comments Records 01/04/2025 Records for sche duling-last 3 office notes, labs, imaging Encounter Details Date Type Department Care Team (Late st Contact Info) Description 01/04/2025 Telephone [facility] Urology [address], [address] [place] [address] Iwona Byrne RN [facility] Records (Records for scheduling-last 3 [...] received and have uploaded some records to [employer] documented in this encounter Plan of Treatment Upcoming Encounters Date Type Department Care Team (Late st Contact Info) Description 05/13/2025 8:20 AM EST Consult [facility] Urology [address], [address] [place] [address] Marie Merino, SCHOOL PHOTOGRAPH EDITOR, DNP [address] [place] [address] documented as of this encounter Visit Diagnoses Not on filedocumented in this encounter Care Teams Intern Relationship Specialty Start Date End Date Wil Cavanaugh MD [address] [place] [phone] PCP - General 10/21/20 documented as of this encounter
--- OUTSIDE RECORDS SUMMARY | 2025-02-09 08:58 | XMS_ITS | Encounter Summary ---
Author Organization Healthcare Address [address] [place] [address] Care Team Providers Care Rose Grower Name Role Phone Wil Cavanaugh MD Primary Care Provider Encounter Details Date Type Department Care Team (Late Contact Info) Description 11/23/2024 Orders Only External Location [address] [place] [address] Provider, External Social History Tobacco Use Types [...] Info) Description 05/13/2025 8:20 AM EST Consult [facility] [address] [place] [address] Marie Merino, TODD, DNP [address] [place] [address] documented as of this encounter Procedures Procedure [...] on filedocumented in this encounter Care Teams Rose Grower Relationship Specialty Start Date End Date Wil Cavanaugh MD [address] [place], [place] [address] PCP - General 10/21/20 documented as of this encounter
== END 2025-02-09 23:59 | disposition home or self-care (01) ==
LOC: RAD 08:46
PROVIDERS: PCP Internal Medicine Adolescent Medicine; Visit Provider Nurse Practitioner Family
DX: K80.20 Calculus of gallbladder without cholecystitis without obstruction (principal)
CPT/HCPCS: 76705

== ENCOUNTER 2025-03-03 10:06 | Outpatient (CLI) | payer OTHER, SELFPAY ==
[2025-03-03 08:33] VITALS: BMI 34.9
--- OUTSIDE RECORDS SUMMARY | 2025-03-03 10:13 | XMS_ITS | Encounter Summary ---
Author Organization Healthcare Address [address] [place] [address] Care Team Providers Care Wall Taper Name Role Phone Wil Cavanaugh MD Primary Care Provider Encounter Details Date Type Department Care Team (Late Contact Info) Description 11/23/2024 Orders Only External Location [address] [place] [address] Provider, External Social History Tobacco Use Types [...] Info) Description 05/13/2025 8:20 AM EST Consult [facility] [address], [address] [place] [address] Mraie Merino, TODD, DNP [address] [place] [address] documented as of this encounter Procedures Procedure [...] on filedocumented in this encounter Care Teams Wall Taper Relationship Specialty Start Date End Date Wil Cavanaugh MD [address] [place], [place] [address] PCP - General 10/21/20 documented as of this encounter
--- OUTSIDE RECORDS SUMMARY | 2025-03-03 10:13 | XMS_ITS | Clinical Summary ---
Author Organization [facility] Address [address] [place] [address] Care Team Providers Care Staff Trainer Name Role Phone Wil Cavanaugh MD Primary Care Provider Encounters Date Type Department Care Team Description 01/04/2025 Telephone [facility] Urology [address], [address] [place] [address] Iwona Byrne I, RN Records (Records for scheduling-last 3 office notes, labs, imaging) from Last 3 Months Social History Tobacco [...] Info) Description 05/13/2025 8:20 AM EST Consult [facility] Urology [address], [address] [place] [address] Marie Merino, LIBRARY CLERK, DNP [address] [place] [address] Health Maintenance Due Date Last Done Comments [facility]-Depression Screening 1998 [facility]-HIV Screening 1998 [facility]-Hepatitis C Screening 1998 [facility]-Infant/Child/Adol SDOH Screenings 1998 [facility]-Hepatitis B Vaccines (3 of 3 - 3-dose series) 06/01/1999 04/06/1999, 1998 HPV Vaccines (1 - 3-dose series) 2013 [facility]- SDOH Screenings 2016 [facility]-Adult SDOH Screenings 2016 [facility]-Pap Smear 09/13/2019 [id number] Vaccine ( season) 2025 02/10/2021, 01/20/2021 [facility]-Influenza Vaccine (#1) 2025 05/14/2013 [...] on patient's age to complete this topic Insurance [facility] MEDICAID Care Teams Staff Trainer Relationship Specialty Start Date End Date Wil Cavanaugh MD [address] [place], [place] [phone] [facility] - General 10/21/20
--- OUTSIDE RECORDS SUMMARY | 2025-03-03 10:13 | XMS_ITS | Encounter Summary ---
Author Organization [facility] Address [address] [place] [address] Care Team Providers Care Court Messenger Name Role Phone Wil Cavanaugh MD Primary Care Provider + [phone] Reason for Visit * Reason Onset Date Comments Records 01/04/2025 Records for sche duling-last 3 office notes, labs, imaging Encounter Details Date Type Department Care Team (Late st Contact Info) Description 01/04/2025 Telephone [facility] Urology [address], [address] [place] [address] Iwona Byrne RN [facility] Records (Records for scheduling-last [...] received and have uploaded some records to [employer]. documented in this encounter Plan of Treatment Upcoming Encounters Date Type Department Care Team (Late st Contact Info) Description 05/13/2025 8:20 AM EST Consult [facility] Urology [address], [address] [place] [address] Marie Merino, CUPOLA CHARGER, DNP [address] [place] [address] documented as of this encounter Visit Diagnoses Not on filedocumented in this encounter Care Teams Court Messenger Relationship Specialty Start Date End Date Wil Cavanaugh MD [address] [place] [id number] PCP - General 10/21/20 documented as of this encounter
[2025-03-03 10:30] LABS: Hematocrit 39.1 % (37.0-47.0); Hemoglobin 13.2 g/dL (12.2-16.2); Immature Granulocytes % 0.2 %; Mean Corpuscular HGB Conc 33.8 g/dL (31.8-35.4); Mean Corpuscular Hemoglobin 29.1 pg (27.0-31.2); Mean Corpuscular Volume 86.1 fl (81-99); Nucleated Red Blood Cells % 0 %; Platelet Count 261 K/mm3 (142-424); Red Blood Count 4.54 M/mm3 (4.20-5.40); Red Cell Distribution Width-SD 38.7 fL; White Blood Count 6.6 K/mm3 (4.8-10.8)
[2025-03-03 10:57] LABS: Alanine Aminotransferase 10 U/L (12-78); Albumin Level 4.4 g/dl (3.5-5.0); Albumin/Globulin Ratio 1.5 (1.1-1.8); Alkaline Phosphatase 62 U/L (38-126); Anion Gap 12.9 mEq/L (5-15); Aspartate Amino Transferase 21 U/L (14-36); Bilirubin,Total 0.6 mg/dl (0.2-1.3); Blood Urea Nitrogen 8 mg/dl (7-17); Calcium 9.2 mg/dl (8.4-10.2); Carbon Dioxide 21 mmol/L (22.0-30.0); Chloride 104 mmol/L (98-107); Creatinine Clearance Estimated 183 mL/min (50-200); Creatinine,Serum 0.70 mg/dl (0.52-1.04); Estimated Glomerular Filt Rate 101 ml/min (>60); GFR (African American) 122 ML/MIN (>60); Globulin 2.9 g/dL (1.3-3.2); Glucose 82 mg/dl (74-100); Potassium 3.9 mmoL/L (3.5-5.1); Sodium 134 mmol/L (136-145); Total Protein,Serum 7.3 g/dl (6.3-8.2)
== END 2025-03-03 23:59 | disposition home or self-care (01) ==
LOC: PREOP 10:06
PROVIDERS: PCP Internal Medicine Adolescent Medicine; Visit Provider Surgery
DX: Z01.812 Encounter for preprocedural laboratory examination (principal)
CPT/HCPCS: 80053; 85025

== ENCOUNTER 2025-03-08 07:06 | Day surgery (SDC) | payer OTHER, SELFPAY ==
[2025-03-03 14:50] VITALS: BMI 34.9
[2025-03-08] VITALS (11 sets, daily range): BP systolic 107–138; BP diastolic 60–81; PULSE 62–97; RESP 16–18; TEMP 36.3–43; O2SAT 98–100
[2025-03-08 07:30] LABS: Urine Pregnancy, HCG Qual. Negative (Negative)
[2025-03-08] MEDS: LACTATED RINGERS 1000ML 1,000 ML 25 ML IV (07:37)
--- NOTE | 2025-03-08 07:40 | EXP.ANES.CKL ---
[facility] Disclaimer: The information contained in this section may have been updated after the patient was seen, as this information can be updated by other users. Medical History Urinary tract infection symptoms Nausea & vomiting Pelvic pain in female Painful intercourse History of induced hypertension Acute blood loss anemia Elevated blood pressure affecting , antepartum Vaginal bleeding during , antepartum History of pre-eclampsia in prior , currently Tobacco use affecting , antepartum Maternal obesity affecting , antepartum Abnormal uterine bleeding Depression Anxiety Urinary tract infection Asthma Hypertension Surgical History History of biopsy History of surgery on arm S/P repeat low transverse History of tonsillectomy Hx of section Family History Other Asthma Cancer Diabetes FHx: mental illness Heart attack Hypertension Social History (Updated 03/08/25 @ 07:25 by Preeti Lo RN) Smoking Status: Current every day smoker tobacco type: e-cigarettes second hand exposure: No alcohol intake: never substance use type: denies use current occupational status: unemployed Travel in the last 8 weeks?: None household members: family housing: house do you feel safe at home: Yes victim of physical abuse: No victim of emotional abuse: No victim of sexual abuse: No Have you lived/traveled outside US in past 30 days?: No Contact w/someone who lives/traveled outside US past 30 days?: No Exposure to someone with infectious disease in past 14 days?: No Do you have a fever (greater than 100.4 F or 38 C)?: No Have you tested positive for COVID-19?: No Exposed to someone with COVID-19 in past 14 days?: No Do you have a sore throat?: No Do you have a cough?: No Do you have any weakness?: No Are you experiencing any nausea/vomitting?: No Do you have any diarrhea?: No Are you experiencing any unusual bleeding?: No Do you have any muscle aches/pain?: No Do you have any abdominal pain?: No Are you experiencing loss of taste or smell?: No [facility] Anesthesia Checklist Patient Identification Patient Identification: Verbal (Name & ) Structural Data Admitted From: Home Planned Operative Procedure/s: karina mendozae Consent for Planned Operative Procedure(s) Verified: Yes NPO Status Verified Time NPO: 00:00 Additional verifications Anesthesia Reactions: No Hx Blood Transfusions: No Blood Transfusion Reaction: No Airway Assessment Mallampati Score:: Class II C-Spine Mobility Assessed: Yes TMJ Mobility Assessed: Yes Dentition: Good Dentition Neurological Assessment Level of Consciousness: Awake, Alert and Appropriate Anesthesia Plan Anesthesia Risk discussed: Yes Anesthesia Plan: Verified ASA Class: II Anesthesia Type: General
[2025-03-08] MEDS: LIDOCAINE 1% 20ML MDV 20 ML (08:13)
--- NOTE | 2025-03-08 09:28 | P.OP_ITS ---
Date of procedure: 03/08/25 Pre-op Diagnosis:: Chronic calculous cholecystitis Post-op Diagnosis:: Same Procedure performed:: Laparoscopic cholecystectomy Surgeon:: Jacob Garsia MD MEDICAID ELIGIBILITY SPECIALIST:: Azam Vega Anesthesia: GETWyatt Estimated blood loss (mL): 50 Operative findings:: She has some fatty infiltration of the liver. She had a distended gallbladder with multiple small stones. There were some omental adhesions to the gallbladder. Operative note:: Consent was obtained and patient was taken the operating room. She was given preoperative intravenous antibiotics. In the operating room she was placed in a supine position. General anesthesia was induced via endotracheal tube. Abdomen was prepped and draped in the standard surgical fashion. Subumbilical skin incision was made and while performing abdominal wall lift Veress needle was inserted. However good insufflation pressures could not be achieved. Therefore through a left subcostal 1 to 2 mm incision Veress needle was inserted. CO2 pneumoperitoneum was achieved to 15 mmHg. 5 mm optical trocar was inserted at the umbilicus. She was positioned in reverse Trendelenburg and left side down. A couple 5 mm trocars were inserted in the right upper abdomen. 10 mm trocar was inserted in the epigastrium. The liver was elevated and gallbladder was identified. It was grasped retracted anteriorly and superiorly over the dome of the liver. There was some omental adhesions to the gallbladder which were taken down using blunt dissection. Infundibulum/Chung's pouch of the gallbladder was retracted anterior laterally. Blunt dissection was carried out the neck of the gallbladder. The duodenum was somewhat tented up to the gallbladder and this was carefully dissected free. Careful dissection was carried out at the neck of the gallbladder bluntly incising the visceral peritoneum. Careful dissection was carried out identifying cystic duct and cystic artery and the critical view of safety. The cystic duct was isolated and multiply clipped and sharply divided. Cystic artery was carefully coagulated with ultrasonic harmonic arie and divided. Gallbladder was dissected free from the liver in a retrograde fashion using ultrasonic harmonic arie. Gallbladder was placed within an Endo Catch retrieval device and removed from the peritoneal cavity via the epigastric trocar site which required some minor stretching of the fascia for delivery. Limited use of electrocautery was used on the apex of the gallbladder fossa for assurance of hemostasis. The epigastric trocar site was closed using 0 Vicryl suture using the Jaspreet-Eladio suture device. In the process there was some muscular bleeding and additional sutures were placed using Jaspreet-Eladio. This resulted in good hemostasis. Residual blood and fluid was suctioned free from abdominal cavity. There appeared to be good hemostasis at the gallbladder fossa and trocar site. Trocars were then removed the CO2 pneumoperitoneum was evacuated. Local anesthetic was infiltrated. Skin incisions were closed with 4-0 Monocryl in a subcuticular fashion. Steri-Strips and dressings were applied. . Condition: stable Disposition: PACU Complications:: None immediately apparent
--- NOTE | 2025-03-08 09:42 | P.PNANES_ITS ---
[facility] Anesthesia Record Part I Anesthesia Record I Intake, IV Amount: 1,500 Hydration: Adequate Estimated blood loss (mL): 50 Urine output (mL): 0 Blood Pressure: 138/68 SaO2: 98 Pulse Rate: 97 Airway Patency: Patent Respiratory Rate: 16 Temperature: 97.4 F Patient is:: Awake and Stable Stable to PACU at:: 09:40
[2025-03-08] MEDS: KETOROLAC 30MG/ML VIAL 30 MG (10:05)
--- NOTE | 2025-03-08 12:26 | P.PNANES_ITS ---
[facility] Anesthesia Record Part II Anesthesia Record Part II Discharge Time: 10:10 Destination: Surgical Day Care (OP Surgery) PACU nurse assessment reviewed?: Yes Patient Condition:: Good Anesthesia Complications:: None Swallowing reflex intact?: Yes Airway Patency: Patent Cyanosis?: No Blood Pressure: 121/72 SaO2: 100 Respiratory Rate: 18 Pulse Rate: 62 Temperature: 98 F Mental Status: Alert & Oriented Pain level:: 2 Nausea and/or vomitting:: None Intake, IV Amount: 0 Hydration: Adequate
== END 2025-03-08 10:41 | disposition home or self-care (01) ==
PROVIDERS: PCP Internal Medicine Adolescent Medicine; Visit Provider Surgery
PROC: 0FT44ZZ Resection of Gallbladder, Percutaneous Endoscopic Approach (ICD-10-PCS; CPT 47562; principal; 2025-03-08 08:45)
DX: K80.10 Calculus of gallbladder with chronic cholecystitis without obstruction (principal); K76.0 Fatty (change of) liver, not elsewhere classified; K66.0 Peritoneal adhesions (postprocedural) (postinfection); F17.290 Nicotine dependence, other tobacco product, uncomplicated; Z79.3 Long term (current) use of hormonal contraceptives
CPT/HCPCS: 47562; 81025; 96374; J1100; J1885; J2003; J2250; J2405; J2704; J2795; J3010; J7120

== ENCOUNTER 2025-03-08 17:58 | Emergency (ER) | payer OTHER, SELFPAY ==
[2025-03-08 18:13] VITALS: BP 112/71; PULSE 66; RESP 18; TEMP 36.7; O2SAT 100; BMI 33.7
--- NOTE | 2025-03-08 18:17 | ED_ITS ---
<Statement entered by Paco Nowak MD - 03/09/25 10:59> I was consulted by the TABITHA, and we discussed the complexity of the problems being addressed. I approve the treatment and management plan for this patient's care in the emergency department, thus performing a substantive portion of the medical decision making. Paco Nowak MD Discharge Plan Disposition Patient Disposition: Home, Self-Care Prescriptions Prescriptions: No Action norethindrone-e.estradiol-iron [ (28)] 1.5 mg-30 mcg (21)/75 mg (7) tablet 1 tab PO DAILY Qty: 84 3RF hydrocodone-acetaminophen 5-325 mg Tablet 1 - 2 tab PO Q6H PRN (Reason: Pain) Qty: 17 0RF vitamin T34-kwrqe acid 0.5-1 mg Tablet 1 tab PO DAILY Referrals Follow up/Referrals: Jacob Garsia MD [Staff Physician, General Surgery] - See instructions Wil Cavanaugh MD [Primary Care Provider, Internal Medicine] - See instructions Clinical Impressions Clinical Impression: Change of dressing Instructions Patient Instructions: How to Change a Wet to Dry Wound Dressing Print Language Print Language: Yi Discharge ED Provider: Paco Nowak General Adult HPI General Chief complaint: Skin/Abscess/Foreign Body Stated complaint: surg. today, bleeding from navel Time Seen by Provider: 03/08/25 18:05 History of Present Illness HPI narrative: 24-year-old female presents to the ED today after having surgery this morning with Dr. Garsia. She had her gallbladder removed and her lap site at her umbilicus had some bleeding that she got concerned about. She said this started 20 minutes after she was released this morning. She waited until this time to get me and because she became concerned. The umbilicus dressing was saturated but the Tegaderm was not wet. Patient otherwise is doing well and appears well overall. Related Data Home Medications ?Medication ?Instructions ?Recorded ?Confirmed vitamin B12 0.5 mg-folic acid 1 mg 1 tab PO DAILY 02/0903/08/25 tablet Previous Rx's ?Medication ?Instructions ?Recorded norethindrone 1.5 mg-ethinyl 1 tab PO DAILY #84 tabs 0 08/12/24 estradiol 30 mcg(21)/iron 75 mg(7) tablet ( (28)) hydrocodone 5 mg-acetaminophen 325 1 - 2 tab PO Q6H [place] N Pain #17 tabs 03/08/25 mg tablet Allergies Allergy/AdvReac Type Severity Reaction Status Date / Time No Known Allergies Allergy Verified 03/08/25 07:23 [facility] Disclaimer: The information contained in this section may have been updated after the patient was seen, as this information can be updated by other users. Medical History (Updated 03/08/25 @ 18:25 by Berna Lauren (ED), BAG LINER) Urinary tract infection symptoms Nausea & vomiting Pelvic pain in female Painful intercourse History of induced hypertension Acute blood loss anemia Elevated blood pressure affecting , antepartum Vaginal bleeding during , antepartum History of pre-eclampsia in prior , currently Tobacco use affecting , antepartum Maternal obesity affecting , antepartum Abnormal uterine bleeding Depression Anxiety Urinary tract infection Asthma Hypertension Surgical History History of biopsy History of surgery on arm S/P repeat low transverse History of tonsillectomy Hx of section Family History Other Asthma Cancer Diabetes FHx: mental illness Heart attack Hypertension Social History (Updated 03/08/25 @ 07:25 by Preeti Lo RN) Smoking Status: Current every day smoker tobacco type: e-cigarettes second hand exposure: No alcohol intake: never substance use type: denies use current occupational status: unemployed Travel in the last 8 weeks?: None household members: family housing: house do you feel safe at home: Yes victim of physical abuse: No victim of emotional abuse: No victim of sexual abuse: No Have you lived/traveled outside US in past 30 days?: No Contact w/someone who lives/traveled outside US past 30 days?: No Exposure to someone with infectious disease in past 14 days?: No Do you have a fever (greater than 100.4 F or 38 C)?: No Have you tested positive for COVID-19?: No Exposed to someone with COVID-19 in past 14 days?: No Do you have a sore throat?: No Do you have a cough?: No Do you have any weakness?: No Do you have any diarrhea?: No Are you experiencing any unusual bleeding?: Yes Do you have any muscle aches/pain?: No Do you have any abdominal pain?: No Are you experiencing loss of taste or smell?: No Other Medical History Have you received the Flu Vaccine for this season: No Have you received the Pneumonia Vaccine: No ROS Obtained: Yes Systems reviewed as appropriate & no additional complaints except as documented Constitutional Constitutional: Reports as per HPI Physical Exam General General appearance: alert and in no apparent distress Head Head exam: normocephalic Eye Eye exam: Present PERRL and EOMI ENT ENT exam: Present normal oropharynx and mucous membranes moist Neck Neck exam: Present full ROM and trachea midline Respiratory Respiratory exam: Present normal lung sounds bilaterally Cardiovascular Cardiovascular exam: Present regular rate, normal rhythm, normal heart sounds, +S1 and +S2 Abdominal Exam Abdominal exam: Present soft and normal bowel sounds Extremities Exam Extremities exam: Present normal inspection, full ROM and normal capillary refill Neurological Exam Neurological exam: Present alert and oriented X3 Skin Skin exam: Present warm, dry and other (5 l lap site all intact. I changed the umbilicus dressing) Medical Decision Making Medical Records Screening: Per USPSTF and CDC recommendations, given the prevalence of disease in our region, it is our hospital?s policy to screen for HIV and viral Hepatitis for all patients aged 18 and over and those with ongoing risk factors. Gregory Inquiry Pt receiving controlled substance: No Gregory was queried for this patient: No Vital Signs: 03/08/25 18:13 03/08/25 18:27 Temperature 98.0 F 98.2 F Temperature Source Oral Oral Pulse Rate 66 Pulse Rate [Radial] 66 Respiratory Rate 18 18 Blood Pressure 104/52 L Blood Pressure [Right Arm] 112/71 Blood Pressure Mean [Right Arm] 84 Blood Pressure Source Automatic Cuff Blood Pressure Source [Right Arm] Automatic Cuff Blood Pressure Position Sitting Blood Pressure Position [Right Arm] Sitting 02 Sat by Pulse Oximetry 100 Oxygen Delivery Method Room Air Room Air Medical Decision Narrative: patient is a 24-year-old presenting to the emergency department for evaluation of umbilicus dressing with some blood on it. Patient is hemodynamically stable and nontoxic-appearing upon arrival, afebrile. Differential diagnosis includes moderate bleeding at the umbilicus site. Patient had surgery today. I told her that she needs to call Dr. Garsia for appointment if he wants to see her early. She has a scheduled appointment on the . Otherwise no change to the dressing and gave her return precautions. Patient is safe for discharge home. Critical Care Critical Care Time Critical Care Time: No
--- OUTSIDE RECORDS SUMMARY | 2025-03-08 18:24 | XMS_ITS | Clinical Summary ---
Author Organization [facility] Address [address] [place] [address] Care Team Providers Care Lead Portfolio Manager Name Role Phone Wil Cavanaugh MD Primary Care Provider [phone] Encounters Date Type Department Care Team Description 01/04/2025 Telephone [facility] Urology [address] [place] [address] Iwona Byrne I, RN Records [...] Info) Description 05/13/2025 8:20 AM EST Consult [facility] Urology [address], [address] [place] [address] Marie Merino, HEAD OF SALES AND MARKETING, DNP [address] [place] [address] Health Maintenance Due Date Last Done Comments [facility]-Depression Screening 1998 [facility]-HIV Screening 1998 [facility]-Hepatitis C Screening 1998 [facility]-Infant/Child/Adol SDOH Screenings 1998 [facility]-Hepatitis B Vaccines (3 of 3 - 3-dose series) 06/01/1999 04/06/1999, 1998 HPV Vaccines (1 - 3-dose series) 2013 [facility]- SDOH Screenings 2016 [facility]-Adult SDOH Screenings 2016 [facility]-Pap Smear 09/13/2019 [id number] Vaccine ( season) 2025 02/10/2021, 01/20/2021 [facility]-Influenza [...] patient's age to complete this topic Insurance [facility] MEDICAID Care Teams Lead Portfolio Manager Relationship Specialty Start Date End Date Wil Cavanaugh MD [address] [place], [place] [address] [facility] - General 10/21/20
--- OUTSIDE RECORDS SUMMARY | 2025-03-08 18:24 | XMS_ITS | Encounter Summary ---
Author Organization Healthcare Address [address] [place] [address] Care Team Providers Care Cured Meat Packing Supervisor Name Role Phone Wil Cavanaugh MD Primary Care Provider Encounter Details Date Type Department Care Team (Late Contact Info) Description 11/23/2024 Orders Only External Location [address] [place] [address] Provider, External Social History Tobacco Use Types [...] Info) Description 05/13/2025 8:20 AM EST Consult [facility] [address] [place] [address] Marie Merino, TODD, DNP [address] [place] [address] documented as of this encounter Procedures Procedure [...] on filedocumented in this encounter Care Teams Cured Meat Packing Supervisor Relationship Specialty Start Date End Date Wil Cavanaugh MD [address] [place], [place] [address] PCP - General 10/21/20 documented as of this encounter
[2025-03-08 18:27] VITALS: BP 104/52; PULSE 66; RESP 18; TEMP 36.8; O2SAT 100
== END 2025-03-08 18:30 | disposition home or self-care (01) ==
PROVIDERS: Emergency Provider Student in an Organized Health Care Education/Training Program; PCP Internal Medicine Adolescent Medicine
DX: Z48.89 Encounter for other specified surgical aftercare (principal)
CPT/HCPCS: 99282; 99283

== ENCOUNTER 2025-03-14 18:19 | Emergency (ER) | payer OTHER, SELFPAY ==
[2025-03-14 18:27] VITALS: BP 129/75; PULSE 58; RESP 16; TEMP 36.6; O2SAT 99; BMI 33.7
--- OUTSIDE RECORDS SUMMARY | 2025-03-14 18:35 | XMS_ITS | Encounter Summary ---
Author Organization Healthcare Address [address] [place] [address] Care Team Providers Care Director Of Employee Development Name Role Phone Wil Cavanaugh MD Primary Care Provider Encounter Details Date Type Department Care Team (Late Contact Info) Description 11/23/2024 Orders Only External Location [address] [place] [address] Provider, External Social History Tobacco Use Types [...] Info) Description 05/13/2025 8:20 AM EST Consult [facility] [address], [address] [place] [address] Marie Merino, TODD, DNP [address] [place] [address] documented as of this encounter Procedures Procedure [...] on filedocumented in this encounter Care Teams Director Of Employee Development Relationship Specialty Start Date End Date Wil Cavanaugh MD [address] [place], [place] [address] PCP - General 10/21/20 documented as of this encounter
--- OUTSIDE RECORDS SUMMARY | 2025-03-14 18:35 | XMS_ITS | Clinical Summary ---
Author Organization [facility] Address [address] [place] [address] Care Team Providers Care Route Process Administrator Name Role Phone Wil Cavanaugh MD Primary Care Provider Encounters Date Type Department Care Team Description 01/04/2025 Telephone [facility] Urology [address] [place] [address] Iwona Byrne I, RN Records [...] Info) Description 05/13/2025 8:20 AM EST Consult [facility] Urology [address] [place] [address] Marie Merino, FOUNDRY WORKER GENERAL, DNP [address] [place] [address] Health Maintenance Due Date Last Done Comments [facility]-Depression Screening 1998 [facility]-HIV Screening 1998 [facility]-Hepatitis C Screening 1998 [facility]-Infant/Child/Adol SDOH Screenings 1998 [facility]-Hepatitis B Vaccines (3 of 3 - 3-dose series) 06/01/1999 04/06/1999, 1998 HPV Vaccines (1 - 3-dose series) 2013 [facility]- SDOH Screenings 2016 [facility]-Adult SDOH Screenings 2016 [facility]-Pap Smear 09/13/2019 [id number] Vaccine ( season) 2025 02/10/2021, 01/20/2021 [facility]-Influenza [...] patient's age to complete this topic Insurance [facility] MEDICAID Care Teams Route Process Administrator Relationship Specialty Start Date End Date Wil Cavanaugh MD [address] [place], [place] [address] [facility] - General 10/21/20
--- NOTE | 2025-03-14 19:15 | ED_ITS ---
Discharge Plan Disposition Patient Disposition: Home, Self-Care Prescriptions Prescriptions: New cephalexin 500 mg capsule 500 mg PO BID 10 Days Qty: 20 0RF No Action norethindrone-e.estradiol-iron [ (28)] 1.5 mg-30 mcg (21)/75 mg (7) tablet 1 tab PO DAILY Qty: 84 3RF hydrocodone-acetaminophen 5-325 mg Tablet 1 - 2 tab PO Q6H PRN (Reason: Pain) Qty: 17 0RF vitamin N05-ampkk acid 0.5-1 mg Tablet 1 tab PO DAILY Referrals Follow up/Referrals: Wil Cavanaugh MD [Primary Care Provider, Internal Medicine] - See instructions Activity Restrictions/Add. Instructions Additional Instructions/Restrictions: Take antibiotics as directed. Please follow-up with surgeon. Clinical Impressions Clinical Impression: Abscess of skin or subcutaneous tissue Instructions Patient Instructions: DI for Skin Abscess Print Language Print Language: Qatari Discharge ED Provider: Dez Treadwell General Adult HPI <Berna Lauren (ED), PEBBLE MILL OPERATOR - Last Filed: 03/14/25 21:47> General Chief complaint: Skin/Abscess/Foreign Body Stated complaint: gallbladder out, and leaking incesion Time Seen by Provider: 03/14/25 18:48 Mode of Arrival: Ambulatory Source of Information: Patient Description of Symptoms (Recalled from ER Triage Doc. by RN): Reports having her gallbladder removed last Saturday and has begun to have drainage from her belly button incision. Complaint of diarrhea and nausea. Denies increased pain. History of Present Illness HPI narrative: 24-year-old female presents to the ED today for complaint of having her gallbladder removed last Saturday and it has began to have drainage from her incision at her umbilicus. This is the second time she has been here for this. The first time she was here the day of surgery and it was oozing a small amount of blood. This time she is concerned that the same incision site is draining yellowish brown drainage on her dressing. No fevers or chills. Patient and I discussed this and she and I talked about doing a wound culture which we agreed that we would do this and place her on empiric antibiotics. Related Data Home Medications ?Medication ?Instructions ?Recorded ?Confirmed vitamin B12 0.5 mg-folic acid 1 mg 1 tab PO DAILY 02/0903/08/25 tablet Previous Rx's ?Medication ?Instructions ?Recorded norethindrone 1.5 mg-ethinyl 1 tab PO DAILY #84 tabs 0 08/12/24 estradiol 30 mcg(21)/iron 75 mg(7) tablet ( FE (28)) hydrocodone 5 mg-acetaminophen 325 1 - 2 tab PO Q6H [place] N Pain #17 tabs 03/08/25 mg tablet cephalexin 500 mg capsule 500 mg PO BID 10 days #20 ca ps 03/14/25 Allergies Allergy/AdvReac Type Severity Reaction Status Date / Time No Known Allergies Allergy Verified 03/08/25 07:23 [facility] <Berna Lauren (ED), PEBBLE MILL OPERATOR - Last Filed: 03/14/25 21:47> [facility] Disclaimer: The information contained in this section may have been updated after the shereen claudio was seen, as this information can be updated by other users. Medical History (Updated 03/14/25 @ 19:32 by Berna Lauren (ED), PEBBLE MILL OPERATOR) Urinary tract infection symptoms Nausea & vomiting Pelvic pain in female Painful intercourse History of induced hypertension Acute blood loss anemia Elevated blood pressure affecting , antepartum Vaginal bleeding during , antepartum History of pre-eclampsia in prior , currently Tobacco use affecting , antepartum Maternal obesity affecting , antepartum Abnormal uterine bleeding Depression Anxiety Urinary tract infection Asthma Hypertension Surgical History History of biopsy History of surgery on arm S/P repeat low transverse History of tonsillectomy Hx of section Family History Other Asthma Cancer Diabetes FHx: mental illness Heart attack Hypertension Social History (Updated 03/08/25 @ 07:25 by Preeti Lo RN) Smoking Status: Current every day smoker tobacco type: e-cigarettes second hand exposure: No alcohol intake: never substance use type: denies use current occupational status: unemployed Travel in the last 8 weeks?: None household members: family housing: house do you feel safe at home: Yes victim of physical abuse: No victim of emotional abuse: No victim of sexual abuse: No Have you lived/traveled outside US in past 30 days?: No Contact w/someone who lives/traveled outside US past 30 days?: No Exposure to someone with infectious disease in past 14 days?: No Do you have a fever (greater than 100.4 F or 38 C)?: No Have you tested positive for COVID-19?: No Exposed to someone with COVID-19 in past 14 days?: No Do you have a sore throat?: No Do you have a cough?: No Do you have any weakness?: No Do you have any diarrhea?: No Are you experiencing any unusual bleeding?: No Do you have any muscle aches/pain?: No Do you have any abdominal pain?: No Are you experiencing loss of taste or smell?: No Other Medical History Have you received the Flu Vaccine for this season: No Have you received the Pneumonia Vaccine: No <Berna Lauren (ED), PEBBLE MILL OPERATOR - Last Filed: 03/14/25 21:47> ROS Obtained: Yes Systems reviewed as appropriate & no additional complaints except as documented Constitutional Constitutional: Reports as per HPI Physical Exam <Berna Lauren (ED), PEBBLE MILL OPERATOR - Last Filed: 03/14/25 21:47> General General appearance: alert Head Head exam: normocephalic Eye Eye exam: Present PERRL and EOMI ENT ENT exam: Present normal oropharynx and mucous membranes moist Neck Neck exam: Present full ROM and trachea midline Respiratory Respiratory exam: Present normal lung sounds bilaterally Cardiovascular Cardiovascular exam: Present regular rate, normal rhythm, normal heart sounds, +S1 and +S2 Abdominal Exam Abdominal exam: Present soft and normal bowel sounds Extremities Exam Extremities exam: Present full ROM and normal capillary refill Neurological Exam Neurological exam: Present alert, oriented X3 and normal gait Skin Skin exam: Present warm, intact and rash Medical Decision Making <Berna Lauren (ED), PEBBLE MILL OPERATOR - Last Filed: 03/14/25 21:47> Medical Records Screening: Per USPSTF and CDC recommendations, given the prevalence of disease in our region, it is our hospital?s policy to screen for HIV and viral Hepatitis for all patients aged 18 and over and those with ongoing risk factors. Gregory Inquiry Pt receiving controlled substance: No Gregory was queried for this patient: No Vital Signs: 03/14/25 18:27 03/14/25 19:40 Temperature 97.9 F 98.1 F Temperature Source Oral Pulse Rate 74 Pulse Rate [Radial] 58 L Respiratory Rate 16 20 Blood Pressure 132/84 Blood Pressure [Right Arm] 129/75 Blood Pressure Mean [Right Arm] 93 Blood Pressure Source [Right Arm] Manual Cuff/ Auscultation 02 Sat by Pulse Oximetry 99 Oxygen Delivery Method Room Air Room Air Orders (Tests/Meds): ED MEDICATIONS Discontinued Medications Generic Name Dose Route Start Last Admin Trade Name Freq PRN Reason Stop Dose Admin Cephalexin HCl 1,000 mg 03/14/25 19:09 03/14/25 19:24 Cephalexin 500mg Capsule PO 03/14/25 19:10 1,000 mg ONCE ONE Administration ORDERS Category Date Time Status Wound Culture and Gram Stain Stat Micro 03/14/25 18:56 Received Medical Decision Narrative: 24-year-old female presents to the ED for evaluation of drainage from her umbilicus where she had her gallbladder surgery. Patient is hemodynamically stable and nontoxic-appearing upon arrival, afebrile. Differential diagnosis includes surgical infection. Workup will be conducted with wound culture. Patient safe for discharge home with antibiotics and follow-up with surgeon. <Dez Treadwell MD - Last Filed: 03/14/25 22:00> Vital Signs: 03/14/25 18:27 03/14/25 19:40 Temperature 97.9 F 98.1 F Temperature Source Oral Pulse Rate 74 Pulse Rate [Radial] 58 L Respiratory Rate 16 20 Blood Pressure 132/84 Blood Pressure [Right Arm] 129/75 Blood Pressure Mean [Right Arm] 93 Blood Pressure Source [Right Arm] Manual Cuff/ Auscultation 02 Sat by Pulse Oximetry 99 Oxygen Delivery Method Room Air Room Air Orders (Tests/Meds): ED MEDICATIONS Discontinued Medications Generic Name Dose Route Start Last Admin Trade Name Freq PRN Reason Stop Dose Admin Cephalexin HCl 1,000 mg 03/14/25 19:09 03/14/25 19:24 Cephalexin 500mg Capsule PO 03/14/25 19:10 1,000 mg ONCE ONE Administration ORDERS Category Date Time Status Wound Culture and Gram Stain Stat Micro 03/14/25 18:56 Received Medical Decision Narrative: 24-year-old female presents to the ED for evaluation of drainage from her umbilicus where she had her gallbladder surgery. Patient is hemodynamically stable and nontoxic-appearing upon arrival, afebrile. Differential diagnosis includes surgical infection. Workup will be conducted with wound culture. Patient safe for discharge home with antibiotics and follow-up with surgeon. I was consulted by the TABITHA, and we discussed the complexity of the problems being addressed. I approved the treatment and management plan for this patient's care in the emergency department, thus performing a substantive portion of the medical decision making. Dez Treadwell MD Critical Care <Berna Lauren (ED), PEBBLE MILL OPERATOR - Last Filed: 03/14/25 21:47> Critical Care Time Critical Care Time: No
[2025-03-14 19:40] VITALS: BP 132/84; PULSE 74; RESP 20; TEMP 36.7; O2SAT 98
--- NOTE | 2025-03-17 02:54 | PC.NURSE ---
Prelim wound cx *no reportable results* will wait for final per Dr. Chester.
== END 2025-03-14 19:41 | disposition home or self-care (01) ==
PROVIDERS: Emergency Provider Emergency Medicine; PCP Internal Medicine Adolescent Medicine
DX: L02.211 Cutaneous abscess of abdominal wall (principal); B95.7 Other staphylococcus as the cause of diseases classified elsewhere
CPT/HCPCS: 87070; 87077; 87186; 87205; 99283

== ENCOUNTER 2025-04-18 10:51 | Emergency (ER) | payer OTHER, SELFPAY ==
[2025-04-18 10:51] VITALS: BP 133/95; PULSE 86; RESP 14; TEMP 36.9; O2SAT 99; BMI 32.9
--- OUTSIDE RECORDS SUMMARY | 2025-04-18 11:04 | XMS_ITS | Clinical Summary ---
Author Organization Healthcare Address [address] [place] [address] Care Team Providers Care Proofreader Name Role Phone Wil Cavanaugh MD Primary Care Provider [phone] Social History Tobacco Use Types Packs/Day Years [...] Info) Description 05/13/2025 8:20 AM EST Consult [facility] [address], [address] [place] [address] Marie Merino, TODD, DNP [address] [place] [address] Health Maintenance Due Date Last Done Comments [facility]-Depression Screening 1998 [facility]-HIV Screening 1998 [facility]-Hepatitis C Screening 1998 [facility]-Infant/Child/Adol SDOH Screenings 1998 [facility]-Hepatitis B Vaccines (3 of 3 - 3-dose series) 06/01/1999 04/06/1999, 1998 HPV Vaccines (1 - 3-dose series) 2013 [facility]- SDOH Screenings 2016 [facility]-Adult SDOH Screenings 2016 [facility]-Pap Smear 09/13/2019 [id number] Vaccine (3 - season) 2025 02/10/2021, 01/20/2021 [facility]-Influenza Vaccine (#1) [...] patient's age to complete this topic Insurance [employer] MEDICAID Care Teams Proofreader Relationship Specialty Start Date End Date Wil Cavanaugh MD [address] [place] [id number] PCP - General 10/21/20
--- OUTSIDE RECORDS SUMMARY | 2025-04-18 11:04 | XMS_ITS | Encounter Summary ---
Author Organization Healthcare Address [address] [place] [address] Care Team Providers Care Track Worker Name Role Phone Wil Cavanaugh MD Primary Care Provider Encounter Details Date Type Department Care Team (Late Contact Info) Description 11/23/2024 Orders Only External Location [address] [place] [address] Provider, External Social History Tobacco Use Types [...] Info) Description 05/13/2025 8:20 AM EST Consult [facility] [address], [address] [place] [address] Marie Merino, TODD, DNP [address] [place] [address] documented as of this encounter Procedures Procedure [...] on filedocumented in this encounter Care Teams Track Worker Relationship Specialty Start Date End Date Wil Cavanaugh MD [address] [place], [place] [address] PCP - General 10/21/20 documented as of this encounter
[2025-04-18 11:53] LABS: Coronavirus 19, PCR Not Detected (NotDetected); Influenza A, PCR Not Detected (NotDetected); Influenza B, PCR Not Detected (NotDetected)
[2025-04-18 12:31] LABS: Strep Scrn Group A (Rapid) Negative (Negative)
[2025-04-18 12:31] LABS: Hematocrit 39.8 % (37.0-47.0); Hemoglobin 13.6 g/dL (12.2-16.2); Immature Granulocytes % 0.2 %; Mean Corpuscular HGB Conc 34.2 g/dL (31.8-35.4); Mean Corpuscular Hemoglobin 29.4 pg (27.0-31.2); Mean Corpuscular Volume 86.0 fl (81-99); Nucleated Red Blood Cells % 0 %; Platelet Count 252 K/mm3 (142-424); Red Blood Count 4.63 M/mm3 (4.20-5.40); Red Cell Distribution Width-SD 38.5 fL; White Blood Count 6.5 K/mm3 (4.8-10.8)
[2025-04-18 12:43] LABS: Alanine Aminotransferase 23 U/L (12-78); Albumin Level 4.7 g/dl (3.5-5.0); Albumin/Globulin Ratio 1.4 (1.1-1.8); Alkaline Phosphatase 68 U/L (38-126); Anion Gap 10.8 mEq/L (5-15); Aspartate Amino Transferase 21 U/L (14-36); Bilirubin,Total 0.5 mg/dl (0.2-1.3); Blood Urea Nitrogen 6 mg/dl (7-17); Calcium 9.6 mg/dl (8.4-10.2); Carbon Dioxide 27 mmol/L (22.0-30.0); Chloride 105 mmol/L (98-107); Creatinine Clearance Estimated 173 mL/min (50-200); Creatinine,Serum 0.70 mg/dl (0.52-1.04); Estimated Glomerular Filt Rate 101 ml/min (>60); GFR (African American) 122 ML/MIN (>60); Globulin 3.3 g/dL (1.3-3.2); Glucose 87 mg/dl (74-100); Potassium 3.8 mmoL/L (3.5-5.1); Sodium 139 mmol/L (136-145); Total Protein,Serum 8.0 g/dl (6.3-8.2)
--- NOTE | 2025-04-18 13:16 | PC.NURSE ---
I rounded on the pt, took her a warm blanket for comfort and water for PO challenge. No new complaints at this time. no needs voiced. call landry in reach.
[2025-04-18] MEDS: ONDANSETRON 4MG ODT 4 MG SL (13:23)
[2025-04-18 13:35] VITALS: BP 135/85; PULSE 85; RESP 16; TEMP 36.6; O2SAT 100
--- NOTE | 2025-04-18 13:54 | ED_ITS ---
Discharge Plan Disposition Patient Disposition: Home, Self-Care Condition: Good Prescriptions Prescriptions: New ondansetron 4 mg tablet,disintegrating 4 mg PO Q8H PRN (Reason: nausea and vomiting) 3 Days Qty: 9 0RF No Action norethindrone-e.estradiol-iron [ (28)] 1.5 mg-30 mcg (21)/75 mg (7) tablet 1 tab PO DAILY Qty: 84 3RF hydrocodone-acetaminophen 5-325 mg Tablet 1 - 2 tab PO Q6H PRN (Reason: Pain) Qty: 17 0RF vitamin A19-qugiy acid 0.5-1 mg Tablet 1 tab PO DAILY cephalexin 500 mg capsule 500 mg PO BID 10 Days Qty: 20 0RF linezolid 600 mg tablet 600 mg PO BID 7 Days Qty: 14 0RF Referrals Follow up/Referrals: Forrest Floyd II, MD [Staff Physician, Gastroenterology] - See instructions Wil Cavanaugh MD [Primary Care Provider, Internal Medicine] - See instructions Activity Restrictions/Add. Instructions Additional Instructions/Restrictions: You were seen for a viral illness. Return here for any worsening of symptoms. Please see your PCP this week. Call to schedule with GI for the ongoing rectal bleeding. Return here if this worsens. Clinical Impressions Clinical Impression: Acute viral syndrome Instructions Patient Instructions: DI for Viral Syndrome Print Language Print Language: Citizen Of [place] Discharge ED Provider: Amelia Nielson General Adult HPI <CLIFF Ribeiro - Last Filed: 04/18/25 14:00> General Chief complaint: Upper Respiratory Infection Stated complaint: diarrhea, cough, runny nose Time Seen by Provider: 04/18/25 12:02 Mode of Arrival: Ambulatory Source of Information: Patient Description of Symptoms (Recalled from ER Triage Doc. by RN): pt states she woke up today with nasal congestion/drainage and nausea. pt states her children have been sick for a few days with GI upset. pt denies abd pain, CP, or SOA. History of Present Illness HPI narrative: Patient presents complaining of slight cough, runny nose, nausea and diarrhea. She reports symptoms started yesterday. Her children have similar symptoms. She had a cholecystectomy 1 month ago and reports she has had bloody diarrhea since that time. She reports that this is not uncommon for her even prior to surgery. She denies any fever. MD complaint: Nausea, diarrhea, URI symptoms Onset (ago): day(s) Radiation: non-radiation Severity: mild Consistency: intermittent Relieving factors: none Exacerbating factors: none Associated symptoms: negative fever/chills Treatments prior to arrival: none Related Data Home Medications ?Medication ?Instructions ?Recorded ?Confirmed vitamin B12 0.5 mg-folic acid 1 mg 1 tab PO DAILY 02/0903/08/25 tablet Previous Rx's ?Medication ?Instructions ?Recorded norethindrone 1.5 mg-ethinyl 1 tab PO DAILY #84 tabs 0 08/12/24 estradiol 30 mcg(21)/iron 75 mg(7) tablet ( ()) hydrocodone 5 mg-acetaminophen 325 1 - 2 tab PO Q6H [place] N Pain #17 tabs 03/08/25 mg tablet cephalexin 500 mg capsule 500 mg PO BID 10 days #20 ca ps 03/14/25 linezolid 600 mg tablet 600 mg PO BID 7 days #14 tab s 03/20/25 ondansetron 4 mg disintegrating 4 mg PO Q8H PRN nausea and 04/18/25 tablet vomiting 3 days #9 tabs Allergies Allergy/AdvReac Type Severity Reaction Status Date / Time No Known Allergies Allergy Verified 03/08/25 07:23 [facility] <CLIFF Ribeiro - Last Filed: 04/18/25 14:00> [facility] Disclaimer: The information contained in this section may have been updated after the patient was seen, as this information can be updated by other users. Medical History (Updated 04/18/25 @ 13:34 by CLIFF Ribeiro) Urinary tract infection symptoms Nausea & vomiting Pelvic pain in female Painful intercourse History of induced hypertension Acute blood loss anemia Elevated blood pressure affecting , antepartum Vaginal bleeding during , antepartum History of pre-eclampsia in prior , currently Tobacco use affecting , antepartum Maternal obesity affecting , antepartum Abnormal uterine bleeding Depression Anxiety Urinary tract infection Asthma Hypertension Surgical History History of biopsy History of surgery on arm S/P repeat low transverse History of tonsillectomy Hx of section Family History Other Asthma Cancer Diabetes FHx: mental illness Heart attack Hypertension Social History (Updated 03/08/25 @ 07:25 by Preeti Lo RN) Smoking Status: Current every day smoker tobacco type: e-cigarettes second hand exposure: No alcohol intake: never substance use type: denies use current occupational status: unemployed Travel in the last 8 weeks?: None household members: family housing: house do you feel safe at home: Yes victim of physical abuse: No victim of emotional abuse: No victim of sexual abuse: No Have you lived/traveled outside [place] in past 30 days?: No Contact w/someone who lives/traveled outside US past 30 days?: No Exposure to someone with infectious disease in past 14 days?: No Do you have a fever (greater than 100.4 F or 38 C)?: No Have you tested positive for COVID-19?: No Exposed to someone with COVID-19 in past 14 days?: No Do you have a sore throat?: No Do you have a cough?: No Do you have any weakness?: No Do you have any diarrhea?: No Are you experiencing any unusual bleeding?: No Do you have any muscle aches/pain?: No Do you have any abdominal pain?: No Are you experiencing loss of taste or smell?: No Other Medical History Have you received the Flu Vaccine for this season: No Have you received the Pneumonia Vaccine: No <CLIFF Ribeiro - Last Filed: 04/18/25 14:00> ROS Obtained: Yes Systems reviewed as appropriate & no additional complaints except as documented Physical Exam <CLIFF Ribeiro - Last Filed: 04/18/25 14:00> General General appearance: alert and in no apparent distress Head Head exam: atraumatic and normocephalic Eye Eye exam: Present normal appearance and EOMI ENT ENT exam: Present normal oropharynx, mucous membranes moist, TM's normal bilaterally, normal external ear exam and other (nasal congestion noted ) Chest Chest inspection: Present symmetric chest wall rise Respiratory Respiratory exam: Present normal lung sounds bilaterally; Absent wheezes or stridor Cardiovascular Cardiovascular exam: Present regular rate and normal rhythm; Absent systolic murmur Abdominal Exam Abdominal exam: Present soft; Absent distention, tenderness or guarding Extremities Exam Extremities exam: Present full ROM Neurological Exam Neurological exam: Present alert and oriented X3 Psychiatric Psychiatric exam: Present normal affect and normal mood Skin Skin exam: Present warm, dry and intact Medical Decision Making <CLIFF Ribeiro - Last Filed: 04/18/25 14:00> Medical Records Screening: Per USPSTF and CDC recommendations, given the prevalence of disease in our region, it is our hospital?s policy to screen for HIV and viral Hepatitis for all patients aged 18 and over and those with ongoing risk factors. Gregory Inquiry Pt receiving controlled substance: No Vital Signs: 04/18/25 10:51 04/18/25 13:35 Temperature 98.5 F 97.9 F Temperature Source Oral Oral Pulse Rate 85 Pulse Rate [Left] 86 Respiratory Rate 14 16 Blood Pressure 135/85 Blood Pressure [Right Arm] 133/95 H Blood Pressure Mean [Right Arm] 107 Blood Pressure Source Automatic Cuff Blood Pressure Source [Right Arm] Automatic Cuff Blood Pressure Position Sitting Blood Pressure Position [Right Arm] Sitting 02 Sat by Pulse Oximetry 99 Oxygen Delivery Method Room Air Room Air Lab Data Lab Results 04/18/25 11:46: SARS-CoV-2 (PCR) Not detected, Influenza A Untype (PCR) Not detected, Influenza Type B (PCR) Not detected 04/18/25 12:14: Group A Strep Rapid Negative 04/18/25 12:24: WBC 6.5, RBC 4.63, Hgb 13.6, Hct 39.8, MCV 86.0, MCH 29.4, MCHC 34.2, RDW 12.4, Plt Count 252, MPV 11.1 H, Neut % (Auto) 53.0, Lymph % (Auto) 30.5, [place] % (Auto) 8.3, Eos % (Auto) 7.8, Baso % (Auto) 0.2, Neut # (Auto) 3.5, Lymph # (Auto) 2.0, [place] # (Auto) 0.5, Eos # (Auto) 0.5 H, Baso # (Auto) 0.0, Sodium 139, Potassium 3.8, Chloride 105, Carbon Dioxide 27, Anion Gap 10.8, BUN 6 L, Creatinine 0.70, Estimated Creat Clear 173, Estimated GFR 101, Est GFR ( Amer) 122, Glucose 87, Calcium 9.6, Total Bilirubin 0.5, AST 21, ALT 23, Alkaline Phosphatase 68, Total Protein 8.0, Albumin 4.7, Globulin 3.3 H, Albumin/Globulin Ratio 1.4 04/18/25 12:24 04/18/25 12:24 Orders (Tests/Meds): ED MEDICATIONS Discontinued Medications Generic Name Dose Route Start Last Admin Trade Name Zak PRN Reason Stop Dose Admin Ondansetron HCl 4 mg 04/18/25 13:20 04/18/25 13:23 Ondansetron 4mg Odt SL 04/18/25 13:21 4 mg ONCE ONE Administration ORDERS Category Date Time Status CBC w/Auto Diff [Complete Blood Count Auto Diff] Stat Lab 04/18/25 12:24 Completed CMP [Comprehensive Metabolic Panel] Stat Lab 04/18/25 12:24 Completed Rapid PCR Covid and Flu A/B Stat Lab 04/18/25 11:46 Completed Strep Scrn Group A (Rapid) Stat Lab 04/18/25 12:14 Completed Strep Screen Confirmation Stat Micro 04/18/25 12:14 Received Medical Decision Narrative: In summary patient is a 24-year-old female who presents the emergency department for evaluation of URI symptoms, diarrhea. Patient is hemodynamically stable upon arrival, afebrile. Unremarkable physical exam. Differential diagnosis includes viral respiratory symptoms, anemia, electrolyte abnormality. Initial workup will be conducted with labs, COVID flu, strep. Initial inventions include Zofran. Initial workup reviewed by me unremarkable. Upon repeat evaluation patient is tolerating p.o. Given this patient is appropriate for discharge home at this time. Will give a referral for GI given her chronic intermittent bloody stools. Advise supportive care for likely viral illness. <Amelia Nielson MD - Last Filed: 04/18/25 14:39> Vital Signs: 04/18/25 10:51 04/18/25 13:35 Temperature 98.5 F 97.9 F Temperature Source Oral Oral Pulse Rate 85 Pulse Rate [Left] 86 Respiratory Rate 14 16 Blood Pressure 135/85 Blood Pressure [Right Arm] 133/95 H Blood Pressure Mean [Right Arm] 107 Blood Pressure Source Automatic Cuff Blood Pressure Source [Right Arm] Automatic Cuff Blood Pressure Position Sitting Blood Pressure Position [Right Arm] Sitting 02 Sat by Pulse Oximetry 99 Oxygen Delivery Method Room Air Room Air Lab Data Lab Results 04/18/25 11:46: SARS-CoV-2 (PCR) Not detected, Influenza A Untype (PCR) Not detected, Influenza Type B (PCR) Not detected 04/18/25 12:14: Group A Strep Rapid Negative 04/18/25 12:24: WBC 6.5, RBC 4.63, Hgb 13.6, Hct 39.8, MCV 86.0, MCH 29.4, MCHC 34.2, RDW 12.4, Plt Count 252, MPV 11.1 H, Neut % (Auto) 53.0, Lymph % (Auto) 30.5, [place] % (Auto) 8.3, Eos % (Auto) 7.8, Baso % (Auto) 0.2, Neut # (Auto) 3.5, Lymph # (Auto) 2.0, [place] # (Auto) 0.5, Eos # (Auto) 0.5 H, Baso # (Auto) 0.0, Sodium 139, Potassium 3.8, Chloride 105, Carbon Dioxide 27, Anion Gap 10.8, BUN 6 L, Creatinine 0.70, Estimated Creat Clear 173, Estimated GFR 101, Est GFR ( Amer) 122, Glucose 87, Calcium 9.6, Total Bilirubin 0.5, AST 21, ALT 23, Alkaline Phosphatase 68, Total Protein 8.0, Albumin 4.7, Globulin 3.3 H, Albumin/Globulin Ratio 1.4 Orders (Tests/Meds): ED MEDICATIONS Discontinued Medications Generic Name Dose Route Start Last Admin Trade Name Freq PRN Reason Stop Dose Admin Ondansetron HCl 4 mg 04/18/25 13:20 04/18/25 13:23 Ondansetron 4mg Odt SL 04/18/25 13:21 4 mg ONCE ONE Administration ORDERS Category Date Time Status CBC w/Auto Diff [Complete Blood Count Auto Diff] Stat Lab 04/18/25 12:24 Completed CMP [Comprehensive Metabolic Panel] Stat Lab 04/18/25 12:24 Completed Rapid PCR Covid and Flu A/B Stat Lab 04/18/25 11:46 Completed Strep Scrn Group A (Rapid) Stat Lab 04/18/25 12:14 Completed Strep Screen Confirmation Stat Micro 04/18/25 12:14 Received Medical Decision Narrative: In summary patient is a 24-year-old female who presents the emergency department for evaluation of URI symptoms, diarrhea. Patient is hemodynamically stable upon arrival, afebrile. Unremarkable physical exam. Differential diagnosis includes viral respiratory symptoms, anemia, electrolyte abnormality. Initial workup will be conducted with labs, COVID flu, strep. Initial inventions include Zofran. Initial workup reviewed by me unremarkable. Upon repeat evaluation patient is tolerating p.o. Given this patient is appropriate for discharge home at this time. Will give a referral for GI given her chronic intermittent bloody stools. Advise supportive care for likely viral illness. I was consulted by the TABITHA, and we discussed the complexity of problems being addressed. I approved the treatment and management plan for this patient's care in the emergency department, thus performing a substantial portion of the medical decision making. Amelia Nielson MD Critical Care <CLIFF Ribeiro - Last Filed: 04/18/25 14:00> Critical Care Time Critical Care Time: No
== END 2025-04-18 13:39 | disposition home or self-care (01) ==
PROVIDERS: Physician Assistant; Emergency Provider Student in an Organized Health Care Education/Training Program; PCP Internal Medicine Adolescent Medicine
DX: R11.0 Nausea (principal); R19.7 Diarrhea, unspecified; B34.9 Viral infection, unspecified
CPT/HCPCS: 80053; 85025; 87430; 87636; 99283; Q0162

== ENCOUNTER 2025-05-15 21:14 | Emergency (ER) | payer OTHER, SELFPAY ==
--- OUTSIDE RECORDS SUMMARY | 2025-05-15 21:21 | XMS_ITS | Clinical Summary ---
Author Organization Healthcare Address [address] [place] [address] Care Team Providers Care Test Boring Crew Chief Name Role Phone Wil Cavanaugh MD Primary Care Provider [phone] Encounters Date Type Department Care Team Description 05/12/2025 Telephone [facility] [address] [place] [address] Marie Merino APRN, DNP from Last 3 Months Social History Tobacco Use Types Packs/Day Years Used Date Smoking Tobacco: Never Assessed Comments Unknown Sex and Gender Information Value Date Recorded Sex Assigned at Not on file Legal Sex Female 8:33 PM EDT Gender Identity Not on file Sexual Orientation Not on file Plan of Treatment Health Maintenance Due Date Last Done Comments [facility]-Depression Screening 1998 [facility]-HIV Screening 1998 [facility]Hepatitis C Screening 1998 [facility]-/Child/Adol SDOH Screenings 1998 [facility]-Hepatitis B Vaccines (3 of 3 - 3-dose series) 06/01/1999 04/06/1999, 1998 HPV Vaccines (1 - 3-dose series) 2013 [facility]- SDOH Screenings 2016 [facility]-Adult SDOH Screenings 2016 [facility]-Pap Smear 09/13/2019 [id number] Vaccine (3 - season) 2025 02/10/2021, 01/20/2021 [...] Insurance [employer] Care Teams Test Boring Crew Chief Relationship Specialty Start Date End Date Wil Cavanaugh MD [address] [place] [id number] PCP - General 10/21/20
--- OUTSIDE RECORDS SUMMARY | 2025-05-15 21:21 | XMS_ITS | Encounter Summary ---
Author Organization Healthcare Address [address] [place] [address] Care Team Providers Care Training Technician Name Role Phone iWl Cavanaugh MD Primary Care Provider [phone] Encounter Details Date Type Department Care Team (Late st Contact Info) Description 05/12/2025 Telephone [facility] [address] [place] [address] Marie Merino APRN, DNP [address] [place] [address] Social History Tobacco Use Types Packs/Day Years Used Date Smoking Tobacco: Never Assessed Comments Unknown Sex and Gender Information Value Date Recorded Sex Assigned at Not on file Legal Sex Female 8:33 PM EDT Gender Identity Not on file Sexual Orientation Not on file documented as of this encounter Miscellaneous Notes * Telephone Encounter - Lala Wick - 05/12/2025 1:00 PM EST 05/12/2025 Could not leave a voice message, ' an automated message came on the line, ' the person you are trying to reach has a voice mail corky that has not been sertup. Try again later'. The patient did not have another contact in her mychart to leave a message.KJa documented in this encounter Plan of Treatment Not on file documented as of this encounter Visit Diagnoses Not on filedocumented in this encounter Care Teams Training Technician Relationship Specialty Start Date End Date Wil Cavanaugh MD [address] [place] [id number] PCP - General 10/21/20 documented as of this encounter
--- OUTSIDE RECORDS SUMMARY | 2025-05-15 21:21 | XMS_ITS | Encounter Summary ---
Author Organization Healthcare Address [address] [place] [address] Care Team Providers Care Screen Printing Machine Operator Helper Name Role Phone Wil Cavanaugh MD Primary Care Provider Encounter Details Date Type Department Care Team ([facility] st Contact Info) Description 11/23/2024 Orders Only External Location [address] [place] [address] Provider, External Social History Tobacco Use Types Packs/Day Years Used Date Smoking Tobacco: Never Assessed Comments Unknown Sex and Gender Information Value Date Recorded Sex Assigned at Not on file Legal Sex Female 8:33 PM EDT Gender Identity Not on file Sexual Orientation Not on file documented as of this encounter Plan of Treatment Not on file documented as of this encounter Procedures Procedure [...] on filedocumented in this encounter Care Teams Screen Printing Machine Operator Helper Relationship Specialty Start Date End Date Wil Cavanaugh MD [address] [place] [id number] PCP - General 10/21/20 documented as of this encounter
[2025-05-15 21:22] VITALS: BP 136/103; PULSE 92; RESP 18; TEMP 36.8; O2SAT 100; BMI 31.9
--- NOTE | 2025-05-15 21:28 | ED_ITS ---
Discharge Plan Disposition Patient Disposition: Home, Self-Care Prescriptions Prescriptions: New nitrofurantoin monohyd/m-cryst [Macrobid] 100 mg capsule 100 mg PO BID 5 Days Qty: 10 0RF Rx Instructions: must administer with a meal/food ondansetron 4 mg tablet,disintegrating 4 mg PO Q6H PRN (Reason: nausea and vomiting) Qty: 12 0RF No Action norethindrone-e.estradiol-iron [.5/30 (28)] 1.5 mg-30 mcg (21)/75 mg (7) tablet 1 tab PO DAILY Qty: 84 3RF hydrocodone-acetaminophen 5-325 mg Tablet 1 - 2 tab PO Q6H PRN (Reason: Pain) Qty: 17 0RF vitamin [id number] acid 0.5-1 mg Tablet 1 tab PO DAILY cephalexin 500 mg capsule 500 mg PO BID 10 Days Qty: 20 0RF linezolid 600 mg tablet 600 mg PO BID 7 Days Qty: 14 0RF ondansetron 4 mg tablet,disintegrating 4 mg PO Q8H PRN (Reason: nausea and vomiting) 3 Days Qty: 9 0RF Referrals Follow up/Referrals: Wil Cavanaugh MD [Primary Care Provider, Internal Medicine] - See instructions Activity Restrictions/Add. Instructions Additional Instructions/Restrictions: Your workup today shows a mild urinary tract infection. Take the antibiotics as prescribed. You also likely have bronchitis as the source of your cough. You can take Tylenol and ibuprofen to help with your symptoms. I encourage you to follow-up with one of the primary care doctors on the list provided to you. If you develop any new or worsening symptoms, or if you become concerned for your health for any reason, return to the emergency department for evaluation. Clinical Impressions Clinical Impression: UTI (urinary tract infection), Cough Instructions Patient Instructions: Cough Print Language Print Language: Japanese Discharge ED Provider: Paco Nowak Adult HPI <CLIFF Garcia - Last Filed: 05/15/25 22:14> General Chief complaint: Cough Stated complaint: shortness of breath pain in both ribs Time Seen by Provider: 05/15/25 21:18 Mode of Arrival: Ambulatory Source of Information: Patient and Medical Record Limitations: No Limitations History of Present Illness HPI narrative: 24-year-old female presents the emergency department with subjective fever chills for last 2 days, cough congestion that is productive at times, for the last 2 weeks, some shortness of breath, denies any chest pain, denies any vomiting, does admit to nausea, denies any overt abdominal pain, denies any urinary symptomatology, has had abdominal cramps and urinary symptomatology over the last several weeks was told that she has a stone , but has had no real flank pain or hematuria, denies any vaginal bleeding no vaginal discharge, patient is a current everyday smoker, denies any alcohol or drug use except for occasional THC use, other past medical history is consistent with vitamin B12 deficiency, otherwise unremarkable past medical history. Also of note, I was able to review the patient's prior diagnostic imaging, patient had renal ultrasound performed in January 2025, that showed a nonobstructing left renal calculus. Please note that above description of symptoms, in this electronic medical record under categorization of recalled from ER triage doctor by RN are reflective of an initial nursing assessment, however, is not reflective of my full history and physical exam that was personally taken and clarified. Consequentially, this preceding description of symptoms, which may include the patient's categorized chief complaint in the EMR, do not reflect my personal clinical impression, and the ultimate description of history of present illness and patient stated complaints should be deferred to this section of the note. Unless stated otherwise or congruent with this section of the note, additional signs, symptoms, or incongruence should be interpreted as inaccurate with my clinical impression. Onset (ago): week(s) Related Data Home Medications ?Medication ?Instructions ?Recorded ?Confirmed vitamin B12 0.5 mg-folic acid 1 mg 1 tab PO DAILY 02/0903/08/25 tablet Previous Rx's ?Medication ?Instructions ?Recorded norethindrone 1.5 mg-ethinyl 1 tab PO DAILY #84 tabs 0 08/12/24 estradiol 30 mcg(21)/iron 75 mg(7) tablet ( ()) hydrocodone 5 mg-acetaminophen 325 1 - 2 tab PO Q6H NC N Pain #17 tabs 03/08/25 mg tablet cephalexin 500 mg capsule 500 mg PO BID 10 days #20 ca ps 03/14/25 linezolid 600 mg tablet 600 mg PO BID 7 days #14 tab s 03/20/25 ondansetron 4 mg disintegrating 4 mg PO Q8H PRN nausea and 04/18/25 tablet vomiting 3 days #9 tabs nitrofurantoin 100 mg PO BID 5 days #10 cap s 05/15/25 monohydrate/macrocrystals 100 mg capsule (Macrobid) ondansetron 4 mg disintegrating 4 mg PO Q6H PRN nausea and 05/15/25 tablet vomiting #12 tabs Allergies Allergy/AdvReac Type Severity Reaction Status Date / Time No Known Allergies Allergy Verified 03/08/25 07:23 [facility] <CLIFF Garcia - Last Filed: 05/15/25 22:14> [facility] Disclaimer: The information contained in this section may have been updated after the patient was seen, as this information can be updated by other users. Medical History (Updated 05/15/25 @ 22:26 by Paco Nowak MD) Urinary tract infection symptoms Nausea & vomiting Pelvic pain in female Painful intercourse History of induced hypertension Acute blood loss anemia Elevated blood pressure affecting , antepartum Vaginal bleeding during , antepartum History of pre-eclampsia in prior , currently Tobacco use affecting , antepartum Maternal obesity affecting , antepartum Abnormal uterine bleeding Depression Anxiety Urinary tract infection Asthma Hypertension Surgical History History of biopsy History of surgery on arm S/P repeat low transverse History of tonsillectomy Hx of section Family History Other Asthma Cancer Diabetes FHx: mental illness Heart attack Hypertension Social History (Updated 03/08/25 @ 07:25 by Preeti Lo RN) Smoking Status: Current every day smoker tobacco type: e-cigarettes second hand exposure: No alcohol intake: never substance use type: denies use current occupational status: unemployed Travel in the last 8 weeks?: None household members: family housing: house do you feel safe at home: Yes victim of physical abuse: No victim of emotional abuse: No victim of sexual abuse: No Have you lived/traveled outside [place] in past 30 days?: No Contact w/someone who lives/traveled outside US past 30 days?: No Exposure to someone with infectious disease in past 14 days?: No Do you have a fever (greater than 100.4 F or 38 C)?: No Have you tested positive for COVID-19?: No Exposed to someone with COVID-19 in past 14 days?: No Do you have a sore throat?: No Do you have a cough?: No Do you have any weakness?: No Do you have any diarrhea?: No Are you experiencing any unusual bleeding?: No Do you have any muscle aches/pain?: No Do you have any abdominal pain?: No Are you experiencing loss of taste or smell?: No Other Medical History Have you received the Flu Vaccine for this season: No Have you received the Pneumonia Vaccine: No <CLIFF Garcia - Last Filed: 05/15/25 22:14> ROS Obtained: Yes All systems reviewed & no additional complaints except as documented Physical Exam <CLIFF Garcia - Last Filed: 05/15/25 22:14> General General appearance: alert and in no apparent distress Head Head exam: atraumatic and normocephalic Eye Eye exam: Present PERRL and EOMI ENT ENT exam: Present mucous membranes moist Neck Neck exam: Present normal inspection Chest Chest inspection: Present normal inspection and symmetric chest wall rise Respiratory Respiratory exam: Present wheezes and other (Minimal wheezes and crackles noted throughout bilateral lung field); Absent normal lung sounds bilaterally or respiratory distress Cardiovascular Cardiovascular exam: Present regular rate and normal rhythm Abdominal Exam Abdominal exam: Present soft; Absent tenderness, guarding, rebound or rigidity Extremities Exam Extremities exam: Present normal inspection Neurological Exam Neurological exam: Present alert and oriented X3 Psychiatric Psychiatric exam: Present normal affect Skin Skin exam: Present warm and dry Medical Decision Making <CLIFF Garcia - Last Filed: 05/15/25 22:14> Medical Records Medical records reviewed: Yes I reviewed the patient's medical records. Screening: Per USPSTF and CDC recommendations, given the prevalence of disease in our region, it is our hospital?s policy to screen for HIV and viral Hepatitis for all patients aged 18 and over and those with ongoing risk factors. Gregory Inquiry Pt receiving controlled substance: No Gregory was queried for this patient: No Vital Signs: 05/15/25 21:22 05/15/25 21:32 05/15/25 21:34 Temperature 98.3 F 98.9 F Temperature Source Oral Oral Pulse Rate 92 H 88 Pulse Rate [Right] 92 H Respiratory Rate 18 18 18 Blood Pressure 136/103 H 167/94 H Blood Pressure [Right Arm] 136/103 H Blood Pressure Mean [Right Arm] 114 02 Sat by Pulse Oximetry 100 100 Oxygen Delivery Method Room Air Room Air Room Air Lab Data Lab results reviewed: Yes I reviewed the patient's lab results. Lab Results 05/15/25 21:21: Urine HCG, Qual Negative, SARS-CoV-2 (PCR) Not detected, Influenza A Untype (PCR) Not detected, Influenza Type B (PCR) Not detected 05/15/25 21:22: Urine Color Yellow, Urine Appearance Clear, Urine pH 5.5, Ur Specific [place] 1.015, Urine Protein Negative, Urine Glucose (UA) Negative, Urine Ketones Negative, Urine Blood Trace-i, Urine Nitrate Negative, Urine Bilirubin Negative, Urine Urobilinogen 0.2, Ur Leukocyte Esterase 1+ A, Urine RBC None, Urine WBC 5-10, Ur Squamous Epith Cells 3-5, Urine Bacteria 3+ 05/15/25 21:53: WBC 12.7 H, RBC 4.90, Hgb 14.5, Hct 42.0, MCV 85.7, MCH 29.6, MCHC 34.5, RDW 12.6, Plt Count 324, MPV 11.0 H, Neut % (Auto) 59.4, Lymph % (Auto) 24.6, [place] % (Auto) 5.4, Eos % (Auto) 10.2, Baso % (Auto) 0.2, Neut # (Auto) 7.5, Lymph # (Auto) 3.1, [place] # (Auto) 0.7, Eos # (Auto) 1.3 H, Baso # (Auto) 0.0, Sodium 134 L, Potassium 3.4 L, Chloride 101, Carbon Dioxide 23, Anion Gap 13.4, BUN 6 L, Creatinine 0.90, Estimated Creat Clear 130, Estimated GFR 76, Est GFR ( Amer) 92, Glucose 94, Calcium 9.7, Magnesium 2.0, Total Bilirubin 0.7, AST 20, ALT 13, Alkaline Phosphatase 75, Total Protein 8.5 H, A lbumin 5.1 H, Globulin 3.4 H, Albumin/Globulin Ratio 1.5 05/15/25 21:53 05/15/25 21:53 Orders (Tests/Meds): ED MEDICATIONS Generic Name Dose Route Start Last Admin Trade Name Byronq PRN Reason Stop Dose Admin Nitrofurantoin Macrocrystals 100 mg 05/15/25 22:26 Nitrofurantoin 100mg Capsule PO 05/15/25 22:27 ONCE ONE Discontinued Medications Generic Name Dose Route Start Last Admin Trade Name Byronq PRN Reason Stop Dose Admin Ondansetron HCl 4 mg 05/15/25 21:37 05/15/25 22:01 Ondansetron 4mg/2ml Vial IV 05/15/25 21:38 4 mg ONCE ONE Administration ORDERS Category Date Time Status XR chest portable Stat Exams 05/15/25 21:37 Completed Complete Blood Count Auto Diff Stat Lab 05/15/25 21:53 Completed Comprehensive Metabolic Panel Stat Lab 05/15/25 21:53 Completed Magnesium Stat Lab 05/15/25 21:53 Completed Rapid PCR Covid and Flu A/B Stat Lab 05/15/25 21:21 Completed Urinalysis and Microscopic Stat Lab 05/15/25 21:22 Completed Urine , HCG Qual. Stat Lab 05/15/25 21:21 Completed Urine Culture Stat Micro 05/15/25 21:22 Received Medical Decision Narrative: 24-year-old female presents to the emergency department with productive cough congestion for the last 2 weeks, as well as subjective fever and chills for the last 2 days, differential diagnose include but not limited to acute bronchitis, viral URI, pneumonia, cardiac arrhythmia, acute UTI, electrolyte disturbance among others. Will obtain basic amatory studies, PCR COVID and flu, UA, urine hCG, magnesium level, EKG and chest x-ray for further evaluation/characterization. UA is notable for trace hematuria, negative nitrites, 1+ leukocyte esterase I reviewed the patient's chest x-ray along the corresponding radiologic report, no acute findings Microscopic analysis of the patient's urine is notable for no RBCs, 5-10 WBCs, 3-5 squamous epithelial cells 3+ bacteria I discussed this patient's case with attending physician Dr. Dodson at shift change, he will be assuming the patient's care/workup, disposition is pending laboratory studies, and clinical reassessment. <Paco Nowak MD - Last Filed: 05/15/25 22:30> Vital Signs: 05/15/25 21:22 05/15/25 21:32 05/15/25 21:34 Temperature 98.3 F 98.9 F Temperature Source Oral Oral Pulse Rate 92 H 88 Pulse Rate [Right] 92 H Respiratory Rate 18 18 18 Blood Pressure 136/103 H 167/94 H Blood Pressure [Right Arm] 136/103 H Blood Pressure Mean [Right Arm] 114 02 Sat by Pulse Oximetry 100 100 Oxygen Delivery Method Room Air Room Air Room Air Lab Data Lab Results 05/15/25 21:21: Urine HCG, Qual Negative, SARS-CoV-2 (PCR) Not detected, Influenza A Untype (PCR) Not detected, Influenza Type B (PCR) Not detected 05/15/25 21:22: Urine Color Yellow, Urine Appearance Clear, Urine pH 5.5, Ur Specific [place] 1.015, Urine Protein Negative, Urine Glucose (UA) Negative, Urine Ketones Negative, Urine Blood Trace-i, Urine Nitrate Negative, Urine Bilirubin Negative, Urine Urobilinogen 0.2, Ur Leukocyte Esterase 1+ A, Urine RBC None, Urine WBC 5-10, Ur Squamous Epith Cells 3-5, Urine Bacteria 3+ 05/15/25 21:53: WBC 12.7 H, RBC 4.90, Hgb 14.5, Hct 42.0, MCV 85.7, MCH 29.6, MCHC 34.5, RDW 12.6, Plt Count 324, MPV 11.0 H, Neut % (Auto) 59.4, Lymph % (Auto) 24.6, [place] % (Auto) 5.4, Eos % (Auto) 10.2, Baso % (Auto) 0.2, Neut # (Auto) 7.5, Lymph # (Auto) 3.1, [place] # (Auto) 0.7, Eos # (Auto) 1.3 H, Baso # (Auto) 0.0, Sodium 134 L, Potassium 3.4 L, Chloride 101, Carbon Dioxide 23, Anion Gap 13.4, BUN 6 L, Creatinine 0.90, Estimated Creat Clear 130, Estimated GFR 76, Est GFR ( Amer) 92, Glucose 94, Calcium 9.7, Magnesium 2.0, Total Bilirubin 0.7, AST 20, ALT 13, Alkaline Phosphatase 75, Total Protein 8.5 H, A lbumin 5.1 H, Globulin 3.4 H, Albumin/Globulin Ratio 1.5 Orders (Tests/Meds): ED MEDICATIONS Generic Name Dose Route Start Last Admin Trade Name Freq PRN Reason Stop Dose Admin Nitrofurantoin Macrocrystals 100 mg 05/15/25 22:26 Nitrofurantoin 100mg Capsule PO 05/15/25 22:27 ONCE ONE Discontinued Medications Generic Name Dose Route Start Last Admin Trade Name Freq PRN Reason Stop Dose Admin Ondansetron HCl 4 mg 05/15/25 21:37 05/15/25 22:01 Ondansetron 4mg/2ml Vial IV 05/15/25 21:38 4 mg ONCE ONE Administration ORDERS Category Date Time Status XR chest portable Stat Exams 05/15/25 21:37 Completed Complete Blood Count Auto Diff Stat Lab 05/15/25 21:53 Completed Comprehensive Metabolic Panel Stat Lab 05/15/25 21:53 Completed Magnesium Stat Lab 05/15/25 21:53 Completed Rapid PCR Covid and Flu A/B Stat Lab 05/15/25 21:21 Completed Urinalysis and Microscopic Stat Lab 05/15/25 21:22 Completed Urine , HCG Qual. Stat Lab 05/15/25 21:21 Completed Urine Culture Stat Micro 05/15/25 21:22 Received ECG Data Tracing #1: I reviewed this ECG and interpreted as documented below: Normal sinus rhythm. No ST elevation or depression. QTc normal at 418 Medical Decision Narrative: 24-year-old female presents to the emergency department with productive cough congestion for the last 2 weeks, as well as subjective fever and chills for the last 2 days, differential diagnose include but not limited to acute bronchitis, viral URI, pneumonia, cardiac arrhythmia, acute UTI, electrolyte disturbance among others. Will obtain basic amatory studies, PCR COVID and flu, UA, urine hCG, magnesium level, EKG and chest x-ray for further evaluation/characterization. UA is notable for trace hematuria, negative nitrites, 1+ leukocyte esterase I reviewed the patient's chest x-ray along the corresponding radiologic report, no acute findings Microscopic analysis of the patient's urine is notable for no RBCs, 5-10 WBCs, 3-5 squamous epithelial cells 3+ bacteria I discussed this patient's case with attending physician Dr. Dodson at shift change, he will be assuming the patient's care/workup, disposition is pending laboratory studies, and clinical reassessment. Paco Nowak MD: I was consulted by the TABITHA, and we discussed the complexity of the problems being addressed. I approve the treatment and management plan for this patient's care in the emergency department, thus performing a substantive portion of the medical decision making. Patient's workup shows mild leukocytosis at 12.7 without neutrophilia. No anemia. Mild hyponatremia at 134 and very mild hypokalemia at 3.4 but otherwise unremarkable nonactionable. No JOHN. Liver enzymes and bili are within normal limits. Urinalysis shows 1+ leukocyte esterase, negative nitrate, 5-10 white blood cells and no red blood cells on microscopy. Patient also has 3+ urinary bacteria. Negative test. Has likely represents a mild urinary tract infection. Chest x-ray interpreted by me personally. No focal consolidation, no pneumothorax, no widened mediastinum, no enlargement of the cardiac silhouette. Unremarkable chest x-ray. See radiology report for details. On reassessment, patient remains in stable condition. Will give a dose of Macrobid here and send in a 5- day course to her pharmacy. Will also send in Zofran for her symptoms. I do feel that she likely has bronchitis as the source of her cough. Recommended symptomatic treatment. Will provide list of primary care doctors for her to follow-up with. All questions were answered. Return precautions were given. She demonstrated understanding and was in agreement this plan. She was then discharged from the emergency department in stable condition. Critical Care <CLIFF Garcia - Last Filed: 05/15/25 22:14> Critical Care Time Critical Care Time: No
[2025-05-15 21:32] VITALS: BP 136/103; PULSE 92; RESP 18; O2SAT 100
[2025-05-15 21:32] LABS: Coronavirus 19, PCR Not Detected (NotDetected); Influenza A, PCR Not Detected (NotDetected); Influenza B, PCR Not Detected (NotDetected)
[2025-05-15 21:34] VITALS: BP 134/84; PULSE 88; RESP 18; TEMP 37.2; O2SAT 99
[2025-05-15 21:35] LABS: Urine Pregnancy, HCG Qual. Negative (Negative)
--- NOTE | 2025-05-15 21:37 | XR_ITS ---
PROCEDURE INFORMATION: Exam: XR Chest Exam date and time: 05/15/2025 9:55 PM Age: 24 years old Clinical indication: Cough and shortness of breath; Additional info: SOA, productive cough TECHNIQUE: Imaging protocol: Radiologic exam of the chest. Views: 1 view. COMPARISON: CR XR CHEST PORTABLE 11/23/2024 5:19 PM FINDINGS: Lungs: No consolidation. Pleural spaces: No pleural effusion. No pneumothorax. Heart/Mediastinum: No cardiomegaly. Bones/joints: Unremarkable. IMPRESSION: No acute findings.
[2025-05-15 21:40] LABS: Microscopic, Urine URINE MICROSCOPIC (MICROSCOPIC)
--- NOTE | 2025-05-15 21:43 | ECG_ITS ---
APPROVED REPORT Exam: Resting ECG HR:83 bpm ECG Measurements Heart Rate 83 AXES CA 179 P 68 QRSd 84 QRS 29 QT 378 T 71 QTc 418 Conclusion SINUS RHYTHM NORMAL ECG Electronically signed by : RADHA HAUSER, 05/20/2025 03:01:39
[2025-05-15 21:50] LABS: Bilirubin,Urine Negative (Negative); Color,Urine YELLOW (Yellow); Glucose,Urine (UA) Negative (Negative); Ketones,Urine Negative (Negative); Leukocyte Esterase,Urine 1+ (Negative); PH,Urine 5.5 (5.0-8.5); Protein,Urine Negative (Negative); Specific Gravity, Urine 1.015 (1.005-1.030); Urobilinogen,Urine 0.2 EU/dl (0.2)
[2025-05-15 21:59] LABS: Bacteria,Urine 3+ /lpf
[2025-05-15] MEDS: ONDANSETRON 4MG/2ML VIAL 4 MG IV (22:01)
[2025-05-15 22:11] LABS: Alanine Aminotransferase 13 U/L (12-78); Albumin Level 5.1 g/dl (3.5-5.0); Albumin/Globulin Ratio 1.5 (1.1-1.8); Alkaline Phosphatase 75 U/L (38-126); Anion Gap 13.4 mEq/L (5-15); Aspartate Amino Transferase 20 U/L (14-36); Bilirubin,Total 0.7 mg/dl (0.2-1.3); Blood Urea Nitrogen 6 mg/dl (7-17); Calcium 9.7 mg/dl (8.4-10.2); Carbon Dioxide 23 mmol/L (22.0-30.0); Chloride 101 mmol/L (98-107); Creatinine Clearance Estimated 130 mL/min (50-200); Creatinine,Serum 0.90 mg/dl (0.52-1.04); Estimated Glomerular Filt Rate 76 ml/min (>60); GFR (African American) 92 ML/MIN (>60); Globulin 3.4 g/dL (1.3-3.2); Glucose 94 mg/dl (74-100); Magnesium 2.0 mg/dl (1.6-2.3); Potassium 3.4 mmoL/L (3.5-5.1); Sodium 134 mmol/L (136-145); Total Protein,Serum 8.5 g/dl (6.3-8.2)
[2025-05-15 22:15] LABS: Hematocrit 42.0 % (37.0-47.0); Hemoglobin 14.5 g/dL (12.2-16.2); Immature Granulocytes % 0.2 %; Mean Corpuscular HGB Conc 34.5 g/dL (31.8-35.4); Mean Corpuscular Hemoglobin 29.6 pg (27.0-31.2); Mean Corpuscular Volume 85.7 fl (81-99); Nucleated Red Blood Cells % 0 %; Platelet Count 324 K/mm3 (142-424); Red Blood Count 4.90 M/mm3 (4.20-5.40); Red Cell Distribution Width-SD 39.2 fL; White Blood Count 12.7 K/mm3 (4.8-10.8)
[2025-05-15] MEDS: NITROFURANTOIN 100MG CAPSULE 100 MG PO (22:38)
--- NOTE | 2025-05-18 08:48 | PC.NURSE ---
Preliminary urine culture reviewed by Dr. Multani, no change in treatment at this time.
--- NOTE | 2025-05-19 09:35 | PC.NURSE ---
Final urine culture discussed with . No change needed to antibiotic.
== END 2025-05-15 22:41 | disposition home or self-care (01) ==
PROVIDERS: Physician Assistant; Emergency Provider Student in an Organized Health Care Education/Training Program; PCP Internal Medicine Adolescent Medicine
DX: N39.0 Urinary tract infection, site not specified (principal); R06.02 Shortness of breath; R06.2 Wheezing; R05.1 Acute cough; F17.290 Nicotine dependence, other tobacco product, uncomplicated; B96.20 Unspecified Escherichia coli [E. coli] as the cause of diseases classified elsewhere
CPT/HCPCS: 71045; 80053; 81001; 81025; 83735; 85025; 87086; 87088; 87186; 87636; 93005; 96374; 99284; J2405

== ENCOUNTER 2025-05-21 16:27 | Emergency (ER) | payer OTHER, SELFPAY ==
[2025-05-21 16:35] VITALS: BP 144/95; PULSE 75; RESP 18; TEMP 37.1; O2SAT 96; BMI 31.2
--- NOTE | 2025-05-21 16:50 | XR_ITS ---
PROCEDURE INFORMATION: Exam: XR Left Ribs Exam date and time: 05/21/2025 5:46 PM Age: 24 years old Clinical indication: Chest wall pain; Left; Additional info: Pain. Upper left sided pain TECHNIQUE: Imaging protocol: Radiologic exam of the left ribs. Views: 2 views. COMPARISON: CR XR CHEST PORTABLE 05/15/2025 9:55 PM FINDINGS: Bones/joints: No rib abnormality. Soft tissues: Normal. IMPRESSION: No acute findings.
--- NOTE | 2025-05-21 16:56 | ED_ITS ---
<Statement entered by Sandy Fine DO - 05/23/25 23:23> I was consulted by the TABITHA, and we discussed the complexity of problems being addressed. I approve the treatment and management plan for this patient's care in the emergency department, thus performing a substantial portion of the medical decision making. Sandy Fine DO Discharge Plan Disposition Chief Complaint: Cough Prescriptions Prescriptions: No Action norethindrone-e.estradiol-iron [ (28)] 1.5 mg-30 mcg (21)/75 mg (7) tablet 1 tab PO DAILY Qty: 84 3RF hydrocodone-acetaminophen 5-325 mg Tablet 1 - 2 tab PO Q6H PRN (Reason: Pain) Qty: 17 0RF nitrofurantoin monohyd/m-cryst [Macrobid] 100 mg capsule 100 mg PO BID 5 Days Qty: 10 0RF Rx Instructions: must administer with a meal/food ondansetron 4 mg tablet,disintegrating 4 mg PO Q6H PRN (Reason: nausea and vomiting) Qty: 12 0RF vitamin O22-efwvb acid 0.5-1 mg Tablet 1 tab PO DAILY cephalexin 500 mg capsule 500 mg PO BID 10 Days Qty: 20 0RF linezolid 600 mg tablet 600 mg PO BID 7 Days Qty: 14 0RF ondansetron 4 mg tablet,disintegrating 4 mg PO Q8H PRN (Reason: nausea and vomiting) 3 Days Qty: 9 0RF Referrals Follow up/Referrals: Wil Cavanaugh MD [Primary Care Provider, Internal Medicine] - See instructions Instructions Patient Instructions: Cough Print Language Print Language: Georgian Discharge ED Provider: Sandy Fine General Adult HPI General Chief complaint: Cough Stated complaint: cough, pain in left ribs Time Seen by Provider: 05/21/25 16:32 Mode of Arrival: Ambulatory Source of Information: Patient Description of Symptoms (Recalled from ER Triage Doc. by RN): Pt presents for evaluation of cough and LUQ abd pain. Pt states she was seen 1 week ago and was diagnosed with bronchitis and a uti. Pt states she was prescribed antibiotics. Pt states she does not have a PCP that she can follow up with. Pt states she continues to have a bad dry cough. She reports having diarrhea since saturday, and had vomiting saturday to saturday. History of Present Illness HPI narrative: 24-year-old female presents to the ED today for complaint of cough that has not improved since Saturday when she was here. She says she was given Zofran and an antibiotic, Avelox for her UTI. She says she vomited before she even got out of the building on Saturday. Patient says now she has left upper quadrant pain which she thinks may be from coughing. She was diagnosed with bronchitis and a UTI. She was prescribed antibiotics and she just has not felt better. She has vomiting and diarrhea. Related Data Home Medications ?Medication ?Instructions ?Recorded ?Confirmed vitamin B12 0.5 mg-folic acid 1 mg 1 tab PO DAILY 02/0903/08/25 tablet Previous Rx's ?Medication ?Instructions ?Recorded norethindrone 1.5 mg-ethinyl 1 tab PO DAILY #84 tabs 0 08/12/24 estradiol 30 mcg(21)/iron 75 mg(7) tablet ( FE .11/06 ()) hydrocodone 5 mg-acetaminophen 325 1 - 2 tab PO Q6H LA N Pain #17 tabs 03/08/25 mg tablet cephalexin 500 mg capsule 500 mg PO BID 10 days #20 ca ps 03/14/25 linezolid 600 mg tablet 600 mg PO BID 7 days #14 tab s 03/20/25 ondansetron 4 mg disintegrating 4 mg PO Q8H PRN nausea and 04/18/25 tablet vomiting 3 days #9 tabs nitrofurantoin 100 mg PO BID 5 days #10 cap s 05/15/25 monohydrate/macrocrystals 100 mg capsule (Macrobid) ondansetron 4 mg disintegrating 4 mg PO Q6H PRN nausea and 05/15/25 tablet vomiting #12 tabs Allergies Allergy/AdvReac Type Severity Reaction Status Date / Time No Known Allergies Allergy Verified 03/08/25 07:23 [facility] Disclaimer: The information contained in this section may have been updated after the patient was seen, as this information can be updated by other users. Medical History (Updated 05/15/25 @ 22:26 by Paco Nowak MD) Urinary tract infection symptoms Nausea & vomiting Pelvic pain in female Painful intercourse History of induced hypertension Acute blood loss anemia Elevated blood pressure affecting , antepartum Vaginal bleeding during , antepartum History of pre-eclampsia in prior , currently Tobacco use affecting , antepartum Maternal obesity affecting , antepartum Abnormal uterine bleeding Depression Anxiety Urinary tract infection Asthma Hypertension Surgical History History of biopsy History of surgery on arm S/P repeat low transverse History of tonsillectomy Hx of section Family History Other Asthma Cancer Diabetes FHx: mental illness Heart attack Hypertension Social History (Updated 03/08/25 @ 07:25 by Preeti oL RN) Smoking Status: Current every day smoker tobacco type: e-cigarettes second hand exposure: No alcohol intake: never substance use type: denies use current occupational status: unemployed Travel in the last 8 weeks?: None household members: family housing: house do you feel safe at home: Yes victim of physical abuse: No victim of emotional abuse: No victim of sexual abuse: No Have you lived/traveled outside [place] in past 30 days?: No Contact w/someone who lives/traveled outside [place] past 30 days?: No Exposure to someone with infectious disease in past 14 days?: No Do you have a fever (greater than 100.4 F or 38 C)?: No Have you tested positive for COVID-19?: No Exposed to someone with COVID-19 in past 14 days?: No Do you have a sore throat?: No Do you have a cough?: No Do you have any weakness?: No Do you have any diarrhea?: No Are you experiencing any unusual bleeding?: No Do you have any muscle aches/pain?: No Do you have any abdominal pain?: No Are you experiencing loss of taste or smell?: No Other Medical History Have you received the Flu Vaccine for this season: No Have you received the Pneumonia Vaccine: No ROS Obtained: Yes Systems reviewed as appropriate & no additional complaints except as documented Constitutional Constitutional: Reports as per HPI Physical Exam General General appearance: alert Head Head exam: normocephalic Eye Eye exam: Present PERRL and EOMI ENT ENT exam: Present normal oropharynx and mucous membranes moist Neck Neck exam: Present full ROM and trachea midline Respiratory Respiratory exam: Present wheezes (ocassional wheezes. rhonchi throughout) Cardiovascular Cardiovascular exam: Present regular rate, normal rhythm, normal heart sounds, +S1 and +S2 Extremities Exam Extremities exam: Present full ROM and normal capillary refill Neurological Exam Neurological exam: Present alert and oriented X3 Skin Skin exam: Present warm and dry Medical Decision Making Medical Records Screening: Per USPSTF and CDC recommendations, given the prevalence of disease in our region, it is our hospital?s policy to screen for HIV and viral Hepatitis for all patients aged 18 and over and those with ongoing risk factors. Gregory Inquiry Pt receiving controlled substance: No Gregory was queried for this patient: No Vital Signs: 05/21/25 16:35 05/21/25 17:30 Temperature 98.8 F Temperature Source Oral Pulse Rate 110 H Pulse Rate [Right] 75 Respiratory Rate 18 Blood Pressure 151/91 H Blood Pressure [Right Arm] 144/95 H Blood Pressure Mean [Right Arm] 111 Blood Pressure Source [Right Arm] Automatic Cuff Blood Pressure Position [Right Arm] Sitting 02 Sat by Pulse Oximetry 96 100 Oxygen Delivery Method Room Air Lab Data Lab Results 05/21/25 17:08: WBC 8.2, RBC 4.73, Hgb 13.8, Hct 40.0, MCV 84.6, MCH 29.2, MCHC 34.5, RDW 12.2, Plt Count 350, MPV 11.0 H, Neut % (Auto) 42.2, Lymph % (Auto) 39.1, [place] % (Auto) 6.1, Eos % (Auto) 12.2 H, Baso % (Auto) 0.2, Neut # (Auto) 3.5, Lymph # (Auto) 3.2, Glad[place] # (Auto) 0.5, Eos # (Auto) 1.0 H, Baso # (Auto) 0.0, Sodium 141, Potassium 4.0, Chloride 101, Carbon Dioxide 21 L, Anion Gap 23.0 H, BUN 7, Creatinine 0.70, Estimated Creat Clear 164, Estimated GFR 101, Est GFR ( Amer) 122, Glucose 81, Calcium 9.0, Magnesium 2.1, Total Bilirubin 0.7, AST 30, ALT 12, Alkaline Phosphatase 63, Total Protein 8.5 H, A lbumin 5.1 H, Globulin 3.4 H, Albumin/Globulin Ratio 1.5, Urine Color Yellow, Urine Appearance Clear, Urine pH 6.0, Ur Specific Mcgehee 1.020, Urine Protein Negative, Urine Glucose (UA) Negative, Urine Ketones 3+, Urine Blood Negative, Urine Nitrate Negative, Urine Bilirubin 1+ A, Urine Urobilinogen 0.2, Ur Leukocyte Esterase Negative, Urine RBC None, Urine WBC Occasional, Ur Squamous Epith Cells Occasional, Urine Bacteria Trace, Urine HCG, Qual Negative 05/21/25 17:08 05/21/25 17:08 Orders (Tests/Meds): ED MEDICATIONS Discontinued Medications Generic Name Dose Route Start Last Admin Trade Name Freq PRN Reason Stop Dose Admin Albuterol/Ipratropium 9 ml 05/21/25 16:54 05/21/25 17:10 Ipratropium/Albuterol 3 Ml Neb IH 05/21/25 16:55 9 ml ONCE ONE Administration Ketorolac Tromethamine 30 mg 05/21/25 16:55 05/21/25 17:10 Ketorolac 30mg/Ml Vial IV 05/21/25 16:56 30 mg ONCE ONE Administration Methylprednisolone Sodium Succinate 125 mg 05/21/25 16:54 05/21/25 17:10 Methylprednisolone Sod Succ 125mg Vial IV 05/21/25 16:55 125 mg ONCE ONE Administration ORDERS Category Date Time Status XR ribs LT 2V Stat Exams 05/21/25 16:50 Completed CBC w/Auto Diff [Complete Blood Count Auto Diff] Stat Lab 05/21/25 17:08 Completed Comprehensive Metabolic Panel Stat Lab 05/21/25 17:08 Completed Magnesium Stat Lab 05/21/25 17:08 Completed Urinalysis and Microscopic Stat Lab 05/21/25 17:08 Completed Urine , HCG Qual. Stat Lab 05/21/25 17:08 Completed Medical Decision Narrative: patient is a 24-year-old female presenting to the emergency department for evaluation of left upper quadrant abdominal pain, cough, body aches. Patient is hemodynamically stable and nontoxic-appearing upon arrival, afebrile. Differential diagnosis includes bronchitis, fractured rib, among other. Workup will be conducted with hematologic labs, specific imaging, provocative tests. Initial inventions include crystalloid bolus, analgesics, antibiotic. Initial workup reviewed by dc hematologic labs are remarkable for Normal white count of 8.2, BUN and creatinine were normal, electrolytes were normal, mag was normal, kidney function was also normal as well as liver function. Urine showed 1+ bilirubin negative . The rib series showed no acute findings. Patient will be sent home with follow-up with her PCP next week. She will continue to fluids and rest. Critical Care Critical Care Time Critical Care Time: No
--- NOTE | 2025-05-21 17:00 | PC.NURSE ---
1 unsuccessful IV attempt by this RN
[2025-05-21] MEDS: METHYLPREDNISOLONE SOD SUCC 125MG VIAL 125 MG IV (17:10)
[2025-05-21] MEDS: IPRATROPIUM/ALBUTEROL 3 ML NEB 9 ML IH (17:10)
[2025-05-21] MEDS: KETOROLAC 30MG/ML VIAL 30 MG IV (17:10)
[2025-05-21 17:22] LABS: Microscopic, Urine URINE MICROSCOPIC (MICROSCOPIC)
--- NOTE | 2025-05-21 17:22 | HMH.ITSTN ---
waiting on test at this time prior to xrays
[2025-05-21 17:23] LABS: Color,Urine YELLOW (Yellow); Glucose,Urine (UA) Negative (Negative); Ketones,Urine 3+ (Negative); Leukocyte Esterase,Urine Negative (Negative); PH,Urine 6.0 (5.0-8.5); Protein,Urine Negative (Negative); Specific Gravity, Urine 1.020 (1.005-1.030); Urobilinogen,Urine 0.2 EU/dl (0.2)
[2025-05-21 17:25] LABS: Bilirubin,Urine 1+ (Negative)
[2025-05-21 17:26] LABS: Albumin Level 5.1 g/dl (3.5-5.0); Chloride 101 mmol/L (98-107); Potassium 4.0 mmoL/L (3.5-5.1); Sodium 141 mmol/L (136-145)
[2025-05-21 17:27] LABS: Hematocrit 40.0 % (37.0-47.0); Hemoglobin 13.8 g/dL (12.2-16.2); Immature Granulocytes % 0.2 %; Mean Corpuscular HGB Conc 34.5 g/dL (31.8-35.4); Mean Corpuscular Hemoglobin 29.2 pg (27.0-31.2); Mean Corpuscular Volume 84.6 fl (81-99); Nucleated Red Blood Cells % 0 %; Platelet Count 350 K/mm3 (142-424); Red Blood Count 4.73 M/mm3 (4.20-5.40); Red Cell Distribution Width-SD 36.8 fL; White Blood Count 8.2 K/mm3 (4.8-10.8)
[2025-05-21 17:29] LABS: Alanine Aminotransferase 12 U/L (12-78); Albumin/Globulin Ratio 1.5 (1.1-1.8); Alkaline Phosphatase 63 U/L (38-126); Anion Gap 23.0 mEq/L (5-15); Aspartate Amino Transferase 30 U/L (14-36); Bilirubin,Total 0.7 mg/dl (0.2-1.3); Blood Urea Nitrogen 7 mg/dl (7-17); Calcium 9.0 mg/dl (8.4-10.2); Carbon Dioxide 21 mmol/L (22.0-30.0); Creatinine Clearance Estimated 164 mL/min (50-200); Creatinine,Serum 0.70 mg/dl (0.52-1.04); Estimated Glomerular Filt Rate 101 ml/min (>60); GFR (African American) 122 ML/MIN (>60); Globulin 3.4 g/dL (1.3-3.2); Glucose 81 mg/dl (74-100); Total Protein,Serum 8.5 g/dl (6.3-8.2)
[2025-05-21 17:30] VITALS: BP 151/91; PULSE 110; O2SAT 100
[2025-05-21 17:30] LABS: Magnesium 2.1 mg/dl (1.6-2.3)
[2025-05-21 17:37] LABS: Bacteria,Urine Trace /lpf; Squamous Epithelial Cell,Urine Occasional #/hpf (0-5); WBC,Urine Occasional #/hpf (0-3)
[2025-05-21 17:44] LABS: Urine Pregnancy, HCG Qual. Negative (Negative)
[2025-05-21 18:54] VITALS: BP 151/91; PULSE 82; RESP 16; TEMP 37.1; O2SAT 100
== END 2025-05-21 18:56 | disposition home or self-care (01) ==
PROVIDERS: Nurse Practitioner; Emergency Provider Student in an Organized Health Care Education/Training Program; PCP Internal Medicine Adolescent Medicine
DX: R10.12 Left upper quadrant pain (principal); R11.2 Nausea with vomiting, unspecified; J45.909 Unspecified asthma, uncomplicated; B34.9 Viral infection, unspecified; F17.210 Nicotine dependence, cigarettes, uncomplicated
CPT/HCPCS: 71100; 80053; 81001; 81025; 83735; 85025; 96374; 96375; 99284; J1885; J2919